=== PATIENT | male | born 1980 | race Caucasian/White ===

== ENCOUNTER 2016-11-11 11:45 | Inpatient (IN) | payer OTHER ==
--- NOTE | 2016-11-11 12:55 | EDPHY ---
H & P Stated Complaint: EPIGASTRIC "BURNING" PAIN SINCE 0430, W/ NAUSEA - Personal History Current Tetanus/Diphtheria Vaccine: Yes Current Tetanus Diphtheria and Acellular Pertussis (TDAP): Yes - Medical/Surgical History Hx Asthma: No Hx Chronic Respiratory Disease: No Hx Diabetes: No Hx Cardiac Disease: Yes Hx Renal Disease: No Hx Cirrhosis: No Hx Alcoholism: No Hx HIV/AIDS: No Hx Splenectomy or Spleen Trauma: No Other PMH: PMH- HTN. PSH- FAWN, R ACL REPAIR, UPPP - Social History Smoking Status: Former smoker Time Seen by Provider: 11/11/16 12:31 HPI/ROS: CHIEF COMPLAINT: Epigastric pain HISTORY OF PRESENT ILLNESS: The patient is a 35 year old male, presenting with epigastric pain that he woke up with this morning. He reports a burning sensation that comes and goes. It is non-radiating and lasts for about 45 minutes. He had associated nausea, without emesis. The patient had a cholecystectomy, he states his pain feels similar to previous gallstones. He denies chest pain or shortness of breath. He recently had cold like symptoms. Patient denies chest pain, shortness of breath, back pain, urinary complaints. He denies diarrhea. Cholecystectomy was several years ago. He does drink alcohol, but denies recent use. No history of pancreatitis. REVIEW OF SYSTEMS: Aside from elements discussed in the HPI, a comprehensive 10-point review of systems was reviewed and is negative. PAST MEDICAL HISTORY: PSH: Cholecystectomy. SOCIAL HISTORY: Alcohol use. Former smoker. VITAL SIGNS: Reviewed by me GENERAL: Well-developed, well-nourished, resting comfortably in no respiratory distress. HEENT: Atraumatic. Eyes: No icterus, no injection. Mouth: moist mucous membranes. No erythema or lesions. Neck: supple with no adenopathy. LUNGS: Clear to auscultation bilaterally, no wheezes, rhonchi or rales. CARDIAC: Regular rate and rhythm, no rubs, murmurs or gallops. ABDOMEN: Obese, nontender, nondistended, bowel sounds normal. BACK: No CVA tenderness. EXTREMITIES: No trauma. No edema. Range of motion is normal throughout. NEURO: Alert and oriented, grossly nonfocal. SKIN: Warm and dry, no rash. PSYCHIATRIC: Normal mentation, no agitation. Portions of this note were transcribed by a biomedical engineering supervisor. I personally performed a history, physical exam, medical decision making, and confirmed accuracy of information the transcribed note. (Molly Thrasher) Constitutional: Initial Vital Signs Temperature (C) 36.9 C 11/11/16 11:46 Heart Rate 79 11/11/16 11:46 Respiratory Rate 20 11/11/16 11:46 Blood Pressure 149/116 H 11/11/16 11:46 O2 Sat (%) 97 11/11/16 11:46 O2 Delivery Mode Room Air Allergies/Adverse Reactions: No Known Allergies Allergy (Verified 06/19/16 13:56) Home Medications: Medication Instructions Recorded Ascorbic Acid [Vitamin C 500 mg 500 mg PO DAILY 06/17/16 (*)] NIFEdipine ER [Adalat CC 30 mg (*)] 90 mg PO DAILY 06/17/16 Valsartan [Diovan (*)] 160 mg PO HS 06/17/16 Medical Decision Making - Diagnostics EKG Interpretation: The 12 lead EKG was interpreted by myself. See hard copy and/or "tracemaster" electronic copy for interpretation: Normal sinus rhythm. (Molly Thrasher) Imaging: Study: US of the abdomen. Indication: Abdominal pain. Results: Common bile duct is enlarged at 70 mm, this is however within the range for post cholecystectomy. No other abnormalities are noted. The study was read by the radiologist, Dr. Angelo. I viewed the images myself on the PACS system. ( Molly Thrasher) ED Course/Re-evaluation: 35-year-old male presents to the emergency department with episodic prep epigastric burning pain which is reminiscent of his prior cholecystectomy pain. Patient's laboratory evaluation reveals no elevated white blood cell count, however, patient has a bilirubin of 2 as well as elevated AST and ALTs. AST 323 , ALT 393. Alk-phos is normal. 3:00 p.m.: I spoke to ABISAI Alicia, who recommended MRCP. Patient's course was assumed by Dr. Saurav Werner at 4:00 p.m. pending the results of the MRCP. On re-evaluation patient remains pain-free. (Molly Thrasher) 1706; Patient signed over to me at shift change. Patient was pending an MRCP. The MRCP is back he has a 3 mm retained stone in the common bile duct. MRI of the MRCP. The results of the study are 3 mm retained stone in the CBD. I discussed the results of this study with the radiologist Dr. Ashok Angelo. 1720: Spoke with Dr. Ulysses Jennings, who would like to scope removed this retained stone tomorrow. Recommend admission the hospital NPO at midnight. Plan for scope tomorrow. At this time I have updated the patient he agrees with this plan. I also spoke with Dr. Yu who accepts the admission. ( Saurav Werner) Differential Diagnosis: Differential diagnosis for the patient's presenting complaint was considered including but not limited to bile duct stone, ascending cholangitis, cholecystitis, peptic ulcer disease, pancreatitis, and gastroenteritis. ( Molly Thrasher) - Data Points Laboratory Results: Laboratory Results 11/11/16 12:35 11/11/16 12:35 11/11/16 12:35 WBC 7.80 10^3/uL (3.80-9.50) RBC 5.38 10^6/uL (4.40-6.38) Hgb 17.3 g/dL (13.7-17.5) Hct 49.1 % (40.0-51.0) MCV 91.3 fL (81.5-99.8) MCH 32.2 pg (27.9-34.1) MCHC 35.2 g/dL (32.4-36.7) RDW 11.9 % (11.5-15.2) Plt Count 307 10^3/uL (150-400) MPV 9.6 fL (8.7-11.7) Neut % (Auto) 68.3 % (39.3-74.2) Lymph % (Auto) 22.1 % (15.0-45.0) [place] % (Auto) 7.6 % (4.5-13.0) Eos % (Auto) 0.8 % (0.6-7.6) Baso % (Auto) 0.8 % (0.3-1.7) Nucleat RBC Rel Count 0.0 % (0.0-0.2) Absolute Neuts (auto) 5.34 10^3/uL (1.70-6.50) Absolute Lymphs (auto) 1.72 10^3/uL (1.00-3.00) Absolute Monos (auto) 0.59 10^3/uL (0.30-0.80) Absolute Eos (auto) 0.06 10^3/uL (0.03-0.40) Absolute Basos (auto) 0.06 10^3/uL (0.02-0.10) Absolute Nucleated RBC 0.00 10^3/uL (0-0.01) Immature Gran % 0.4 % (0.0-1.1) Immature Gran # 0.03 10^3/uL (0.00-0.10) Sodium 139 mEq/L (134-144) Potassium 4.6 mEq/L (3.5-5.2) Chloride 102 mEq/L (97-110) Carbon Dioxide 24 mEq/l (22-31) Anion Gap 13 mEq/L (8-16) BUN 18 mg/dL (7-23) Creatinine 1.0 mg/dL (0.7-1.3) Estimated GFR > 60 Glucose 95 mg/dL (70-100) Calcium 9.6 mg/dL (8.5-10.4) Total Bilirubin 2.0 H mg/dL (0.1-1.4) Conjugated Bilirubin 0.5 mg/dL (0.0-0.5) Unconjugated Bilirubin 1.5 H mg/dL (0.0-1.1) AST 323 H IU/L (17-59) ALT 393 H IU/L (21-72) Alkaline Phosphatase 75 IU/L (38-126) Total Protein 7.6 g/dL (6.3-8.2) Albumin 4.6 g/dL (3.5-5.0) Lipase 78.0 IU/L (23-300) Medications Given: Discontinued Medications Pantoprazole Sodium (Protonix) 40 mg IVP EDNOW ONE Stop: 11/11/16 12:59 Last Admin: 11/11/16 13:35 Dose: 40 mg Departure - Departure Disposition: [facility] Acute Clinical Impression: Abdominal pain Qualifiers: Abdominal location: right upper quadrant Qualifier Code: (R10.11) Right upper quadrant pain Condition: Good Referrals: Harmeet Hennessy MD [Primary Care Provider] - As per Instructions Report Scribed for: Molly Thrasher Report Scribed by: Ayla Weber Date of Report: 11/11/16 Time of Report: 12:55
[2016-11-11] MEDS ORDERED: PANTOPRAZOLE SODIUM 40 MG VIAL IVP ONE (12:58)
[2016-11-11 13:05] LABS: % IMMATURE GRANULYOCYTES 0.4 % (0.0-1.1); ABSOLUTE IMMATURE GRANULOCYTES 0.03 10^3/uL (0.00-0.10); ADD DIFF? NO; ADD MORPH? NO; ADD SCAN? NO; ATYPICAL LYMPHOCYTE FLAG 20 (0-99); FRAGMENT RBC FLAG 0 (0-99); HEMATOCRIT 49.1 % (40.0-51.0); HEMOGLOBIN 17.3 g/dL (13.7-17.5); LEFT SHIFT FLG 0 (0-99); LIPEMIA HEMOLYSIS FLAG 90 (0-99); MEAN CELL HEMOGLOBIN 32.2 pg (27.9-34.1); MEAN CELL HEMOGLOBIN CONCENTR. 35.2 g/dL (32.4-36.7); MEAN CELL VOLUME 91.3 fL (81.5-99.8); MEAN PLATELET VOLUME 9.6 fL (8.7-11.7); PLATELET CLUMPS FLAG 0 (0-99); PLATELET COUNT 307 10^3/uL (150-400); RED BLOOD CELL COUNT 5.38 10^6/uL (4.40-6.38); RED CELL DISTRIBUTION WIDTH 11.9 % (11.5-15.2)
--- NOTE | 2016-11-11 13:12 | CPEKG ---
Heart Rate: 69 RR Interval: 870 QRSD Interval: 88 QT Interval: 396 QTC Interval: 425 QRS Kinsman: 25 T Wave Kinsman: 21 EKG Severity - ABNORMAL ECG - EKG Impression: sinus Electronically Signed By: Molly Thrasher 11-Nov-2016 16:00:40
[2016-11-11 13:19] LABS: ALANINE AMINOTRANSFERASE 393 IU/L (21-72); ALBUMIN 4.6 g/dL (3.5-5.0); ALKALINE PHOSPHATASE 75 IU/L (38-126); ANION GAP 13 mEq/L (8-16); ASPARTATE AMINOTRANSFERASE 323 IU/L (17-59); BILIRUBIN-CONJUGATED 0.5 mg/dL (0.0-0.5); BILIRUBIN-UNCONJUGATED 1.5 mg/dL (0.0-1.1); CALCIUM 9.6 mg/dL (8.5-10.4); CARBON DIOXIDE 24 mEq/l (22-31); CHLORIDE 102 mEq/L (97-110); GLOMERULAR FILTRATION RATE > 60; GLUCOSE 95 mg/dL (70-100); POTASSIUM 4.6 mEq/L (3.5-5.2); SODIUM 139 mEq/L (134-144); TOTAL PROTEIN 7.6 g/dL (6.3-8.2)
--- NOTE | 2016-11-11 14:17 | US ---
Right Upper Quadrant Sonogram (Limited Abdominal) Clinical Indications: Abdominal pain. Prior cholecystectomy. Comparison February 18, 2014. Findings: Liver is mildly enlarged at 20 cm and slightly increased in echogenicity. This is relative ly stable from the prior examination. Liver contour is normal. The main portal vein is patent. The ga llbladder is absent. The common bile duct varies between 7 and 8 mm. There is no definitive evidence of choledocholithiasis. Limited examination of the pancreas is unremarkable. There is a moderate amou nt of bowel gas. Right kidney measures 5.7 x 6.7 x 10.3 cm with a 1.8-cm cortex. The aorta is unremarkable and measures between 2.2 and 2.3 cm. Impression: 1. No definitive evidence of choledocholithiasis. Common bile ducts size is indeterminate in a postch olecystectomy patient. If high clinical suspicion persists, M.R.C.P. may be helpful. 2. Mild fatty infiltration of the liver. Critical results discussed by Dr. Ashok Angelo with Dr. Molly Thrasher on November 11, 2016, at 1415 h ours.
--- NOTE | 2016-11-11 17:17 | MR ---
MRI Abdomen, Without Contrast, and MRCP Indication: Abdominal pain and elevated liver function tests. Technique: Axial T1 dual echo, axial and coronal T2 FIESTA, axial diffusion-weighted, and thin and t hick slab heavily T2-weighted axial and coronal oblique MR cholangiopancreatography. Comparison: Ultrasound November 11, 2016. Findings: In the lower intrapancreatic portion of the common bile duct is a 3-mm intraluminal fillin g defect consistent with choledocholithiasis. There is no to minimal upstream dilation and no intrah epatic biliary ductal dilatation. There has been a prior cholecystectomy. Mild diffuse dropout of the liver is known on the des-xh-toidt imaging consistent with fatty liver. The spleen, kidneys, adrenals, and pancreas are unremarkable. Impressions 1. Choledocholithiasis, with a 3-mm stone in the lower intrapancreatic common bile duct. Minimal up stream dilation is present. 2. Fatty infiltration of the liver. Critical results discussed by Dr. Angelo with Dr. Werner on November 11, 2016 at 1708 hours.
[2016-11-11] MEDS ORDERED: PROMETHAZINE HCL 25 MG/ML INJ IVP PRN (20:03)
[2016-11-11] MEDS ORDERED: 1/2 NS 1,000 ML IV SCH (20:30)
--- NOTE | 2016-11-11 20:39 | GHP ---
[f rep st] HISTORY AND PHYSICAL DATE OF ADMISSION: 11/11/2016 CHIEF COMPLAINT: Epigastric pain. HISTORY: The patient is a 35-year-old male who had a little bit of epigastric pain yesterday, but he had a snack, and it seem to go away, and he thought it was indigestion. Then suddenly at 4 o'clock this morning he had acute onset of severe epigastric pain. He said it felt hot like fire, occasional ly radiating to his back. It was very similar to his previous gallstone pain prior to his cholecyste ctomy. He tried to eat something again this morning hoping it would improve the pain, but it only ma de it worse. PAST MEDICAL HISTORY: 1. Morbid obesity, BMI 44. 2. Hypertension. 3. Obstructive sleep apnea, status post UPPP, CPAP intolerant. PAST SURGICAL HISTORY: Cholecystectomy approximately 3 years ago. MEDICATIONS: Please see computer record for full detailed list. ALLERGIES: No known drug allergies. SOCIAL HISTORY: No smoking. He drinks alcohol 3 times a week. He works in [employer], live s with roommates. REVIEW OF SYSTEMS: Complete review of systems obtained. Review of systems is negative on constituti onal, HEENT, GI, pulmonary, cardiovascular, , hematologic, musculoskeletal, endocrine, psych except for positives and pertinent negatives as noted in HPI. FAMILY HISTORY: His father when he was young in a farm accident. His mom is alive, but he is n ot currently on speaking terms with her. As far as he knows, she is healthy. PHYSICAL EXAMINATION: GENERAL: Well-developed, well-nourished male, in no acute distress. VITAL SI GNS: Temperature 36.8, pulse 70, blood pressure 146/106, and 95% on room air. EYES: Normal conjunc tivae. Pupils equal, round, reactive to light. ENT: Normal ears and nose. Hearing intact. Normal teeth. Oropharynx moist. NECK: Trachea midline. No thyromegaly. CHEST: Normal respiratory effo rt. LUNGS: Clear to auscultation bilaterally. CARDIOVASCULAR: Regular rate and rhythm. No murmur . No lower extremity edema. ABDOMEN: Soft, nontender. No hepatosplenomegaly. SKIN: Warm, dry, a nd intact without rash. MUSCULOSKELETAL: No cyanosis or clubbing. Strength 5/5 in upper and lower extremities. NEUROLOGIC: Cranial nerves intact. Normal sensation to light touch. PSYCH: Alert an d oriented x3. Normal mood and affect. Normal judgment and insight. Normal memory. LABS: White count 7.8, hematocrit 49, platelets 307. Sodium 139, potassium 4.6, chloride 102, bicar b 24, BUN 18, creatinine 1.0, glucose 95, total bilirubin 2.0, conjugated bilirubin 1.5. AST 323, AL T 393. EKG viewed by me: My personal interpretation is normal sinus rhythm. No ST or T-wave change s. MRCP shows choledocholithiasis, 3 mm stone in the common bile duct causing obstruction. This ramonita e was discussed with emergency room provider, Dr. Werner. ASSESSMENT/PLAN: 1. Retained common bile duct stone. He previously underwent cholecystectomy approximately 3 years a go. Gastroenterology has been called. Plan is for ERCP in the morning. Will trend LFTs. 2. Morbid obesity. BMI is 44. Weight loss should be advised. 3. Obstructive sleep apnea, status post uvulopalatopharyngoplasty. He is CPAP intolerant. 4. Hypertension. Continue valsartan and nifedipine. ADMISSION STATUS: Will admit to observation as he can hopefully go home tomorrow after procedure. DVT PROPHYLAXIS: He is high risk. Will place him on SCDs only given procedure in the morning. CODE STATUS: Full. /[id number]/MODL
[2016-11-11] MEDS: VALSARTAN 160 MG TAB PO SCH (20:42)
[2016-11-12 06:33] LABS: BILIRUBIN,TOTAL 4.9 mg/dL (0.1-1.4); BILIRUBIN-CONJUGATED 1.6 mg/dL (0.0-0.5); BILIRUBIN-UNCONJUGATED 3.3 mg/dL (0.0-1.1); TOTAL PROTEIN 6.7 g/dL (6.3-8.2)
[2016-11-12] MEDS: NIFEdipine ER 30 MG TAB PO SCH (08:54)
--- NOTE | 2016-11-12 11:08 | HOSPPROG ---
Hospitalist Progress Note Assessment/Plan: patient is a 35-year-old male who came to the emergency room with severe epigastric pain. It was similar to the pain he had prior to getting his gallbladder out. Today is my 1st encounter with the patient. Chart reviewed. #. Retained common bile duct stone * ERCP today * LFTs are elevated due to this #. morbid obesity with a BMI of 44 #. obstructive sleep apnea * status post surgery * cpap intolerant #. hypertension * home meds continued #. plan. * Hopefully discharged today after the ERCP. Subjective: Patient is no longer having epigastric pain. Objective: Vital Signs Temp Pulse Resp BP Pulse Ox 37.0 C 72 16 123/75 H 94 11/12/16 07:18 11/12/16 07:18 11/12/16 07:18 11/12/16 08:54 11/12/16 07:18 11/11/16 11/12/16 11/13/16 05:59 05:59 05:59 Intake Total 1000 Output Total 400 Balance 600 - Physical Exam Constitutional: appears nourished, not in pain, obese Eyes: PERRL Ears, Nose, Mouth, Throat: hearing normal Cardiovascular: regular rate and rhythym Respiratory: no respiratory distress Gastrointestinal: normoactive bowel sounds, other ( Large and round) Skin: warm, normal color Musculoskeletal: no muscle tenderness Neurologic: AAOx3 Psychiatric: interacting appropriately, not anxious ICD10 Worksheet Patient Problems: Problems Problem Status Diagnosed Abdominal pain Acute
[2016-11-12] MEDS ORDERED: PROPOFOL 200 MG/20 ML VIAL ONE (11:37)
[2016-11-12] MEDS ORDERED: fentaNYL 100 MCG/2 ML INJ ONE ×2 (11:37→13:04)
[2016-11-12] MEDS ORDERED: ROCURONIUM 50 MG/5 ML VIAL ONE (11:38)
[2016-11-12] MEDS ORDERED: LIDOCAINE 2% 100 MG/5 ML SYR IVP ONE (11:38)
[2016-11-12] MEDS ORDERED: MIDAZOLAM 2 MG/2 ML VIAL ONE (11:38)
[2016-11-12] MEDS ORDERED: DEXAMETHASONE 4 MG/ML VIAL ONE ×2 (11:38)
[2016-11-12] MEDS ORDERED: LABETALOL HCL 5 MG/ML 20 ML MDV ONE (11:52)
[2016-11-12] MEDS ORDERED: SUGAMMADEX SODIUM 200 MG/2 ML VIAL IVP ONE (12:12)
[2016-11-12] MEDS ORDERED: hydrALAZINE 20 MG/ML VIAL ONE (12:16)
--- NOTE | 2016-11-12 12:34 | GCON ---
[f rep st] CONSULTATION DATE OF CONSULTATION: 11/12/2016 REASON FOR CONSULTATION: A 35-year-old male with abnormal liver function tests and abnormal MRCP. HISTORY OF PRESENT ILLNESS: This is a very pleasant, 35-year-old gentleman who had a cholecystectomy about 3 years ago. He has had intermittent symptoms of epigastric right upper quadrant pain since t hat time. He has had several recent episodes. He presented to the emergency department with some ab normal liver function tests. MRCP showed a filling defect in the distal common bile duct consistent with choledocholithiasis. He does have a history of hypertension, but no other significant medical p roblems. Asked to see the patient for further evaluation. PAST MEDICAL HISTORY: Remarkable for hypertension. PAST SURGICAL HISTORY: Remarkable for cholecystectomy. MEDICATIONS: Medications prior to admission included nifedipine and Diovan. ALLERGIES: No known drug allergies. FAMILY HISTORY: Negative as it pertains to the chief complaint. SOCIAL HISTORY: He is a nonsmoker, does drink some alcohol. REVIEW OF SYSTEMS: Negative x10 systems, other than mentioned in the HPI. PHYSICAL EXAMINATION: VITAL SIGNS: Blood pressure 148/97, respiratory rate 16, pulse rate 76, tempe rature 36.9, pulse oximetry 91. GENERAL APPEARANCE: Very pleasant gentleman in no acute distress. HEENT: Normocephalic, atraumatic. EOMI. Mucous membranes moist. NECK: Supple, with no cervical a denopathy. LUNGS: Clear. CARDIAC: Normal S1, S2 without murmur. ABDOMEN: Benign. Normal bowel sounds. No palpable splenomegaly. EXTREMITIES: No clubbing, cyanosis, or edema. SKIN: Warm, dry, intact. NEUROLOGIC: Nonfocal. PSYCHIATRIC: Alert and oriented x3. Normal affect. LABORATORY DATA: Total bilirubin 4.9, AST 410, ALT 646. Hemoglobin 17.3, hematocrit 49.1. Ultrasound showed no definite evidence of choledocholithiasis. Common bile duct was somewhat promine nt at 7-8 mm. Evidence of mild fatty infiltration. MRI showed choledocholithiasis with a 3 mm stone in the lower intrapancreatic common bile duct. IMPRESSION: A 35-year-old gentleman with prior cholecystectomy with abnormal liver function tests co nsistent with biliary obstruction and MRCP with filling defect consistent with choledocholithiasis. RECOMMENDATIONS: Proceed with ERCP for sphincterotomy and stone extraction. Will follow with you. /[id number]/MODL
[2016-11-12] MEDS ORDERED: ONDANSETRON 4 MG/2 ML VIAL ONE (13:04)
--- NOTE | 2016-11-12 13:47 | DX ---
Fluoroscopy for ERCP 1315 hours. History: Choledocholithiasis suspected distal common bile duct on prior MRCP study. Findings: Fluoroscopy time: 2.42 minutes, Estimated dose: 73.41 mGy Single digital image saved demonstrates cannulation of the common bile duct with faint contrast. Ther e is suspicion of a filling defect in the distal common bile duct that could correlate with the filli ng defect seen on prior MRCP exam. There is no significant dilatation. Impression: 1. Fluoroscopy provided for ERCP procedure.
--- NOTE | 2016-11-12 14:41 | GPN ---
[f rep st] PROCEDURE NOTE DATE OF PROCEDURE: 11/12/2016 PROCEDURE: Endoscopic retrograde cholangiopancreatogram and sphincterotomy with stone extraction. PREOPERATIVE DIAGNOSIS: Choledocholithiasis. POSTOPERATIVE DIAGNOSIS: Choledocholithiasis, status post sphincterotomy and stone extraction. INDICATIONS: A 35-year-old gentleman with prior history of gallstones, status post cholecystectomy. Patient with intermittent right upper quadrant pain and epigastric pain with abnormal liver function tests. He had a prominent bile duct on ultrasound and had stones seen on MRCP. He presents today f or ERCP and sphincterotomy with stone extraction. PHYSICAL EXAMINATION: VITAL SIGNS: Stable. LUNGS: Clear. CARDIAC: Normal S1, S2 without murmur. PERMIT: The procedure was explained to the patient. Risks and benefits of the procedure outlined to the patient. Informed consent was obtained. ANESTHESIA: General. DESCRIPTION OF PROCEDURE: The patient was placed in the prone position. The TGF-180 videoscope was passed through the oropharynx under direct visualization into the stomach, into the pylorus and the 1 st and 2nd portion of the duodenum. The endoscope was then shortened. The papillary orifice was santa ntified. The Ultratome sphincterotome was placed in the papillary orifice. The 035 Jagwire was then manipulated into the duct. It was manipulated initially into the pancreatic duct. The wire was lef t in place. A second wire was then utilized. A 035 stiff guidewire was then introduced through the sphincterotome and introduced into the common bile duct. The Jagwire in the pancreatic duct was then removed. Cholangiogram was obtained. There were small filling defects in the distal common bile du ct. There was evidence of surgical clips consistent with the patient's cholecystectomy. A sphincter otomy was performed. A sphincterotome was then withdrawn and a 9-12 mm balloon was then passed over the wire into the common hepatic duct. The balloon was inflated to 12 mm. The duct was dredged rachel ral times with removal of stone and stone debris. There was good bile flow. The balloon and the end oscope were then withdrawn. The patient tolerated the procedure well. IMPRESSION: Choledocholithiasis, status post endoscopic retrograde cholangiopancreatogram and sphinc terotomy with stone extraction. RECOMMENDATIONS: When awake and alert, may have clear liquid diet. Follow-up LFTs. Will follow cli nically. Thank you for letting me participate in the care of this patient. /[id number]/MODL
[2016-11-12] MEDS: ONDANSETRON 4 MG/2 ML VIAL IVP PRN (15:30)
[2016-11-12] MEDS ORDERED: NALOXONE HCL 0.4 MG/ML INJ IVP PRN (16:08)
[2016-11-12] MEDS: HYDROmorphONE/DILAUDID 6 MG/30 ML PCA IV PRN (16:31)
[2016-11-12] MEDS: NS 1,000 ML IV SCH ×2 (16:38→23:26)
[2016-11-12] MEDS: VALSARTAN 160 MG TAB PO SCH (21:44)
[2016-11-12] MEDS: oxyCODONE IR 5 MG TAB PO PRN (21:45)
[2016-11-13] MEDS: HYDROmorphONE/DILAUDID 6 MG/30 ML PCA IV PRN ×3 (00:07→23:34)
[2016-11-13 06:07] LABS: ALBUMIN 3.9 g/dL (3.5-5.0); ALKALINE PHOSPHATASE 112 IU/L (38-126); ANION GAP 16 mEq/L (8-16); BILIRUBIN,TOTAL 9.2 mg/dL (0.1-1.4); BILIRUBIN-CONJUGATED 6.7 mg/dL (0.0-0.5); BILIRUBIN-UNCONJUGATED 2.5 mg/dL (0.0-1.1); CALCIUM 8.6 mg/dL (8.5-10.4); CARBON DIOXIDE 20 mEq/l (22-31); CHLORIDE 104 mEq/L (97-110); CREATININE 2.1 mg/dL (0.7-1.3); GLOMERULAR FILTRATION RATE 36; GLUCOSE 130 mg/dL (70-100); POTASSIUM 4.9 mEq/L (3.5-5.2); SODIUM 140 mEq/L (134-144); TOTAL PROTEIN 6.6 g/dL (6.3-8.2)
[2016-11-13 06:19] LABS: ALANINE AMINOTRANSFERASE 1413 IU/L (21-72); ASPARTATE AMINOTRANSFERASE 852 IU/L (17-59)
[2016-11-13] MEDS: NS 1,000 ML IV SCH (06:41)
--- NOTE | 2016-11-13 09:02 | HOSPPROG ---
Hospitalist Progress Note Assessment/Plan: patient is a 35-year-old male who came to the emergency room with severe epigastric pain. It was similar to the pain he had prior to getting his gallbladder out. Reviewed his care with Gastroenterology. #. Choledocholithiasis * status post ERCP with stone extraction #. acute pancreatitis after procedure * supportive care /increase IV fluids continue NPO status * having significant pain / placed on Dilaudid [employer]IAN #. hyperbilirubinemia as well as elevated LFTs * most likely an acute reaction to the procedure * will recheck labs in the morning #. acute renal failure * will continue IV fluids * due to hypotension/ pre-renal * will recheck labs in a.m. #. tachycardia * due to acute illness * monitor for any s/sx of alcohol withdrawal #. hypotension * fluids increased to 200 mils an hour * tx to step down #. hx of alcohol binging * has never had withdrawals/ mainly goes out socially a few times a week #. acute hypoxemia * on 6 L of oxygen * get portable chest xray * suspect he will develop pleural effusions #. morbid obesity with a BMI of 44 #. obstructive sleep apnea * status post surgery * cpap intolerant #. hypertension * currently hypotensive/ place parameters on his home medications #. plan. * will transfer to step down for closer monitoring Subjective: Carl is thirsty, feels his pain is better this morning. Objective: Vital Signs Temp Pulse Resp BP Pulse Ox 37.3 C 115 H 20 98/66 L 91 L 11/13/16 07:14 11/13/16 07:14 11/13/16 07:14 11/13/16 07:14 11/13/16 07:14 Laboratory Results 11/13/16 05:05 11/12/16 11/13/16 11/14/16 05:59 05:59 05:59 Intake Total 980 1000 Output Total 1325 Balance -345 1000 - Physical Exam Constitutional: obese, uncomfortable Eyes: PERRL Ears, Nose, Mouth, Throat: hearing normal Cardiovascular: regular rate and rhythym, tachycardia Respiratory: no respiratory distress, reduced air movement (mid lobes down) Gastrointestinal: other (large and round/ tenderness with palp to epigastric and ruq area) Skin: warm, other (flushed) Musculoskeletal: no muscle tenderness Neurologic: AAOx3 Psychiatric: interacting appropriately, not anxious, not encephalopathic ICD10 Worksheet Patient Problems: Problems Problem Status Diagnosed Abdominal pain Acute
[2016-11-13] MEDS: NIFEdipine ER 30 MG TAB PO SCH (09:04)
--- NOTE | 2016-11-13 09:09 | SOAPPROG ---
SOAP Progress Note Assessment/Plan: Assessment: Choledocholithiasis, s/p ERCP with sphincterotomy and stone extraction. Pain post ERCP c/w post ERCP pancreatitis. Plan: 1. Continue NPO until pain resolved 2. Continue on IV fluids, NS for hydration 3. 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 LFTs, CMP and lipase in AM 11/13/16 09:06 Subjective: CC: Abnormal LFT's with biliary obstruction Patient with significant abdominal pain post ERCP Pain is better with pain control Objective: Vital Signs Temp Pulse Resp BP Pulse Ox 37.3 C 115 H 20 98/66 L 91 L 11/13/16 07:14 11/13/16 07:14 11/13/16 07:14 11/13/16 09:04 11/13/16 07:14 Laboratory Results 11/13/16 05:05 11/12/16 11/13/16 11/14/16 05:59 05:59 05:59 Intake Total 980 1000 Output Total 1325 Balance -345 1000 Generic Name Dose Route Start Last Admin Trade Name Freq PRN Reason Stop Dose Admin Acetaminophen 650 mg 11/11/16 20:03 Tylenol PO 05/10/17 20:02 Q4 PRN Pain, Mild/Fever, Can Take PO Hydromorphone HCl 0 mg 11/12/16 16:08 11/13/16 00:07 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 IV 11/22/16 16:07 6 mg PRN PRN Administration Pain, Severe Unable to Take PO Protocol Sodium Chloride 1,000 mls @ 200 mls/hr 11/12/16 16:15 11/13/16 06:41 Ns IV 05/11/17 16:14 1,000 mls CONT CHRIS Administration Naloxone HCl 0 mg 11/12/16 16:08 Narcan IVP 05/11/17 16:07 PRN PRN Respiratory depression Protocol Nifedipine 90 mg 11/12/16 09:00 11/13/16 09:04 Adalat Cc PO 05/11/17 08:59 Not Given DAILY CHRIS Ondansetron HCl 4 mg 11/11/16 20:03 11/12/16 15:30 Zofran IVP 05/10/17 20:02 4 mg Q4 PRN Administration Nausea/Vomiting, Can't Take PO Oxycodone HCl 5 - 10 mg 11/11/16 20:03 11/12/16 21:45 Oxycodone Ir PO 11/21/16 20:02 10 mg Q4 PRN Administration Pain, Severe Able to Take PO Promethazine HCl 6.25 mg 11/11/16 20:03 11/12/16 15:38 Phenergan Injection IVP 05/10/17 20:02 6.25 mg Q6 PRN Administration Nausea/Vomiting, Can't Take PO Valsartan 160 mg 11/11/16 21:00 11/12/16 21:44 Diovan PO 05/10/17 20:59 160 mg HS CHRIS Administration Discontinued Medications Generic Name Dose Route Start Last Admin Trade Name Freq PRN Reason Stop Dose Admin Dexamethasone Confirm 11/12/16 11:38 Decadron Injection Administered 11/12/16 11:39 Dose 4 mg .ROUTE .STK-MED ONE Dexamethasone Confirm 11/12/16 11:38 Decadron Injection Administered 11/12/16 11:39 Dose 4 mg .ROUTE .STK-MED ONE Fentanyl Confirm 11/12/16 11:37 Sublimaze Administered 11/12/16 11:38 Dose 100 mcg .ROUTE .STK-MED ONE Fentanyl Confirm 11/12/16 13:04 Sublimaze Administered 11/12/16 13:05 Dose 100 mcg .ROUTE .STK-MED ONE Hydralazine HCl Confirm 11/12/16 12:16 Apresoline Administered 11/12/16 12:17 Dose 20 mg .ROUTE .STK-MED ONE Sodium Chloride 1,000 mls @ 75 mls/hr 11/11/16 20:30 11/11/16 22:19 1/2 Ns IV 05/10/17 20:29 1,000 mls CONT CHRIS Administration Labetalol HCl Confirm 11/12/16 11:52 Trandate Injection Administered 11/12/16 11:53 Dose 100 mg .ROUTE .STK-MED ONE Lidocaine HCl Confirm 11/12/16 11:38 Lidocaine Hcl 2% Administered 11/12/16 11:39 Dose 100 mg IVP .STK-MED ONE Midazolam HCl Confirm 11/12/16 11:38 Versed Administered 11/12/16 11:39 Dose 2 mg .ROUTE .STK-MED ONE Morphine Sulfate 2 - 4 mg 11/11/16 20:03 11/13/16 06:41 Morphine IVP 11/21/16 20:02 2 mg Q2 PRN Administration Pain, Severe Unable to Take PO Ondansetron HCl Confirm 11/12/16 13:04 Zofran Administered 11/12/16 13:05 Dose 4 mg .ROUTE .STK-MED ONE Pantoprazole Sodium 40 mg 11/11/16 12:58 11/11/16 13:35 Protonix IVP 11/11/16 12:59 40 mg EDNOW ONE Administration Propofol Confirm 11/12/16 11:37 Diprivan Administered 11/12/16 11:38 Dose 200 mg .ROUTE .STK-MED ONE Rocuronium [place] Confirm 11/12/16 11:38 Zemuron Administered 11/12/16 11:39 Dose 50 mg .ROUTE .STK-MED ONE Sugammadex Sodium Confirm 11/12/16 12:12 Bridion Administered 11/12/16 12:13 Dose 200 mg IVP .STK-MED ONE Physical Exam - Physical Exam General Appearance: alert, mild distress Respiratory: lungs clear Cardiac/Chest: regular rate, rhythm Abdomen: other (hypoactive BS, slightly distended and tender to palpation) Skin: normal color, warm/dry Neuro/Psych: alert, normal mood/affect, oriented x 3 ICD10 Worksheet Patient Problems: Problems Problem Status Diagnosed Abdominal pain Acute
[2016-11-13] MEDS: LORazepam 2 MG/ML INJ IVP PRN (10:34)
[2016-11-13] MEDS ORDERED: NOREPINEPHRINE BITARTRATE 4 MG in D5W 500 ML IV SCH (18:00)
--- NOTE | 2016-11-13 18:53 | IR ---
PICC Clinical Indication: Sepsis. Procedures Performed: 1. Ultrasound-guided puncture of the right basilic vein. 2. Microwire was passed under fluoroscopic guidance and serially exchanged for the peel-away. 3. Measuring wire was used to estimate the length of the PICC, and it was trimmed at the 46 cm estiven. 4. The PICC was advanced to the SVC/right atrial junction over the measuring wire. The measuring wi re and dilator were removed. EBL: Less than 10 mL. Specimens: None. Fluoroscopy Time: 0.2 minutes. 10.8 mGy. Operative Report: After obtaining informed consent and performing a formal timeout, the right arm wa s prepped and draped. 1% lidocaine local field block was achieved. The basilic vein was punctured u nder direct ultrasound visualization after deeming the vessel patent. Microwire was passed under flu oroscopic guidance and serially exchanged for the peel-away dilator. The measuring wire was used to estimate the length of the PICC. The PICC was trimmed to 46 cm. The PICC was advanced over the chastity uring wire to the SVC/right atrial junction. The measuring wire and peel-away were removed. The PIC C was secured and dressed with sterile gauze dressing. Plan: Dual-lumen lumen PICC ready for use. Informed Consent: Obtained from the patient. Risks and benefits were discussed. Crosscutting Measure: Patient's current list of medications including all known prescriptions, over- the-counters, herbals, and vitamin/mineral/dietary supplements are reviewed. Medications' name, dosa ge, frequency, and route of administration are confirmed. Prophylactic Antibiotic: Cefazolin was not ordered and administered for antimicrobial prophylaxis be cause it was not medically necessary. VTE Prophylaxis: There is not an order for VTE prophylaxis to be given within 24 hours of the proced ure end time. VTE prophylaxis was not given because it was not medically necessary. Technique: Patient is placed in supine position. A "timeout" procedure was performed to identify th e correct patient and the correct procedure. 1% Xylocaine was used for local anesthetic. All elemen ts of maximal sterile barrier technique, including cap, mask, sterile gown, sterile gloves, large basilio rile sheet, hand hygiene, and 2% chlorhexidine for cutaneous antisepsis, followed. Ultrasound evaluation of potential access site was performed. After successfully identifying a paten t vessel, ultrasound guidance was used to puncture the vein. A permanent recording was created for t he patient's record. When ultrasound is used, sterile gel and probe covers are used. Ashok Angelo M.D., M.H.A. Vascular and Interventional Radiology [facility]
[2016-11-13 19:04] LABS: % IMMATURE GRANULYOCYTES 0.7 % (0.0-1.1); ABSOLUTE IMMATURE GRANULOCYTES 0.16 10^3/uL (0.00-0.10); ADD DIFF? NO; ADD MORPH? NO; ADD SCAN? NO; ATYPICAL LYMPHOCYTE FLAG 0 (0-99); FRAGMENT RBC FLAG 0 (0-99); HEMATOCRIT 46.2 % (40.0-51.0); HEMOGLOBIN 15.5 g/dL (13.7-17.5); LEFT SHIFT FLG 30 (0-99); LIPEMIA HEMOLYSIS FLAG 80 (0-99); MEAN CELL HEMOGLOBIN 32.9 pg (27.9-34.1); MEAN CELL HEMOGLOBIN CONCENTR. 33.5 g/dL (32.4-36.7); MEAN CELL VOLUME 98.1 fL (81.5-99.8); MEAN PLATELET VOLUME 9.6 fL (8.7-11.7); PLATELET CLUMPS FLAG 0 (0-99); PLATELET COUNT 227 10^3/uL (150-400); RED BLOOD CELL COUNT 4.71 10^6/uL (4.40-6.38); RED CELL DISTRIBUTION WIDTH 12.9 % (11.5-15.2)
--- NOTE | 2016-11-13 19:07 | DX ---
Single Frontal Chest November 13, 2016 at 1809 hours Clinical Indication: Increasing O2 requirements. Findings: AP portable upright chest shows bilateral hypoventilation. The heart size is upper limits of normal. No definite interstitial edema. Impression: Hypoventilation, with basilar atelectatic changes.
[2016-11-13 19:25] LABS: ANION GAP 9 mEq/L (8-16); CARBON DIOXIDE 16 mEq/l (22-31); CHLORIDE 116 mEq/L (97-110); CREATININE 3.6 mg/dL (0.7-1.3); GLOMERULAR FILTRATION RATE 19; GLUCOSE 86 mg/dL (70-100); SODIUM 141 mEq/L (134-144)
[2016-11-13] MEDS ORDERED: NS 1,000 ML IV ONE ×2 (19:54→19:57)
[2016-11-13] MEDS ORDERED: PROTOCOL CALCIUM 1 DOSE IV PRN (19:55)
[2016-11-13] MEDS ORDERED: PROTOCOL MAGNESIUM 1 DOSE IV PRN (19:55)
[2016-11-13] MEDS ORDERED: CALCIUM GLUCONATE 50 ML IV ONE (19:55)
[2016-11-13] MEDS ORDERED: HYDROmorphONE/DILAUDID 2 MG/ML SYR IVP ONE ×2 (20:00→23:00)
[2016-11-13] MEDS ORDERED: HYDROmorphONE/DILAUDID 1 MG/ML SYR ONE (20:01)
--- NOTE | 2016-11-13 20:13 | CPEKG ---
Heart Rate: 141 RR Interval: 426 P-R Interval: 148 QRSD Interval: 76 QT Interval: 264 QTC Interval: 404 P [place]: 48 QRS [place]: 47 T Wave [place]: -6 EKG Severity - BORDERLINE ECG - EKG Impression: SINUS TACHYCARDIA EKG Impression: BORDERLINE R WAVE PROGRESSION, ANTERIOR LEADS EKG Impression: BORDERLINE T ABNORMALITIES, INFERIOR LEADS Electronically Signed By: Shira Massey 14-Nov-2016 07:22:00
[2016-11-13 20:26] LABS: IONIZED CALCIUM 0.99 MMOL/L (1.12-1.30)
--- NOTE | 2016-11-13 21:37 | CT ---
CT Scan of the Abdomen and Pelvis (Without IV Contrast) Clinical Indications: Increasing abdominal pain. Technique: No intravenous contrast was given. Multidetector helical CT imaging is performed from th e diaphragm to the symphysis pubis. Dose reduction techniques were utilized. Comparison: MR abdomen November 11, 2016. Findings: A moderate amount of basilar atelectatic change is present bilaterally. The liver shows d iffuse fatty infiltration. Surgical clips are noted in the gallbladder fossa. There is trace air in the common bile duct likely related to stone removal. There is trace free fluid around the edge of the liver. There is moderate fat stranding around the pancreas extending down the peritoneum into th e pelvis. There is trace free fluid in the pelvis. Small bowel and colon are unremarkable. The spl een, adrenals, and kidneys are unremarkable. The bones are grossly unremarkable. Impressions 1. Pancreatitis, with interval significant increase in inflammatory changes around the pancreas and extending down the pericolic gutters bilaterally, worse on the right than on the left. Trace free fl uid noted in the pelvis. There is no evidence of residual stone, and a small amount of air is noted in the common bile duct related to ERCP. 2. Fatty infiltration of the liver. 3. Moderate bibasilar atelectatic change versus early consolidation. Results relayed by Dr. Angelo to Dr. Camargo on November 13, 2016 at 2124 hours.
[2016-11-13] MEDS ORDERED: MAGNESIUM SULF 2 GM/WATER 50 ML IV ONE (21:47)
[2016-11-13] MEDS: MEROPENEM 1 GM in NS 100 ML IV SCH (22:01)
[2016-11-13] MEDS ORDERED: ACETAMINOPHEN 650 MG SUPP PR PRN (22:08)
--- NOTE | 2016-11-13 22:11 | DX ---
AP Semiupright Portable Chest November 13, 2016 Clinical Indication: Hypoxemia. Comparison: November 13, 2016 at 1809 hours. Findings: The lungs remain significantly hypoventilated. There is bibasilar atelectatic change or c onsolidation. This is slightly worse than the prior examination. Interstitial markings are prominen t, however, lung volumes are significantly low. The PIC line terminates at the SVC-right atrial junc tion. Impressions 1. Worsening hypoventilation. New PIC line in good position. 2. Persistent bibasilar atelectatic changes or consolidation.
[2016-11-14] MEDS: NS 1,000 ML IV SCH (03:19)
[2016-11-14 05:33] LABS: IONIZED CALCIUM 0.87 MMOL/L (1.12-1.30)
[2016-11-14] MEDS: MEROPENEM 1 GM in NS 100 ML IV SCH ×3 (06:12→20:21)
[2016-11-14] MEDS ORDERED: CALCIUM GLUCONATE 2 GM in D5W 50 ML IV ONE (06:19)
[2016-11-14] MEDS: VALSARTAN 160 MG TAB PO SCH (07:26)
[2016-11-14] MEDS ORDERED: CALCIUM GLUCONATE 50 ML IV ONE ×3 (07:30→17:45)
[2016-11-14] MEDS: NIFEdipine ER 30 MG TAB PO SCH (07:39)
[2016-11-14 08:28] LABS: % IMMATURE GRANULYOCYTES 0.6 % (0.0-1.1); ABSOLUTE IMMATURE GRANULOCYTES 0.14 10^3/uL (0.00-0.10); ADD DIFF? NO; ADD MORPH? NO; ADD SCAN? NO; ATYPICAL LYMPHOCYTE FLAG 0 (0-99); FRAGMENT RBC FLAG 0 (0-99); HEMATOCRIT 46.2 % (40.0-51.0); HEMOGLOBIN 15.4 g/dL (13.7-17.5); LEFT SHIFT FLG 50 (0-99); LIPEMIA HEMOLYSIS FLAG 80 (0-99); MEAN CELL HEMOGLOBIN 33.1 pg (27.9-34.1); MEAN CELL HEMOGLOBIN CONCENTR. 33.3 g/dL (32.4-36.7); MEAN CELL VOLUME 99.4 fL (81.5-99.8); MEAN PLATELET VOLUME 9.7 fL (8.7-11.7); PLATELET CLUMPS FLAG 10 (0-99); PLATELET COUNT 183 10^3/uL (150-400); RED BLOOD CELL COUNT 4.65 10^6/uL (4.40-6.38); RED CELL DISTRIBUTION WIDTH 13.6 % (11.5-15.2)
[2016-11-14 08:41] LABS: ALANINE AMINOTRANSFERASE 549 IU/L (21-72); ALBUMIN 2.7 g/dL (3.5-5.0); ALKALINE PHOSPHATASE 73 IU/L (38-126); ANION GAP 11 mEq/L (8-16); ASPARTATE AMINOTRANSFERASE 147 IU/L (17-59); BILIRUBIN,TOTAL 3.8 mg/dL (0.1-1.4); CARBON DIOXIDE 17 mEq/l (22-31); CHLORIDE 112 mEq/L (97-110); CREATININE 6.8 mg/dL (0.7-1.3); GLOMERULAR FILTRATION RATE 9; GLUCOSE 115 mg/dL (70-100); POTASSIUM 6.1 mEq/L (3.5-5.2); SODIUM 140 mEq/L (134-144); TOTAL PROTEIN 5.1 g/dL (6.3-8.2)
--- NOTE | 2016-11-14 08:44 | SOAPPROG ---
SOAP Progress Note Assessment/Plan: Assessment: Choledocholithiasis, s/p ERCP with sphincterotomy and stone extraction. Pain post ERCP pancreatitis. CT Scan with pancreatitis. Plan: 1. Continue NPO 2. Continue on IV fluids, NS for hydration, patient will need aggressive rehydration 3. 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 Will check AM labs: CMP and lipase in AM 5. Continue supportive care, Wafer Mounter to see patient today 6. Will need to watch for withdrawal symptoms as well 11/14/16 08:47 Subjective: CC: Choledocholithiasis Patient transferred to the ICU last night. Has had poor Urine output. Still with abdominal pain. CT Gottlieb with finding of pancreatitis. Patient reports to be a binge drinker, he drinks hard alcohol. Objective: Vital Signs Temp Pulse Resp BP Pulse Ox 37.7 C 122 H 22 H 97/64 L 92 11/14/16 04:00 11/14/16 08:00 11/14/16 08:00 11/14/16 08:00 11/14/16 08:00 Laboratory Results 11/14/16 08:17 11/13/16 11/14/16 11/15/16 05:59 05:59 05:59 Intake Total 980 5676 Output Total 1325 Balance -345 5676 Generic Name Dose Route Start Last Admin Trade Name Trevorq PRN Reason Stop Dose Admin Acetaminophen 650 mg 11/11/16 20:03 Tylenol PO 05/10/17 20:02 Q4 PRN Pain, Mild/Fever, Can Take PO Acetaminophen 650 mg 11/13/16 22:08 11/13/16 22:29 Tylenol Rectal [place] 05/12/17 22:07 650 mg Q4HRS PRN Administration Pain, Mild/Fever,Can't Take PO Alteplase, Recombinant 2 mg 11/13/16 17:46 Cathflo Activase IVP 05/12/17 17:45 PRN PRN Per PICC line policy Calcium Gluconate 1 dose 11/13/16 19:55 Protocol Calcium IV 05/12/17 19:54 AD PRN Pt on Electrolyte Protocol Protocol Hydromorphone HCl 0 mg 11/12/16 16:08 11/13/16 23:34 Dilaudid Director Talent IV 11/22/16 16:07 6 mg PRN PRN Administration Pain, Severe Unable to Take PO Protocol Sodium Chloride 1,000 mls @ 200 mls/hr 11/12/16 16:15 11/14/16 03:19 Ns IV 05/11/17 16:14 1,000 mls CONT CHRIS Administration Norepinephrine 4 mg/ Dextrose 500 mls @ 0 mls/hr 11/13/16 18:00 IV 05/12/17 17:59 CONT CHRIS Protocol Titrate Meropenem 1 gm/ Sodium 120 mls @ 120 mls/hr 11/13/16 22:00 11/14/16 06:12 Chloride IV 12/13/16 21:59 120 mls Q8HRS CHRIS Administration Protocol Lorazepam 0.5 mg 11/13/16 10:04 11/13/16 10:34 Ativan Injection IVP 05/12/17 10:03 0.5 mg Q4HRS PRN Administration Anxiety, Unable to Take PO Magnesium Sulfate 1 dose 11/13/16 19:55 Protocol Magnesium IV 05/12/17 19:54 AD PRN Pt on Electrolyte Protocol Protocol Naloxone HCl 0 mg 11/12/16 16:08 Narcan IVP 05/11/17 16:07 PRN PRN Respiratory depression Protocol Nifedipine 90 mg 11/12/16 09:00 11/14/16 07:39 Adalat Cc PO 05/11/17 08:59 Not Given DAILY [facility] Ondansetron HCl 4 mg 11/11/16 20:03 11/12/16 15:30 Zofran IVP 05/10/17 20:02 4 mg Q4 PRN Administration Nausea/Vomiting, Can't Take PO Oxycodone HCl 5 - 10 mg 11/11/16 20:03 11/12/16 21:45 Oxycodone Ir PO 11/21/16 20:02 10 mg Q4 PRN Administration Pain, Severe Able to Take PO Promethazine HCl 6.25 mg 11/11/16 20:03 11/12/16 15:38 Phenergan Injection IVP 05/10/17 20:02 6.25 mg Q6 PRN Administration Nausea/Vomiting, Can't Take PO Valsartan 160 mg 11/11/16 21:00 11/14/16 07:26 Diovan PO 05/10/17 20:59 Not Given HS CHRIS Discontinued Medications Generic Name Dose Route Start Last Admin Trade Name Freq PRN Reason Stop Dose Admin Dexamethasone Confirm 11/12/16 11:38 Decadron Injection Administered 11/12/16 11:39 Dose 4 mg .ROUTE .STK-MED ONE Dexamethasone Confirm 11/12/16 11:38 Decadron Injection Administered 11/12/16 11:39 Dose 4 mg .ROUTE .STK-MED ONE Fentanyl Confirm 11/12/16 11:37 Sublimaze Administered 11/12/16 11:38 Dose 100 mcg .ROUTE .STK-MED ONE Fentanyl Confirm 11/12/16 13:04 Sublimaze Administered 11/12/16 13:05 Dose 100 mcg .ROUTE .STK-MED ONE Hydralazine HCl Confirm 11/12/16 12:16 Apresoline Administered 11/12/16 12:17 Dose 20 mg .ROUTE .STK-MED ONE Hydromorphone HCl Confirm 11/13/16 20:01 Dilaudid Administered 11/13/16 20:02 Dose 1 mg .ROUTE .STK-MED ONE Hydromorphone HCl 1 mg 11/13/16 23:00 11/14/16 07:26 Dilaudid IVP 11/13/16 23:01 Not Given ONCE ONE Sodium Chloride 1,000 mls @ 75 mls/hr 11/11/16 20:30 11/11/16 22:19 1/2 Ns IV 05/10/17 20:29 1,000 mls CONT CHRIS Administration Calcium Gluconate 50 mls @ 100 mls/hr 11/13/16 19:55 11/13/16 20:00 Calcium Gluconate 1 Gm (Premix) IV 11/13/16 20:24 50 mls ONCE ONE Administration Sodium Chloride 1,000 mls @ 0 mls/hr 11/13/16 19:54 11/13/16 20:00 Ns IV 11/13/16 19:55 1,000 mls ONCE ONE Administration Wide Open Sodium Chloride 1,000 mls @ 0 mls/hr 11/13/16 19:57 11/13/16 20:00 Ns IV 11/13/16 19:58 1,000 mls ONCE ONE Administration Wide Open Magnesium Sulfate 50 mls @ 50 mls/hr 11/13/16 21:47 11/13/16 22:00 Magnesium Sulf 2 Gm (Premix) IV 11/13/16 22:46 50 mls ONCE ONE Administration Calcium Gluconate 2 gm/ 70 mls @ 140 mls/hr 11/14/16 06:19 11/14/16 07:56 Dextrose IV 11/14/16 06:48 Not Given ONCE ONE Calcium Gluconate 50 mls @ 100 mls/hr 11/14/16 07:30 11/14/16 07:56 Calcium Gluconate 1 Gm (Premix) IV 11/14/16 07:59 50 mls ONCE ONE Administration Calcium Gluconate 50 mls @ 100 mls/hr 11/14/16 07:30 11/14/16 07:56 Calcium Gluconate 1 Gm (Premix) IV 11/14/16 07:59 50 mls ONCE ONE Administration Labetalol HCl Confirm 11/12/16 11:52 Trandate Injection Administered 11/12/16 11:53 Dose 100 mg .ROUTE .STK-MED ONE Lidocaine HCl Confirm 11/12/16 11:38 Lidocaine Hcl 2% Administered 11/12/16 11:39 Dose 100 mg IVP .STK-MED ONE Midazolam HCl Confirm 11/12/16 11:38 Versed Administered 11/12/16 11:39 Dose 2 mg .ROUTE .STK-MED ONE Morphine Sulfate 2 - 4 mg 11/11/16 20:03 11/13/16 06:41 Morphine IVP 11/21/16 20:02 2 mg Q2 PRN Administration Pain, Severe Unable to Take PO Ondansetron HCl Confirm 11/12/16 13:04 Zofran Administered 11/12/16 13:05 Dose 4 mg .ROUTE .STK-MED ONE Pantoprazole Sodium 40 mg 11/11/16 12:58 11/11/16 13:35 Protonix IVP 11/11/16 12:59 40 mg EDNOW ONE Administration Propofol Confirm 11/12/16 11:37 Diprivan Administered 11/12/16 11:38 Dose 200 mg .ROUTE .STK-MED ONE Rocuronium [place] Confirm 11/12/16 11:38 Zemuron Administered 11/12/16 11:39 Dose 50 mg .ROUTE .STK-MED ONE Sugammadex Sodium Confirm 11/12/16 12:12 Bridion Administered 11/12/16 12:13 Dose 200 mg IVP .STK-MED ONE LABORATORY 12/22/16 12/22/16 12/21/16 08:17 04:52 20:20 WBC 24.54 H 10^3/uL (3.80-9.50) RBC 4.65 10^6/uL (4.40-6.38) Hgb 15.4 g/dL (13.7-17.5) Hct 46.2 % (40.0-51.0) MCV 99.4 fL (81.5-99.8) MCH 33.1 pg (27.9-34.1) MCHC 33.3 g/dL (32.4-36.7) RDW 13.6 % (11.5-15.2) Plt Count 183 10^3/uL (150-400) MPV 9.7 fL (8.7-11.7) Neut % (Auto) 87.9 H % (39.3-74.2) Lymph % (Auto) 3.1 L % (15.0-45.0) [place] % (Auto) 8.1 % (4.5-13.0) Eos % (Auto) 0.0 L % (0.6-7.6) Baso % (Auto) 0.3 % (0.3-1.7) Nucleat RBC Rel Count 0.0 % (0.0-0.2) Absolute Neuts (auto) 21.58 H 10^3/uL (1.70-6.50) Absolute Lymphs (auto) 0.77 L 10^3/uL (1.00-3.00) Absolute Monos (auto) 1.98 H 10^3/uL (0.30-0.80) Absolute Eos (auto) 0.00 L 10^3/uL (0.03-0.40) Absolute Basos (auto) 0.07 10^3/uL (0.02-0.10) Absolute Nucleated RBC 0.00 10^3/uL (0-0.01) Immature Gran % 0.6 % (0.0-1.1) Immature Gran # 0.14 H 10^3/uL (0.00-0.10) ABG Lactic Acid VBG Lactic Acid 1.0 mmol/L (0.7-2.1) Sodium Pending Potassium Pending Chloride Pending Carbon Dioxide Pending Anion Gap Pending BUN Pending Creatinine Pending Estimated GFR Pending Glucose Pending Calcium Pending Ionized Calcium 0.87 L MMOL/L 0.99 L MMOL/L (1.12-1.30) (1.12-1.30) Magnesium 2.0 mg/dL (1.6-2.3) Total Bilirubin Pending Conjugated Bilirubin Unconjugated Bilirubin AST Pending ALT Pending Alkaline Phosphatase Pending Total Protein Pending Albumin Pending Lipase Pending 11/13/16 11/13/16 11/12/16 18:40 05:05 05:45 WBC 24.28 H D 10^3/uL (3.80-9.50) RBC 4.71 10^6/uL (4.40-6.38) Hgb 15.5 g/dL (13.7-17.5) Hct 46.2 % (40.0-51.0) MCV 98.1 D fL (81.5-99.8) MCH 32.9 pg (27.9-34.1) MCHC 33.5 g/dL (32.4-36.7) RDW 12.9 % (11.5-15.2) Plt Count 227 D 10^3/uL (150-400) MPV 9.6 fL (8.7-11.7) Neut % (Auto) 87.9 H % (39.3-74.2) Lymph % (Auto) 3.9 L % (15.0-45.0) [place] % (Auto) 7.3 % (4.5-13.0) Eos % (Auto) 0.0 L % (0.6-7.6) Baso % (Auto) 0.2 L % (0.3-1.7) Nucleat RBC Rel Count 0.0 % (0.0-0.2) Absolute Neuts (auto) 21.35 H 10^3/uL (1.70-6.50) Absolute Lymphs (auto) 0.95 L 10^3/uL (1.00-3.00) Absolute Monos (auto) 1.77 H 10^3/uL (0.30-0.80) Absolute Eos (auto) 0.00 L 10^3/uL (0.03-0.40) Absolute Basos (auto) 0.05 10^3/uL (0.02-0.10) Absolute Nucleated RBC 0.00 10^3/uL (0-0.01) Immature Gran % 0.7 % (0.0-1.1) Immature Gran # 0.16 H 10^3/uL (0.00-0.10) ABG Lactic Acid 1.0 mmol/L (0.5-1.6) VBG Lactic Acid Sodium 141 mEq/L 140 mEq/L (134-144) (134-144) Potassium 4.0 mEq/L 4.9 mEq/L (3.5-5.2) (3.5-5.2) Chloride 116 H D mEq/L 104 mEq/L (97-110) (97-110) Carbon Dioxide 16 L mEq/l 20 L mEq/l (22-31) (22-31) Anion Gap 9 mEq/L 16 mEq/L (8-16) (8-16) BUN 30 H mg/dL 22 mg/dL (7-23) (7-23) Creatinine 3.6 H D mg/dL 2.1 H D mg/dL (0.7-1.3) (0.7-1.3) Estimated GFR 19 36 Glucose 86 mg/dL 130 H mg/dL (70-100) (70-100) Calcium 5.0 L* D mg/dL 8.6 mg/dL (8.5-10.4) (8.5-10.4) Ionized Calcium Magnesium 1.2 L mg/dL (1.6-2.3) Total Bilirubin 9.2 H D mg/dL 4.9 H D mg/dL (0.1-1.4) (0.1-1.4) Conjugated Bilirubin 6.7 H mg/dL 1.6 H mg/dL (0.0-0.5) (0.0-0.5) Unconjugated Bilirubin 2.5 H mg/dL 3.3 H mg/dL (0.0-1.1) (0.0-1.1) AST 852 H IU/L 410 H IU/L (17-59) (17-59) ALT 1413 H IU/L 646 H IU/L (21-72) (21-72) Alkaline Phosphatase 112 IU/L 78 IU/L (38-126) (38-126) Total Protein 6.6 g/dL 6.7 g/dL (6.3-8.2) (6.3-8.2) Albumin 3.9 g/dL 4.0 g/dL (3.5-5.0) (3.5-5.0) Lipase 34975.0 H IU/L (23-300) 11/11/16 12:35 WBC 7.80 10^3/uL (3.80-9.50) RBC 5.38 10^6/uL (4.40-6.38) Hgb 17.3 g/dL (13.7-17.5) Hct 49.1 % (40.0-51.0) MCV 91.3 fL (81.5-99.8) MCH 32.2 pg (27.9-34.1) MCHC 35.2 g/dL (32.4-36.7) RDW 11.9 % (11.5-15.2) Plt Count 307 10^3/uL (150-400) MPV 9.6 fL (8.7-11.7) Neut % (Auto) 68.3 % (39.3-74.2) Lymph % (Auto) 22.1 % (15.0-45.0) [place] % (Auto) 7.6 % (4.5-13.0) Eos % (Auto) 0.8 % (0.6-7.6) Baso % (Auto) 0.8 % (0.3-1.7) Nucleat RBC Rel Count 0.0 % (0.0-0.2) Absolute Neuts (auto) 5.34 10^3/uL (1.70-6.50) Absolute Lymphs (auto) 1.72 10^3/uL (1.00-3.00) Absolute Monos (auto) 0.59 10^3/uL (0.30-0.80) Absolute Eos (auto) 0.06 10^3/uL (0.03-0.40) Absolute Basos (auto) 0.06 10^3/uL (0.02-0.10) Absolute Nucleated RBC 0.00 10^3/uL (0-0.01) Immature Gran % 0.4 % (0.0-1.1) Immature Gran # 0.03 10^3/uL (0.00-0.10) ABG Lactic Acid VBG Lactic Acid Sodium 139 mEq/L (134-144) Potassium 4.6 mEq/L (3.5-5.2) Chloride 102 mEq/L (97-110) Carbon Dioxide 24 mEq/l (22-31) Anion Gap 13 mEq/L (8-16) BUN 18 mg/dL (7-23) Creatinine 1.0 mg/dL (0.7-1.3) Estimated GFR > 60 Glucose 95 mg/dL (70-100) Calcium 9.6 mg/dL (8.5-10.4) Ionized Calcium Magnesium Total Bilirubin 2.0 H mg/dL (0.1-1.4) Conjugated Bilirubin 0.5 mg/dL (0.0-0.5) Unconjugated Bilirubin 1.5 H mg/dL (0.0-1.1) AST 323 H IU/L (17-59) ALT 393 H IU/L (21-72) Alkaline Phosphatase 75 IU/L (38-126) Total Protein 7.6 g/dL (6.3-8.2) Albumin 4.6 g/dL (3.5-5.0) Lipase 78.0 IU/L (23-300) Physical Exam - Physical Exam General Appearance: alert, no apparent distress, other (reports to be uncomfortable) Respiratory: lungs clear Cardiac/Chest: regular rate, rhythm, tachycardia Abdomen: distended, other (no significant BS) Skin: normal color, warm/dry Neuro/Psych: alert, normal mood/affect, oriented x 3 ICD10 Worksheet Patient Problems: Problems Problem Status Diagnosed Abdominal pain Acute
[2016-11-14] MEDS: oxyCODONE IR 5 MG TAB PO PRN (08:55)
[2016-11-14 09:00] LABS: CALCIUM 5.7 mg/dL (8.5-10.4)
[2016-11-14 09:54] LABS: BILIRUBIN-CONJUGATED 2.6 mg/dL (0.0-0.5); BILIRUBIN-UNCONJUGATED 1.2 mg/dL (0.0-1.1)
[2016-11-14] MEDS ORDERED: HEPARIN 10,000 UNIT/10 ML MDV ONE (10:22)
[2016-11-14] MEDS ORDERED: NS 1,000 ML IV PRN (11:03)
--- NOTE | 2016-11-14 11:41 | DX ---
Portable Chest, 11:26 a.m. Clinical Indications: Check dialysis catheter placement Comparison: November 13 Findings: Inspiratory phase is again poor. A right external jugular venous catheter is present with tip in the super vena cava. A right arm PICC line remains in place with tip adjacent to the dialysis catheter. Bibasilar consolidation remains but looks more dense at the medial left base. There is no p neumothorax. Impression: 1. Good position of the dialysis catheter. Note that the tip of the dialysis catheter is directly adjacent to the tip of the PICC line. 2. Chronically poor inspiration with worse aeration at the medial left base. Results called to Susy, as requested at 11:40 am.
--- NOTE | 2016-11-14 11:42 | GCON ---
[f rep st] CONSULTATION REFERRING PHYSICIAN: Sara Cisneros MD REASON FOR CONSULTATION: Acute renal failure and hyperkalemia. HISTORY OF PRESENT ILLNESS: The patient presented to the hospital on November 11 complaining of rachel re epigastric pain. He was found to have a retained common bile duct stone. He underwent ERCP with stone extraction on November 12, with sphincterotomy. His creatinine was 1.0 on admission, but bumpe d to 2.1 the day after his ERCP. His urine output was 1 L yesterday, but has fallen to essentially n il this morning. He developed pancreatitis with a lipase that peaked at 14,000 yesterday, but was ba ck to normal today. He had a noncontrast CT scan showing extensive pancreatic inflammation, but norm al kidneys. His blood pressure dropped yesterday from 140s to 160s all the way down to 80 systolic. It appears he was at least temporarily on Levophed. He received over 5 L of fluid in resuscitation. His losartan and nifedipine were held. Today, his creatinine is up to 6.8 and potassium is 6.1. H is bicarbonate is 17, with a normal anion gap. We are asked to assist in management of his hyperkale magda and renal failure. His calcium has dropped to 5.0 yesterday and 5.7 today. He has received IV c alcium. He denies prior kidney problems, stones. He complains of worsening abdominal pain now in the hypogas tric area. 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 He has been started on meropenem. He spiked a temp of 39 ce lsius last night. Blood cultures are pending. PAST MEDICAL HISTORY: Morbid obesity, obstructive sleep apnea status post UVPPP surgery, intolerance of CPAP, hypertension. SURGICAL HISTORY: Cholecystectomy 3 years ago. 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 SOCIAL HISTORY: He is single. 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 He denies smoking tobacco. He does drink vodka about 3 times per week. He is not specific about amounts, but says it is highly variabl e. FAMILY HISTORY: His mother is reportedly healthy. Father when he was young. ALLERGIES: No known drug allergies. REVIEW OF SYSTEMS: See HPI. He has difficulties taking a deep breath. He feels unable to move arou nd. He denies nausea, vomiting, diarrhea. Otherwise 10-system review negative in detail. PHYSICAL EXAMINATION: VITAL SIGNS: 97/64 with a heart rate of 122, respiratory rate 22, satting 92% on 5 L nasal canula, 37.7 celsius. Ins and outs yesterday 5.7 L in, no urine output recorded and ju st a scant amount of several cc of dark urine in his [facility] catheter. His CVP has been 9. GENERAL: He is an uncomfortable, critically ill appearing morbidly obese young male. In bed with na vickie canula oxygen. NEURO: He is alert, conversive. He has good bilateral upper extremity strength and no gross cranial nerve deficits. HEENT: Eyes without scleral icterus. Oral mucosa is moist. H is uvula is absent. He is missing several teeth on the bottom. HEART: Tachycardic but regular rate , without murmurs, gallops or rubs. LUNGS: Clear to auscultation bilaterally. SKIN: Notable for s ome striae on his lower abdomen and his chest wall. ABDOMEN: Obese, soft, with absent bowel sounds. No rebound or guarding. Mildly tender in the hypogastric area. EXTREMITIES: Lower extremities no pitting edema. His feet are very cool, but dorsal pedes, posterior tibial pulses are 1+ bilaterally . MUSCULOSKELETAL: No gross joint swelling or deformities. LABS: Sodium is 140, potassium is 6.1, CO2 is 17, BUN is 48, creatinine is 6.8, glucose is 115, calc ium is 5.7, total bilirubin is 3.8. AST 147, ALT 549, albumin 2.7, lipase less than 10. White count 25, hemoglobin 15, platelets 183. Chest x-ray personally reviewed, shows very low lung volumes, without infiltrates or edema. IMPRESSION AND PLAN: 1. Acute renal failure. This appears to be due to ischemic ATN related to hypotension. This in tur n is likely due to severe third spacing and possibly sepsis. There may be a prerenal component. He has received some fluid resuscitation and continues on normal saline. I doubt we will be able to obt ain urine studies, as he is essentially anuric now. Given his hyperkalemia and anuric state, as well as critical illness and developing acidosis, he requires hemodialysis. Dr. Wu will place a dialy sis catheter. I discussed risks and indications, and the patient is agreeable to proceed. We will p erform a short treatment today to mitigate his potassium and then plan on running him again tomorrow. 2. Hyperkalemia. See above. I am not sure why he had such an acute rise from yesterday. His liver numbers are improving, arguing against severe shock and tissue ischemia. We will dialyze him as abo ve. 3. Acidosis. This is primarily non gap and largely relates to his renal failure as well as perhaps a component of saline resuscitation. This will correct with dialysis. I would continue normal salin e. 4. Hypocalcemia. This is due to saponification from his pancreatitis. He has had some replacement. This can be mitigated somewhat on dialysis, and will also improve with his pancreatitis. Avoid ove rcorrection. 5. Hypotension. Either hypovolemic due to severe pancreatitis versus septic shock. Continue aggres sive saline resuscitation. I would like to see his CVP above 13. I would continue to be fairly aggr essive with fluids in this young person with severe pancreatitis. 6. Severe pancreatitis. Thank you for this consultation. /[id number]/MODL
--- NOTE | 2016-11-14 12:27 | GOP ---
[f rep st] OPERATIVE REPORT DATE OF OPERATION: 11/14/2016 SURGEON: Kamron Wu MD PREOPERATIVE DIAGNOSIS: Acute renal failure, hyperkalemia. POSTOPERATIVE DIAGNOSIS: Acute renal failure, hyperkalemia. PROCEDURE PERFORMED: Right internal jugular dialysis catheter placement with ultrasound guidance. FINDINGS: good flow and position INDICATIONS: The patient is in need of immediate dialysis. DESCRIPTION OF PROCEDURE: Patient was placed in Trendelenburg, prepped and draped in usual sterile fashion. Using 1% Xylocaine local infiltration, the area of the right jugular vein was identified with ultrasound and a single stick was made into the vein. Good backflow was achieved. A guidewire was introduced, passed without difficulty. A small incision was made at the entrance site. Dilators were passed over the guidewire and then the Mahurkar neck catheter was introduced into the right atrium. Good backflow was achieved. The catheter was instilled with 5000 unit/cc heparin at the appropriate amounts. The catheter was secured to the skin with 3-0 nylon sutures and the wound was dressed. Chest x-ray is pending. Copy requested to: Dr. Moran /[id number]/MODL MTDD
--- NOTE | 2016-11-14 12:32 | GCON ---
[f rep st] CONSULTATION DATE OF CONSULTATION: 11/14/2016 HISTORY: Patient is a 35-year-old male who is hospitalized for severe pancreatitis following an ERCP for a common duct stone. He has had progressive acute renal insufficiency secondary to his pancreat itis and dehydration. At the present time, he is hyperkalemic and in need of immediate dialysis. He is on no blood thinners. PAST MEDICAL HISTORY: Includes sleep apnea, cholecystectomy, recent ERCP. MEDICATIONS: He is presently on IV antibiotics and Dilaudid for pain. ALLERGIES: No known allergies. EXAM: GENERAL: Reveals a struggling overweight 35-year-old male, in no acute distress. Breath soun ds are symmetric. NECK: Thick but supple. ABDOMEN: Soft, protuberant, and somewhat uncomfortable diffusely. IMPRESSION: Severe pancreatitis, acute renal failure. PLAN: Temporary dialysis catheter. Risks and options have been fully discussed including pneumothor ax, arterial injury, hemorrhage, inability to dialyze, and other problems, and he requests that we pr oceed. /[id number]/MODL
--- NOTE | 2016-11-14 13:33 | GCON ---
[f rep st] CONSULTATION DATE OF CONSULTATION: 11/14/2016 REFERRING PHYSICIAN: Sara Cisneros MD PULMONARY/CRITICAL CARE CONSULTATION REASON FOR REFERRAL: Evaluation and management of hypotension, acute renal failure, and obstructive sleep apnea. HISTORY: The patient is a 35-year-old male who was admitted to the hospital 3 days ago with severe e pigastric pain. He was found to have a retained common bile duct stone. He underwent an ERCP with sto ne extraction on November 12 which was uncomplicated. Today, after his ERCP, his creatinine went from 1.0 to 2.1 and he had decreased urine output overnight. He developed pancreatitis with a transient m arked increase in his lipase. He developed hypotension and was started on Levophed. He has received a bout 5 L of fluid with almost no urine output in the last 24 hours. 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 PAST MEDICAL HISTORY: 1. Morbid obesity. 2. Obstructive sleep apnea. This was apparently diagnosed years ago, and he was treated with CPAP bu t could not tolerate either nasal or full facemask. He underwent a UPPP about 4 months ago, and has n ot had a followup sleep study since then. 3. Hypertension. MEDICATIONS: At time of admission include: 1. Nifedipine. 2. Valsartan. Here in the hospital, he is on: 1. Dilaudid. 2. Oxycodone. 3. Meropenem. 4. As well as lorazepam. ALLERGIES: None. SOCIAL HISTORY: The patient is single. 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 He does not smoke. He drinks a few times a week. FAMILY HISTORY IS: Unremarkable. REVIEW OF SYSTEMS: A 10-point review of systems adds nothing to the history of present illness. PHYSICAL EXAMINATION: GENERAL: The patient is drowsy but arousable and in no acute distress. VITAL S IGNS: Blood pressure 97/64 with a heart rate of 122. He is afebrile. Oxygen saturations are 92% on 5 L. HEENT: Normocephalic and atraumatic. No icterus. NECK: No adenopathy. Trachea is midline. CHEST: C lear to auscultation. CARDIAC: Regular tachycardia without murmur. ABDOMEN: Obese, soft. Bowel sounds are hypoactive. He is tender to firm palpation in the upper abdomen. EXTREMITIES: No clubbing, cyano sis, or edema. LABORATORY: A creatinine is 6.8, up from 3.6 last night and 2.1 yesterday morning. His BUN is 48. Hi s potassium is 6.1, up from 4.0. AST is 147, down from 852. A lipase is less than 10, down from 14,00 0 yesterday. White blood count is 24.5, unchanged. Hemoglobin is 15.5. Platelet count is 183. A venou s lactate is 1. A carbon dioxide level is 17 with an anion gap of 11. A chest x-ray shows basilar con solidation. Images reviewed. A CT scan of the abdomen shows pancreatitis with significant inflammator y changes around the pancreas and extending down to the pericolic gutters with a trace of free fluid. ASSESSMENT: 1. Hypotension. This is likely due to the extensive 3rd spacing from the patient's acute pancreatiti s. He was on Levophed but has now come off this. His blood pressure is in the low-normal side, but he is quite tachycardic and likely remains hypovolemic. 2. Acute pancreatitis. This is related to the common bile duct stone and ERCP. His lipase has normal ized but the CT scan shows significant pancreatic inflammation. 3. Acute kidney injury. This is likely due to ATN as well as intravascular hypovolemia. He has indic ations for acute dialysis including hyperkalemia and metabolic acidosis with anuria. 4. Non-anion gap metabolic acidosis. This is likely related to the patient's acute renal insufficien cy. 5. Obstructive sleep apnea. This has recently been treated with a UPPP, but the efficacy of this lisa atment in this patient is unknown. Repeat testing should be done as an outpatient. 6. Morbid obesity. 7. Hypotension. The patient's antihypertensives have been stopped. PLAN: 1. Hemodialysis. 2. Give fluids. 3. Check CVP and NICOM monitor to help assess fluid status. 4. Continue monitoring in the ICU. 5. Outpatient sleep study once the patient has recovered from his acute illness. /[id number]/MODL
--- NOTE | 2016-11-14 16:35 | HOSPPROG ---
Hospitalist Progress Note Assessment/Plan: 35-year-old male who came to the emergency room with severe epigastric pain. # acute renal failure- presumed secondary to his 3rd spacing with acute pancreatitis- creatinine jumped from 2.1-6.8 and 24 hours- patient an uric - nephrology consulted for hemodialysis - Dr. 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 # acute hyperkalemia- secondary to acute kidney injury- patient is aneuric and developing and acidosis - initiate HD today # tachycardia- presumed secondary to acute illness with sepsis and hypotension as well as pain has a drinking history but has not had alcohol in 10 days withdrawal less likely - continue aggressive fluid resuscitation - close monitoring # hypotension- secondary to sepsis and 3rd spacing- blood cultures from no growth to date - continue increased to 200 mils an hour - continue no empiric meropenem # hyperbilirubinemia as well as elevated LFTs * most likely an acute reaction to the procedure * will recheck labs in the morning # hx of alcohol binging - has never had withdrawals/ mainly goes out socially a few times a week # acute hypoxemia- chest x-ray personally reviewed and interpreted- poor inspiration with a query of left-sided infiltrate oxygen saturations 96% on 15 L Oxymizer - monitor closely hopeful this will improve with hemodialysis # morbid obesity with a BMI of 44 # obstructive sleep apnea- status post surgery/ cpap intolerant # prophylaxis- heparin secondary to acute kidney injury # diet NPO secondary to pancreatitis # disposition- greater than 2 midnights as patient remains critically ill I have discussed the case with Dr. Smith and Dr. Moran- we will initiate hemodialysis today Subjective: abdominal pain persists Objective: Vital Signs Temp Pulse Resp BP Pulse Ox 37.0 C 128 H 21 H 96/51 L 94 11/14/16 09:00 11/14/16 16:00 11/14/16 16:00 11/14/16 16:00 11/14/16 16:00 Laboratory Results 11/14/16 08:17 11/14/16 08:17 11/13/16 11/14/16 11/15/16 05:59 05:59 05:59 Intake Total 980 5676 Output Total 1325 Balance -345 5676 - Physical Exam Constitutional: obese Eyes: anicteric sclera Ears, Nose, Mouth, Throat: dry mucous membranes Cardiovascular: tachycardia Respiratory: reduced air movement Gastrointestinal: normoactive bowel sounds, tenderness Genitourinary: no bladder fullness Skin: warm, normal color Musculoskeletal: No asymmetric calves Neurologic: AAOx3 Psychiatric: flat affect Lymph, Heme, Immunologic: no cervical LAD ICD10 Worksheet Patient Problems: Problems Problem Status Diagnosed Abdominal pain Acute
[2016-11-14 17:11] LABS: IONIZED CALCIUM 0.99 MMOL/L (1.12-1.30)
[2016-11-14] MEDS: LORazepam 2 MG/ML INJ IVP PRN (17:23)
[2016-11-14 18:30] LABS: ANION GAP 12 mEq/L (8-16); CALCIUM 6.2 mg/dL (8.5-10.4); CARBON DIOXIDE 18 mEq/l (22-31); CHLORIDE 108 mEq/L (97-110); CREATININE 6.3 mg/dL (0.7-1.3); GLOMERULAR FILTRATION RATE 10; GLUCOSE 95 mg/dL (70-100); SODIUM 138 mEq/L (134-144)
[2016-11-14] MEDS: ACETAMINOPHEN 325 MG TAB PO PRN (20:20)
[2016-11-14] MEDS: HYDROmorphONE/DILAUDID 6 MG/30 ML PCA IV PRN (20:30)
[2016-11-14] MEDS: HEPARIN 5,000 UNIT/0.5 ML SYR SC SCH (22:03)
[2016-11-14] MEDS ORDERED: HEPARIN 50,000 UNIT/10 ML VIAL ONE (23:57)
[2016-11-15] MEDS: HEPARIN 5,000 UNIT/0.5 ML SYR SC SCH ×3 (04:52→21:48)
[2016-11-15 05:01] LABS: IONIZED CALCIUM 0.82 MMOL/L (1.12-1.30)
[2016-11-15 05:10] LABS: HEMATOCRIT 40.2 % (40.0-51.0); HEMOGLOBIN 13.1 g/dL (13.7-17.5); MEAN CELL HEMOGLOBIN 32.7 pg (27.9-34.1); MEAN CELL HEMOGLOBIN CONCENTR. 32.6 g/dL (32.4-36.7); MEAN CELL VOLUME 100.2 fL (81.5-99.8); RED BLOOD CELL COUNT 4.01 10^6/uL (4.40-6.38); RED CELL DISTRIBUTION WIDTH 13.9 % (11.5-15.2)
[2016-11-15 05:25] LABS: ALANINE AMINOTRANSFERASE 284 IU/L (21-72); ALKALINE PHOSPHATASE 52 IU/L (38-126); ANION GAP 10 mEq/L (8-16); ASPARTATE AMINOTRANSFERASE 80 IU/L (17-59); BILIRUBIN,TOTAL 1.7 mg/dL (0.1-1.4); BILIRUBIN-CONJUGATED 1.1 mg/dL (0.0-0.5); BILIRUBIN-UNCONJUGATED 0.6 mg/dL (0.0-1.1); CARBON DIOXIDE 17 mEq/l (22-31); CHLORIDE 115 mEq/L (97-110); CREATININE 7.3 mg/dL (0.7-1.3); GLOMERULAR FILTRATION RATE 8; GLUCOSE 108 mg/dL (70-100); MAGNESIUM 1.6 mg/dL (1.6-2.3); POTASSIUM 4.6 mEq/L (3.5-5.2); SODIUM 142 mEq/L (134-144); TOTAL PROTEIN 4.1 g/dL (6.3-8.2)
[2016-11-15 05:28] LABS: CALCIUM 4.8 mg/dL (8.5-10.4)
[2016-11-15] MEDS ORDERED: CALCIUM GLUCONATE 2 GM in NS 50 ML IV ONE (07:49)
--- NOTE | 2016-11-15 08:34 | CPEKG ---
Heart Rate: 133 RR Interval: 451 P-R Interval: 148 QRSD Interval: 82 QT Interval: 292 QTC Interval: 435 P [place]: 25 QRS [place]: 17 T Wave [place]: 41 EKG Severity - OTHERWISE NORMAL ECG - EKG Impression: SINUS TACHYCARDIA EKG Impression: INFERIOR T WAVE ABNORMALITIES HAVE RESOLVED SINCE 13-NOV-2016 Electronically Signed By: Shira Massey 15-Nov-2016 09:58:09
[2016-11-15] MEDS: MEROPENEM 1 GM in NS 100 ML IV SCH (08:47)
--- NOTE | 2016-11-15 09:26 | SOAPPROG ---
SOAP Progress Note Assessment/Plan: Assessment: 1. WAYNE. Ischemic ATN due to pancreatitis. Anuric. CVP now >13, hypoxemic. Will d/c IVF. K improved. HD again today, tomorrow possibly rest on Friday. Can try gentle UF. Can d/c juarez, bladder scan bid. 2. Severe post ERCP pancreatitis. Supportive care, on empiric abx. NPO. OOB. 3. Hypocalcemia. D/t # 2. Replaced this am. Can use 3 Ca bath today. 4. Respiratory fx. Likely volume, pain, abdominal distention, obesity. am cxr. Plan: 11/15/16 09:28 Subjective: Had first dialysis yesterday w/o UF. Tolerated well. O2 needs up to 10L today. Has abdom pain only when takes deep breath. Has sensation of urination with juarez. Objective: Vital Signs Temp Pulse Resp BP Pulse Ox 36.7 C 135 H 26 H 147/72 H 93 11/15/16 07:54 11/15/16 08:57 11/15/16 08:57 11/15/16 08:57 11/15/16 08:57 Laboratory Results 11/15/16 04:55 11/15/16 04:55 11/14/16 11/15/16 11/16/16 05:59 05:59 05:59 Intake Total 5676 7884.1 Output Total 50 Balance 5676 7834.1 Obese, anxious, uncomfortable, labored breathing, FM O2 Mildly diaphoretic Tachy, RR, no m/g/r R IJ temp HD catheter Coarse crackles bilaterally Abdom obese, mild epigastric tenderness No LE edema ICD10 Worksheet Patient Problems: Problems Problem Status Diagnosed Abdominal pain Acute
[2016-11-15] MEDS ORDERED: MAGNESIUM SULF 1 GM/DEXTROSE 100 ML IV ONE (09:28)
[2016-11-15] MEDS: HYDROmorphONE/DILAUDID 6 MG/30 ML PCA IV PRN ×2 (09:49→21:44)
--- NOTE | 2016-11-15 09:55 | SOAPPROG ---
SOAP Progress Note Assessment/Plan: Assessment: Choledocholithiasis, s/p ERCP with sphincterotomy and stone extraction Severe post ERCP pancreatitis with acute ATN secondary to pancreatitis. Plan: 1. Continue NPO 2. On Dilaudid [employer] MAINTENANCE, lipase improving 3. On dialysis to support kidney function. Anticipate HD through the weekend. Appreciate Nephrology assistance. 4. Continue supportive care in the ICU 5. Will need to address nutritional status, if not eating soon will need to consider [place] tube feeding or TPN. If labs better and if BS tomorrow and passing gas will readdress tomorrow 6. Will add Pepcid BID while in ICU for GI prophylaxis 11/15/16 10:09 Subjective: CC: Choledocholithiasis Prior Cholecystectomy, presented with symptomatic primary bile duct stone. s/p ERCP with sphincterotomy and stone extraction. S/P ERCP pancreatitis. Lipase has come down significantly, lipase this AM was 2600 Objective: Vital Signs Temp Pulse Resp BP Pulse Ox 36.7 C 135 H 26 H 147/72 H 93 11/15/16 07:54 11/15/16 08:57 11/15/16 08:57 11/15/16 08:57 11/15/16 08:57 Laboratory Results 11/15/16 04:55 11/15/16 04:55 11/14/16 11/15/16 11/16/16 05:59 05:59 05:59 Intake Total 5676 7884.1 Output Total 50 Balance 5676 7834.1 Generic Name Dose Route Start Last Admin Trade Name Freq PRN Reason Stop Dose Admin Acetaminophen 650 mg 11/11/16 20:03 11/14/16 20:20 Tylenol PO 05/10/17 20:02 650 mg Q4 PRN Administration Pain, Mild/Fever, Can Take PO Acetaminophen 650 mg 11/13/16 22:08 11/13/16 22:29 Tylenol Rectal MS 05/12/17 22:07 650 mg Q4HRS PRN Administration Pain, Mild/Fever,Can't Take PO Alteplase, Recombinant 2 mg 11/13/16 17:46 Cathflo Activase IVP 05/12/17 17:45 PRN PRN Per PICC line policy Calcium Gluconate 1 dose 11/13/16 19:55 Protocol Calcium IV 05/12/17 19:54 AD PRN Pt on Electrolyte Protocol Protocol Heparin Sodium (Porcine) 5,000 unit 11/14/16 22:00 11/15/16 04:52 Heparin Sc Injection SC 05/13/17 21:59 5,000 unit Q8HRS CHRIS Administration Hydromorphone HCl 0 mg 11/12/16 16:08 11/15/16 09:49 Dilaudid Senior [employer] Security Analyst IV 11/22/16 16:07 6 mg PRN PRN Administration Pain, Severe Unable to Take PO Protocol Sodium Chloride 1,000 mls @ 200 mls/hr 11/12/16 16:15 11/14/16 03:19 Ns IV 05/11/17 16:14 1,000 mls CONT CHRIS Administration Norepinephrine 4 mg/ Dextrose 500 mls @ 0 mls/hr 11/13/16 18:00 IV 05/12/17 17:59 CONT CHRIS Protocol Titrate Sodium Chloride 1,000 mls @ 0 mls/hr 11/14/16 11:03 Ns IV 05/13/17 11:02 PRN PRN SBP <90 As Directed Meropenem 1 gm/ Sodium 120 mls @ 120 mls/hr 11/14/16 21:00 11/15/16 08:47 Chloride IV 12/14/16 20:59 120 mls Q12 CHRIS Administration Protocol Magnesium Sulfate/Dextrose 100 mls @ 100 mls/hr 11/15/16 09:28 11/15/16 09:51 Magnesium Sulf 1 Gm (Premix) IV 11/15/16 10:27 100 mls ONCE ONE Administration Lorazepam 0.5 mg 11/13/16 10:04 11/14/16 17:23 Ativan Injection IVP 05/12/17 10:03 0.5 mg Q4HRS PRN Administration Anxiety, Unable to Take PO Magnesium Sulfate 1 dose 11/13/16 19:55 Protocol Magnesium IV 05/12/17 19:54 AD PRN Pt on Electrolyte Protocol Protocol Naloxone HCl 0 mg 11/12/16 16:08 Narcan IVP 05/11/17 16:07 PRN PRN Respiratory depression Protocol Ondansetron HCl 4 mg 11/11/16 20:03 11/12/16 15:30 Zofran IVP 05/10/17 20:02 4 mg Q4 PRN Administration Nausea/Vomiting, Can't Take PO Oxycodone HCl 5 - 10 mg 11/11/16 20:03 11/14/16 08:55 Oxycodone Ir PO 11/21/16 20:02 10 mg Q4 PRN Administration Pain, Severe Able to Take PO Promethazine HCl 6.25 mg 11/11/16 20:03 11/12/16 15:38 Phenergan Injection IVP 05/10/17 20:02 6.25 mg Q6 PRN Administration Nausea/Vomiting, Can't Take PO Discontinued Medications Generic Name Dose Route Start Last Admin Trade Name Freq PRN Reason Stop Dose Admin Dexamethasone Confirm 11/12/16 11:38 Decadron Injection Administered 11/12/16 11:39 Dose 4 mg .ROUTE .STK-MED ONE Dexamethasone Confirm 11/12/16 11:38 Decadron Injection Administered 11/12/16 11:39 Dose 4 mg .ROUTE .STK-MED ONE Fentanyl Confirm 11/12/16 11:37 Sublimaze Administered 11/12/16 11:38 Dose 100 mcg .ROUTE .STK-MED ONE Fentanyl Confirm 11/12/16 13:04 Sublimaze Administered 11/12/16 13:05 Dose 100 mcg .ROUTE .STK-MED ONE Heparin Sodium (Porcine) Confirm 11/14/16 10:22 Heparin Injection Administered 11/14/16 10:23 Dose 10,000 unit .ROUTE .STK-MED ONE Heparin Sodium (Porcine) 100,000 unit 11/14/16 23:57 Heparin Sodium .ROUTE 11/14/16 23:58 .STK-MED ONE Hydralazine HCl Confirm 11/12/16 12:16 Apresoline Administered 11/12/16 12:17 Dose 20 mg .ROUTE .STK-MED ONE Hydromorphone HCl Confirm 11/13/16 20:01 Dilaudid Administered 11/13/16 20:02 Dose 1 mg .ROUTE .STK-MED ONE Hydromorphone HCl 1 mg 11/13/16 23:00 11/14/16 07:26 Dilaudid IVP 11/13/16 23:01 Not Given ONCE ONE Sodium Chloride 1,000 mls @ 75 mls/hr 11/11/16 20:30 11/11/16 22:19 1/2 Ns IV 05/10/17 20:29 1,000 mls CONT CHRIS Administration Meropenem 1 gm/ Sodium 120 mls @ 120 mls/hr 11/13/16 22:00 11/14/16 16:18 Chloride IV 12/13/16 21:59 Not Given Q8HRS CHRIS Protocol Calcium Gluconate 50 mls @ 100 mls/hr 11/13/16 19:55 11/13/16 20:00 Calcium Gluconate 1 Gm (Premix) IV 11/13/16 20:24 50 mls ONCE ONE Administration Sodium Chloride 1,000 mls @ 0 mls/hr 11/13/16 19:54 11/13/16 20:00 Ns IV 11/13/16 19:55 1,000 mls ONCE ONE Administration Wide Open Sodium Chloride 1,000 mls @ 0 mls/hr 11/13/16 19:57 11/13/16 20:00 Ns IV 11/13/16 19:58 1,000 mls ONCE ONE Administration Wide Open Magnesium Sulfate 50 mls @ 50 mls/hr 11/13/16 21:47 11/13/16 22:00 Magnesium Sulf 2 Gm (Premix) IV 11/13/16 22:46 50 mls ONCE ONE Administration Calcium Gluconate 2 gm/ 70 mls @ 140 mls/hr 11/14/16 06:19 11/14/16 07:56 Dextrose IV 11/14/16 06:48 Not Given ONCE ONE Calcium Gluconate 50 mls @ 100 mls/hr 11/14/16 07:30 11/14/16 07:56 Calcium Gluconate 1 Gm (Premix) IV 11/14/16 07:59 50 mls ONCE ONE Administration Calcium Gluconate 50 mls @ 100 mls/hr 11/14/16 07:30 11/14/16 07:56 Calcium Gluconate 1 Gm (Premix) IV 11/14/16 07:59 50 mls ONCE ONE Administration Calcium Gluconate 50 mls @ 100 mls/hr 11/14/16 17:45 11/14/16 18:13 Calcium Gluconate 1 Gm (Premix) IV 11/14/16 18:14 50 mls ONCE ONE Administration Calcium Gluconate 2 gm/ Sodium 70 mls @ 140 mls/hr 11/15/16 07:49 11/15/16 08: 00 Chloride IV 11/15/16 08:18 70 mls ONCE ONE Administration Labetalol HCl Confirm 11/12/16 11:52 Trandate Injection Administered 11/12/16 11:53 Dose 100 mg .ROUTE .STK-MED ONE Lidocaine HCl Confirm 11/12/16 11:38 Lidocaine Hcl 2% Administered 11/12/16 11:39 Dose 100 mg IVP .STK-MED ONE Midazolam HCl Confirm 11/12/16 11:38 Versed Administered 11/12/16 11:39 Dose 2 mg .ROUTE .STK-MED ONE Morphine Sulfate 2 - 4 mg 11/11/16 20:03 11/13/16 06:41 Morphine IVP 11/21/16 20:02 2 mg Q2 PRN Administration Pain, Severe Unable to Take PO Nifedipine 90 mg 11/12/16 09:00 11/14/16 07:39 Adalat Cc PO 05/11/17 08:59 Not Given DAILY CHRIS Ondansetron HCl Confirm 11/12/16 13:04 Zofran Administered 11/12/16 13:05 Dose 4 mg .ROUTE .STK-MED ONE Pantoprazole Sodium 40 mg 11/11/16 12:58 11/11/16 13:35 Protonix IVP 11/11/16 12:59 40 mg EDNOW ONE Administration Propofol Confirm 11/12/16 11:37 Diprivan Administered 11/12/16 11:38 Dose 200 mg .ROUTE .STK-MED ONE Rocuronium [place] Confirm 11/12/16 11:38 Zemuron Administered 11/12/16 11:39 Dose 50 mg .ROUTE .STK-MED ONE Sugammadex Sodium Confirm 11/12/16 12:12 Bridion Administered 11/12/16 12:13 Dose 200 mg IVP .STK-MED ONE Valsartan 160 mg 11/11/16 21:00 11/14/16 07:26 Diovan PO 05/10/17 20:59 Not Given HS [facility] 11/15/16 11/14/16 11/14/16 04:55 17:00 08:17 WBC 16.10 H D 10^3/uL 24.54 H 10^3/uL (3.80-9.50) (3.80-9.50) RBC 4.01 L 10^6/uL 4.65 10^6/uL (4.40-6.38) (4.40-6.38) Hgb 13.1 L g/dL 15.4 g/dL (13.7-17.5) (13.7-17.5) Hct 40.2 % 46.2 % (40.0-51.0) (40.0-51.0) MCV 100.2 H fL 99.4 fL (81.5-99.8) (81.5-99.8) MCH 32.7 pg 33.1 pg (27.9-34.1) (27.9-34.1) MCHC 32.6 g/dL 33.3 g/dL (32.4-36.7) (32.4-36.7) RDW 13.9 % 13.6 % (11.5-15.2) (11.5-15.2) Plt Count 139 L 10^3/uL 183 10^3/uL (150-400) (150-400) MPV 9.7 fL (8.7-11.7) Neut % (Auto) 87.9 H % (39.3-74.2) Lymph % (Auto) 3.1 L % (15.0-45.0) Kinney % (Auto) 8.1 % (4.5-13.0) Eos % (Auto) 0.0 L % (0.6-7.6) Baso % (Auto) 0.3 % (0.3-1.7) Nucleat RBC Rel Count 0.0 % (0.0-0.2) Absolute Neuts (auto) 21.58 H 10^3/uL (1.70-6.50) Absolute Lymphs (auto) 0.77 L 10^3/uL (1.00-3.00) Absolute Monos (auto) 1.98 H 10^3/uL (0.30-0.80) Absolute Eos (auto) 0.00 L 10^3/uL (0.03-0.40) Absolute Basos (auto) 0.07 10^3/uL (0.02-0.10) Absolute Nucleated RBC 0.00 10^3/uL (0-0.01) Immature Gran % 0.6 % (0.0-1.1) Immature Gran # 0.14 H 10^3/uL (0.00-0.10) ABG Lactic Acid VBG Lactic Acid 1.0 mmol/L (0.7-2.1) Turbidity Cancelled Sodium 142 mEq/L 138 mEq/L 140 mEq/L (134-144) (134-144) (134-144) Potassium 4.6 mEq/L 5.0 mEq/L 6.1 H mEq/L (3.5-5.2) (3.5-5.2) (3.5-5.2) Chloride 115 H mEq/L 108 mEq/L 112 H mEq/L (97-110) (97-110) (97-110) Carbon Dioxide 17 L mEq/l 18 L mEq/l 17 L mEq/l (22-31) (22-31) (22-31) Anion Gap 10 mEq/L 12 mEq/L 11 mEq/L (8-16) (8-16) (8-16) BUN 50 H mg/dL 42 H mg/dL 48 H mg/dL (7-23) (7-23) (7-23) Creatinine 7.3 H mg/dL 6.3 H mg/dL 6.8 H D mg/dL (0.7-1.3) (0.7-1.3) (0.7-1.3) Estimated GFR 8 10 9 Glucose 108 H mg/dL 95 mg/dL 115 H mg/dL (70-100) (70-100) (70-100) Calcium 4.8 L* D mg/dL Cancelled 5.7 L* mg/dL (8.5-10.4) (8.5-10.4) Ionized Calcium 0.82 L MMOL/L 0.99 L MMOL/L (1.12-1.30) (1.12-1.30) Phosphorus 4.5 mg/dL (2.5-4.5) Magnesium 1.6 mg/dL (1.6-2.3) Total Bilirubin 1.7 H D mg/dL 3.8 H D mg/dL (0.1-1.4) (0.1-1.4) Conjugated Bilirubin 1.1 H mg/dL 2.6 H mg/dL (0.0-0.5) (0.0-0.5) Unconjugated Bilirubin 0.6 mg/dL 1.2 H mg/dL (0.0-1.1) (0.0-1.1) AST 80 H IU/L 147 H IU/L (17-59) (17-59) ALT 284 H IU/L 549 H IU/L (21-72) (21-72) Alkaline Phosphatase 52 IU/L 73 IU/L (38-126) (38-126) Total Protein 4.1 L g/dL 5.1 L D g/dL (6.3-8.2) (6.3-8.2) Albumin 2.0 L g/dL 2.7 L g/dL (3.5-5.0) (3.5-5.0) Lipase 2587.0 H IU/L < 10.0 L IU/L (23-300) (23-300) Specimen Hemolysis Cancelled Hep Bs Antigen NEGATIVE (NEGATIVE) Hep Bs Antibody Pending Hep Bs Antibody, Quant Pending Hep B Core Total Ab NEGATIVE (NEGATIVE) 11/14/16 11/13/16 11/13/16 04:52 20:20 18:40 WBC 24.28 H D 10^3/uL (3.80-9.50) RBC 4.71 10^6/uL (4.40-6.38) Hgb 15.5 g/dL (13.7-17.5) Hct 46.2 % (40.0-51.0) MCV 98.1 D fL (81.5-99.8) MCH 32.9 pg (27.9-34.1) MCHC 33.5 g/dL (32.4-36.7) RDW 12.9 % (11.5-15.2) Plt Count 227 D 10^3/uL (150-400) MPV 9.6 fL (8.7-11.7) Neut % (Auto) 87.9 H % (39.3-74.2) Lymph % (Auto) 3.9 L % (15.0-45.0) Kinney % (Auto) 7.3 % (4.5-13.0) Eos % (Auto) 0.0 L % (0.6-7.6) Baso % (Auto) 0.2 L % (0.3-1.7) Nucleat RBC Rel Count 0.0 % (0.0-0.2) Absolute Neuts (auto) 21.35 H 10^3/uL (1.70-6.50) Absolute Lymphs (auto) 0.95 L 10^3/uL (1.00-3.00) Absolute Monos (auto) 1.77 H 10^3/uL (0.30-0.80) Absolute Eos (auto) 0.00 L 10^3/uL (0.03-0.40) Absolute Basos (auto) 0.05 10^3/uL (0.02-0.10) Absolute Nucleated RBC 0.00 10^3/uL (0-0.01) Immature Gran % 0.7 % (0.0-1.1) Immature Gran # 0.16 H 10^3/uL (0.00-0.10) ABG Lactic Acid 1.0 mmol/L (0.5-1.6) VBG Lactic Acid Turbidity Sodium 141 mEq/L (134-144) Potassium 4.0 mEq/L (3.5-5.2) Chloride 116 H D mEq/L (97-110) Carbon Dioxide 16 L mEq/l (22-31) Anion Gap 9 mEq/L (8-16) BUN 30 H mg/dL (7-23) Creatinine 3.6 H D mg/dL (0.7-1.3) Estimated GFR 19 Glucose 86 mg/dL (70-100) Calcium 5.0 L* D mg/dL (8.5-10.4) Ionized Calcium 0.87 L MMOL/L 0.99 L MMOL/L (1.12-1.30) (1.12-1.30) Phosphorus Magnesium 2.0 mg/dL 1.2 L mg/dL (1.6-2.3) (1.6-2.3) Total Bilirubin Conjugated Bilirubin Unconjugated Bilirubin AST ALT Alkaline Phosphatase Total Protein Albumin Lipase Specimen Hemolysis Hep Bs Antigen Hep Bs Antibody Hep Bs Antibody, Quant Hep B Core Total Ab 11/13/16 11/12/16 11/11/16 05:05 05:45 12:35 WBC 7.80 10^3/uL (3.80-9.50) RBC 5.38 10^6/uL (4.40-6.38) Hgb 17.3 g/dL (13.7-17.5) Hct 49.1 % (40.0-51.0) MCV 91.3 fL (81.5-99.8) MCH 32.2 pg (27.9-34.1) MCHC 35.2 g/dL (32.4-36.7) RDW 11.9 % (11.5-15.2) Plt Count 307 10^3/uL (150-400) MPV 9.6 fL (8.7-11.7) Neut % (Auto) 68.3 % (39.3-74.2) Lymph % (Auto) 22.1 % (15.0-45.0) Kinney % (Auto) 7.6 % (4.5-13.0) Eos % (Auto) 0.8 % (0.6-7.6) Baso % (Auto) 0.8 % (0.3-1.7) Nucleat RBC Rel Count 0.0 % (0.0-0.2) Absolute Neuts (auto) 5.34 10^3/uL (1.70-6.50) Absolute Lymphs (auto) 1.72 10^3/uL (1.00-3.00) Absolute Monos (auto) 0.59 10^3/uL (0.30-0.80) Absolute Eos (auto) 0.06 10^3/uL (0.03-0.40) Absolute Basos (auto) 0.06 10^3/uL (0.02-0.10) Absolute Nucleated RBC 0.00 10^3/uL (0-0.01) Immature Gran % 0.4 % (0.0-1.1) Immature Gran # 0.03 10^3/uL (0.00-0.10) ABG Lactic Acid VBG Lactic Acid Turbidity Sodium 140 mEq/L 139 mEq/L (134-144) (134-144) Potassium 4.9 mEq/L 4.6 mEq/L (3.5-5.2) (3.5-5.2) Chloride 104 mEq/L 102 mEq/L (97-110) (97-110) Carbon Dioxide 20 L mEq/l 24 mEq/l (22-31) (22-31) Anion Gap 16 mEq/L 13 mEq/L (8-16) (8-16) BUN 22 mg/dL 18 mg/dL (7-23) (7-23) Creatinine 2.1 H D mg/dL 1.0 mg/dL (0.7-1.3) (0.7-1.3) Estimated GFR 36 > 60 Glucose 130 H mg/dL 95 mg/dL (70-100) (70-100) Calcium 8.6 mg/dL 9.6 mg/dL (8.5-10.4) (8.5-10.4) Ionized Calcium Phosphorus Magnesium Total Bilirubin 9.2 H D mg/dL 4.9 H D mg/dL 2.0 H mg/dL (0.1-1.4) (0.1-1.4) (0.1-1.4) Conjugated Bilirubin 6.7 H mg/dL 1.6 H mg/dL 0.5 mg/dL (0.0-0.5) (0.0-0.5) (0.0-0.5) Unconjugated Bilirubin 2.5 H mg/dL 3.3 H mg/dL 1.5 H mg/dL (0.0-1.1) (0.0-1.1) (0.0-1.1) AST 852 H IU/L 410 H IU/L 323 H IU/L (17-59) (17-59) (17-59) ALT 1413 H IU/L 646 H IU/L 393 H IU/L (21-72) (21-72) (21-72) Alkaline Phosphatase 112 IU/L 78 IU/L 75 IU/L (38-126) (38-126) (38-126) Total Protein 6.6 g/dL 6.7 g/dL 7.6 g/dL (6.3-8.2) (6.3-8.2) (6.3-8.2) Albumin 3.9 g/dL 4.0 g/dL 4.6 g/dL (3.5-5.0) (3.5-5.0) (3.5-5.0) Lipase 69448.0 H IU/L 78.0 IU/L (23-300) (23-300) Specimen Hemolysis Hep Bs Antigen Hep Bs Antibody Hep Bs Antibody, Quant Hep B Core Total Ab Physical Exam - Physical Exam General Appearance: alert, no apparent distress, other (sitting in chair) Respiratory: normal breath sounds Cardiac/Chest: regular rate, rhythm, tachycardia Abdomen: non-tender, other (soft, but distended, no bowel sounds) ICD10 Worksheet Patient Problems: Problems Problem Status Diagnosed Abdominal pain Acute
[2016-11-15] MEDS ORDERED: NS 100 ML IV PRN (10:06)
--- NOTE | 2016-11-15 11:44 | HOSPPROG ---
Hospitalist Progress Note Assessment/Plan: 35-year-old male who came to the emergency room with severe epigastric pain. # acute renal failure- presumed 2/2 3rd spacing with acute pancreatitis- creatinine jumped from 2.1-> 7.3 - started on HD overnight beginning to produce more urine - continue hemodialysis - monitor BMP daily # Choledocholithiasis- status post ERCP with stone extraction - # acute pancreatitis after procedure- reporting improved pain lipase normalized - cont IV fluids - continue NPO status - Dilaudid PHYSICIAN ANESTHESIOLOGIST # acute hyperkalemia- secondary to acute kidney injury- patient is aneuric and developing and acidosis - continue HD today # tachycardia- presumed secondary to acute illness with sepsis and hypotension as well as pain has a drinking history but has not had alcohol in 10 days withdrawal less likely- telemetry( personally reviewed and interpreted) remained sinus tach pulmonary embolism makes the differential - will continue to monitor before introducing a contrast study - close monitoring # hypotension- secondary to sepsis and 3rd spacing- blood cultures from no growth to date- pressures improved today - continue no empiric meropenem # hyperbilirubinemia as well as elevated LFTs * most likely an acute reaction to the procedure * will recheck labs in the morning # hx of alcohol binging - has never had withdrawals/ mainly goes out socially a few times a week # acute hypoxemia- chest x-ray (personally reviewed and interpreted)- poor inspiration pulmonary suspect secondary to ARDS with pancreatitis oxygen saturations 96% on 10 L Oxymizer - monitor closely as inflammatory condition improves # morbid obesity with a BMI of 44 # obstructive sleep apnea- status post surgery/ cpap intolerant # prophylaxis- heparin secondary to acute kidney injury # diet NPO secondary to pancreatitis # disposition- greater than 2 midnights as patient remains critically ill I have discussed the case with Dr. Smith and Dr. Moran- we will continue hemodialysis today Subjective: pain improved Objective: Vital Signs Temp Pulse Resp BP Pulse Ox 36.7 C 135 H 26 H 147/72 H 93 11/15/16 07:54 11/15/16 08:57 11/15/16 08:57 11/15/16 08:57 11/15/16 08:57 Laboratory Results 11/15/16 04:55 11/15/16 04:55 11/14/16 11/15/16 11/16/16 05:59 05:59 05:59 Intake Total 5676 7884.1 Output Total 50 Balance 5676 7834.1 - Physical Exam Constitutional: obese Eyes: anicteric sclera Ears, Nose, Mouth, Throat: dry mucous membranes Cardiovascular: tachycardia Respiratory: no respiratory distress, reduced air movement Gastrointestinal: normoactive bowel sounds, tenderness, No guarding, No rebound Genitourinary: no bladder fullness Skin: warm, normal color Musculoskeletal: No asymmetric calves Neurologic: AAOx3 Psychiatric: interacting appropriately Lymph, Heme, Immunologic: no cervical LAD ICD10 Worksheet Patient Problems: Problems Problem Status Diagnosed Abdominal pain Acute
[2016-11-15 13:10] LABS: HEPATITIS Bs Ab QUANT 179 mIU/mL (())
--- NOTE | 2016-11-15 13:18 | DX ---
Portable chest x-ray 1200 hours. History: Hypoxia. Findings: Comparison to November 14, 2016. There is once again very poor inspiration with compressive changes at the lung bases. Central line an d PICC line remain in place. Heart size is upper limits of normal. Pulmonary vasculature is not signi ficant engorged. There are no new areas of consolidation or effusion. Osseous structures are unchange d. Impression: 1. Stable very poor inspiration with compressive changes at the lung bases.
--- NOTE | 2016-11-15 15:05 | PDINTPN ---
Veterinary Physiologist Progress Note Assessment/Plan: Assessment: Acute Pancreatitis: Due to impacted gallstone with extraction. Lipase back to normal, but CT shows extensive pancreatitis and he has abdominal pain c/w pancreatitis. WAYNE: Likely due to ATN and pre-renal. On HD. Hyperkalemia: Improved with HD. Tachycardia: Likely due to pancreatitis/critical illness. YOLANDA: Sp/ UPPP. Previously unable to tolerate CPAP, but may do better with lower pressures s/p UPPP. Hypoxemia: Likely due to atelectasis/non-cardiogenic pulmonary edema. Plan: Continue HD for WAYNE. Follow tachycardia. Dilaudid RADIOLOGY PHYSICIAN for pain control. Continue oxygen PRN 11/15/16 15:01 Subjective: Feels "worn out" all day. Pain controlled with RADIOLOGY PHYSICIAN. Feels less dyspneic. Cough persists Objective: Vital Signs Temp Pulse Resp BP Pulse Ox 36.7 C 126 H 24 H 109/76 96 11/15/16 07:54 11/15/16 14:00 11/15/16 14:00 11/15/16 14:00 11/15/16 14:00 Laboratory Results 11/15/16 04:55 11/15/16 04:55 11/14/16 11/15/16 11/16/16 05:59 05:59 05:59 Intake Total 5676 7884.1 Output Total 50 50 Balance 5676 7834.1 -50 CXR: Poor inspiration, stable basilar atelectasis. Images reviewed Physical Exam - Physical Exam General Appearance: alert, mild distress EENT: normal ENT inspection Neck: normal inspection Respiratory: lungs clear, normal breath sounds Cardiac/Chest: edema ( 1+), tachycardia Abdomen: soft, No normal bowel sounds ( hypoactive), No non-tender ( tender to firm palpation) Skin: normal color, warm/dry Extremities: normal inspection Neuro/Psych: alert, normal mood/affect, oriented x 3 ICD10 Worksheet Patient Problems: Problems Problem Status Diagnosed Abdominal pain Acute
[2016-11-15] MEDS: MEROPENEM 500 MG in NS 100 ML IV SCH (16:47)
[2016-11-15 19:18] LABS: ANION GAP 13 mEq/L (8-16); CALCIUM 6.5 mg/dL (8.5-10.4); CARBON DIOXIDE 22 mEq/l (22-31); CHLORIDE 104 mEq/L (97-110); GLOMERULAR FILTRATION RATE 9; GLUCOSE 115 mg/dL (70-100); POTASSIUM 4.4 mEq/L (3.5-5.2); SODIUM 139 mEq/L (134-144)
[2016-11-15] MEDS ORDERED: HEPARIN 50,000 UNIT/10 ML VIAL ONE (23:00)
[2016-11-16] MEDS: LORazepam 2 MG/ML INJ IVP PRN (01:38)
[2016-11-16 04:27] LABS: IONIZED CALCIUM 0.87 MMOL/L (1.12-1.30)
[2016-11-16] MEDS ORDERED: CALCIUM GLUCONATE 2 GM in NS 50 ML IV ONE (04:50)
[2016-11-16 04:57] LABS: ADD MORPH? NO; ADD SCAN? YES; ATYPICAL LYMPHOCYTE FLAG 0 (0-99); FRAGMENT RBC FLAG 0 (0-99); HEMATOCRIT 40.1 % (40.0-51.0); HEMOGLOBIN 13.3 g/dL (13.7-17.5); LIPEMIA HEMOLYSIS FLAG 80 (0-99); MEAN CELL HEMOGLOBIN 32.5 pg (27.9-34.1); MEAN CELL HEMOGLOBIN CONCENTR. 33.2 g/dL (32.4-36.7); MEAN PLATELET VOLUME 10.5 fL (8.7-11.7); PLATELET CLUMPS FLAG 0 (0-99); PLATELET COUNT 158 10^3/uL (150-400); RED BLOOD CELL COUNT 4.09 10^6/uL (4.40-6.38)
[2016-11-16 04:59] LABS: LEFT SHIFT FLG 220 (0-99)
[2016-11-16 05:07] LABS: ALANINE AMINOTRANSFERASE 206 IU/L (21-72); ALBUMIN 2.5 g/dL (3.5-5.0); ALKALINE PHOSPHATASE 59 IU/L (38-126); ANION GAP 13 mEq/L (8-16); ASPARTATE AMINOTRANSFERASE 53 IU/L (17-59); BILIRUBIN,TOTAL 1.8 mg/dL (0.1-1.4); CARBON DIOXIDE 21 mEq/l (22-31); CHLORIDE 106 mEq/L (97-110); GLUCOSE 121 mg/dL (70-100); MAGNESIUM 1.8 mg/dL (1.6-2.3); POTASSIUM 4.6 mEq/L (3.5-5.2); SODIUM 140 mEq/L (134-144)
[2016-11-16 05:12] LABS: CALCIUM 5.9 mg/dL (8.5-10.4)
[2016-11-16] MEDS: HEPARIN 5,000 UNIT/0.5 ML SYR SC SCH ×2 (05:12→19:06)
[2016-11-16 05:14] LABS: GLOMERULAR FILTRATION RATE 7
[2016-11-16] MEDS ORDERED: MAGNESIUM SULF 1 GM/DEXTROSE 100 ML IV ONE (05:16)
[2016-11-16 05:21] LABS: CREATININE 8.8 mg/dL (0.7-1.3)
[2016-11-16 05:34] LABS: ADD DIFF? YES; SCAN POSITIVE
[2016-11-16 05:42] LABS: PLATELET ESTIMATE ADEQUATE (ADEQ)
[2016-11-16 05:43] LABS: TOXIC GRANULATION PRESENT; TOXIC VACUOLIZATION PRESENT
[2016-11-16] MEDS: oxyCODONE IR 5 MG TAB PO PRN (07:27)
[2016-11-16] MEDS: FAMOTIDINE 20 MG/NACL 50 ML IV SCH (07:32)
--- NOTE | 2016-11-16 11:35 | PDINTPN ---
[facility] Consultant Progress Note Assessment/Plan: Assessment: Acute Pancreatitis: Due to impacted gallstone with extraction. Lipase back to normal, but CT shows extensive pancreatitis and he has abdominal pain c/w pancreatitis. The patient is improving, and he's having BMs. WAYNE: Likely due to ATN and pre-renal. On HD. Cr markedly elevated, likely due to large muscle mass. Hyperkalemia: Improved with HD. Tachycardia: Likely due to pancreatitis/critical illness. YOLANDA: Sp/ UPPP. Previously unable to tolerate CPAP, but may do better with lower pressures s/p UPPP. Hypoxemia: Likely due to atelectasis/non-cardiogenic pulmonary edema. O2 needs down a bit. Plan: Continue HD for WAYNE. Follow tachycardia. Dilaudid PATTERN STAMPER for pain control. Continue oxygen PRN. May be able to start PO. Transfer to SDU. 11/16/16 11:51 Subjective: Feels a bit better, with improved pain control. Has had BMs. Starting to get thirsty, would like soda. Able to walk short distance. Objective: Vital Signs Temp Pulse Resp BP Pulse Ox 36.6 C 126 H 20 125/66 H 94 11/16/16 07:00 11/16/16 09:00 11/16/16 09:00 11/16/16 09:00 11/16/16 09:00 Laboratory Results 11/16/16 04:15 11/16/16 04:15 11/15/16 11/16/16 11/17/16 05:59 05:59 05:59 Intake Total 7884.1 1413.9 Output Total 50 101 Balance 7834.1 1312.9 Physical Exam - Physical Exam General Appearance: alert, no apparent distress EENT: normal ENT inspection Neck: normal inspection Respiratory: lungs clear, normal breath sounds Cardiac/Chest: regular rate, rhythm, No edema Abdomen: normal bowel sounds, soft, No non-tender (mildly tender) Skin: normal color, warm/dry Extremities: non-tender, normal inspection Neuro/Psych: alert, normal mood/affect, oriented x 3 ICD10 Worksheet Patient Problems: Problems Problem Status Diagnosed Abdominal pain Acute
--- NOTE | 2016-11-16 12:55 | SOAPPROG ---
АННА Progress Note Assessment/Plan: Assessment: Plan: 11/16/16 12:51 A/P 1. Acute pancreatitis- with renal failure. Post ERCP. Appears to be clinically improving and is having bowel movements. If he continues to improve, ok for sips of water only tomorrow. Will check CRP. Hopefully, urine output will increase. Renal on board. Pain better controlled today. 11/16/16 12:56 Subjective: cc: follow up on pancreatitis Pain now 06/02 (08/03 yesterday). Having BMs. Objective: Vital Signs Temp Pulse Resp BP Pulse Ox 36.6 C 127 H 21 H 111/55 L 95 11/16/16 07:00 11/16/16 11:00 11/16/16 11:00 11/16/16 11:00 11/16/16 11:00 Laboratory Results 11/16/16 04:15 11/16/16 04:15 11/15/16 11/16/16 11/17/16 05:59 05:59 05:59 Intake Total 7884.1 1413.9 Output Total 50 101 Balance 7834.1 1312.9 Physical Exam - Physical Exam General Appearance: alert, mild distress EENT: No scleral icterus (R), No scleral icterus (L) Respiratory: lungs clear, normal breath sounds Cardiac/Chest: tachycardia, No diastolic murmur, No systolic murmur, No irregularly irregular Abdomen: normal bowel sounds, distended, No organomegaly, No hepatomegaly, No splenomegaly Skin: normal color Extremities: pedal edema Neuro/Psych: normal mood/affect, oriented x 3, No abnormal home care companion II-XII ICD10 Worksheet Patient Problems: Problems Problem Status Diagnosed Abdominal pain Acute
--- NOTE | 2016-11-16 13:03 | SOAPPROG ---
SOAP Progress Note Assessment/Plan: Assessment: 1. WAYNE - -Ischemic ATN due to pancreatitis. Anuric. -K improved but still azotemic -HD again today, probably rest on Friday and resume Friday -Can try gentle UF. Can d/c juarez, bladder scan bid. 2. Severe post ERCP pancreatitis. Supportive care, on empiric abx. NPO. OOB. 3. Hypocalcemia. D/t # 2. Improved s/p replacement yesterday. Will use 3 Ca bath with dialysis today. 4. Respiratory fx. Likely volume, pain, abdominal distention, obesity. Plan: 11/16/16 13:04 11/16/16 13:05 Objective: Vital Signs Temp Pulse Resp BP Pulse Ox 36.6 C 127 H 21 H 111/55 L 95 11/16/16 07:00 11/16/16 11:00 11/16/16 11:00 11/16/16 11:00 11/16/16 11:00 Laboratory Results 11/16/16 04:15 11/16/16 04:15 11/15/16 11/16/16 11/17/16 05:59 05:59 05:59 Intake Total 7884.1 1413.9 Output Total 50 101 Balance 7834.1 1312.9 Physical Exam - Physical Exam General Appearance: WD/WN, alert Respiratory: decreased breath sounds (bases) Cardiac/Chest: regular rate, rhythm Abdomen: soft, other (epigastric tenderness) Extremities: swelling (1+) ICD10 Worksheet Patient Problems: Problems Problem Status Diagnosed Abdominal pain Acute
--- NOTE | 2016-11-16 15:05 | HOSPPROG ---
Hospitalist Progress Note Assessment/Plan: 35-year-old male who came to the emergency room with severe epigastric pain. # acute renal failure- presumed 2/2 3rd spacing with acute pancreatitis- creatinine jumped from 2.1-> 7.3 - HD x 2 beginning to produce more urine - continue hemodialysis - monitor BMP daily # Choledocholithiasis- status post ERCP with stone extraction - # acute pancreatitis after procedure- reporting improved pain lipase normalized - cont IV fluids - continue NPO status - Dilaudid QA TECH # acute hyperkalemia- secondary to acute kidney injury- K 4.6 this am - continue HD today # tachycardia- presumed secondary to acute illness with sepsis and hypotension as well as pain has a drinking history but well outside the window for withdrawal- telemetry( personally reviewed and interpreted) remained sinus tach - close monitoring # hypotension- secondary to sepsis and 3rd spacing- blood cultures from no growth to date- pressures improved today - continue on empiric meropenem # hyperbilirubinemia as well as elevated LFTs * most likely an acute reaction to the procedure * will recheck labs in the morning # hx of alcohol binging - has never had withdrawals/ mainly goes out socially a few times a week # acute hypoxemia- chest x-ray (personally reviewed and interpreted)- poor inspiration pulmonary suspect secondary to ARDS with pancreatitis oxygen saturations 96% on 8 L Oxymizer (down from 15L 48 hours ago) - monitor closely as inflammatory condition improves # morbid obesity with a BMI of 44 # obstructive sleep apnea- status post surgery/ cpap intolerant # prophylaxis- heparin secondary to acute kidney injury # diet NPO secondary to pancreatitis # disposition- greater than 2 midnights as patient remains critically ill I have discussed the case with Dr. Smith - cont HD and NPO status today Subjective: pain improved Objective: Vital Signs Temp Pulse Resp BP Pulse Ox 36.6 C 131 H 20 117/70 95 11/16/16 07:00 11/16/16 13:00 11/16/16 13:00 11/16/16 13:00 11/16/16 13:00 Laboratory Results 11/16/16 04:15 11/16/16 04:15 11/15/16 11/16/16 11/17/16 05:59 05:59 05:59 Intake Total 7884.1 1413.9 Output Total 50 101 Balance 7834.1 1312.9 - Physical Exam Constitutional: obese Eyes: anicteric sclera Ears, Nose, Mouth, Throat: moist mucous membranes Cardiovascular: tachycardia Respiratory: no respiratory distress, reduced air movement Gastrointestinal: normoactive bowel sounds, tenderness Genitourinary: no bladder fullness Skin: warm, normal color Musculoskeletal: No asymmetric calves Neurologic: AAOx3 Psychiatric: interacting appropriately, not anxious Lymph, Heme, Immunologic: no cervical LAD ICD10 Worksheet Patient Problems: Problems Problem Status Diagnosed Abdominal pain Acute
[2016-11-16] MEDS ORDERED: HEPARIN 50,000 UNIT/10 ML VIAL ONE (17:55)
[2016-11-16] MEDS: MEROPENEM 500 MG in NS 100 ML IV SCH (19:06)
[2016-11-16] MEDS: HYDROmorphONE/DILAUDID 6 MG/30 ML PCA IV PRN (23:29)
[2016-11-17] MEDS: HEPARIN 5,000 UNIT/0.5 ML SYR SC SCH ×4 (00:51→22:49)
[2016-11-17] MEDS: oxyCODONE IR 5 MG TAB PO PRN (02:35)
[2016-11-17 05:11] LABS: IONIZED CALCIUM 1.01 MMOL/L (1.12-1.30)
[2016-11-17 05:32] LABS: ALANINE AMINOTRANSFERASE 132 IU/L (21-72); ALBUMIN 2.5 g/dL (3.5-5.0); ALKALINE PHOSPHATASE 60 IU/L (38-126); ANION GAP 13 mEq/L (8-16); ASPARTATE AMINOTRANSFERASE 39 IU/L (17-59); BILIRUBIN,TOTAL 1.5 mg/dL (0.1-1.4); CALCIUM 6.7 mg/dL (8.5-10.4); CARBON DIOXIDE 22 mEq/l (22-31); CHLORIDE 102 mEq/L (97-110); GLOMERULAR FILTRATION RATE 7; GLUCOSE 111 mg/dL (70-100); MAGNESIUM 2.1 mg/dL (1.6-2.3); POTASSIUM 4.3 mEq/L (3.5-5.2); SODIUM 137 mEq/L (134-144); TOTAL PROTEIN 5.1 g/dL (6.3-8.2)
[2016-11-17 05:38] LABS: CREATININE 8.8 mg/dL (0.7-1.3)
[2016-11-17 05:46] LABS: % IMMATURE GRANULYOCYTES 0.9 % (0.0-1.1); ABSOLUTE IMMATURE GRANULOCYTES 0.14 10^3/uL (0.00-0.10); ADD DIFF? NO; ADD MORPH? NO; ADD SCAN? YES; ATYPICAL LYMPHOCYTE FLAG 10 (0-99); FRAGMENT RBC FLAG 0 (0-99); HEMATOCRIT 36.3 % (40.0-51.0); HEMOGLOBIN 12.3 g/dL (13.7-17.5); LIPEMIA HEMOLYSIS FLAG 90 (0-99); MEAN CELL HEMOGLOBIN 32.5 pg (27.9-34.1); MEAN CELL HEMOGLOBIN CONCENTR. 33.9 g/dL (32.4-36.7); MEAN CELL VOLUME 95.8 fL (81.5-99.8); MEAN PLATELET VOLUME 10.5 fL (8.7-11.7); PLATELET CLUMPS FLAG 0 (0-99); PLATELET COUNT 158 10^3/uL (150-400); RED BLOOD CELL COUNT 3.79 10^6/uL (4.40-6.38); RED CELL DISTRIBUTION WIDTH 13.7 % (11.5-15.2)
[2016-11-17 05:50] LABS: LEFT SHIFT FLG 120 (0-99)
[2016-11-17 06:26] LABS: SCAN POSITIVE
[2016-11-17 06:29] LABS: PLATELET ESTIMATE ADEQUATE (ADEQ)
[2016-11-17] MEDS ORDERED: CALCIUM GLUCONATE 50 ML IV ONE (06:32)
[2016-11-17] MEDS: FAMOTIDINE 20 MG/NACL 50 ML IV SCH (07:20)
[2016-11-17] MEDS: HYDROmorphONE/DILAUDID 6 MG/30 ML PCA IV PRN ×2 (09:47→19:58)
--- NOTE | 2016-11-17 09:51 | PDINTPN ---
Weapons Engineer Progress Note Assessment/Plan: Assessment: Acute Pancreatitis: Due to impacted gallstone with extraction. Lipase back to normal, but CT shows extensive pancreatitis and he has abdominal pain c/w pancreatitis. The patient is improving, and he's having BMs. WAYNE: Likely due to ATN and pre-renal. On HD. Cr markedly elevated, likely due to large muscle mass and catabolic state. Urine output returning. Hyperkalemia: Improved with HD. Tachycardia: Likely due to pancreatitis/critical illness. YOLANDA: Sp/ UPPP. Previously unable to tolerate CPAP, but may do better with lower pressures s/p UPPP. Hypoxemia: Likely due to atelectasis/non-cardiogenic pulmonary edema. O2 needs remain fairly high. Plan: Continue HD for WAYNE. Follow tachycardia. Dilaudid RN HOME CARE for pain control. Continue oxygen PRN. Start PO water. 11/17/16 09:51 Subjective: Feeling better, strength improved. Pain controlled with RN HOME CARE. Thirsty. Urinating. Objective: Vital Signs Temp Pulse Resp BP Pulse Ox 36.9 C 124 H 21 H 144/79 H 95 11/17/16 07:34 11/17/16 07:34 11/17/16 07:34 11/17/16 07:34 11/17/16 07:34 Laboratory Results 11/17/16 05:00 11/17/16 05:00 11/16/16 11/17/16 11/18/16 05:59 05:59 05:59 Intake Total 1413.9 831 Output Total 101 15 Balance 1312.9 816 Laboratory Tests 11/17/16 05:00 Total Bilirubin 1.5 H AST 39 ALT 132 H Lipase 234.0 Physical Exam - Physical Exam General Appearance: alert, no apparent distress EENT: normal ENT inspection Neck: normal inspection Respiratory: lungs clear, normal breath sounds Cardiac/Chest: edema (1+), tachycardia Abdomen: normal bowel sounds, non-tender Skin: normal color, warm/dry Extremities: normal inspection Neuro/Psych: alert, normal mood/affect, oriented x 3 ICD10 Worksheet Patient Problems: Problems Problem Status Diagnosed Abdominal pain Acute
--- NOTE | 2016-11-17 10:36 | SOAPPROG ---
АННА Progress Note Assessment/Plan: Assessment: Plan: 11/16/16 12:51 A/P 1. Acute pancreatitis- with renal failure. Post ERCP. Appears to be clinically improving and is having bowel movements. If he continues to improve, ok for sips of water only tomorrow. Will check CRP. Hopefully, urine output will increase. Renal on board. Pain better controlled today. 11/16/16 12:56 11/17/16 10:33 A/P 1. Acute pancreatitis- with renal dysfunction. Clinically improving with less pain and more energy. Ok for sips of water. Renal on board. 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 Subjective: cc: Follow up on pancreatitis Feeling better. Pain now 6/10. Having BM. More energy. Thirsty. Objective: Vital Signs Temp Pulse Resp BP Pulse Ox 36.9 C 124 H 21 H 144/79 H 95 11/17/16 07:34 11/17/16 07:34 11/17/16 07:34 11/17/16 07:34 11/17/16 07:34 Laboratory Results 11/17/16 05:00 11/17/16 05:00 11/16/16 11/17/16 11/18/16 05:59 05:59 05:59 Intake Total 1413.9 831 Output Total 101 15 Balance 1312.9 816 Physical Exam - Physical Exam General Appearance: alert, no apparent distress EENT: No scleral icterus (R), No scleral icterus (L) Respiratory: lungs clear, normal breath sounds, No crackles, No rales, No rhonchi Cardiac/Chest: regular rate, rhythm, No diastolic murmur, No systolic murmur Abdomen: distended, No non-tender, No soft (minimal tenderness), No guarding, No rebound Skin: normal color Extremities: pedal edema Neuro/Psych: oriented x 3, No abnormal plasterer helper II-XII, No abnormal gait ICD10 Worksheet Patient Problems: Problems Problem Status Diagnosed Abdominal pain Acute
--- NOTE | 2016-11-17 12:14 | HOSPPROG ---
Hospitalist Progress Note Assessment/Plan: 35-year-old male who came to the emergency room with severe epigastric pain. 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 # acute hyperkalemia- secondary to acute kidney injury- K 4.3 this am - continue HD today # tachycardia- presumed secondary to acute illness with sepsis and hypotension as well as pain has a drinking history but well outside the window for withdrawal- telemetry (personally reviewed and interpreted) remained sinus tach - close monitoring # hyperbilirubinemia as well as elevated LFTs * most likely an acute reaction to the procedure * will recheck labs in the morning # hx of alcohol binging - has never had withdrawals/ mainly goes out socially a few times a week # acute hypoxemia- chest x-ray (personally reviewed and interpreted)- poor inspiration pulmonary suspect secondary to ARDS with pancreatitis oxygen saturations 94% on 8 L Oxymizer (down from 15L 72 hours ago) - monitor closely as inflammatory condition improves # morbid obesity with a BMI of 44 # obstructive sleep apnea- status post surgery/ cpap intolerant # prophylaxis- heparin secondary to acute kidney injury # diet NPO secondary to pancreatitis # disposition- greater than 2 midnights as patient remains critically ill I have discussed the case with Dr. Smith - cont HD and water by mouth only today Subjective: Pain improved Objective: Vital Signs Temp Pulse Resp BP Pulse Ox 36.5 C 132 H 23 H 125/69 H 94 11/17/16 11:23 11/17/16 11:23 11/17/16 11:23 11/17/16 11:23 11/17/16 11:23 Laboratory Results 11/17/16 05:00 11/17/16 05:00 11/16/16 11/17/16 11/18/16 05:59 05:59 05:59 Intake Total 1413.9 831 Output Total 101 15 Balance 1312.9 816 - Physical Exam Constitutional: obese Eyes: anicteric sclera Ears, Nose, Mouth, Throat: moist mucous membranes Cardiovascular: regular rate and rhythym Respiratory: no respiratory distress, no rales or rhonchi, reduced air movement Gastrointestinal: normoactive bowel sounds, tenderness Genitourinary: no bladder fullness Skin: warm, normal color Musculoskeletal: No asymmetric calves Neurologic: AAOx3 Psychiatric: interacting appropriately, depressed, flat affect Lymph, Heme, Immunologic: no cervical LAD ICD10 Worksheet Patient Problems: Problems Problem Status Diagnosed Abdominal pain Acute
[2016-11-17] MEDS: MEROPENEM 500 MG in NS 100 ML IV SCH (15:39)
--- NOTE | 2016-11-17 16:23 | SOAPPROG ---
SOAP Progress Note Assessment/Plan: Assessment: 1. WAYNE - -Ischemic ATN due to pancreatitis. Oliguric. -K improved but still azotemic -HD again Friday -Can try gentle UF. [facility], bladder scan bid. 2. Severe post ERCP pancreatitis - -Choledocholithiasis s/p stone removal -Supportive care, on empiric abx. NPO. OOB -Lipase normalized 3. Hypocalcemia. D/t # 2. Improved s/p replacement -Will use 3 Ca bath with dialysis tomorrow. 4. Respiratory fx. Likely volume, pain, abdominal distention, obesity. Plan: 11/17/16 16:21 11/17/16 16:22 11/17/16 16:27 Subjective: Abd pain feels a little better today. Objective: Vital Signs Temp Pulse Resp BP Pulse Ox 36.9 C 124 H 19 142/72 H 96 11/17/16 15:37 11/17/16 15:37 11/17/16 15:37 11/17/16 15:37 11/17/16 15:37 Laboratory Results 11/17/16 05:00 11/17/16 05:00 11/16/16 11/17/16 11/18/16 05:59 05:59 05:59 Intake Total 1413.9 831 Output Total 101 15 20 Balance 1312.9 816 -20 Physical Exam - Physical Exam General Appearance: WD/WN, alert, no apparent distress Respiratory: normal breath sounds Cardiac/Chest: regular rate, rhythm Abdomen: soft, other (mild epigastric tenderness) Extremities: swelling (1+) ICD10 Worksheet Patient Problems: Problems Problem Status Diagnosed Abdominal pain Acute
[2016-11-18 03:12] LABS: IONIZED CALCIUM 1.06 MMOL/L (1.12-1.30)
[2016-11-18 03:32] LABS: ALANINE AMINOTRANSFERASE 97 IU/L (21-72); ALBUMIN 2.7 g/dL (3.5-5.0); ALKALINE PHOSPHATASE 73 IU/L (38-126); ANION GAP 17 mEq/L (8-16); ASPARTATE AMINOTRANSFERASE 41 IU/L (17-59); BILIRUBIN,TOTAL 1.4 mg/dL (0.1-1.4); CALCIUM 6.9 mg/dL (8.5-10.4); CARBON DIOXIDE 20 mEq/l (22-31); CHLORIDE 103 mEq/L (97-110); GLUCOSE 110 mg/dL (70-100); MAGNESIUM 2.3 mg/dL (1.6-2.3); POTASSIUM 4.4 mEq/L (3.5-5.2); SODIUM 140 mEq/L (134-144); TOTAL PROTEIN 5.2 g/dL (6.3-8.2)
[2016-11-18 03:37] LABS: GLOMERULAR FILTRATION RATE 5
[2016-11-18 03:43] LABS: ADD DIFF? YES; ADD MORPH? NO; ATYPICAL LYMPHOCYTE FLAG 10 (0-99); FRAGMENT RBC FLAG 0 (0-99); HEMATOCRIT 36.5 % (40.0-51.0); HEMOGLOBIN 12.6 g/dL (13.7-17.5); LIPEMIA HEMOLYSIS FLAG 90 (0-99); MEAN CELL HEMOGLOBIN 32.8 pg (27.9-34.1); MEAN CELL HEMOGLOBIN CONCENTR. 34.5 g/dL (32.4-36.7); MEAN CELL VOLUME 95.1 fL (81.5-99.8); MEAN PLATELET VOLUME 10.5 fL (8.7-11.7); PLATELET CLUMPS FLAG 20 (0-99); PLATELET COUNT 184 10^3/uL (150-400); RED BLOOD CELL COUNT 3.84 10^6/uL (4.40-6.38); RED CELL DISTRIBUTION WIDTH 13.6 % (11.5-15.2)
[2016-11-18 03:44] LABS: CREATININE 11.8 mg/dL (0.7-1.3)
[2016-11-18 03:50] LABS: LEFT SHIFT FLG 170 (0-99)
[2016-11-18 04:51] LABS: PLATELET ESTIMATE ADEQUATE (ADEQ)
[2016-11-18] MEDS: oxyCODONE IR 5 MG TAB PO PRN ×2 (05:22→23:50)
[2016-11-18] MEDS: HEPARIN 5,000 UNIT/0.5 ML SYR SC SCH ×3 (05:23→21:02)
[2016-11-18] MEDS: HYDROmorphONE/DILAUDID 6 MG/30 ML PCA IV PRN ×2 (05:44→20:20)
[2016-11-18 07:23] LABS: ADD SCAN? NO; SCAN NEGATIVE
--- NOTE | 2016-11-18 07:57 | SOAPPROG ---
АННА Progress Note Assessment/Plan: Assessment: Plan: 11/16/16 12:51 A/P 1. Acute pancreatitis- with renal failure. Post ERCP. Appears to be clinically improving and is having bowel movements. If he continues to improve, ok for sips of water only tomorrow. Will check CRP. Hopefully, urine output will increase. Renal on board. Pain better controlled today. 11/16/16 12:56 11/17/16 10:33 A/P 1. Acute pancreatitis- with renal dysfunction. Clinically improving with less pain and more energy. Ok for sips of water. Renal on board. Continue STORE COORDINATOR. 11/18/16 07:55 A/P 1. Acute pancreatitis- with renal failure. On HD. Appears to be clinically improving, albeit slowly. Recommend to continue STORE COORDINATOR and pancreatic rest. Subjective: cc: Follow up on pancreatitis States feeling better. Pain still 6/10. Ambulating more. Objective: Vital Signs Temp Pulse Resp BP Pulse Ox 98.5 C H 128 H 22 H 146/89 H 96 11/17/16 20:00 11/18/16 03:14 11/18/16 03:14 11/18/16 03:14 11/18/16 03:14 Laboratory Results 11/18/16 03:05 11/18/16 03:05 11/17/16 11/18/16 11/19/16 05:59 05:59 05:59 Intake Total 831 1224 Output Total 15 40 Balance 816 1184 Physical Exam - Physical Exam General Appearance: alert, no apparent distress EENT: No scleral icterus (R), No scleral icterus (L) Respiratory: normal breath sounds, No rales, No rhonchi Cardiac/Chest: regular rate, rhythm, No diastolic murmur, No systolic murmur, No irregularly irregular Skin: normal color, warm/dry Extremities: pedal edema Neuro/Psych: alert, normal mood/affect, oriented x 3, No abnormal field auditor II-XII ICD10 Worksheet Patient Problems: Problems Problem Status Diagnosed Abdominal pain Acute
--- NOTE | 2016-11-18 08:41 | PDINTPN ---
Concession Supervisor Progress Note Assessment/Plan: Assessment/Plan: * Acute Pancreatitis: Due to impacted gallstone with extraction. Lipase back to normal, but CT shows extensive pancreatitis and he has abdominal pain c/w pancreatitis. The patient is improving, and he's having BMs. * WAYNE: Likely due to ATN and pre-renal. On HD. Cr markedly elevated, likely due to large muscle mass and catabolic state. Urine output returning. -on dialysis * Hyperkalemia: Improved with HD. * Tachycardia: Likely due to pancreatitis/critical illness. * YOLANDA: Sp/ UPPP. Previously unable to tolerate CPAP, but may do better with lower pressures s/p UPPP. * Hypoxemia: Likely due to atelectasis/non-cardiogenic pulmonary edema. O2 needs remain fairly high. * Dispo-likely okay for floor Subjective: On dialysis. Comfortable. Pain okay Objective: Vital Signs Temp Pulse Resp BP Pulse Ox 98.5 C H 128 H 22 H 146/89 H 96 11/17/16 20:00 11/18/16 03:14 11/18/16 03:14 11/18/16 03:14 11/18/16 03:14 Laboratory Results 11/18/16 03:05 11/18/16 03:05 11/17/16 11/18/16 11/19/16 05:59 05:59 05:59 Intake Total 831 1224 Output Total 15 40 Balance 816 1184 Physical Exam - Physical Exam General Appearance: alert, obese EENT: PERRL/EOMI, normal ENT inspection Neck: non-tender, full range of motion, supple Respiratory: chest non-tender, lungs clear, No wheezing Cardiac/Chest: normal peripheral pulses, regular rate, rhythm Abdomen: normal bowel sounds, soft, No non-tender Male Genitalia: deferred Rectal: deferred Skin: normal color, warm/dry Extremities: normal range of motion, non-tender, normal inspection, normal capillary refill ICD10 Worksheet Patient Problems: Problems Problem Status Diagnosed Abdominal pain Acute
--- NOTE | 2016-11-18 08:51 | HOSPPROG ---
Hospitalist Progress Note Assessment/Plan: #Acute pancreatitis -due to impacted stones; s/p removal -IV AIR QUALITY MANAGER, bowel rest #Oliguric WAYNE -ATN in setting of shock #Leukocytosis -trending back up, 19 today. Afebrile. Bld cultures NGTD. Repeat if fevers #Acute abdominal pain -due to pancreatitis #Hyperkalemia -resolved with HD #Uremia -HD per renal #Acute hypoxemic resp failure multifactorial with habitus, fluids, atelectasis -incentive spirometry. Not tolerating CPAP #Hypocalcemia: -Ca baths with HD #Diet: NPO #DVT ppx: SQH #Disp: stable for med-surg. Cont IV opioids for pain control, pancreatitis slowly improving Subjective: tired. Pain controlled Objective: Vital Signs Temp Pulse Resp BP Pulse Ox 98.5 C H 128 H 22 H 146/89 H 96 11/17/16 20:00 11/18/16 03:14 11/18/16 03:14 11/18/16 03:14 11/18/16 03:14 Laboratory Results 11/18/16 03:05 11/18/16 03:05 11/17/16 11/18/16 11/19/16 05:59 05:59 05:59 Intake Total 831 1224 Output Total 15 40 Balance 816 1184 - Physical Exam Constitutional: obese Eyes: PERRL Ears, Nose, Mouth, Throat: moist mucous membranes, hearing normal Cardiovascular: regular rate and rhythym, no murmur, rub, or gallop Respiratory: no respiratory distress Gastrointestinal: other (obsese, minimal BS throughout) Genitourinary: no bladder fullness Skin: warm Musculoskeletal: other (dialysis catheter in place. ) Neurologic: CN II-XII Intact Psychiatric: interacting appropriately ICD10 Worksheet Patient Problems: Problems Problem Status Diagnosed Abdominal pain Acute
--- NOTE | 2016-11-18 11:19 | SOAPPROG ---
SOAP Progress Note Assessment/Plan: Assessment: 1. WAYNE - -Ischemic ATN due to pancreatitis. Remains oliguric. -K improved but still azotemic -HD again today -Will try gentle UF. [facility], bladder scan bid. -Pancreatitis resolved but still significant renal failure, if no signs of recovery in next few days, would be reasonable to place TDC; if he will improve medically but need ongoing HD could be set up for outpt HD -Observe for any recovery, likely next HD Friday 2. Severe post ERCP pancreatitis - -Choledocholithiasis s/p stone removal -Supportive care, on empiric abx. Slowly advancing diet as tolerated -Lipase normalized but still abd pain 3. Hypocalcemia. D/t # 2. Improved s/p replacement -Using 3 Ca bath with dialysis 4. Respiratory fx - -Likely volume, pain, abdominal distention, obesity, vol overload -Improving, O2 requirements decreasing Plan: 11/18/16 11:18 11/18/16 11:21 Subjective: Seen and examined on HD. Tolerating well. 1L UF. Catheter somewhat positional so running Qb 290. Objective: Vital Signs Temp Pulse Resp BP Pulse Ox 98.5 C H 128 H 22 H 146/89 H 96 11/17/16 20:00 11/18/16 03:14 11/18/16 03:14 11/18/16 03:14 11/18/16 03:14 Laboratory Results 11/18/16 03:05 11/18/16 03:05 11/17/16 11/18/16 11/19/16 05:59 05:59 05:59 Intake Total 831 1224 Output Total 15 40 Balance 816 1184 Physical Exam - Physical Exam General Appearance: no apparent distress Respiratory: lungs clear Cardiac/Chest: regular rate, rhythm Abdomen: soft, other (epigastric tenderness) Extremities: swelling (1+ b/l LE) ICD10 Worksheet Patient Problems: Problems Problem Status Diagnosed Abdominal pain Acute
--- NOTE | 2016-11-18 12:16 | SOAPPROG ---
АННА Progress Note Assessment/Plan: Assessment: catheter functioning ok/ creatine 11/ still oliguric Plan: may need tunnelled catheter 11/18/16 12:15 Objective: Vital Signs Temp Pulse Resp BP Pulse Ox 98.5 C H 128 H 22 H 146/89 H 96 11/17/16 20:00 11/18/16 03:14 11/18/16 03:14 11/18/16 03:14 11/18/16 03:14 Laboratory Results 11/18/16 03:05 11/18/16 03:05 11/17/16 11/18/16 11/19/16 05:59 05:59 05:59 Intake Total 831 1224 Output Total 15 40 Balance 816 1184 ICD10 Worksheet Patient Problems: Problems Problem Status Diagnosed Abdominal pain Acute
[2016-11-18] MEDS: FAMOTIDINE 20 MG/NACL 50 ML IV SCH (14:28)
[2016-11-18] MEDS: MEROPENEM 500 MG in NS 100 ML IV SCH (15:21)
[2016-11-18] MEDS ORDERED: HEPARIN 50,000 UNIT/10 ML VIAL ONE (20:00)
[2016-11-18] MEDS ORDERED: LORazepam 2 MG/ML INJ ONE (20:58)
[2016-11-18] MEDS: LORazepam 2 MG/ML INJ IVP PRN (21:02)
[2016-11-19] MEDS: ACETAMINOPHEN 325 MG TAB PO PRN (03:40)
[2016-11-19] MEDS: LORazepam 2 MG/ML INJ IVP PRN (03:40)
[2016-11-19] MEDS: ALTEPLASE 2 MG VIAL IVP PRN (03:40)
[2016-11-19 03:59] LABS: ADD DIFF? YES; ADD MORPH? NO; ATYPICAL LYMPHOCYTE FLAG 30 (0-99); FRAGMENT RBC FLAG 0 (0-99); HEMOGLOBIN 11.9 g/dL (13.7-17.5); LIPEMIA HEMOLYSIS FLAG 90 (0-99); MEAN CELL HEMOGLOBIN 32.7 pg (27.9-34.1); MEAN CELL VOLUME 96.2 fL (81.5-99.8); PLATELET CLUMPS FLAG 10 (0-99); PLATELET COUNT 212 10^3/uL (150-400); RED BLOOD CELL COUNT 3.64 10^6/uL (4.40-6.38); RED CELL DISTRIBUTION WIDTH 13.5 % (11.5-15.2)
[2016-11-19 04:00] LABS: ADD SCAN? NO; LEFT SHIFT FLG 290 (0-99)
[2016-11-19 04:11] LABS: ALANINE AMINOTRANSFERASE 76 IU/L (21-72); ALBUMIN 2.5 g/dL (3.5-5.0); ALKALINE PHOSPHATASE 88 IU/L (38-126); ANION GAP 17 mEq/L (8-16); ASPARTATE AMINOTRANSFERASE 48 IU/L (17-59); BILIRUBIN,TOTAL 1.2 mg/dL (0.1-1.4); CALCIUM 7.5 mg/dL (8.5-10.4); CARBON DIOXIDE 20 mEq/l (22-31); CHLORIDE 100 mEq/L (97-110); GLOMERULAR FILTRATION RATE 6; GLUCOSE 108 mg/dL (70-100); MAGNESIUM 2.4 mg/dL (1.6-2.3); POTASSIUM 4.1 mEq/L (3.5-5.2); SODIUM 137 mEq/L (134-144); TOTAL PROTEIN 5.1 g/dL (6.3-8.2)
[2016-11-19 04:35] LABS: PLATELET ESTIMATE ADEQUATE (ADEQ)
[2016-11-19 04:37] LABS: CREATININE 10.2 mg/dL (0.7-1.3)
[2016-11-19] MEDS: HEPARIN 5,000 UNIT/0.5 ML SYR SC SCH ×3 (04:50→21:37)
[2016-11-19] MEDS ORDERED: CALCIUM GLUCONATE 50 ML IV ONE (07:48)
--- NOTE | 2016-11-19 08:22 | HOSPPROG ---
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 Ok for sips of water today #Oliguric WAYNE -ATN in setting of shock. Cont HD per renal. Next on Fri #Leukocytosis -Trending up 19-->21. Denies infectious sxs. Afebrile. Bld cultures NGTD. Will check CXR. [facility] says to hold off on repeat CT for now #Acute abdominal pain -due to pancreatitis #Tachycardia -multifactorial with pain, volume overload and deconditioning. Don't suspect PE. Has chronic SOB, samreen with exertion. Telemetry #Hyperkalemia -resolved with HD #Uremia -HD per renal #Acute hypoxemic resp failure multifactorial with habitus, fluids, atelectasis -incentive spirometry. Not tolerating CPAP #Hypocalcemia: -Ca baths with HD #Diet: NPO #DVT ppx: SQH #Disp: stable for med-surg. Cont IV opioids for pain control, pancreatitis slowly improving Subjective: pain in back and abdomen with moving. Has chronic back pain. SOB is chronic for him Objective: Vital Signs Temp Pulse Resp BP Pulse Ox 37.7 C 135 H 20 117/90 H 94 11/19/16 07:39 11/19/16 07:39 11/19/16 07:39 11/19/16 07:39 11/19/16 07:39 Microbiology 11/13/16 20:33 Blood Culture - Final Blood 11/13/16 20:20 Blood Culture - Final Blood Laboratory Results 11/19/16 03:45 11/19/16 03:45 11/18/16 11/19/16 11/20/16 05:59 05:59 05:59 Intake Total 1224 1033 Output Total 40 30 Balance 1184 1003 - Physical Exam Constitutional: obese Eyes: PERRL Ears, Nose, Mouth, Throat: moist mucous membranes Cardiovascular: regular rate and rhythym, tachycardia Respiratory: no respiratory distress, no rales or rhonchi Gastrointestinal: distension, other (obsese, BS throughout. Mild epigastric TTP) Genitourinary: no bladder fullness Skin: warm Musculoskeletal: full muscle strength Neurologic: AAOx3 Psychiatric: anxious ICD10 Worksheet Patient Problems: Problems Problem Status Diagnosed Abdominal pain Acute
[2016-11-19] MEDS: FAMOTIDINE 20 MG TAB PO SCH (09:26)
--- NOTE | 2016-11-19 09:51 | SOAPPROG ---
SOAP Progress Note Assessment/Plan: Assessment:Plan: ARF-consistent with ATN -anuric -s/p Hd on Friday -plan for Hd again on Friday Access-RIJ Albaro Edema-UF as tolerated Hyperkalemia-resolved 11/19/16 09:48 Subjective: no new complaints Objective: Vital Signs Temp Pulse Resp BP Pulse Ox 37.7 C 135 H 20 117/90 H 94 11/19/16 07:39 11/19/16 07:39 11/19/16 07:39 11/19/16 07:39 11/19/16 07:39 Microbiology 11/13/16 20:33 Blood Culture - Final Blood 11/13/16 20:20 Blood Culture - Final Blood Laboratory Results 11/19/16 03:45 11/19/16 03:45 11/18/16 11/19/16 11/20/16 05:59 05:59 05:59 Intake Total 1224 1033 Output Total 40 30 Balance 1184 1003 Physical Exam - Physical Exam General Appearance: WD/WN, alert, no apparent distress, obese EENT: normal ENT inspection Neck: normal inspection Respiratory: lungs clear, normal breath sounds, No respiratory distress Cardiac/Chest: regular rate, rhythm, No diastolic murmur, No systolic murmur Abdomen: normal bowel sounds, soft, distended Extremities: swelling (1+ below knees) ICD10 Worksheet Patient Problems: Problems Problem Status Diagnosed Abdominal pain Acute
--- NOTE | 2016-11-19 11:09 | SOAPPROG ---
SOAP Progress Note Assessment/Plan: Assessment: Plan: 11/16/16 12:51 A/P 1. Acute pancreatitis- with renal failure. Post ERCP. Appears to be clinically improving and is having bowel movements. If he continues to improve, ok for sips of water only tomorrow. Will check CRP. Hopefully, urine output will increase. Renal on board. Pain better controlled today. 11/16/16 12:56 11/17/16 10:33 A/P 1. Acute pancreatitis- with renal dysfunction. Clinically improving with less pain and more energy. Ok for sips of water. Renal on board. Continue MANUSCRIPT READER. 11/18/16 07:55 A/P 1. Acute pancreatitis- with renal failure. On HD. Appears to be clinically improving, albeit slowly. Recommend to continue MANUSCRIPT READER and pancreatic rest. 11/19/16 11:06 A/P 1. Acute pancreatitis- with renal failure on HD. Clinically improving. Recommend to continue MANUSCRIPT READER and pancreatic rest. Will start incentive spirometry and due to increased wbc would check a CXR. Unsure if antibiotics indicated but will defer to hospitalist team. Subjective: cc: Follow up on pancreatitis Improving. Pain at 4-5/10. Using MANUSCRIPT READER less. + BM Objective: Vital Signs Temp Pulse Resp BP Pulse Ox 37.7 C 135 H 20 117/90 H 94 11/19/16 07:39 11/19/16 07:39 11/19/16 07:39 11/19/16 07:39 11/19/16 07:39 Microbiology 11/13/16 20:33 Blood Culture - Final Blood 11/13/16 20:20 Blood Culture - Final Blood Laboratory Results 11/19/16 03:45 11/19/16 03:45 11/18/16 11/19/16 11/20/16 05:59 05:59 05:59 Intake Total 1224 1033 Output Total 40 30 Balance 1184 1003 Physical Exam - Physical Exam General Appearance: alert, mild distress EENT: No scleral icterus (R), No scleral icterus (L) Respiratory: decreased breath sounds Cardiac/Chest: regular rate, rhythm, No diastolic murmur, No systolic murmur Abdomen: distended, No non-tender (minimal), No guarding, No rebound, No hepatomegaly, No splenomegaly Skin: normal color Neuro/Psych: alert, normal mood/affect, oriented x 3, No abnormal adobe maker II-XII ICD10 Worksheet Patient Problems: Problems Problem Status Diagnosed Abdominal pain Acute
--- NOTE | 2016-11-19 15:46 | CPEKG ---
Heart Rate: 125 RR Interval: 480 P-R Interval: 160 QRSD Interval: 84 QT Interval: 300 QTC Interval: 433 P [place]: 60 QRS [place]: 30 T Wave [place]: -10 EKG Severity - ABNORMAL ECG - EKG Impression: SINUS TACHYCARDIA EKG Impression: PROBABLE INFERIOR INFARCT, AGE INDETERMINATE Preliminary Awaiting MD Review
--- NOTE | 2016-11-19 16:26 | ECHO ---
[id number] + + [address] : : [place] [address] : : [phone] + + Adult Echocardiographic Report + --------+ :Name: FLORENTINO GALVEZ RStudy Date: 11/19/2016 03:57 PM : : Hospital Admission Number: [id number] Locat ion: 146: :: 1980 Gender: Male Height: 70 in : :Age: 35 yrs Race: WH Weight: 329 l b : :Reason For Study: Eval LV Fx : : BSA: 2.6 mete rs2 : :History: New onset Tachycardia : + --------+ MMode/2D Measurements & Calculations IVSd: 0.80 cm LVIDd: 5.3 cm FS: 47.0 % Ao root diam: 3.3 cm LVPWd: 0.98 cm LVIDs: 2.8 cm EDV(Teich): 134.9 ml ACS: 2.1 cm ESV(Teich): 29.7 ml EF(Teich): 78.0 % Normal Measurement Values: + + :LVIDd (3.5-5.7cm) IVSd (0.6-1.1cm) LVPWd (0.6-1.1cm) Aortic Root (2.0-3.7cm)Left Atrium (1.5-4.0cm): :LV Vol(d) (76-115ml) LV Vol(s) (29-48ml) Ejec Fraction (50-65%)PV Tung (0.6- 1.2m/s) TV Tung (0.4-1.0m/s) : :MV E Tung (0.8-1.0m/s)MV A Tung (0.3-1.0m/s)LVOT Tung (0.7-1.2m/s) Asc Ao Tung ( 0.9-1.8m/s) : + + Doppler Measurements & Calculations MV E max tung: Ao V2 max: LV V1 max: PA V2 max: 112.5 cm/sec 199.5 cm/sec 107.6 cm/sec 148.0 cm/sec MV A max tung: Ao max PG: LV V1 max PG: PA max P.0 cm/sec 15.9 mmHg 4.6 mmHg 8.8 mmHg MV E/A: 2.7 TR max tung: 202.2 cm/sec TR max P.4 mmHg RAP systole: 5.0 mmHg RVSP(TR): 21.4 mmHg Left Ventricle The left ventricle is normal in size. There is normal left ventricular wall thickness. The left ventricular ejection fraction is normal. The left ventricle is hyperdynamic. Ejection Fraction = 76%. The left ventricular wall motion is normal. Right Ventricle The right ventricle is normal in size and function. Atria The left atrial size is normal. Right atrial size is normal. Mitral Valve The mitral valve is normal in structure and function. There is no evidence of mitral valve prolapse. There is no mitral valve stenosis. There is no mitral regurgitation noted. Tricuspid Valve The tricuspid valve is normal in structure and function. There is trace tricuspid regurgitation. Right ventricular systolic pressure is normal. Aortic Valve The aortic valve is normal in structure and function. The aortic valve opens well. There is no aortic stenosis. There is no aortic insufficiency. Pulmonic Valve The pulmonic valve is normal in structure and function. Great Vessels The aortic root is normal size. Pericardium/Pleural There is no pericardial effusion. Subcostal view not available due to body habitus. Heart Rate during exam was about 127bpm. Conclusion A complete two-dimensional transthoracic echocardiogram was performed (2D, M-mode, Doppler and color flow Doppler). Compared to prior study, there is no significant change. There is normal left ventricular wall thickness. The left ventricular ejection fraction is normal. The left ventricle is hyperdynamic. Ejection Fraction = 76%. The left ventricular wall motion is normal. The right ventricle is normal in size and function. The left atrial size is normal. The mitral valve is normal in structure and function. There is no mitral valve stenosis. There is no mitral regurgitation noted. The tricuspid valve is normal in structure and function. There is trace tricuspid regurgitation. Right ventricular systolic pressure is normal. The aortic valve is normal in structure and function. The aortic valve opens well. There is no pericardial effusion. Subcostal view not available due to body habitus. Heart Rate during exam was about 127bpm Compared to prior study, there is no significant change. Final Reading Physician: Aisha Medrano signed on 11/19/2016 04:25 PM Ordering Physician: Cassie Sheppard Performed By: Piter Bryan, SORAYACS
[2016-11-19 16:27] LABS: COLOR AMBER; LEUKOCYTE ESTERASE,URINE TRACE (NEGATIVE); NITRITE,URINE NEGATIVE (NEGATIVE)
[2016-11-19 16:33] LABS: BACTERIA TRACE /hpf (NONE SEEN); MUCUS TRACE /lpf (NONE-1+); RBC,URINE 50-182 /hpf (0-3); WBC,URINE 25-50 /hpf (0-3)
[2016-11-19] MEDS ORDERED: ALBUMIN 25% 100 ML IV ONE (16:48)
--- NOTE | 2016-11-19 16:57 | DX ---
Chest Two Views November 19, 2016, at 1632 Hours History: Pneumonia, pleural effusion, dyspnea, Comparison: November 15, 2016. Findings: Poor inspiratory phase again noted with linear opacities identified in the lower lobes bila terally slighty more prominent than previous study which may represent bilateral lower lobe pneumonia . Cardiac silhouette unchanged in size. Right internal jugular line in the right atrium. Right arm PI C line. No pneumothorax. Impressions 1. Central line and PIC line without pneumothorax. 2. Increasing bilateral lower lobe linear opacities which may represent pneumonia or atelectasis. 3. Consider CT chest imaging.
--- NOTE | 2016-11-19 19:21 | US ---
Bilateral Lower Extremity Venous Doppler Study Clinical Indications: Tachycardia is a 35-year-old male. Evaluate for venous thrombosis. Technique: High-frequency transducer was used for compression imaging and Doppler study of the deep veins of both legs from the upper calves to the groins. Pulsed Doppler and color Doppler were utilize d, along with various maneuvers to assess flow in the deep veins. Findings: Right Leg: The deep veins of the groin, thigh, knee, and upper calf are well displayed and normally compressible. Doppler flow patterns are unremarkable. There is no evidence of deep venous thrombosi s. Left Leg: The deep veins of the groin, thigh, knee, and upper calf are well displayed and normally c ompressible. Doppler flow patterns are unremarkable. There is no evidence of deep venous thrombosis . There is normal compression of the greater saphenous veins without superficial thrombosis. Impression: Normal bilateral venous Doppler study.
[2016-11-19] MEDS ORDERED: ALBUMIN 25% 50 ML SOLN IV ONE ×2 (20:09→20:24)
[2016-11-20 03:46] LABS: IONIZED CALCIUM 1.08 MMOL/L (1.12-1.30)
[2016-11-20 03:48] LABS: ADD DIFF? YES; ADD MORPH? NO; ATYPICAL LYMPHOCYTE FLAG 20 (0-99); FRAGMENT RBC FLAG 0 (0-99); HEMATOCRIT 32.5 % (40.0-51.0); LIPEMIA HEMOLYSIS FLAG 90 (0-99); MEAN CELL HEMOGLOBIN 32.8 pg (27.9-34.1); MEAN CELL HEMOGLOBIN CONCENTR. 33.8 g/dL (32.4-36.7); MEAN PLATELET VOLUME 9.8 fL (8.7-11.7); PLATELET CLUMPS FLAG 0 (0-99); PLATELET COUNT 266 10^3/uL (150-400); RED BLOOD CELL COUNT 3.35 10^6/uL (4.40-6.38); RED CELL DISTRIBUTION WIDTH 13.6 % (11.5-15.2)
[2016-11-20 03:51] LABS: ADD SCAN? NO; LEFT SHIFT FLG 260 (0-99)
[2016-11-20] MEDS: HYDROmorphONE/DILAUDID 6 MG/30 ML PCA IV PRN ×2 (04:03→18:16)
[2016-11-20 05:00] LABS: ALANINE AMINOTRANSFERASE 54 IU/L (21-72); ALBUMIN 2.5 g/dL (3.5-5.0); ALKALINE PHOSPHATASE 90 IU/L (38-126); ANION GAP 21 mEq/L (8-16); ASPARTATE AMINOTRANSFERASE 41 IU/L (17-59); BILIRUBIN,TOTAL 1.2 mg/dL (0.1-1.4); CALCIUM 7.6 mg/dL (8.5-10.4); CARBON DIOXIDE 18 mEq/l (22-31); CHLORIDE 100 mEq/L (97-110); GLUCOSE 101 mg/dL (70-100); MAGNESIUM 2.5 mg/dL (1.6-2.3); POTASSIUM 4.2 mEq/L (3.5-5.2); SODIUM 139 mEq/L (134-144)
[2016-11-20 05:05] LABS: GLOMERULAR FILTRATION RATE 5
[2016-11-20] MEDS: HEPARIN 5,000 UNIT/0.5 ML SYR SC SCH ×3 (05:05→21:43)
[2016-11-20 05:36] LABS: PLATELET ESTIMATE ADEQUATE (ADEQ); TOXIC GRANULATION PRESENT
[2016-11-20 05:49] LABS: CREATININE 12.5 mg/dL (0.7-1.3)
[2016-11-20] MEDS: ONDANSETRON 4 MG/2 ML VIAL IVP PRN (06:36)
[2016-11-20] MEDS ORDERED: HEPARIN 50,000 UNIT/10 ML VIAL ONE (08:02)
[2016-11-20] MEDS ORDERED: CALCIUM GLUCONATE 50 ML IV ONE (10:15)
[2016-11-20] MEDS ORDERED: CEFEPIME HCL 0.5 GM in D5W 50 ML IV SCH ×2 (12:00→15:00)
--- NOTE | 2016-11-20 12:22 | SOAPPROG ---
SOAP Progress Note Assessment/Plan: Assessment: Pt subjectively not feeling a good. WBC increased. Additional antibiotics started. 1. WAYNE Remains oliguric. Quite azotemic. Still overloaded. Stable HD today, repeat tomorrow. 2. Severe pancreatitis GI following, supportive care 3. HTN Labile, better after UF 2KG on HD. Plan: 11/20/16 12:19 11/20/16 12:21 Subjective: Tired, pain when he coughs Objective: Vital Signs Temp Pulse Resp BP Pulse Ox 37.0 C 132 H 28 H 156/104 H 95 11/20/16 08:00 11/20/16 08:00 11/20/16 08:00 11/20/16 08:00 11/20/16 08:00 Microbiology 11/13/16 20:33 Blood Culture - Final Blood 11/13/16 20:20 Blood Culture - Final Blood Laboratory Results 11/20/16 03:38 11/20/16 03:38 11/19/16 11/20/16 11/21/16 05:59 05:59 05:59 Intake Total 1033 557.8 Output Total 30 45 Balance 1003 512.8 Physical Exam - Physical Exam General Appearance: mild distress Neck: other (IJ temp Albaro site looks good) Respiratory: decreased breath sounds Cardiac/Chest: tachycardia Abdomen: other (Obese, mild tenderness diffusely on palpation) Extremities: pedal edema Neuro/Psych: oriented x 3 ICD10 Worksheet Patient Problems: Problems Problem Status Diagnosed Abdominal pain Acute
[2016-11-20] MEDS ORDERED: CEFEPIME HCL 0.5 GM in D5W 50 ML IV ONE (12:30)
[2016-11-20] MEDS ORDERED: CEFEPIME HCL 2 GM in D5W 100 ML IV SCH (14:00)
[2016-11-20] MEDS: FAMOTIDINE 20 MG TAB PO SCH (14:02)
--- NOTE | 2016-11-20 15:26 | CT ---
CT chest, abdomen and pelvis unenhanced History: Pancreatitis, elevated white count, tachycardia. Elevated creatinine precluding contrast. Comparison: PA and lateral chest of November 19, 2016, CT of the abdomen and pelvis from October, MR abdomen of November 11, 2016, abdominal ultrasound from November 11, 2016. Technique: Helical unenhanced images were obtained through the chest, abdomen and pelvis with limite d enteric contrast. Multiplanar reformations were performed. Findings: Chest: The study is slightly limited by motion. There is moderate bibasilar atelectasis, most promin ent in the lower lobes. Trace effusions are present. Dialysis catheter and right PICC tips are in the lower SVC. Heart size is normal. The aorta is normal caliber. No pathologically enlarged lymph nodes are identified. S-shaped curvature of the thoracic spine is present. Abdomen: Evaluation of the solid visceral organs is limited by the lack of IV contrast and suboptimal oral contrast distribution. The gallbladder is surgically absent. Diffuse fatty infiltration is noted in the liver. The spleen, a drenals, and left kidney have a normal unenhanced appearance. Punctate nonobstructing stone is presen t in the mid right kidney. Extensive peripancreatic stranding has increased since the comparison, wit h fluid in the retroperitoneum and extending adjacent to the stomach, with no discrete abscess, altho ugh sensitivity is limited by the lack of IV contrast. The visible portions of the appendix are jayme l. The aorta is normal caliber. Diffuse anasarca is new since the comparison. Annular bulges are present in the lower lumbar spine causing mild spinal canal narrowing at L3-L4 and L4-L5. Pelvis: The bladder is decompressed. A small volume of ascites has not significantly changed. A round 30 Hounsfield structure in the right inguinal canal is new since the comparison, which could be rela ananth to fluid in the inguinal canal or superior displacement of the right testicle. No aggressive osse ous lesions are present. Impression: 1. Increased extensive peripancreatic stranding and fluid, consistent with worsening pancreatitis, wi th no discrete abscess, although sensitivity is limited by the lack of IV contrast. 2. New anasarca. 3. Extensive basilar atelectasis without evidence of pneumonia with trace effusion. 4. Additional findings as above. Findings discussed with Nerissa, the patient's nurse today at 1518 hours.
--- NOTE | 2016-11-20 16:01 | HOSPPROG ---
Hospitalist Progress Note Assessment/Plan: #Acute pancreatitis -due to impacted stones; s/p removal -IV MASTER CONTROL OPERATOR, bowel rest. Stop chips due to increased abd pain #Sepsis: unclear source -WBC now 29, fevered to 38.5. +UA, urine,blood culture pending. C diff. CT chest , abd/pelvis pending #UTI: cefepime (no CTX while on Ca protocol) #Oliguric WAYNE -ATN in setting of shock. Cont HD per renal. Done this morning #Acute abdominal pain -due to pancreatitis #Tachycardia -improved mildly today -multifactorial with pain, volume overload and deconditioning -TTE and leg U/S negative, thus less suspicious for PE. #Hyperkalemia -resolved with HD #Uremia -HD per renal #Acute hypoxemic resp failure multifactorial with habitus, fluids, atelectasis -incentive spirometry. Not tolerating CPAP #Hypocalcemia: -Ca baths with HD #Diet: NPO #DVT ppx: SQH #Disp: warrant PCU status with tachycardia. Now fevering. IV abx Subjective: increase abd pain this AM, cramping. Objective: Vital Signs Temp Pulse Resp BP Pulse Ox 38.5 C H 122 H 22 H 133/82 H 95 11/20/16 12:42 11/20/16 12:42 11/20/16 12:42 11/20/16 12:42 11/20/16 12:42 Laboratory Results 11/20/16 03:38 11/20/16 03:38 11/19/16 11/20/16 11/21/16 05:59 05:59 05:59 Intake Total 1033 557.8 Output Total 30 45 Balance 1003 512.8 - Physical Exam Constitutional: obese Eyes: PERRL Ears, Nose, Mouth, Throat: moist mucous membranes, hearing normal Cardiovascular: tachycardia Respiratory: no respiratory distress, no rales or rhonchi, reduced air movement (at bases) Gastrointestinal: normoactive bowel sounds, soft, non-tender abdomen, other (no significant abd pain with palpation. Quiet bowel sounds) Skin: warm Musculoskeletal: full muscle strength Neurologic: AAOx3, CN II-XII Intact Psychiatric: other (difficult to get clear answers from him) ICD10 Worksheet Patient Problems: Problems Problem Status Diagnosed Abdominal pain Acute
[2016-11-20] MEDS: ACETAMINOPHEN 325 MG TAB PO PRN (21:43)
[2016-11-20] MEDS: oxyCODONE IR 5 MG TAB PO PRN (21:44)
[2016-11-21] MEDS: oxyCODONE IR 5 MG TAB PO PRN (02:19)
[2016-11-21] MEDS: HEPARIN 5,000 UNIT/0.5 ML SYR SC SCH ×3 (04:31→20:35)
[2016-11-21 04:56] LABS: IONIZED CALCIUM 1.08 MMOL/L (1.12-1.30)
[2016-11-21 05:01] LABS: HEMATOCRIT 32.5 % (40.0-51.0); HEMOGLOBIN 10.8 g/dL (13.7-17.5); MEAN CELL HEMOGLOBIN 32.1 pg (27.9-34.1); MEAN CELL HEMOGLOBIN CONCENTR. 33.2 g/dL (32.4-36.7); MEAN CELL VOLUME 96.7 fL (81.5-99.8); RED BLOOD CELL COUNT 3.36 10^6/uL (4.40-6.38); RED CELL DISTRIBUTION WIDTH 13.6 % (11.5-15.2)
[2016-11-21 05:14] LABS: ALBUMIN 2.4 g/dL (3.5-5.0); ANION GAP 13 mEq/L (8-16); CALCIUM 7.9 mg/dL (8.5-10.4); CARBON DIOXIDE 24 mEq/l (22-31); CHLORIDE 97 mEq/L (97-110); GLOMERULAR FILTRATION RATE 6; GLUCOSE 108 mg/dL (70-100); MAGNESIUM 2.3 mg/dL (1.6-2.3); POTASSIUM 4.3 mEq/L (3.5-5.2); SODIUM 134 mEq/L (134-144)
[2016-11-21 05:30] LABS: CREATININE 10.5 mg/dL (0.7-1.3)
[2016-11-21] MEDS: FAMOTIDINE 20 MG TAB PO SCH (07:49)
[2016-11-21] MEDS: HYDROmorphONE/DILAUDID 6 MG/30 ML PCA IV PRN (07:49)
[2016-11-21] MEDS ORDERED: CALCIUM GLUCONATE 50 ML IV ONE (07:52)
[2016-11-21] MEDS ORDERED: VANCOMYCIN HCL/NORMAL SALINE 250 ML IV ONE (11:30)
--- NOTE | 2016-11-21 11:58 | GCON ---
[f rep st] CONSULTATION INFECTIOUS DISEASE CONSULTATION REFERRING PHYSICIAN: Cassie Sheppard MD REASON FOR CONSULTATION: Fever and leukocytosis. HISTORY OF PRESENT ILLNESS: A 35-year-old male, with past medical history of morbid obesity, obstructive sleep apnea, who underwent a cholecystectomy approximately 3 years ago. He then presented to the emergency room on 2015 with mid epigastric pain, reporting it was similar to past pain associated with cholelithiasis. The patient was found to have an elevated bilirubin, elevated transaminases, and subsequently was found to have a retained common bile duct stone. The patient subsequently underwent ERCP on 11/12 with stone extraction, with postop course complicated by pancreatitis and acute renal failure. Postoperatively, the patient received Merrem from 11/13 to11/18 . He underwent microbiologic evaluation with blood cultures on 11/13 that were collected at the time he had a fever to 39.3. These blood cultures are negative. In the interim, the patient had a right IJ placed for emergent hemodialysis. He subsequently has been afebrile until yesterday he had a temperature to 38.5. As a part of that workup, he underwent a CT scan yesterday that showed increased peripancreatic stranding, but no focal abscess. Further, the patient had an elevated white count on presentation that slowly declined with a lois of 16, but has been gradually increasing since that time and today is up to 32,000. In addition, to workup his fever, he also had a C difficile PCR which was negative, a urinalysis which showed some mild pyuria. Penn is currently not in place. Prior to onset of fever, he also had a DVT study on 11/19 that was negative, and echocardiogram of the heart that also showed no focal valvular findings with a normal ejection fraction. Chest x-ray shows poor inspiratory effort with no focal infiltrates. The patient reports that his abdominal pain is overall improved. It has actually moved from the mid epigastric region to the periumbilical area. He denies any radiation of his pain. He also had some loose stools but now that is overall improving. He denies headache, mouth pain, cough, shortness of breath, leg pain or rash. He has mild diffuse pruritus that he says is not different than his baseline. The patient is currently receiving hemodialysis at the time of my exam. PAST MEDICAL HISTORY: Hypertension, morbid obesity with BMI of 44, obstructive sleep apnea, status post UPPP. He was CPAP intolerant. PAST SURGICAL HISTORY: UPPP and cholecystectomy 3 years ago. MEDICATIONS: The patient was started on cefepime 1 g IV daily on 11/20. He received meropenem from 11/13 to 11/18. He is also on Tylenol as needed, calcium protocol, Dilaudid DEPOSITION OPERATOR, magnesium, Zofran, oxycodone and Phenergan. ALLERGIES: NKDA. SOCIAL HISTORY: No smoking. Occasional alcohol. He works in [employer]. Lives with roommates. FAMILY HISTORY: Reviewed and noncontributory. REVIEW OF SYSTEMS: A complete 10-point review of systems was performed and is negative except as mentioned in HPI. PHYSICAL EXAM: VITAL SIGNS: Blood pressure 124/92, heart rate 126, respiratory rate 20, with saturation 92% on 5-6 L, temperature 37.8, T-max is 38.5. GENERAL: This is a morbidly obese male who is speaking in complete sentences, in no acute distress. HEENT: Generally dry mucous membranes but good dentition. No oral ulcerations or exudate. NECK: Very thick. He had a right IJ hemodialysis catheter in place that had some mild redness at 1 of the stitch sites but was nontender. CARDIOVASCULAR: He was tachycardic, no murmurs. CHEST: Clear to auscultation bilaterally but distant breath sounds due to obesity. ABDOMEN: Soft, nontender. Bowel sounds are present. Mild discomfort to palpation in the periumbilical region. EXTREMITIES: He had 1 to 2+ edema of his lower extremities. He had a PICC line in place in the right upper extremity that had some bruising surrounding it but no erythema or tenderness. No arm swelling was associated. : No Penn in place. NEUROLOGIC: He is alert and oriented x4. Moving all 4 extremities equally. Normal affect. LABORATORY DATA: White count 32,000. Differential was not performed today, but yesterday he had 69% neutrophils and 12% bands. Hematocrit 32, platelets of 295. Creatinine is 10, potassium 4.3. Hepatitis antibody suggests vaccination. C difficile PCR on 11/20 was negative. Two sets of peripheral blood cultures were collected on 11/20/2016 and are pending. A blood culture from his hemodialysis catheter and his PICC line was collected today. Imaging as per HPI. ASSESSMENT/PLAN: A 35-year-old male with choledocholithiasis, with pancreatitis and ischemic acute renal failure post ERCP, currently awaiting renal recovery on hemodialysis. Patient received 5 days of meropenem post ERCP , and 2 days after antibiotics were discontinued the patient developed a fever and worsening leukocytosis. CT scan did not show specific focus of abdominal abscess but the patient could be evolving necrotizing pancreatitis, but without focal abscess as there was some increased peripancreatic stranding. Also in the differential diagnosis is potential line infection. Blood cultures were collected peripherally yesterday and from the lines today. Already ruled out deep venous thrombosis and Clostridium difficile. Also, the patient was noted to have some pyuria and urine culture is pending. Could still consider pulmonary embolus in the differential diagnosis as the patient is not able to receive contrast due to acute tubular necrosis. 1. Agree with cefepime 1 g after every dialysis. 2. While awaiting blood cultures to evaluate for line infection, probably reasonable to give a dose of vancomycin and re-dose based on levels. If blood cultures are negative at 48 hours, could be discontinued. 3. We will follow 4 sets of blood cultures, urine culture, and assess for clinical need for further evaluation of pulmonary embolus. Thank you for this consultation. Time was 65 minutes, greater than 50% of the time spent with education and counseling, and review of past records. /[id number]/MODL MTDD
--- NOTE | 2016-11-21 12:19 | HOSPPROG ---
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 Stop chips due to increased abd pain #Sepsis: unclear source -WBC now 32, fevered yesterday. Abd pain improved. CT did showed pancreatic fat stranding, but no overt abscess. GI to review. Appreciate ID consultation to - C diff negative -treating with Cefepime for pyuria -urine, peripheral/PICC, HD catheter cultures pending. -Add Vanc until cultures back (renally dosed) #UTI: cefepime (no CTX while on Ca protocol) #Oliguric WAYNE -producing some urine. Due to ATN in setting of shock. Cont HD per renal. Done this morning #Acute abdominal pain -improved. Stopped TEST ENGINEERING TECHNICIAN today. PRN IV opioids #Sinus tachycardia -improved mildly today -multifactorial with pain, volume overload and deconditioning, infection -considered PE, but oxygen needs improved since admission. TTE with no e/o heart strain and neg LE U/S. #Hyperkalemia -resolved with HD #Uremia -HD per renal #Acute hypoxemic resp failure multifactorial with habitus, fluids, atelectasis -CT 11/20 with no PNA -incentive spirometry. Not tolerating CPAP #Hypocalcemia: -Ca baths with HD, Calcium protocol #Diet: NPO #DVT ppx: SQH #Disp: warrant PCU status with telemetry, IV abx Time spent on visit: 45 min in which >50% coordinating consultation with ID and d/w GI. Subjective: abd pain better Objective: Vital Signs Temp Pulse Resp BP Pulse Ox 37.8 C 126 H 28 H 124/92 H 92 11/21/16 08:00 11/21/16 08:00 11/21/16 08:00 11/21/16 08:00 11/21/16 08:00 Laboratory Results 11/21/16 04:30 11/21/16 04:30 11/20/16 11/21/16 11/22/16 05:59 05:59 05:59 Intake Total 557.8 220 Output Total 45 2200 Balance 512.8 - Physical Exam Constitutional: no apparent distress Eyes: PERRL Ears, Nose, Mouth, Throat: moist mucous membranes Cardiovascular: tachycardia Respiratory: clear to auscultation Gastrointestinal: other (obese, some epigastric TTP, but less than yesterday. Quiet BS. Ecchymoses over abdomen ) Genitourinary: no bladder fullness Skin: warm Musculoskeletal: other (PICC line and HD line without signs of infection) Neurologic: AAOx3, CN II-XII Intact Psychiatric: interacting appropriately, flat affect, other ICD10 Worksheet Patient Problems: Problems Problem Status Diagnosed Abdominal pain Acute
[2016-11-21] MEDS ORDERED: HEPARIN 50,000 UNIT/10 ML VIAL ONE (13:17)
[2016-11-21] MEDS: CEFEPIME HCL 1 GM in D5W 50 ML IV SCH (13:53)
--- NOTE | 2016-11-21 16:28 | SOAPPROG ---
SOAP Progress Note Assessment/Plan: Assessment/Plan: WAYNE: pt remains dialysis dependent, oliguric. - HD done again today. - Will hold off on HD tomorrow and assess daily for HD needs. Hypertension: improved with volume removal on HD, will continue to monitor. KATHRINE: phos 8.7. Will start calcium carbonate with meals, continue to monitor. Subjective: No acute events overnight. Pt remains on clear liquid diet. He had HD today with no issues. Objective: Vital Signs Temp Pulse Resp BP Pulse Ox 37.5 C 118 H 25 H 125/79 H 92 11/21/16 15:26 11/21/16 15:26 11/21/16 15:26 11/21/16 15:26 11/21/16 15:26 Laboratory Results 11/21/16 04:30 11/21/16 04:30 11/20/16 11/21/16 11/22/16 05:59 05:59 05:59 Intake Total 557.8 220 Output Total 45 2200 50 Balance 512.8 -1980 -50 General: alert and oriented, no acute distress Eyes: EOMI, PERRL OP: Clear CV: RRR Resp: CTA bilat, nonlabored respirations Abd; Soft, NT Ext: +1 edema BLE Access: R IJ temp cath Neuro: no asterixis, CN II-XII grossly intact Psych: cooperative, appropriate mood and affect ICD10 Worksheet Patient Problems: Problems Problem Status Diagnosed Abdominal pain Acute
--- NOTE | 2016-11-21 20:11 | SOAPPROG ---
SOAP Progress Note Assessment/Plan: Assessment: Plan: 11/16/16 12:51 A/P 1. Acute pancreatitis- with renal failure. Post ERCP. Appears to be clinically improving and is having bowel movements. If he continues to improve, ok for sips of water only tomorrow. Will check CRP. Hopefully, urine output will increase. Renal on board. Pain better controlled today. 11/16/16 12:56 11/17/16 10:33 A/P 1. Acute pancreatitis- with renal dysfunction. Clinically improving with less pain and more energy. Ok for sips of water. Renal on board. Continue INCINERATOR PLANT SUPERVISOR. 11/18/16 07:55 A/P 1. Acute pancreatitis- with renal failure. On HD. Appears to be clinically improving, albeit slowly. Recommend to continue INCINERATOR PLANT SUPERVISOR and pancreatic rest. 11/19/16 11:06 A/P 1. Acute pancreatitis- with renal failure on HD. Clinically improving. Recommend to continue INCINERATOR PLANT SUPERVISOR and pancreatic rest. Will start incentive spirometry and due to increased wbc would check a CXR. Unsure if antibiotics indicated but will defer to hospitalist team. 11/21/16 19:52 A/P 1. Acute pancreatitis- post ERCP. + renal failure. Clinically appears improving with decreasing pain and is not on INCINERATOR PLANT SUPERVISOR. However, due to CT findings and increasing wbc, would hold off on diet. I am concerned about the possibility of infected necrotizing pancreatitis due to increasing wbc ( especially after meropenem was stopped) versus other? Unfortunately, the recent CT scan was performed without IV contrast due to his renal failure. ID on board. Continue pancreatic rest. 2. Renal failure 3. Increasing wbc Subjective: cc: Follow up pancreatitis Pain less. Having BMs. Objective: Vital Signs Temp Pulse Resp BP Pulse Ox 36.8 C 120 H 20 124/80 H 94 11/21/16 19:47 11/21/16 19:47 11/21/16 19:47 11/21/16 19:47 11/21/16 19:47 Laboratory Results 11/21/16 04:30 11/21/16 04:30 11/20/16 11/21/16 11/22/16 05:59 05:59 05:59 Intake Total 557.8 220 Output Total 45 2199 2049 Balance 512.8 -1979 Physical Exam - Physical Exam General Appearance: alert, no apparent distress EENT: No scleral icterus (R), No scleral icterus (L) Respiratory: lungs clear, normal breath sounds Cardiac/Chest: regular rate, rhythm, No diastolic murmur, No systolic murmur Abdomen: normal bowel sounds, distended, rebound, No guarding Skin: normal color Neuro/Psych: alert, normal mood/affect, oriented x 3, No abnormal engineering technical specialist II-XII ICD10 Worksheet Patient Problems: Problems Problem Status Diagnosed Abdominal pain Acute
--- NOTE | 2016-11-21 20:19 | SOAPPROG ---
SOAP Progress Note Assessment/Plan: A/P 1. Acute pancreatitis- post ERCP complicated by renal disease. Still oliguric and on HD. Clinically improving but slowly. Continue pancreatic rest. 11/20/16 20:16 Subjective: cc: Follow up on pancreatitis Seen in HD. Slightly lethargic. Pain less. Objective: Vital Signs Temp Pulse Resp BP Pulse Ox 36.8 C 120 H 20 124/80 H 94 11/21/16 19:47 11/21/16 19:47 11/21/16 19:47 11/21/16 19:47 11/21/16 19:47 Laboratory Results 11/21/16 04:30 11/21/16 04:30 11/20/16 11/21/16 11/22/16 05:59 05:59 05:59 Intake Total 557.8 220 Output Total 45 2199 2049 Balance 512.8 -1979 Physical Exam - Physical Exam General Appearance: no apparent distress EENT: No scleral icterus (R), No scleral icterus (L) Respiratory: lungs clear, normal breath sounds Cardiac/Chest: regular rate, rhythm, edema, No diastolic murmur, No systolic murmur, No irregularly irregular Abdomen: normal bowel sounds, distended, No non-tender (epigastric area) Skin: normal color, warm/dry Extremities: pedal edema Neuro/Psych: oriented x 3, No abnormal vp client services II-XII ICD10 Worksheet Patient Problems: Problems Problem Status Diagnosed Abdominal pain Acute
[2016-11-21] MEDS: CALCIUM CARBONATE 500 MG CHEWABLE TAB PO SCH (20:35)
[2016-11-22] MEDS: LORazepam 2 MG/ML INJ IVP PRN (00:54)
[2016-11-22] MEDS: HYDROmorphONE/DILAUDID 1 MG/ML SYR IVP PRN (01:06)
[2016-11-22] MEDS ORDERED: HYDROmorphONE/DILAUDID 1 MG/ML SYR IVP ONE (04:30)
[2016-11-22] MEDS: HEPARIN 5,000 UNIT/0.5 ML SYR SC SCH ×3 (04:37→21:53)
[2016-11-22 05:23] LABS: HEMATOCRIT 30.7 % (40.0-51.0); HEMOGLOBIN 10.7 g/dL (13.7-17.5); MEAN CELL HEMOGLOBIN CONCENTR. 34.9 g/dL (32.4-36.7); MEAN CELL VOLUME 94.8 fL (81.5-99.8); RED BLOOD CELL COUNT 3.24 10^6/uL (4.40-6.38); RED CELL DISTRIBUTION WIDTH 13.4 % (11.5-15.2)
[2016-11-22 05:39] LABS: ALBUMIN 2.3 g/dL (3.5-5.0); ANION GAP 16 mEq/L (8-16); CALCIUM 7.9 mg/dL (8.5-10.4); CARBON DIOXIDE 23 mEq/l (22-31); CHLORIDE 97 mEq/L (97-110); GLOMERULAR FILTRATION RATE 6; GLUCOSE 103 mg/dL (70-100); MAGNESIUM 2.2 mg/dL (1.6-2.3); SODIUM 136 mEq/L (134-144)
[2016-11-22 05:43] LABS: CREATININE 9.4 mg/dL (0.7-1.3)
[2016-11-22] MEDS ORDERED: CALCIUM GLUCONATE 50 ML IV ONE (06:58)
--- NOTE | 2016-11-22 08:21 | HOSPPROG ---
Hospitalist Progress Note Assessment/Plan: #Acute pancreatitis -due to impacted stones; s/p removal -repeat imaging without some fat stranding, no overt abscess -tolerating ice, water #Sepsis: unclear source -WBC still 32. Abd pain improved. CT did showed pancreatic fat stranding, but no overt abscess. Concern for necrotizing pancreatitis (limited CT w/o contrast) . -treating with Cefepime for pyuria -urine, peripheral/PICC, HD catheter cultures pending -Add Vanc until cultures back (renally dosed) #UTI: cefepime (no CTX while on Ca protocol) #Oliguric WAYNE -producing some urine. Due to ATN in setting of shock. Cont HD per renal. Done this morning #Acute abdominal pain -improved. 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 TTE with no e/o heart strain and neg LE U/S. #Hyperkalemia -resolved with HD #Acute hypoxemic resp failure multifactorial with habitus, fluids, atelectasis -CT 11/20 with no PNA -incentive spirometry. Not tolerating CPAP #Hypocalcemia: -Ca baths with HD, Calcium protocol #Deconditioning: pt upset when I emphasized he needs to get out of room and work with PT #Diet: sips. Will d/w GI about nutrition, TFs? #DVT ppx: SQH #Disp: warrant PCU status with telemetry, IV abx Subjective: less abd pain. Mild nausea Objective: Vital Signs Temp Pulse Resp BP Pulse Ox 37.3 C 120 H 24 H 135/84 H 97 11/22/16 04:00 11/22/16 04:00 11/22/16 04:00 11/22/16 04:00 11/22/16 04:00 Laboratory Results 11/22/16 04:45 11/22/16 04:45 11/21/16 11/22/16 11/23/16 05:59 05:59 05:59 Intake Total 220 150 Output Total 2200 2049 Balance -1979 -1899 - Physical Exam Constitutional: no apparent distress, obese Eyes: PERRL Ears, Nose, Mouth, Throat: moist mucous membranes, hearing normal Cardiovascular: tachycardia Respiratory: clear to auscultation, other (diminished at bases) Gastrointestinal: other (obese, epigastric TTP, no guard or rebound) Skin: warm Musculoskeletal: full muscle strength Neurologic: AAOx3, CN II-XII Intact Psychiatric: flat affect, other (difficult to get a straight answer from him) ICD10 Worksheet Patient Problems: Problems Problem Status Diagnosed Abdominal pain Acute
[2016-11-22] MEDS: FAMOTIDINE 20 MG TAB PO SCH (08:22)
[2016-11-22] MEDS: CALCIUM CARBONATE 500 MG CHEWABLE TAB PO SCH ×3 (08:22→21:54)
[2016-11-22 08:58] LABS: ALBUMIN 2.3 g/dL (3.5-5.0); BILIRUBIN,TOTAL 1.1 mg/dL (0.1-1.4); BILIRUBIN-CONJUGATED 0.9 mg/dL (0.0-0.5); BILIRUBIN-UNCONJUGATED 0.2 mg/dL (0.0-1.1); TOTAL PROTEIN 4.9 g/dL (6.3-8.2)
--- NOTE | 2016-11-22 10:12 | SOAPPROG ---
SOAP Progress Note Assessment/Plan: Assessment/Plan: WAYNE: pt remains dialysis dependent, oliguric. Last dialyzed yesterday, still has poor UOP. - Will plan on HD tomorrow. - Will continue to monitor renal parameters and look for recovery. Hypertension: improved with volume removal on HD, will continue to monitor. KATHRINE: Started on calcium carbonate with meals, will continue to monitor phos. Subjective: No acute events overnight. Pt didn't sleep well last night, mostly having some abdominal pain. Objective: Vital Signs Temp Pulse Resp BP Pulse Ox 36.3 C 122 H 29 H 138/90 H 95 11/22/16 08:57 11/22/16 08:57 11/22/16 08:57 11/22/16 08:57 11/22/16 08:57 Laboratory Results 11/22/16 04:45 11/22/16 04:45 11/21/16 11/22/16 11/23/16 05:59 05:59 05:59 Intake Total 220 150 Output Total 2200 2049 50 Balance -1980 -1900 -50 General: alert and oriented, no acute distress Eyes: EOMI, PERRL OP: Clear CV: RRR Resp: CTA bilat, slightly tachypneic, on NC Ext: +1 edema BLE Access: R IJ temp catheter Neuro: CN II-XII grossly intact, no asterixis ICD10 Worksheet Patient Problems: Problems Problem Status Diagnosed Abdominal pain Acute
--- NOTE | 2016-11-22 13:06 | PCMIDPN ---
Assessment/Plan: Assessment: septic shock from pancreatitis following ERCP. Slowly improving. Covered empirically with cefepime. Prior course of meropenem. Fever trend improving. Cultures NGTD. Would continue coverage, NPO status and supportive care. No other recommendations at this point. Plan: 1) Continue cefepime (renally dosed), 2) Continue to monitor fever curve and cultures. Subjective: Patient is sitting up in his chair at the bedside. No appetite. Appears mildly toxic. Periodic hiccups cause discomfort. Objective: cefepime #1 Vital Signs Temp Pulse Resp BP Pulse Ox 36.3 C 147 H 29 H 138/90 H 82 L 11/22/16 08:57 11/22/16 11:55 11/22/16 08:57 11/22/16 08:57 11/22/16 11:55 Laboratory Results 11/22/16 04:45 11/22/16 04:45 11/21/16 11/22/16 11/23/16 05:59 05:59 05:59 Intake Total 220 150 Output Total 2200 2049 50 Balance -1979 -190 -50 - Physical Exam General Appearance: WD/WN, alert, no apparent distress, obese, toxic Respiratory: lungs clear, normal breath sounds, No respiratory distress Cardiac/Chest: regular rate, rhythm, tachycardia Abdomen: soft, No non-tender, No mass, No rigid Skin: normal color, warm/dry, No rash Neuro/Psych: alert, normal mood/affect, oriented x 3 ICD10 Worksheet Patient Problems: Problems Problem Status Diagnosed Abdominal pain Acute
[2016-11-22] MEDS: CEFEPIME HCL 1 GM in D5W 50 ML IV SCH (13:27)
[2016-11-22] MEDS: oxyCODONE IR 5 MG TAB PO PRN ×2 (13:42→21:55)
--- NOTE | 2016-11-22 22:43 | SOAPPROG ---
SOAP Progress Note Assessment/Plan: A/P 1. Acute pancreatitis- post ERCP complicated by renal disease. Still oliguric and on HD. Clinically improving but slowly. Continue pancreatic rest. 11/20/16 20:16 11/22/16 13:37 A/P 1. Acute pancreatitis- Post ERCP complicated by oliguric renal failure on HD. Clinically appears to be improving but has increasing wbc. Due to increasing wbc have to consider the possibility of necrotizing pancreatitis. ID on board. Recommend to continue pancreatic rest. Would also recommend nasojejunal feeding (if he refuses than TPN). Discussed with patient. Needs to try to do incentive spirometry. Subjective: cc: Follow up on pancreatitis Feeling better. "pain not an issue" Objective: Vital Signs Temp Pulse Resp BP Pulse Ox 36.7 C 117 H 20 143/87 H 95 11/22/16 20:00 11/22/16 20:00 11/22/16 20:00 11/22/16 22:10 11/22/16 20:00 Microbiology 11/20/16 15:45 Urine Culture - Final Urine,Clean Catch Laboratory Results 11/22/16 04:45 11/22/16 04:45 11/21/16 11/22/16 11/23/16 05:59 05:59 05:59 Intake Total 220 150 200 Output Total 2199 2049 150 Balance -1979 -1899 50 Physical Exam - Physical Exam General Appearance: alert, no apparent distress EENT: No scleral icterus (R), No scleral icterus (L) Respiratory: normal breath sounds, decreased breath sounds Cardiac/Chest: regular rate, rhythm, edema, No diastolic murmur Abdomen: non-tender (minimal tenderness in mid epi), distended, No guarding, No rebound Skin: normal color, No jaundice Extremities: pedal edema Neuro/Psych: alert, normal mood/affect, oriented x 3, No abnormal seo consultant II-XII ICD10 Worksheet Patient Problems: Problems Problem Status Diagnosed Abdominal pain Acute
[2016-11-23] MEDS: oxyCODONE IR 5 MG TAB PO PRN ×2 (03:39→12:28)
[2016-11-23] MEDS: HEPARIN 5,000 UNIT/0.5 ML SYR SC SCH ×3 (03:39→21:32)
[2016-11-23] MEDS: ACETAMINOPHEN 325 MG TAB PO PRN (03:52)
[2016-11-23 04:26] LABS: HEMOGLOBIN 10.3 g/dL (13.7-17.5); MEAN CELL HEMOGLOBIN 32.7 pg (27.9-34.1); MEAN CELL HEMOGLOBIN CONCENTR. 34.3 g/dL (32.4-36.7); MEAN CELL VOLUME 95.2 fL (81.5-99.8); RED BLOOD CELL COUNT 3.15 10^6/uL (4.40-6.38); RED CELL DISTRIBUTION WIDTH 13.5 % (11.5-15.2)
[2016-11-23 04:33] LABS: ALANINE AMINOTRANSFERASE 50 IU/L (21-72); ALBUMIN 2.4 g/dL (3.5-5.0); ALKALINE PHOSPHATASE 123 IU/L (38-126); ANION GAP 17 mEq/L (8-16); ASPARTATE AMINOTRANSFERASE 46 IU/L (17-59); CARBON DIOXIDE 22 mEq/l (22-31); CHLORIDE 97 mEq/L (97-110); GLOMERULAR FILTRATION RATE 5; GLUCOSE 94 mg/dL (70-100); MAGNESIUM 2.4 mg/dL (1.6-2.3); SODIUM 136 mEq/L (134-144)
[2016-11-23 04:38] LABS: CREATININE 11.4 mg/dL (0.7-1.3)
--- NOTE | 2016-11-23 08:38 | HOSPPROG ---
Hospitalist Progress Note Assessment/Plan: #Acute pancreatitis -due to impacted stones; s/p removal -repeat imaging without some fat stranding, no overt abscess -bowel rest. Start trickle feeds today #Sepsis: unclear source -WBC 34. Abd pain improved. CT did showed pancreatic fat stranding, but no overt abscess. Concern for necrotizing pancreatitis (limited CT w/o contrast). -cont vanc/cefepime (renally-dosed) -urine, peripheral/PICC, HD catheter cultures NGTD #Diarrhea -C diff PCR negative. Spoke with ID who agrees likely due to pancreatitis and not treatin gwith Flagyl given negative PCR #Oliguric WAYNE -producing some urine. Due to ATN in setting of shock. Cont HD per renal. Done this morning #Acute abdominal pain -improved. 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 TTE with no e/o heart strain and neg LE U/S. #Hyperkalemia -resolved with HD #Acute hypoxemic resp failure -improved today multifactorial with habitus, fluids, atelectasis -CT 11/20 with no PNA -incentive spirometry. Not tolerating CPAP #Hypocalcemia: -Ca baths with HD, Calcium protocol #Deconditioning: walked the unit yesterday. #Diet: start trickle feeds today #DVT ppx: SQH #Disp: warrant PCU status with telemetry, IV abx Subjective: pain unchanged. Feels more rested Objective: Vital Signs Temp Pulse Resp BP Pulse Ox 38 C 116 H 22 H 127/86 H 95 11/23/16 03:32 11/23/16 03:32 11/23/16 03:32 11/23/16 03:32 11/23/16 03:32 Microbiology 11/20/16 15:45 Urine Culture - Final Urine,Clean Catch Laboratory Results 11/23/16 03:45 11/23/16 03:45 11/22/16 11/23/16 11/24/16 05:59 05:59 05:59 Intake Total 150 500 Output Total 2049 264 Balance -1900 236 ICD10 Worksheet Patient Problems: Problems Problem Status Diagnosed Abdominal pain Acute
--- NOTE | 2016-11-23 09:48 | SOAPPROG ---
SOAP Progress Note Assessment/Plan: Assessment: 1. WAYNE Remains oliguric. Quite azotemic. Seen on HD, stable. Azotemia/catabolism is improving. Hold HD tomorrow. 2. Severe pancreatitis GI following, supportive care. May begin feeding post lig of Treitz. 3. HTN Improved. 4. Leukocytosis/ID On Vanco and Cefepime. ID following. Subjective: Looks significantly improved from last week. Objective: Vital Signs Temp Pulse Resp BP Pulse Ox 38 C 116 H 22 H 127/86 H 95 11/23/16 03:32 11/23/16 03:32 11/23/16 03:32 11/23/16 03:32 11/23/16 03:32 Microbiology 11/20/16 15:45 Urine Culture - Final Urine,Clean Catch Laboratory Results 11/23/16 03:45 11/23/16 03:45 11/22/16 11/23/16 11/24/16 05:59 05:59 05:59 Intake Total 150 500 Output Total 2050 264 Balance -1900 236 Physical Exam - Physical Exam General Appearance: no apparent distress Neck: other (line ok) Respiratory: lungs clear Cardiac/Chest: regular rate, rhythm Abdomen: soft, distended Extremities: pedal edema (1+, improved) Neuro/Psych: oriented x 3 ICD10 Worksheet Patient Problems: Problems Problem Status Diagnosed Abdominal pain Acute
[2016-11-23] MEDS ORDERED: CALCIUM GLUCONATE 50 ML IV ONE (12:03)
--- NOTE | 2016-11-23 12:12 | SOAPPROG ---
SOAP Progress Note Assessment/Plan: Assessment: 1. Choledocholithiasis s/p ERC with stone removal 2. Post-ERC pancreatitis 3. Abdominal pain- diffuse 4. Diarrhea 5. Leukocytosis Plan: 1. Dobhoff feeds 2. Send c.diff toxin. Highly suspicious for c.diff as the cause for his leukocytosis even with a negative stool PCR (not 100% sensitive) 3. Check lipase today 4. Monitor LFTs weekly to make sure not missing recurrent biliary obstruction 5. Check CRP and ESR as should be elevated if leukocytosis is infectious or inflammatory in etiology 6. Emperically treat c.diff with oral flagyl. Low risk and can monitor diarrhea and WBC as markers to see if this is likely clinically 11/23/16 12:09 Subjective: CC: abdominal pain Feels hungry. No nausea. Minimal epigastric pain. Having 3 loose BMs daily. Leg swelling has improved. Feels SOB Objective: Vital Signs Temp Pulse Resp BP Pulse Ox 38 C 116 H 22 H 127/86 H 95 11/23/16 03:32 11/23/16 03:32 11/23/16 03:32 11/23/16 03:32 11/23/16 03:32 Microbiology 11/20/16 15:45 Urine Culture - Final Urine,Clean Catch Laboratory Results 11/23/16 03:45 11/23/16 03:45 11/22/16 11/23/16 11/24/16 05:59 05:59 05:59 Intake Total 150 500 Output Total 0 264 Balance -1900 236 Physical Exam - Physical Exam General Appearance: no apparent distress EENT: pharynx normal, No scleral icterus (R), No scleral icterus (L) Neck: supple Respiratory: decreased breath sounds, wheezing Cardiac/Chest: regular rate, rhythm, tachycardia Abdomen: non-tender, soft, No organomegaly, No distended, No guarding, No hernia , No mass, No hepatomegaly, No splenomegaly, No ascites Skin: normal color, warm/dry, No cyanosis Lymphatic: no adenopathy Extremities: non-tender, normal capillary refill, pedal edema, No calf tenderness, No Venu's sign Neuro/Psych: alert, normal mood/affect, oriented x 3 ICD10 Worksheet Patient Problems: Problems Problem Status Diagnosed Abdominal pain Acute
[2016-11-23] MEDS: CALCIUM CARBONATE 500 MG CHEWABLE TAB PO SCH ×3 (12:28→21:35)
[2016-11-23] MEDS: FAMOTIDINE 20 MG TAB PO SCH (12:29)
[2016-11-23] MEDS: CEFEPIME HCL 1 GM in D5W 50 ML IV SCH (12:29)
[2016-11-23] MEDS ORDERED: HEPARIN 50,000 UNIT/10 ML VIAL ONE (14:41)
[2016-11-23] MEDS: LORazepam 2 MG/ML INJ IVP PRN ×2 (14:50→19:18)
--- NOTE | 2016-11-23 20:20 | PCMIDPN ---
Assessment/Plan: Assessment: septic shock from pancreatitis following ERCP. Slowly improving. Was covered empirically with cefepime now changed to zosyn. Prior course of meropenem. Mild temp to 38.0 overnight. Cultures remain NGTD. Would continue coverage, NPO status and supportive care. Given his negative c. diff PCR, doubt that reported diarrhea (actually semi-formed today per his RN) could be secondary to c. diff colitis. May point instead to decreased pancreatic enzyme function if his exocrine system of that organ was significantly affected. Will check a stool elastase. Plan: 1) Continue zosyn. (renally dosed), 2) Continue to monitor fever curve and cultures. 11/23/16 20:21 11/23/16 20:22 Subjective: Patient remains stable clinically. Resting in his hospital bed. No new complaint. Objective: zosyn #1 Vital Signs Temp Pulse Resp BP Pulse Ox 37.4 C 119 H 23 H 132/84 H 94 11/23/16 16:38 11/23/16 16:38 11/23/16 16:38 11/23/16 16:38 11/23/16 16:38 Microbiology 11/20/16 15:45 Urine Culture - Final Urine,Clean Catch Laboratory Results 11/23/16 03:45 11/23/16 03:45 11/22/16 11/23/16 11/24/16 05:59 05:59 05:59 Intake Total 150 500 60 Output Total 2050 264 2300 Balance -1900 236 -2240 ESR 60 MM/HR (0-15) H 11/23/16 03:45 C-Reactive Protein 225.0 mg/L (<10.0) H 11/23/16 03:45 - Physical Exam General Appearance: WD/WN, alert, no apparent distress, obese, non-toxic Respiratory: lungs clear, normal breath sounds, No respiratory distress Cardiac/Chest: regular rate, rhythm, tachycardia (borderline) Extremities: non-tender, normal inspection Abdomen: soft, distended, No non-tender Skin: normal color, warm/dry, No rash Neuro/Psych: alert, normal mood/affect ICD10 Worksheet Patient Problems: Problems Problem Status Diagnosed Abdominal pain Acute
[2016-11-23] MEDS: PIPERACILLIN/TAZO 2.25 GM/DEX 50 ML IV SCH (20:28)
[2016-11-23] MEDS: HYDROmorphONE/DILAUDID 1 MG/ML SYR IVP PRN (20:43)
[2016-11-24] MEDS: LORazepam 2 MG/ML INJ IVP PRN (01:08)
[2016-11-24] MEDS: HEPARIN 5,000 UNIT/0.5 ML SYR SC SCH ×3 (06:33→21:09)
[2016-11-24 06:45] LABS: ALANINE AMINOTRANSFERASE 46 IU/L (21-72); ALBUMIN 2.4 g/dL (3.5-5.0); ALKALINE PHOSPHATASE 117 IU/L (38-126); ANION GAP 16 mEq/L (8-16); ASPARTATE AMINOTRANSFERASE 51 IU/L (17-59); BILIRUBIN,TOTAL 1.2 mg/dL (0.1-1.4); CALCIUM 8.1 mg/dL (8.5-10.4); CARBON DIOXIDE 24 mEq/l (22-31); CHLORIDE 95 mEq/L (97-110); GLOMERULAR FILTRATION RATE 6; GLUCOSE 99 mg/dL (70-100); POTASSIUM 3.9 mEq/L (3.5-5.2); SODIUM 135 mEq/L (134-144); TOTAL PROTEIN 5.3 g/dL (6.3-8.2)
[2016-11-24 06:47] LABS: CREATININE 9.5 mg/dL (0.7-1.3)
[2016-11-24 06:53] LABS: ADD DIFF? YES; ADD MORPH? NO; ATYPICAL LYMPHOCYTE FLAG 40 (0-99); FRAGMENT RBC FLAG 0 (0-99); HEMATOCRIT 29.8 % (40.0-51.0); HEMOGLOBIN 10.1 g/dL (13.7-17.5); LIPEMIA HEMOLYSIS FLAG 90 (0-99); MEAN CELL HEMOGLOBIN 32.1 pg (27.9-34.1); MEAN CELL HEMOGLOBIN CONCENTR. 33.9 g/dL (32.4-36.7); MEAN CELL VOLUME 94.6 fL (81.5-99.8); MEAN PLATELET VOLUME 9.7 fL (8.7-11.7); PLATELET CLUMPS FLAG 0 (0-99); PLATELET COUNT 348 10^3/uL (150-400); RED BLOOD CELL COUNT 3.15 10^6/uL (4.40-6.38); RED CELL DISTRIBUTION WIDTH 13.3 % (11.5-15.2)
[2016-11-24 06:56] LABS: ADD SCAN? NO; LEFT SHIFT FLG 130 (0-99)
[2016-11-24 07:22] LABS: PLATELET ESTIMATE ADEQUATE (ADEQ)
[2016-11-24 07:31] LABS: SMUDGE CELLS 1+
--- NOTE | 2016-11-24 09:52 | SOAPPROG ---
SOAP Progress Note Assessment/Plan: Assessment: 1. WAYNE Likely less catabolic, so should be able to follow a MWF schedule this week. He looks better overall. If inflammation begins to cool, I hope his WAYNE begins recovery by end of week. 2. Severe pancreatitis GI following, supportive care. To begin feeding 3. HTN Improved. 4. Leukocytosis/ID/fevers On Vanco and Cefepime. ID following. CRP very high. Still unclear if this is infectious or ongoing inflammation from pancreatic bed. 11/24/16 09:49 11/24/16 09:56 Subjective: Looks better, affect brighter Objective: Vital Signs Temp Pulse Resp BP Pulse Ox 37.8 C 112 H 14 119/83 H 92 11/24/16 09:05 11/24/16 09:05 11/24/16 09:05 11/24/16 09:05 11/24/16 09:05 Laboratory Results 11/24/16 06:00 11/24/16 06:00 11/23/16 11/24/16 11/25/16 05:59 05:59 05:59 Intake Total 500 470 Output Total 264 2450 Balance 236 -1980 Physical Exam - Physical Exam General Appearance: no apparent distress Respiratory: lungs clear Cardiac/Chest: regular rate, rhythm Abdomen: soft Extremities: other (trace to 1+ hip edema) Neuro/Psych: alert, oriented x 3 ICD10 Worksheet Patient Problems: Problems Problem Status Diagnosed Abdominal pain Acute
[2016-11-24] MEDS: oxyCODONE IR 5 MG TAB PO PRN ×3 (10:25→20:17)
[2016-11-24] MEDS: CALCIUM CARBONATE 500 MG CHEWABLE TAB PO SCH ×3 (10:25→21:09)
[2016-11-24] MEDS: FAMOTIDINE 20 MG TAB PO SCH (10:26)
[2016-11-24] MEDS: PIPERACILLIN/TAZO 2.25 GM/DEX 50 ML IV SCH ×2 (10:26→21:10)
--- NOTE | 2016-11-24 10:54 | PCMIDPN ---
Assessment/Plan: Assessment: septic shock from pancreatitis following ERCP. Slowly improving. Covering empirically with zosyn. Prior course of meropenem as well as cefepime. T-max of 37.8 degrees. Cultures remain NGTD. Would continue coverage, NPO status and supportive care. Plan: 1) Continue zosyn. (renally dosed), 2) Continue to monitor fever curve and cultures. 3. Await lab results on stool studies. Subjective: Patient is resting comfortably in his hospital bed. He has no new complaints. Abdominal pain is somewhat well controlled. Still having small amounts of loose stool although it is not liquid. Had 2 episodes of small amounts of bowel movement today. Objective: Zosyn #2 Vital Signs Temp Pulse Resp BP Pulse Ox 37.8 C 112 H 14 119/83 H 92 11/24/16 09:05 11/24/16 09:05 11/24/16 09:05 11/24/16 09:05 11/24/16 09:05 Laboratory Results 11/24/16 06:00 11/24/16 06:00 11/23/16 11/24/16 11/25/16 05:59 05:59 05:59 Intake Total 500 470 Output Total 264 2450 Balance 236 -1980 ESR 60 MM/HR (0-15) H 11/23/16 03:45 C-Reactive Protein 225.0 mg/L (<10.0) H 11/23/16 03:45 - Physical Exam General Appearance: WD/WN, alert, no apparent distress, obese Respiratory: lungs clear, normal breath sounds, No respiratory distress Cardiac/Chest: regular rate, rhythm, No tachycardia Extremities: non-tender, normal inspection Abdomen: soft, distended Skin: normal color, warm/dry, No rash Neuro/Psych: alert, normal mood/affect, oriented x 3 ICD10 Worksheet Patient Problems: Problems Problem Status Diagnosed Abdominal pain Acute
--- NOTE | 2016-11-24 13:05 | HOSPPROG ---
Hospitalist Progress Note Assessment/Plan: 35 yo m w severe pancreatitis and ongoing leukocytosis and tachycardia Acute pancreatitis -due to impacted stones; s/p removal -repeat imaging without some fat stranding, no overt abscess- last imaging 11/20 at risk for pseudocyst -bowel rest. Start trickle feeds today Sepsis: unclear source -WBC 34. Abd pain improved. CT did showed pancreatic fat stranding, but no overt abscess. Concern for necrotizing pancreatitis (limited CT w/o contrast). -cont vanc/cefepime (renally-dosed) -urine, peripheral/PICC, HD catheter cultures NGTD Diarrhea -C diff PCR negative. Spoke with ID who agrees likely due to pancreatitis and not treatin gwith Flagyl given negative PCR repeat cdiff today Oliguric WAYNE -producing some urine. Due to ATN in setting of shock. Cont HD per renal. Done this morning Acute abdominal pain -improved. 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 TTE with no e/o heart strain and neg LE U/S. Hyperkalemia -resolved with HD Acute hypoxemic resp failure -improved today multifactorial with habitus, fluids, atelectasis -CT 11/20 with no PNA -incentive spirometry. Not tolerating CPAP Hypocalcemia: -Ca baths with HD, Calcium protocol Deconditioning: walked the unit yesterday. Diet: start trickle feeds today DVT ppx: SQH Subjective: case d/w guilherme lin and charles. no events tele (interp by me). sinus tach Objective: Vital Signs Temp Pulse Resp BP Pulse Ox 37.6 C 120 H 14 123/75 H 94 11/24/16 12:13 11/24/16 12:13 11/24/16 12:13 11/24/16 12:13 11/24/16 12:13 Laboratory Results 11/24/16 06:00 11/24/16 06:00 11/23/16 11/24/16 11/25/16 05:59 05:59 05:59 Intake Total 500 470 Output Total 264 2450 Balance 236 -1979 - Physical Exam Constitutional: no apparent distress, appears nourished Eyes: PERRL, anicteric sclera Ears, Nose, Mouth, Throat: moist mucous membranes, hearing normal Cardiovascular: regular rate and rhythym, no murmur, rub, or gallop, other (R IJ HD catheter) Respiratory: no respiratory distress, no rales or rhonchi Gastrointestinal: normoactive bowel sounds, soft, non-tender abdomen Genitourinary: No juarez in urethra Skin: warm, normal color Musculoskeletal: full muscle strength, no muscle tenderness Neurologic: AAOx3 Psychiatric: interacting appropriately, not anxious Lymph, Heme, Immunologic: no cervical LAD ICD10 Worksheet Patient Problems: Problems Problem Status Diagnosed Abdominal pain Acute
--- NOTE | 2016-11-24 13:35 | SOAPPROG ---
SOAP Progress Note Assessment/Plan: Assessment: 1. Choledocholithiasis s/p ERC with stone removal 2. Post-ERC pancreatitis 3. Abdominal pain- diffuse, mild 4. Diarrhea (improved) 5. Leukocytosis Plan: 1. Dobhoff feeds. Will stop NG feeds into the stomach today and plan for IR placement of enteral feeding tube tomorrow. 2. Await C.diff toxin assay. 3. Lipase normal. 4. Monitor LFTs weekly to make sure not missing recurrent biliary obstruction 5. Will follow 11/23/16 12:09 11/24/16 13:32 Subjective: CC: diarrhea improved Abdominal pain unchanged and mild NG placed and enteral feedings started yesterday but not via a small bowel feeding tube Objective: Vital Signs Temp Pulse Resp BP Pulse Ox 37.6 C 120 H 14 123/75 H 94 11/24/16 12:13 11/24/16 12:13 11/24/16 12:13 11/24/16 12:13 11/24/16 12:13 Laboratory Results 11/24/16 06:00 11/24/16 06:00 11/23/16 11/24/16 11/25/16 05:59 05:59 05:59 Intake Total 500 470 Output Total 264 2450 Balance 236 -1980 Physical Exam - Physical Exam General Appearance: WD/WN, no apparent distress EENT: other (NG tube left nares) Neck: supple Respiratory: lungs clear, normal breath sounds Cardiac/Chest: regular rate, rhythm Abdomen: normal bowel sounds, non-tender, soft, No distended, No guarding, No rebound, No ascites ICD10 Worksheet Patient Problems: Problems Problem Status Diagnosed Abdominal pain Acute
[2016-11-24 16:30] LABS: IONIZED CALCIUM 1.14 MMOL/L (1.12-1.30)
[2016-11-25] MEDS: LORazepam 2 MG/ML INJ IVP PRN ×2 (02:15→11:31)
[2016-11-25] MEDS: HYDROmorphONE/DILAUDID 1 MG/ML SYR IVP PRN ×2 (02:15→10:08)
[2016-11-25 05:50] LABS: ADD DIFF? YES; ADD MORPH? NO; ATYPICAL LYMPHOCYTE FLAG 50 (0-99); FRAGMENT RBC FLAG 0 (0-99); HEMATOCRIT 29.3 % (40.0-51.0); HEMOGLOBIN 10.2 g/dL (13.7-17.5); LIPEMIA HEMOLYSIS FLAG 90 (0-99); MEAN CELL HEMOGLOBIN 33.3 pg (27.9-34.1); MEAN CELL HEMOGLOBIN CONCENTR. 34.8 g/dL (32.4-36.7); MEAN CELL VOLUME 95.8 fL (81.5-99.8); MEAN PLATELET VOLUME 9.4 fL (8.7-11.7); PLATELET CLUMPS FLAG 0 (0-99); PLATELET COUNT 372 10^3/uL (150-400); RED BLOOD CELL COUNT 3.06 10^6/uL (4.40-6.38); RED CELL DISTRIBUTION WIDTH 13.4 % (11.5-15.2)
[2016-11-25 05:54] LABS: ADD SCAN? NO; LEFT SHIFT FLG 110 (0-99)
[2016-11-25 06:01] LABS: ALANINE AMINOTRANSFERASE 52 IU/L (21-72); ALBUMIN 2.6 g/dL (3.5-5.0); ALKALINE PHOSPHATASE 128 IU/L (38-126); ANION GAP 16 mEq/L (8-16); ASPARTATE AMINOTRANSFERASE 48 IU/L (17-59); BILIRUBIN,TOTAL 1.4 mg/dL (0.1-1.4); CALCIUM 8.2 mg/dL (8.5-10.4); CARBON DIOXIDE 22 mEq/l (22-31); CHLORIDE 95 mEq/L (97-110); GLOMERULAR FILTRATION RATE 5; GLUCOSE 90 mg/dL (70-100); POTASSIUM 4.3 mEq/L (3.5-5.2); SODIUM 133 mEq/L (134-144); TOTAL PROTEIN 5.6 g/dL (6.3-8.2)
[2016-11-25 06:03] LABS: CREATININE 11.1 mg/dL (0.7-1.3)
[2016-11-25] MEDS: HEPARIN 5,000 UNIT/0.5 ML SYR SC SCH ×3 (06:03→20:25)
[2016-11-25 06:22] LABS: HYPOCHROMIA 1+; PLATELET ESTIMATE ADEQUATE (ADEQ); POLYCHROMASIA 1+
[2016-11-25] MEDS ORDERED: BENZOCAINE UNIT DOSE SPRAY HURRICAINE MM ONE (08:58)
[2016-11-25] MEDS ORDERED: LIDOCAINE 2% JELLY 5 ML TUBE ONE ×3 (08:59→11:57)
--- NOTE | 2016-11-25 09:36 | SOAPPROG ---
SOAP Progress Note Assessment/Plan: Assessment: 1. WAYNE Seen on HD. Tolerating well. Will increase UF. Next HD Wed. Oliguric, but UO picking up. 2. Severe pancreatitis GI following, supportive care. To begin feeding 3. HTN Improved. 4. Leukocytosis/ID/fevers On Vanco and Cefepime. ID following. CRP very high. Still unclear if this is infectious or ongoing inflammation from pancreatic bed. WBC has increased further today. Subjective: Doing fair Objective: Vital Signs Temp Pulse Resp BP Pulse Ox 37.5 C 120 H 20 135/101 H 93 11/25/16 04:00 11/25/16 04:00 11/25/16 04:00 11/25/16 04:00 11/25/16 04:00 Laboratory Results 11/25/16 05:35 11/25/16 05:35 11/24/16 11/25/16 11/26/16 05:59 05:59 05:59 Intake Total 470 1020 Output Total 2450 350 Balance -1980 670 Physical Exam - Physical Exam General Appearance: no apparent distress Respiratory: lungs clear Cardiac/Chest: regular rate, rhythm Abdomen: soft Extremities: pedal edema Neuro/Psych: oriented x 3 ICD10 Worksheet Patient Problems: Problems Problem Status Diagnosed Abdominal pain Acute
--- NOTE | 2016-11-25 11:02 | SOAPPROG ---
SOAP Progress Note Assessment/Plan: Assessment: 1. Choledocholithiasis s/p ERC with stone removal 2. Post-ERC pancreatitis 3. Abdominal pain- diffuse, mild 4. Diarrhea (improved) 5. Leukocytosis- probably inflammatory and due to severe pancreatitis 6. Dyspnea 7. Acute kidney injury on dialysis Plan: 1. Dobhoff feeds. IR placement of enteral feeding tube today and then can start tube feeds. 2. Hopefully will continue to improve 3. Cause of dyspnea is unclear but likely due to volume overload, obesity and some element of abdominal distention and pancreatitis. Chest CT from 11/20 without contrast was without acute process. 4. Will discuss with primary team CXR if worsens despite dialysis removal of volume. Oxygen requirement stable at 4-5L nc with sats 93% 5. CRP elevated consistent with pancreatitis but can also be seen with infection although no obvious source for infection to date. 6. Query pancreatic ascites with infection so would see if an U/S for ascites with diagnostic tap can be done. 11/25/16 11:04 11/25/16 11:18 Subjective: CC: Tired Some ongoing abdominal pain but not too severe. Feels SOB today. Same as yesterday. Less diarrhea. Had dialysis today. Plan for enteral feeding tube placement. Objective: Vital Signs Temp Pulse Resp BP Pulse Ox 37.5 C 120 H 20 135/101 H 93 11/25/16 04:00 11/25/16 04:00 11/25/16 04:00 11/25/16 04:00 11/25/16 04:00 Laboratory Results 11/25/16 05:35 11/25/16 05:35 11/24/16 11/25/16 11/26/16 05:59 05:59 05:59 Intake Total 470 1020 Output Total 2450 350 Balance -1980 670 Physical Exam - Physical Exam General Appearance: mild distress, obese EENT: No scleral icterus (R), No scleral icterus (L) Neck: supple, other (Dialysis catheter in right neck) Respiratory: respiratory distress, accessory muscle use, decreased breath sounds , No rales, No rhonchi, No stridor, No wheezing Cardiac/Chest: regular rate, rhythm, tachycardia, systolic murmur Abdomen: non-tender, distended, other (Hypoactive bowel sounds. Central tympany. Question ascites.) ICD10 Worksheet Patient Problems: Problems Problem Status Diagnosed Abdominal pain Acute
--- NOTE | 2016-11-25 11:31 | HOSPPROG ---
Hospitalist Progress Note Assessment/Plan: 35 yo m w severe pancreatitis and ongoing leukocytosis and tachycardia Acute pancreatitis due to impacted stones; s/p removal repeat imaging without some fat stranding, no overt abscess- last imaging at risk for pseudocyst bowel rest. SBFT today Sepsis: unclear source WBC 34. Abd pain improved. CT did showed pancreatic fat stranding, but no overt abscess. cont vanc/cefepime (renally-dosed) urine, peripheral/PICC, HD catheter cultures NGTD given negative infectious workup, it is reasonable to attribute ongoing leukocytosis and tachycardia to severe pancreatitis will discuss limiting abx w ID abd u/s today to eval for ascites- diagnostic paracentesis today Diarrhea C diff PCR negative. Spoke with ID who agrees likely due to pancreatitis and not treatin gwith Flagyl given negative PCR Oliguric WAYNE producing some urine. Due to ATN in setting of shock. Cont HD per renal. Done this morning Acute abdominal pain improved. 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 TTE with no e/o heart strain and neg LE U/S. Hyperkalemia resolved with HD Acute hypoxemic resp failure improved today multifactorial with habitus, fluids, atelectasis CT 11/20 with no PNA incentive spirometry. Not tolerating CPAP Hypocalcemia: resolved Deconditioning: walked the unit yesterday. Diet: start trickle feeds today DVT ppx: SQH Subjective: case d/w dr pacheco Objective: Vital Signs Temp Pulse Resp BP Pulse Ox 37.5 C 120 H 20 135/101 H 93 11/25/16 04:00 11/25/16 04:00 11/25/16 04:00 11/25/16 04:00 11/25/16 04:00 Laboratory Results 11/25/16 05:35 11/25/16 05:35 11/24/16 11/25/16 11/26/16 05:59 05:59 05:59 Intake Total 470 1020 Output Total 2450 350 Balance -1979 670 - Physical Exam Constitutional: no apparent distress, appears nourished Eyes: PERRL, anicteric sclera Ears, Nose, Mouth, Throat: moist mucous membranes, hearing normal Cardiovascular: regular rate and rhythym, no murmur, rub, or gallop Respiratory: no respiratory distress, no rales or rhonchi Gastrointestinal: distension, No normoactive bowel sounds, No tenderness, No guarding, No rebound Genitourinary: No juarez in urethra Skin: warm, normal color Musculoskeletal: full muscle strength, no muscle tenderness Neurologic: AAOx3 ICD10 Worksheet Patient Problems: Problems Problem Status Diagnosed Abdominal pain Acute
--- NOTE | 2016-11-25 12:39 | US ---
Ultrasound Limited Abdomen Indication: Pancreatitis. Abdominal distention. Evaluate for ascites. Technique: All four quadrants of the abdomen were evaluated with curvilinear 5 transducer. Findings: No free fluid. Impression: No ascites. Paracentesis was not performed.
--- NOTE | 2016-11-25 12:42 | DX ---
Fluoroscopic-Guided Placement of Small Bowel Feeding Tube Indication: Pancreatitis. Requires nutrition. Technique: Patient was placed supine on the fluoroscopy table. Hurricane spray was applied to the harriett pharynx to dampen sensation of feeding tube placement. Viscous lidocaine gel was placed on the tip of the feeding tube. Under real-time intermittent fluoroscopy, the tip of the small bowel feeding tube was advanced into the stomach. 300 mL of air was injected into the feeding tube. The patient was then rolled to a 45 degree RPO position and the tube was then uneventfully advanced so the tip resided in the third portion of the duodenum. The wire was removed and the feeding tube was fixed with a bridle by the Radiology staff. Fluoroscopy time: 1.1 minutes. Cumulative dose: 9.4 mGy. Findings: Feeding tube tip resides in the third portion of duodenum. Impression: Successful fluoroscopic-guided placement of feeding tube. e:bhavin
[2016-11-25] MEDS: PIPERACILLIN/TAZO 2.25 GM/DEX 50 ML IV SCH ×2 (13:27→20:24)
[2016-11-25] MEDS: CALCIUM CARBONATE 500 MG CHEWABLE TAB PO SCH ×3 (13:27→20:25)
[2016-11-25] MEDS: FAMOTIDINE 20 MG TAB PO SCH (13:28)
--- NOTE | 2016-11-25 14:16 | PCMIDPN ---
Assessment/Plan: Assessment/Plan: 1. Septic shock secondary to pancreatitis: - on zosyn. s/p merem x6 days, then 2 days off, then cefepime followed by zosyn currently,--D#7 -wbc remains elevated--likley multifactorial -remains with renal failure on HD. -will continue current care for now. -care coordinated with hosptialist team. Subjective: afebrile. c/o abd pain. ngt in place. pili sob. denies diarrhea. Objective: Vital Signs Temp Pulse Resp BP Pulse Ox 36.9 C 132 H 26 H 143/77 H 94 11/25/16 12:40 11/25/16 12:40 11/25/16 12:40 11/25/16 12:40 11/25/16 12:40 Laboratory Results 11/25/16 05:35 11/25/16 05:35 11/24/16 11/25/16 11/26/16 05:59 05:59 05:59 Intake Total 470 1020 Output Total 2450 350 Balance -1980 670 ESR 60 MM/HR (0-15) H 11/23/16 03:45 C-Reactive Protein 225.0 mg/L (<10.0) H 11/23/16 03:45 - Physical Exam General Appearance: alert, no apparent distress Respiratory: lungs clear Cardiac/Chest: regular rate, rhythm Extremities: swelling Abdomen: normal bowel sounds, distended, tender Skin: No erythema ICD10 Worksheet Patient Problems: Problems Problem Status Diagnosed Abdominal pain Acute
[2016-11-25] MEDS ORDERED: HEPARIN 50,000 UNIT/10 ML VIAL ONE (18:31)
[2016-11-25] MEDS ORDERED: HEPARIN 10,000 UNIT/10 ML MDV ONE (18:31)
[2016-11-25] MEDS: oxyCODONE IR 5 MG TAB PO PRN (20:25)
[2016-11-26] MEDS: oxyCODONE IR 5 MG TAB PO PRN ×6 (00:26→22:24)
[2016-11-26] MEDS: HEPARIN 5,000 UNIT/0.5 ML SYR SC SCH ×3 (05:15→21:35)
[2016-11-26 05:46] LABS: ADD DIFF? YES; ADD MORPH? NO; ATYPICAL LYMPHOCYTE FLAG 50 (0-99); FRAGMENT RBC FLAG 0 (0-99); HEMATOCRIT 27.8 % (40.0-51.0); HEMOGLOBIN 9.2 g/dL (13.7-17.5); LIPEMIA HEMOLYSIS FLAG 80 (0-99); MEAN CELL HEMOGLOBIN 32.2 pg (27.9-34.1); MEAN CELL HEMOGLOBIN CONCENTR. 33.1 g/dL (32.4-36.7); MEAN CELL VOLUME 97.2 fL (81.5-99.8); MEAN PLATELET VOLUME 9.3 fL (8.7-11.7); PLATELET CLUMPS FLAG 20 (0-99); PLATELET COUNT 357 10^3/uL (150-400); RED BLOOD CELL COUNT 2.86 10^6/uL (4.40-6.38); RED CELL DISTRIBUTION WIDTH 13.3 % (11.5-15.2)
[2016-11-26 05:54] LABS: ADD SCAN? NO; LEFT SHIFT FLG 120 (0-99)
[2016-11-26 06:22] LABS: ALANINE AMINOTRANSFERASE 49 IU/L (21-72); ALBUMIN 2.4 g/dL (3.5-5.0); ALKALINE PHOSPHATASE 119 IU/L (38-126); ANION GAP 16 mEq/L (8-16); ASPARTATE AMINOTRANSFERASE 46 IU/L (17-59); BILIRUBIN,TOTAL 1.1 mg/dL (0.1-1.4); CALCIUM 8.1 mg/dL (8.5-10.4); CARBON DIOXIDE 25 mEq/l (22-31); CHLORIDE 96 mEq/L (97-110); GLOMERULAR FILTRATION RATE 6; GLUCOSE 109 mg/dL (70-100); POTASSIUM 3.9 mEq/L (3.5-5.2); SODIUM 137 mEq/L (134-144); TOTAL PROTEIN 5.4 g/dL (6.3-8.2)
[2016-11-26 06:29] LABS: CREATININE 9.6 mg/dL (0.7-1.3)
[2016-11-26 06:36] LABS: MACROCYTES 1+; PLATELET ESTIMATE ADEQUATE (ADEQ)
[2016-11-26] MEDS: CALCIUM CARBONATE 500 MG CHEWABLE TAB PO SCH ×3 (09:33→21:34)
[2016-11-26] MEDS: FAMOTIDINE 20 MG TAB PO SCH (09:33)
[2016-11-26] MEDS: PIPERACILLIN/TAZO 2.25 GM/DEX 50 ML IV SCH ×2 (09:34→21:29)
--- NOTE | 2016-11-26 10:40 | HOSPPROG ---
Hospitalist Progress Note Assessment/Plan: 35 yo m w severe pancreatitis and ongoing leukocytosis and tachycardia Acute pancreatitis due to impacted stones; s/p removal repeat imaging without some fat stranding, no overt abscess- last imaging at risk for pseudocyst SBFT w feeds started yesterday. no increase in pain 1. jayden castano check MR of abdomen to eval for pancreatic necrosis Sepsis: unclear source he has had SIRS (leukocytosis and tachycardia) for days infectious workup neg no ascites now in day 3 of zosyn discussed w ID- suggest limiting abx to 7 days if no new info Diarrhea C diff PCR negative. Spoke with ID who agrees likely due to pancreatitis and not treatin gwith Flagyl given negative PCR Oliguric WAYNE producing some urine. Due to ATN in setting of shock. Cont HD per renal. Done this morning Acute abdominal pain improved. 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 TTE with no e/o heart strain and neg LE U/S. Hyperkalemia resolved with HD Acute hypoxemic resp failure improved today multifactorial with habitus, fluids, atelectasis CT 11/20 with no PNA incentive spirometry. Not tolerating CPAP Hypocalcemia: resolved Deconditioning: walked the unit yesterday. Diet: start trickle feeds today DVT ppx: SQH Subjective: case discussed w dr pacheco. tele: sinus tach (interp by me). no ascites on ab u/s Objective: Vital Signs Temp Pulse Resp BP Pulse Ox 36.9 C 121 H 20 141/76 H 98 11/26/16 07:29 11/26/16 07:29 11/26/16 07:29 11/26/16 07:29 11/26/16 07:29 Microbiology 11/20/16 16:30 Blood Culture - Final Blood 11/20/16 15:48 Blood Culture - Final Blood Laboratory Results 11/26/16 05:10 11/26/16 05:10 11/25/16 11/26/16 11/27/16 05:59 05:59 05:59 Intake Total 1020 1807 Output Total 350 325 225 Balance 670 1482 -225 - Physical Exam Constitutional: no apparent distress, appears nourished Eyes: PERRL, anicteric sclera Ears, Nose, Mouth, Throat: moist mucous membranes, hearing normal, ears appear normal Cardiovascular: tachycardia, No systolic murmur, No irregularly irregular Respiratory: no respiratory distress, no rales or rhonchi Gastrointestinal: normoactive bowel sounds, soft, non-tender abdomen, No guarding, No rebound Genitourinary: no bladder fullness, No juarez in urethra Skin: warm, normal color Musculoskeletal: full muscle strength Neurologic: AAOx3 ICD10 Worksheet Patient Problems: Problems Problem Status Diagnosed Abdominal pain Acute
--- NOTE | 2016-11-26 11:00 | SOAPPROG ---
SOAP Progress Note Assessment/Plan: Assessment: 1. Choledocholithiasis s/p ERC with stone removal 2. Post-ERC pancreatitis 3. Abdominal pain- diffuse, mild 4. Diarrhea (improved) 5. Leukocytosis- probably inflammatory and due to severe pancreatitis 6. Dyspnea 7. Acute kidney injury on dialysis Plan: 1. Tolerating dobhoff feeds 2. U/S without ascites 3. Work on breathing mechanics and PT which I reviewed with Carl today 4. Will consider MRI of pancreas if he does not continue to improve, but he looks better today overall 5. Will follow 11/26/16 10:57 Subjective: CC: abdominal pain Tolerated dobhoff placement and TF to date which were started yesterday. Breathing still feels SOB today but improved. Objective: Vital Signs Temp Pulse Resp BP Pulse Ox 36.9 C 121 H 20 141/76 H 98 11/26/16 07:29 11/26/16 07:29 11/26/16 07:29 11/26/16 07:29 11/26/16 07:29 Microbiology 11/20/16 16:30 Blood Culture - Final Blood 11/20/16 15:48 Blood Culture - Final Blood Laboratory Results 11/26/16 05:10 11/26/16 05:10 11/25/16 11/26/16 11/27/16 05:59 05:59 05:59 Intake Total 1020 1807 Output Total 350 325 225 Balance 670 1482 -225 Physical Exam - Physical Exam General Appearance: mild distress EENT: other (Dobhoff tube in right nares) Neck: supple Respiratory: decreased breath sounds, rhonchi Cardiac/Chest: regular rate, rhythm, tachycardia, systolic murmur Abdomen: soft, distended, other (Very hypoactive bowel sounds), No guarding, No rebound Skin: normal color, warm/dry, No cyanosis ICD10 Worksheet Patient Problems: Problems Problem Status Diagnosed Abdominal pain Acute
[2016-11-26] MEDS: LORazepam 2 MG/ML INJ IVP PRN (11:09)
--- NOTE | 2016-11-26 12:00 | SOAPPROG ---
SOAP Progress Note Assessment/Plan: Assessment:Plan: ARF-consistent with ATN -urine output down after Hd yesterday -only 75 ml compared to 350 the prior 24 hours -s/p Hd on Friday -plan for Hd again on Friday Access-RAGHU Irvin Edema-UF as tolerated -edema is much better Hyperkalemia-resolved ID-better on Zosyn 11/26/16 11:58 Subjective: Up in chair, feeling better Objective: Vital Signs Temp Pulse Resp BP Pulse Ox 36.9 C 121 H 20 141/76 H 98 11/26/16 07:29 11/26/16 07:29 11/26/16 07:29 11/26/16 07:29 11/26/16 07:29 Microbiology 11/20/16 16:30 Blood Culture - Final Blood 11/20/16 15:48 Blood Culture - Final Blood Laboratory Results 11/26/16 05:10 11/26/16 05:10 11/25/16 11/26/16 11/27/16 05:59 05:59 05:59 Intake Total 1020 1807 Output Total 350 325 225 Balance 670 1482 -225 Physical Exam - Physical Exam General Appearance: alert, no apparent distress EENT: normal ENT inspection Neck: normal inspection Respiratory: decreased breath sounds Cardiac/Chest: regular rate, rhythm Abdomen: normal bowel sounds Extremities: swelling (1+ below knees) ICD10 Worksheet Patient Problems: Problems Problem Status Diagnosed Abdominal pain Acute
[2016-11-27] MEDS: oxyCODONE IR 5 MG TAB PO PRN ×5 (03:31→21:50)
[2016-11-27] MEDS: HEPARIN 5,000 UNIT/0.5 ML SYR SC SCH ×3 (05:52→20:07)
[2016-11-27 06:23] LABS: ADD DIFF? YES; ADD MORPH? NO; ATYPICAL LYMPHOCYTE FLAG 30 (0-99); FRAGMENT RBC FLAG 0 (0-99); HEMATOCRIT 26.7 % (40.0-51.0); HEMOGLOBIN 8.9 g/dL (13.7-17.5); LIPEMIA HEMOLYSIS FLAG 80 (0-99); MEAN CELL HEMOGLOBIN 32.4 pg (27.9-34.1); MEAN CELL HEMOGLOBIN CONCENTR. 33.3 g/dL (32.4-36.7); MEAN CELL VOLUME 97.1 fL (81.5-99.8); MEAN PLATELET VOLUME 9.1 fL (8.7-11.7); PLATELET CLUMPS FLAG 10 (0-99); PLATELET COUNT 395 10^3/uL (150-400); RED BLOOD CELL COUNT 2.75 10^6/uL (4.40-6.38); RED CELL DISTRIBUTION WIDTH 13.3 % (11.5-15.2)
[2016-11-27 06:44] LABS: ADD SCAN? NO; LEFT SHIFT FLG 100 (0-99)
[2016-11-27 06:47] LABS: ALANINE AMINOTRANSFERASE 74 IU/L (21-72); ALBUMIN 2.5 g/dL (3.5-5.0); ALKALINE PHOSPHATASE 137 IU/L (38-126); ANION GAP 14 mEq/L (8-16); ASPARTATE AMINOTRANSFERASE 70 IU/L (17-59); CALCIUM 8.2 mg/dL (8.5-10.4); CARBON DIOXIDE 24 mEq/l (22-31); CHLORIDE 94 mEq/L (97-110); GLOMERULAR FILTRATION RATE 5; GLUCOSE 126 mg/dL (70-100); POTASSIUM 4.3 mEq/L (3.5-5.2); SODIUM 132 mEq/L (134-144); TOTAL PROTEIN 5.5 g/dL (6.3-8.2)
[2016-11-27 07:06] LABS: CREATININE 11.3 mg/dL (0.7-1.3)
[2016-11-27 07:17] LABS: GIANT PLATELETS PRESENT; PLATELET ESTIMATE ADEQUATE (ADEQ)
[2016-11-27] MEDS: CALCIUM CARBONATE 500 MG CHEWABLE TAB PO SCH ×3 (08:03→20:07)
[2016-11-27] MEDS: FAMOTIDINE 20 MG TAB PO SCH (08:03)
[2016-11-27] MEDS: PIPERACILLIN/TAZO 2.25 GM/DEX 50 ML IV SCH (09:30)
--- NOTE | 2016-11-27 11:24 | PCMIDPN ---
Assessment/Plan: # Fever, last low-grade 11/23. Ongoing tachycardia. No specific source identified (CT abd/chest neg for source, Cdiff neg and blood cx all negative). Patient has received 6 days of broad-spectrum antimicrobial therapy. --DC antibiotics and monitor # leukocytosis: Multifactorial although generally trending down. Suspect leukemoid reaction to severe pancreatitis # Severe pancreatitis following ERCP currently receiving tube feeds. Abdominal pain is generally better. GI considering MRI of the pancreas Subjective: Patient reports that he is feeling slightly better. Still with mild abdominal pain Objective: Vital Signs Temp Pulse Resp BP Pulse Ox 36.5 C 110 H 20 121/81 H 94 11/27/16 08:00 11/27/16 08:00 11/27/16 08:00 11/27/16 08:00 11/27/16 08:00 Microbiology 11/21/16 10:35 Blood Culture - Final Blood 11/21/16 10:35 Blood Culture - Final Blood Laboratory Results 11/27/16 06:00 11/27/16 06:00 11/26/16 11/27/16 11/28/16 05:59 05:59 05:59 Intake Total 1807 2100 Output Total 325 485 Balance 1482 1615 ESR 60 MM/HR (0-15) H 11/23/16 03:45 C-Reactive Protein 225.0 mg/L (<10.0) H 11/23/16 03:45 Laboratory Tests 11/24/16 11/25/16 11/26/16 06:00 05:35 05:10 WBC 32.36 H 33.91 H 26.36 H 11/27/16 06:00 WBC 23.90 H - Physical Exam General Appearance: alert, no apparent distress, obese Respiratory: No accessory muscle use Neck: supple Cardiac/Chest: tachycardia Extremities: pedal edema, No inflammation Abdomen: normal bowel sounds, non-tender, soft, distended Skin: pallor, No rash Neuro/Psych: alert, depressed affect - Line/s RUE PICC Lines: No drainage, No erythema Asencio Lines: other (R IJ), No drainage, No erythema ICD10 Worksheet Patient Problems: Problems Problem Status Diagnosed Abdominal pain Acute
--- NOTE | 2016-11-27 11:28 | HOSPPROG ---
Hospitalist Progress Note Assessment/Plan: 35 yo m w severe pancreatitis and ongoing leukocytosis and tachycardia Acute pancreatitis due to impacted stones; s/p removal repeat imaging without some fat stranding, no overt abscess- last imaging at risk for pseudocyst SBFT w feeds started yesterday. no increase in pain 1. jayden castano check MR of abdomen to eval for pancreatic necrosis Sepsis: unclear source he has had SIRS (leukocytosis and tachycardia) for days infectious workup neg no ascites now in day 4 of zosyn discussed w ID- suggest limiting abx to 7 days if no new info Diarrhea C diff PCR negative. Spoke with ID who agrees likely due to pancreatitis and not treatin gwith Flagyl given negative PCR Oliguric WAYNE producing some urine. Due to ATN in setting of shock. Cont HD per renal. Done this morning Acute abdominal pain improved. 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 TTE with no e/o heart strain and neg LE U/S. Hyperkalemia resolved with HD Acute hypoxemic resp failure improved today multifactorial with habitus, fluids, atelectasis CT 11/20 with no PNA incentive spirometry. Not tolerating CPAP Hypocalcemia: resolved Deconditioning: walked the unit yesterday. Diet: start trickle feeds today DVT ppx: SQH risk: high Subjective: case d/w dr amanda Objective: Vital Signs Temp Pulse Resp BP Pulse Ox 36.5 C 110 H 20 121/81 H 94 11/27/16 08:00 11/27/16 08:00 11/27/16 08:00 11/27/16 08:00 11/27/16 08:00 Microbiology 11/21/16 10:35 Blood Culture - Final Blood 11/21/16 10:35 Blood Culture - Final Blood Laboratory Results 11/27/16 06:00 11/27/16 06:00 11/26/16 11/27/16 11/28/16 05:59 05:59 05:59 Intake Total 1807 2100 Output Total 325 485 Balance 1482 1615 - Physical Exam Constitutional: no apparent distress, appears nourished, not in pain, other ( looks better) Eyes: PERRL, anicteric sclera Ears, Nose, Mouth, Throat: moist mucous membranes, hearing normal Cardiovascular: regular rate and rhythym, no murmur, rub, or gallop, systolic murmur Respiratory: no respiratory distress, no rales or rhonchi Gastrointestinal: normoactive bowel sounds, soft, non-tender abdomen Genitourinary: No juarez in urethra Skin: warm, normal color Musculoskeletal: full muscle strength, no muscle tenderness Neurologic: AAOx3, sensation intact bilaterally Psychiatric: interacting appropriately, not anxious Lymph, Heme, Immunologic: no cervical LAD ICD10 Worksheet Patient Problems: Problems Problem Status Diagnosed Abdominal pain Acute
[2016-11-27] MEDS: ONDANSETRON 4 MG/2 ML VIAL IVP PRN (12:27)
--- NOTE | 2016-11-27 14:04 | SOAPPROG ---
SOAP Progress Note Assessment/Plan: Assessment: Seen on HD WAYNE remains dialysis dependent acute pancreatitis, tolerating tube feeds OK Plan: HD today continue therapies explained to him that I believe his WAYNE will recover, but may take some time all questions answered to his satisfaction 11/27/16 14:01 Subjective: denies fevers chills some abd discomfort and occasional nausea feet are swolen and sore denies cp sob spirits are good Objective: Vital Signs Temp Pulse Resp BP Pulse Ox 36.6 C 115 H 18 121/79 H 96 11/27/16 11:46 11/27/16 11:46 11/27/16 11:46 11/27/16 11:46 11/27/16 11:46 Microbiology 11/21/16 10:35 Blood Culture - Final Blood 11/21/16 10:35 Blood Culture - Final Blood Laboratory Results 11/27/16 06:00 11/27/16 06:00 11/26/16 11/27/16 11/28/16 05:59 05:59 05:59 Intake Total 1807 2100 Output Total 325 485 200 Balance 1482 1615 -200 Physical Exam - Physical Exam General Appearance: alert, obese Respiratory: other (occasional basilar rales), No rhonchi, No wheezing Cardiac/Chest: regular rate, rhythm, edema, No gallop, No friction rub Abdomen: distended, other (tender) Skin: warm/dry, No cyanosis Extremities: swelling Neuro/Psych: alert, normal mood/affect, oriented x 3 ICD10 Worksheet Patient Problems: Problems Problem Status Diagnosed Abdominal pain Acute
[2016-11-27] MEDS ORDERED: HEPARIN 10,000 UNIT/10 ML MDV ONE (17:37)
[2016-11-28] MEDS: oxyCODONE IR 5 MG TAB PO PRN ×5 (03:15→23:14)
[2016-11-28 05:06] LABS: ADD DIFF? YES; ADD MORPH? NO; ATYPICAL LYMPHOCYTE FLAG 40 (0-99); FRAGMENT RBC FLAG 0 (0-99); HEMATOCRIT 26.1 % (40.0-51.0); HEMOGLOBIN 8.5 g/dL (13.7-17.5); LIPEMIA HEMOLYSIS FLAG 80 (0-99); MEAN CELL HEMOGLOBIN 32.2 pg (27.9-34.1); MEAN CELL HEMOGLOBIN CONCENTR. 32.6 g/dL (32.4-36.7); MEAN CELL VOLUME 98.9 fL (81.5-99.8); MEAN PLATELET VOLUME 9.1 fL (8.7-11.7); PLATELET CLUMPS FLAG 0 (0-99); PLATELET COUNT 371 10^3/uL (150-400); RED BLOOD CELL COUNT 2.64 10^6/uL (4.40-6.38); RED CELL DISTRIBUTION WIDTH 13.1 % (11.5-15.2)
[2016-11-28 05:25] LABS: ALANINE AMINOTRANSFERASE 62 IU/L (21-72); ALBUMIN 2.5 g/dL (3.5-5.0); ALKALINE PHOSPHATASE 138 IU/L (38-126); ASPARTATE AMINOTRANSFERASE 49 IU/L (17-59); BILIRUBIN,TOTAL 0.9 mg/dL (0.1-1.4); CALCIUM 8.2 mg/dL (8.5-10.4); CARBON DIOXIDE 26 mEq/l (22-31); CHLORIDE 94 mEq/L (97-110); GLOMERULAR FILTRATION RATE 7; GLUCOSE 126 mg/dL (70-100); SODIUM 133 mEq/L (134-144); TOTAL PROTEIN 5.7 g/dL (6.3-8.2)
[2016-11-28 05:34] LABS: ADD SCAN? NO; LEFT SHIFT FLG 100 (0-99)
[2016-11-28 06:03] LABS: MACROCYTES 1+; PLATELET ESTIMATE ADEQUATE (ADEQ)
[2016-11-28] MEDS: HEPARIN 5,000 UNIT/0.5 ML SYR SC SCH ×3 (06:33→21:06)
[2016-11-28 06:49] LABS: ANION GAP 13 mEq/L (8-16); POTASSIUM 3.8 mEq/L (3.5-5.2)
--- NOTE | 2016-11-28 09:00 | HOSPPROG ---
Hospitalist Progress Note Assessment/Plan: 35 yo m w severe pancreatitis and ongoing leukocytosis and tachycardia Acute pancreatitis due to impacted stones; s/p removal repeat imaging without some fat stranding, no overt abscess- last imaging at risk for pseudocyst SBFT w feeds started this week toleraTING stillw hypoactive bowel sounds hold on advancing diet Sepsis: unclear source he has had SIRS (leukocytosis and tachycardia) for days infectious workup neg no ascites abx dc'd 11/27 follow Diarrhea C diff PCR negative. Spoke with ID who agrees likely due to pancreatitis and not treating with Flagyl given negative PCR Oliguric WAYNE producing some urine. Due to ATN in setting of shock. Cont HD per renal. Done this morning Acute abdominal pain improved. 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 TTE with no e/o heart strain and neg LE U/S. Hyperkalemia resolved with HD Acute hypoxemic resp failure improved today multifactorial with habitus, fluids, atelectasis CT 11/20 with no PNA incentive spirometry. Not tolerating CPAP Hypocalcemia: resolved Deconditioning: will write for QID walks w assistance Diet: start trickle feeds today DVT ppx: SQH risk: high Subjective: case d/w guilherme rutledge and treasure. abx stopped. white count trending down Objective: Vital Signs Temp Pulse Resp BP Pulse Ox 36.7 C 110 H 16 125/78 H 94 11/28/16 04:00 11/28/16 04:00 11/28/16 04:00 11/28/16 04:00 11/28/16 04:00 Laboratory Results 11/28/16 04:44 11/28/16 04:44 11/27/16 11/28/16 11/29/16 05:59 05:59 05:59 Intake Total 2100 970 Output Total 485 2351 Balance 1615 -1381 - Physical Exam Constitutional: no apparent distress, appears nourished Eyes: PERRL, anicteric sclera Ears, Nose, Mouth, Throat: moist mucous membranes, hearing normal Cardiovascular: regular rate and rhythym, no murmur, rub, or gallop, tachycardia Respiratory: no respiratory distress, no rales or rhonchi Gastrointestinal: distension, No normoactive bowel sounds, No guarding, No rebound Genitourinary: no bladder fullness, No juarez in urethra Skin: warm, normal color Musculoskeletal: full muscle strength Neurologic: AAOx3 ICD10 Worksheet Patient Problems: Problems Problem Status Diagnosed Abdominal pain Acute
[2016-11-28] MEDS: CALCIUM CARBONATE 500 MG CHEWABLE TAB PO SCH ×3 (09:33→21:06)
[2016-11-28] MEDS: FAMOTIDINE 20 MG TAB PO SCH (09:33)
--- NOTE | 2016-11-28 13:30 | SOAPPROG ---
SOAP Progress Note Assessment/Plan: Assessment: WAYNE remains dialysis dependent acute pancreatitis, tolerating tube feeds OK Encouraged that his UOP today hasn't dropped off after HD despite extra volume removal Plan: HD tomorrow continue therapies explained to him that I believe his WAYNE will recover, but may take some time all questions answered to his satisfaction 11/27/16 14:01 11/28/16 13:27 Subjective: up and around three times already today no cp, some WHATLEY no nausea or vomiting, seems to be torres TF OK spirits seem better today Objective: Vital Signs Temp Pulse Resp BP Pulse Ox 36.9 C 114 H 16 105/72 95 11/28/16 12:00 11/28/16 12:00 11/28/16 12:00 11/28/16 12:00 11/28/16 12:00 Laboratory Results 11/28/16 04:44 11/28/16 04:44 11/27/16 11/28/16 11/29/16 05:59 05:59 05:59 Intake Total 2100 970 275 Output Total 485 2351 Balance 1615 -1381 275 Physical Exam - Physical Exam General Appearance: alert, obese Respiratory: No rhonchi, No wheezing Cardiac/Chest: regular rate, rhythm, edema, No gallop, No friction rub (bs+, mild tenderness and distension) Extremities: pedal edema Neuro/Psych: alert, oriented x 3 ICD10 Worksheet Patient Problems: Problems Problem Status Diagnosed Abdominal pain Acute
--- NOTE | 2016-11-28 14:49 | SOAPPROG ---
SOAP Progress Note Assessment/Plan: Assessment: 1. Choledocholithiasis s/p ERC with stone removal 2. Post-ERC pancreatitis 3. Abdominal pain- diffuse, mild but better today. 4. Diarrhea (improved) 5. Leukocytosis- probably inflammatory and due to severe pancreatitis 6. Dyspnea 7. Acute kidney injury on dialysis 8. Elevated LFTs Plan: 1. Tolerating dobhoff feeds 2. Overall much improved. 3. LFTs improving with d/c of abx (suspect medication related) 4. No changes to care at this time. 5. Perhaps could start clears and advance diet while lowering TFs in a few days. 11/28/16 14:46 Subjective: CC: No pain Less SOB Objective: Vital Signs Temp Pulse Resp BP Pulse Ox 36.9 C 114 H 16 105/72 95 11/28/16 12:00 11/28/16 12:00 11/28/16 12:00 11/28/16 12:00 11/28/16 12:00 Laboratory Results 11/28/16 04:44 11/28/16 04:44 11/27/16 11/28/16 11/29/16 05:59 05:59 05:59 Intake Total 2100 970 275 Output Total 485 2351 50 Balance 1615 -1381 225 Physical Exam - Physical Exam General Appearance: no apparent distress EENT: normal ENT inspection, other (Dobhoff in right nares) Neck: supple Respiratory: decreased breath sounds, No respiratory distress, No accessory muscle use, No stridor, No wheezing Cardiac/Chest: regular rate, rhythm, tachycardia, No systolic murmur Abdomen: normal bowel sounds, non-tender, soft, other (Obese) Skin: normal color, warm/dry Lymphatic: no adenopathy Extremities: pedal edema, No calf tenderness, No Venu's sign Neuro/Psych: alert, normal mood/affect, oriented x 3 ICD10 Worksheet Patient Problems: Problems Problem Status Diagnosed Abdominal pain Acute
[2016-11-28] MEDS ORDERED: NS 500 ML IV ONE (17:30)
[2016-11-29] MEDS: HEPARIN 5,000 UNIT/0.5 ML SYR SC SCH ×3 (05:20→21:56)
[2016-11-29] MEDS: oxyCODONE IR 5 MG TAB PO PRN ×4 (05:20→23:30)
[2016-11-29 06:58] LABS: ADD DIFF? YES; ADD MORPH? NO; ADD SCAN? NO; ATYPICAL LYMPHOCYTE FLAG 20 (0-99); FRAGMENT RBC FLAG 0 (0-99); HEMATOCRIT 25.4 % (40.0-51.0); HEMOGLOBIN 8.5 g/dL (13.7-17.5); LEFT SHIFT FLG 80 (0-99); LIPEMIA HEMOLYSIS FLAG 80 (0-99); MEAN CELL HEMOGLOBIN 32.7 pg (27.9-34.1); MEAN CELL HEMOGLOBIN CONCENTR. 33.5 g/dL (32.4-36.7); MEAN CELL VOLUME 97.7 fL (81.5-99.8); MEAN PLATELET VOLUME 8.9 fL (8.7-11.7); PLATELET CLUMPS FLAG 40 (0-99); PLATELET COUNT 425 10^3/uL (150-400)
[2016-11-29 07:25] LABS: ALANINE AMINOTRANSFERASE 58 IU/L (21-72); ALBUMIN 2.6 g/dL (3.5-5.0); ALKALINE PHOSPHATASE 133 IU/L (38-126); ANION GAP 16 mEq/L (8-16); ASPARTATE AMINOTRANSFERASE 41 IU/L (17-59); BILIRUBIN,TOTAL 0.7 mg/dL (0.1-1.4); CALCIUM 8.2 mg/dL (8.5-10.4); CARBON DIOXIDE 24 mEq/l (22-31); CHLORIDE 94 mEq/L (97-110); GLUCOSE 100 mg/dL (70-100); POTASSIUM 4.2 mEq/L (3.5-5.2); SODIUM 134 mEq/L (134-144); TOTAL PROTEIN 5.8 g/dL (6.3-8.2)
[2016-11-29 07:28] LABS: GLOMERULAR FILTRATION RATE 5
[2016-11-29 08:50] LABS: PLATELET ESTIMATE ADEQUATE (ADEQ); POLYCHROMASIA 1+
[2016-11-29] MEDS: CALCIUM CARBONATE 500 MG CHEWABLE TAB PO SCH ×3 (09:34→21:56)
[2016-11-29] MEDS: FAMOTIDINE 20 MG TAB PO SCH (09:34)
[2016-11-29 09:38] LABS: CREATININE 11.5 mg/dL (0.7-1.3)
--- NOTE | 2016-11-29 11:19 | SOAPPROG ---
SOAP Progress Note Assessment/Plan: Assessment: 1. Choledocholithiasis s/p ERC with stone removal 2. Post-ERC pancreatitis 3. Abdominal pain- diffuse, mild but better today. 4. Diarrhea (improved) 5. Leukocytosis- probably inflammatory and due to severe pancreatitis 6. Dyspnea 7. Acute kidney injury on dialysis 8. Elevated LFTs Plan: 1. Tolerating dobhoff feeds 2. Overall much improved. 3. LFTs improving with d/c of abx (suspect medication related) 4. Will plan for beginning oral nutrition next week if all is continuing to improve 5. Start pancreas 2 po TID with enteral feeding 6. I will plan for MRI without contrast (due to renal failure) next week prior to initiating oral nutrition to see if this is appropriate 7. I would also like his abdominal pain to really resolve before starting po 11/29/16 11:15 Subjective: CC: Doing better overall. No acute events. Tolerating dobhoff tube feeds well. Ongoing diffuse abdominal pain responsive to medication Rx. Really improved in regards to abdominal pain severity but still ongoing. Objective: Vital Signs Temp Pulse Resp BP Pulse Ox 37.4 C 133 H 18 106/71 95 11/29/16 07:55 11/29/16 07:55 11/29/16 07:55 11/29/16 07:55 11/29/16 07:55 Laboratory Results 11/29/16 06:00 11/29/16 06:00 11/28/16 11/29/16 11/30/16 05:59 05:59 05:59 Intake Total 970 2494 Output Total 2351 220 Balance -1381 2274 Physical Exam - Physical Exam General Appearance: no apparent distress EENT: normal ENT inspection, other (dobhoff feeding tube) Neck: supple Respiratory: lungs clear, decreased breath sounds Cardiac/Chest: regular rate, rhythm, tachycardia Abdomen: non-tender, soft, distended, other (Obese and typmanic centrally. ), No guarding, No rebound, No hernia, No ascites Skin: normal color, warm/dry Lymphatic: no adenopathy Extremities: pedal edema Neuro/Psych: alert, normal mood/affect, oriented x 3 ICD10 Worksheet Patient Problems: Problems Problem Status Diagnosed Abdominal pain Acute
--- NOTE | 2016-11-29 11:35 | SOAPPROG ---
SOAP Progress Note Assessment/Plan: Assessment: WAYNE remains dialysis dependent acute pancreatitis, tolerating tube feeds OK, perhaps oral next week Encouraged that his UOP today hasn't dropped off after HD despite extra volume removal Plan: HD today continue therapies explained to him that I believe his WAYNE will recover, but may take some time all questions answered to his satisfaction encouraged up with assistance 11/27/16 14:01 11/28/16 13:27 11/29/16 11:33 Subjective: overall spirits good some nausea and abdominal discomfort some WHATLEY, but overall improved no cp Objective: Vital Signs Temp Pulse Resp BP Pulse Ox 37.4 C 133 H 18 106/71 95 11/29/16 07:55 11/29/16 07:55 11/29/16 07:55 11/29/16 07:55 11/29/16 07:55 Laboratory Results 11/29/16 06:00 11/29/16 06:00 11/28/16 11/29/16 11/30/16 05:59 05:59 05:59 Intake Total 970 2494 Output Total 2351 220 Balance -1381 2274 Physical Exam - Physical Exam General Appearance: alert, obese Respiratory: No rhonchi, No wheezing Cardiac/Chest: regular rate, rhythm, edema, No gallop, No friction rub Abdomen: other (bs+ mild tender mild dist) Extremities: pedal edema Neuro/Psych: alert, oriented x 3 ICD10 Worksheet Patient Problems: Problems Problem Status Diagnosed Abdominal pain Acute
[2016-11-29 11:50] LABS: PANCREATIC ELASTASE INTERPRETA See Comments (()); PANCREATIC ELASTASE RESULT 119.7 (())
[2016-11-29] MEDS: PANCREAZE PO SCH ×2 (13:05→19:26)
[2016-11-29] MEDS ORDERED: HEPARIN 50,000 UNIT/10 ML VIAL ONE (19:45)
--- NOTE | 2016-11-29 19:51 | HOSPPROG ---
Hospitalist Progress Note Assessment/Plan: 35 yo m w severe pancreatitis and ongoing leukocytosis and tachycardia Acute pancreatitis due to impacted stones; s/p removal repeat imaging without some fat stranding, no overt abscess- last imaging at risk for pseudocyst SBFT w feeds started this week toleraTING stillw hypoactive bowel sounds hold on advancing diet until at least next week Sepsis: unclear source he has had SIRS (leukocytosis and tachycardia) for days infectious workup neg no ascites abx dc'd 11/27 follow Diarrhea C diff PCR negative. Oliguric WAYNE producing some urine. Due to ATN in setting of shock. Cont HD per renal. Done this morning Acute abdominal pain improved. 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 TTE with no e/o heart strain and neg LE U/S. Hyperkalemia resolved with HD Acute hypoxemic resp failure improved today multifactorial with habitus, fluids, atelectasis CT 11/20 with no PNA incentive spirometry. Not tolerating CPAP Hypocalcemia: resolved Deconditioning: will write for QID walks w assistance Diet: start trickle feeds today DVT ppx: SQH risk: high Subjective: feeling better. does have abd pain Objective: Vital Signs Temp Pulse Resp BP Pulse Ox 37.3 C 109 H 20 129/96 H 95 11/29/16 18:20 11/29/16 18:20 11/29/16 18:20 11/29/16 18:20 11/29/16 18:20 Laboratory Results 11/29/16 06:00 11/29/16 06:00 11/28/16 11/29/16 11/30/16 05:59 05:59 05:59 Intake Total 970 2494 Output Total 2351 220 125 Balance -1381 2274 -125 - Physical Exam Constitutional: no apparent distress Eyes: anicteric sclera, EOMI Ears, Nose, Mouth, Throat: moist mucous membranes Cardiovascular: regular rate and rhythym, no murmur, rub, or gallop Respiratory: no respiratory distress, no rales or rhonchi, clear to auscultation Gastrointestinal: normoactive bowel sounds, soft, non-tender abdomen, distension Skin: warm Neurologic: AAOx3 Psychiatric: interacting appropriately, not anxious, not encephalopathic, thought process linear ICD10 Worksheet Patient Problems: Problems Problem Status Diagnosed Abdominal pain Acute
[2016-11-29] MEDS: LORazepam 2 MG/ML INJ IVP PRN (23:33)
[2016-11-30] MEDS: oxyCODONE IR 5 MG TAB PO PRN ×4 (04:55→19:56)
[2016-11-30] MEDS: HEPARIN 5,000 UNIT/0.5 ML SYR SC SCH ×3 (05:05→21:33)
[2016-11-30 05:18] LABS: ADD DIFF? YES; ADD MORPH? NO; ATYPICAL LYMPHOCYTE FLAG 10 (0-99); FRAGMENT RBC FLAG 0 (0-99); HEMATOCRIT 28.2 % (40.0-51.0); HEMOGLOBIN 9.4 g/dL (13.7-17.5); LEFT SHIFT FLG 50 (0-99); LIPEMIA HEMOLYSIS FLAG 80 (0-99); MEAN CELL HEMOGLOBIN 32.6 pg (27.9-34.1); MEAN CELL HEMOGLOBIN CONCENTR. 33.3 g/dL (32.4-36.7); MEAN CELL VOLUME 97.9 fL (81.5-99.8); MEAN PLATELET VOLUME 8.6 fL (8.7-11.7); PLATELET CLUMPS FLAG 0 (0-99); PLATELET COUNT 437 10^3/uL (150-400); RED BLOOD CELL COUNT 2.88 10^6/uL (4.40-6.38)
[2016-11-30 05:19] LABS: ADD SCAN? NO
[2016-11-30 05:38] LABS: ALANINE AMINOTRANSFERASE 57 IU/L (21-72); ALBUMIN 2.9 g/dL (3.5-5.0); ALKALINE PHOSPHATASE 141 IU/L (38-126); ANION GAP 16 mEq/L (8-16); ASPARTATE AMINOTRANSFERASE 49 IU/L (17-59); BILIRUBIN,TOTAL 0.8 mg/dL (0.1-1.4); CALCIUM 8.7 mg/dL (8.5-10.4); CARBON DIOXIDE 26 mEq/l (22-31); CHLORIDE 95 mEq/L (97-110); GLOMERULAR FILTRATION RATE 7; GLUCOSE 103 mg/dL (70-100); POTASSIUM 4.5 mEq/L (3.5-5.2); SODIUM 137 mEq/L (134-144); TOTAL PROTEIN 6.6 g/dL (6.3-8.2)
[2016-11-30 05:50] LABS: CREATININE 9.1 mg/dL (0.7-1.3)
[2016-11-30 06:30] LABS: POLYCHROMASIA 1+
[2016-11-30 06:31] LABS: GIANT PLATELETS PRESENT; PLATELET ESTIMATE INCREASED (ADEQ)
[2016-11-30] MEDS: CALCIUM CARBONATE 500 MG CHEWABLE TAB PO SCH ×3 (09:10→21:33)
[2016-11-30] MEDS: FAMOTIDINE 20 MG TAB PO SCH (09:10)
[2016-11-30] MEDS: PANCREAZE PO SCH ×3 (09:10→18:30)
--- NOTE | 2016-11-30 11:35 | SOAPPROG ---
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, pain controlled, MRI Friday 2) Diet - for now tube feeds, maybe trial orals early next week, on enzyme replacement 3) Pulm - incentive spirometry q 5 minutes every hour while awake 4) Renal - acute injury on HD as per renal - likely to resolve with time 5) LFT's - improved, maybe abx related 6) WBC - I think from inflammation and not infection will follow 11/30/16 11:31 Subjective: cc- post ERCp pancreatitis I feeling about the same more activity so tired today abdo pain stable had a bit of nausea no vomiting Objective: Vital Signs Temp Pulse Resp BP Pulse Ox 36.9 C 115 H 18 125/79 H 96 11/30/16 08:00 11/30/16 08:00 11/30/16 08:00 11/30/16 08:00 11/30/16 08:00 Laboratory Results 11/30/16 05:05 11/30/16 05:05 11/29/16 11/30/16 12/01/16 05:59 05:59 05:59 Intake Total 2494 2394 Output Total 220 350 Balance 2274 2044 A+Ox3 CTA S1S2, RR +BS, soft tender no rebound Laboratory Tests 11/20/16 11/27/16 11/30/16 18:15 06:00 05:05 AST 70 H 49 ALT 74 H 57 Alkaline Phosphatase 137 H 141 H C. difficile Tox (PCR) NEGATIVE ICD10 Worksheet Patient Problems: Problems Problem Status Diagnosed Abdominal pain Acute
--- NOTE | 2016-11-30 14:18 | SOAPPROG ---
SOAP Progress Note Assessment/Plan: Assessment: 1)WAYNE- suspect ATN -UOP 350cc, Cr rising between HD runs- still not ready to come off HD -HD running MWF schedule- next run Friday but will assess daily for needs -reviewed with him status, optimistic he will recover 2)Acute pancreatitis -CBD stone, s/p ERCP 3)Hyperkalemia- improved 4)High phos -on tube feeds- can add in binder once taking po 5)Edema -will gradually improve with HD and as renal function starts to improve Sarah Lainez MD [facility] [phone] 11/30/16 15:43 Subjective: Feels ok- mostly tired. +LE edema. Feels hungry, still just on tube feeds. No n/ v, abd pain better. No sob. Objective: Vital Signs Temp Pulse Resp BP Pulse Ox 36.5 C 120 H 20 131/88 H 94 11/30/16 12:00 11/30/16 12:00 11/30/16 12:00 11/30/16 12:00 11/30/16 12:00 Laboratory Results 11/30/16 05:05 11/30/16 05:05 11/29/16 11/30/16 12/01/16 05:59 05:59 05:59 Intake Total 2494 2394 Output Total 220 350 Balance 2274 2044 Physical Exam - Physical Exam General Appearance: alert, no apparent distress EENT: other (mmm) Neck: non-tender, other (RIJ cath) Respiratory: lungs clear Cardiac/Chest: regular rate, rhythm, other (no rub) Abdomen: normal bowel sounds, non-tender, soft Skin: warm/dry Extremities: other (++edema bilat LE) Neuro/Psych: alert, oriented x 3 ICD10 Worksheet Patient Problems: Problems Problem Status Diagnosed Abdominal pain Acute
--- NOTE | 2016-11-30 15:23 | HOSPPROG ---
Hospitalist Progress Note Assessment/Plan: 35 yo m w severe pancreatitis and ongoing leukocytosis and tachycardia Acute pancreatitis due to impacted stones; s/p removal repeat imaging without some fat stranding, no overt abscess- last imaging at risk for pseudocyst SBFT w feeds started this week toleraTING stillw hypoactive bowel sounds hold on advancing diet until at least next week Sepsis: unclear source he has had SIRS (leukocytosis and tachycardia) for days infectious workup neg no ascites abx dc'd 11/27 follow Diarrhea C diff PCR negative. Oliguric WAYNE producing some urine. Due to ATN in setting of shock. Cont HD per renal. Done this morning Acute abdominal pain improved. 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 TTE with no e/o heart strain and neg LE U/S. Hyperkalemia resolved with HD Acute hypoxemic resp failure improved today multifactorial with habitus, fluids, atelectasis CT 11/20 with no PNA incentive spirometry. Not tolerating CPAP Hypocalcemia: resolved Deconditioning: will write for QID walks w assistance DVT ppx: SQH risk: high Subjective: no new complaints Objective: Vital Signs Temp Pulse Resp BP Pulse Ox 36.5 C 120 H 20 131/88 H 94 11/30/16 12:00 11/30/16 12:00 11/30/16 12:00 11/30/16 12:00 11/30/16 12:00 Laboratory Results 11/30/16 05:05 11/30/16 05:05 11/29/16 11/30/16 12/01/16 05:59 05:59 05:59 Intake Total 2494 2394 Output Total 220 350 Balance 2274 2044 - Physical Exam Constitutional: no apparent distress, appears nourished, not in pain Eyes: anicteric sclera, EOMI Ears, Nose, Mouth, Throat: moist mucous membranes, hearing normal Cardiovascular: edema (1+) Respiratory: no respiratory distress, no rales or rhonchi, clear to auscultation Gastrointestinal: normoactive bowel sounds, soft, non-tender abdomen, tenderness , distension Skin: warm Neurologic: AAOx3 Psychiatric: interacting appropriately, not anxious, not encephalopathic, thought process linear ICD10 Worksheet Patient Problems: Problems Problem Status Diagnosed Abdominal pain Acute
[2016-11-30] MEDS: LORazepam 2 MG/ML INJ IVP PRN (21:33)
[2016-12-01] MEDS: oxyCODONE IR 5 MG TAB PO PRN ×5 (00:18→20:29)
[2016-12-01] MEDS: HEPARIN 5,000 UNIT/0.5 ML SYR SC SCH ×3 (05:17→20:30)
[2016-12-01] MEDS: PANCREAZE PO SCH ×3 (08:35→17:51)
[2016-12-01] MEDS: FAMOTIDINE 20 MG TAB PO SCH (08:35)
--- NOTE | 2016-12-01 10:08 | SOAPPROG ---
SOAP Progress Note Assessment/Plan: Assessment: 1)WAYNE- suspect ATN -UOP 350cc over past 24 hrs, Cr rising between HD runs- still not ready to come off HD -HD MWF schedule- next run Friday -reviewed with him status, we are optimistic he will recover 2)Acute pancreatitis -CBD stone, s/p ERCP -pain improved 3)Hyperkalemia- improved with HD 4)High phos -on tube feeds- can add in binder once taking po 5)Edema -will gradually improve with HD and as renal function starts to improve 6)tachycardia -appears regular, likely sinus tach-?etiology. No sob/O2 needs, no fevers, BP on high side. Hb stable. Still edema on exam so don't think over-diuresis. -defer to hospitalist for further evaluation 7)Anemia acute illness- Hb stable Sarah Lainez MD [facility] [phone] 12/01/16 11:38 Subjective: Feels ok, sitting up in chair. Slept better last night. No sob. +LE edema. Abd pain "better" Still NPO and on tube feeds. 350 cc UOP recorded. Objective: Vital Signs Temp Pulse Resp BP Pulse Ox 36.9 C 115 H 17 123/81 H 95 12/01/16 07:56 12/01/16 07:56 12/01/16 07:56 12/01/16 07:56 12/01/16 07:56 Laboratory Results 11/30/16 05:05 11/30/16 05:05 11/30/16 12/01/16 12/02/16 05:59 05:59 05:59 Intake Total 2394 3206 Output Total 350 350 Balance 2044 2856 Physical Exam - Physical Exam General Appearance: alert, no apparent distress EENT: other (DHT in, MMM) Neck: supple, other (RIJ HD cath) Respiratory: lungs clear Cardiac/Chest: regular rate, rhythm, other (no rub) Abdomen: normal bowel sounds, non-tender, soft Skin: warm/dry Extremities: other (++edema bilat LE, warm) Neuro/Psych: alert, oriented x 3 ICD10 Worksheet Patient Problems: Problems Problem Status Diagnosed Abdominal pain Acute
[2016-12-01] MEDS: CALCIUM CARBONATE 500 MG CHEWABLE TAB PO SCH ×3 (10:12→20:29)
--- NOTE | 2016-12-01 11:14 | SOAPPROG ---
АННА Progress Note Assessment/Plan: Assessment:Plan: 36 yo with post ERCp pancreatitis 1) 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, pain controlled, MRI Friday 2) Diet - for now tube feeds, maybe trial orals early next week, on enzyme replacement 3) Pulm - incentive spirometry q 5 minutes every hour while awake 4) Renal - acute injury on HD as per renal - likely to resolve with time 5) LFT's - improved, maybe abx related 6) WBC - I think from inflammation and not infection will follow 11/30/16 11:31 12/01/16 11:11 as above 1) 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, pain controlled, MRI tomorrow 2) Diet - for now tube feeds, maybe trial orals early next week, on enzyme replacement 3) Pulm - incentive spirometry q 5 minutes every hour while awake, instructed yesterday 4) Renal - acute injury on HD as per renal - likely to resolve with time, stil requires HD, but did have some urine output today 5) LFT's - improved, maybe abx related, follow 6) WBC - I think from inflammation and not infection no change in plan, will order MRI for Friday Subjective: cc- post ERCp pancreatitis I'm OK, about the same had some urine and stool is less Objective: Vital Signs Temp Pulse Resp BP Pulse Ox 36.9 C 115 H 17 123/81 H 95 12/01/16 07:56 12/01/16 07:56 12/01/16 07:56 12/01/16 07:56 12/01/16 07:56 Laboratory Results 11/30/16 05:05 11/30/16 05:05 11/30/16 12/01/16 12/02/16 05:59 05:59 05:59 Intake Total 2394 3206 250 Output Total 350 350 125 Balance 2044 2856 125 A+Ox3 CTA S1S2 +BS, 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
--- NOTE | 2016-12-01 14:40 | HOSPPROG ---
Hospitalist Progress Note Assessment/Plan: 35 yo m w severe pancreatitis and ongoing leukocytosis and tachycardia Acute pancreatitis due to impacted stones; s/p removal repeat imaging without some fat stranding, no overt abscess- last imaging at risk for pseudocyst SBFT w feeds started this week toleraTING hold on advancing diet until at least next week MRI tomorrow Sepsis: unclear source he has had SIRS (leukocytosis and tachycardia) for days infectious workup neg no ascites abx dc'd 11/27 follow Diarrhea C diff PCR negative. Oliguric WAYNE producing some urine. Due to ATN in setting of shock. Cont HD per renal. Done this morning Acute abdominal pain improved. 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 TTE with no e/o heart strain and neg LE U/S. Hyperkalemia resolved with HD Acute hypoxemic resp failure stable multifactorial with habitus, fluids, atelectasis CT 11/20 with no PNA incentive spirometry. Not tolerating CPAP Hypocalcemia: resolved Deconditioning: QID walks w assistance DVT ppx: SQH risk: high Subjective: about the same. No new complaint Objective: Vital Signs Temp Pulse Resp BP Pulse Ox 36.6 C 120 H 18 123/79 H 95 12/01/16 12:08 12/01/16 12:08 12/01/16 12:08 12/01/16 12:08 12/01/16 12:08 Laboratory Results 11/30/16 05:05 11/30/16 05:05 11/30/16 12/01/16 12/02/16 05:59 05:59 05:59 Intake Total 2394 3206 250 Output Total 350 350 125 Balance 2044 2856 125 - Physical Exam Constitutional: no apparent distress, appears nourished, not in pain Eyes: PERRL, EOMI Ears, Nose, Mouth, Throat: moist mucous membranes, hearing normal Cardiovascular: regular rate and rhythym, tachycardia Respiratory: no respiratory distress, no rales or rhonchi, clear to auscultation Gastrointestinal: normoactive bowel sounds, soft, non-tender abdomen, tenderness ( mild), distension Skin: warm Neurologic: AAOx3 Psychiatric: interacting appropriately, not anxious, not encephalopathic, thought process linear ICD10 Worksheet Patient Problems: Problems Problem Status Diagnosed Abdominal pain Acute
[2016-12-01] MEDS: ACETAMINOPHEN 325 MG TAB PO PRN (20:29)
[2016-12-01] MEDS ORDERED: ALBUMIN 25% 50 ML IV PRN (22:35)
[2016-12-01] MEDS ORDERED: NS 1,000 ML IV PRN (22:35)
[2016-12-02] MEDS: oxyCODONE IR 5 MG TAB PO PRN ×4 (04:35→21:24)
[2016-12-02] MEDS: HEPARIN 5,000 UNIT/0.5 ML SYR SC SCH ×3 (05:50→21:58)
[2016-12-02 06:23] LABS: ADD DIFF? YES; ADD MORPH? NO; ADD SCAN? NO; ATYPICAL LYMPHOCYTE FLAG 10 (0-99); FRAGMENT RBC FLAG 0 (0-99); HEMATOCRIT 24.6 % (40.0-51.0); HEMOGLOBIN 8.1 g/dL (13.7-17.5); LEFT SHIFT FLG 30 (0-99); LIPEMIA HEMOLYSIS FLAG 80 (0-99); MEAN CELL HEMOGLOBIN CONCENTR. 32.9 g/dL (32.4-36.7); MEAN CELL VOLUME 97.2 fL (81.5-99.8); MEAN PLATELET VOLUME 8.7 fL (8.7-11.7); PLATELET CLUMPS FLAG 0 (0-99); PLATELET COUNT 450 10^3/uL (150-400); RED BLOOD CELL COUNT 2.53 10^6/uL (4.40-6.38); RED CELL DISTRIBUTION WIDTH 12.7 % (11.5-15.2)
[2016-12-02 06:44] LABS: ALBUMIN 2.9 g/dL (3.5-5.0); ANION GAP 18 mEq/L (8-16); CALCIUM 8.5 mg/dL (8.5-10.4); CARBON DIOXIDE 22 mEq/l (22-31); CHLORIDE 93 mEq/L (97-110); GLOMERULAR FILTRATION RATE 5; GLUCOSE 102 mg/dL (70-100); POTASSIUM 4.8 mEq/L (3.5-5.2); SODIUM 133 mEq/L (134-144)
[2016-12-02 06:59] LABS: CREATININE 11.6 mg/dL (0.7-1.3)
[2016-12-02 07:04] LABS: PLATELET ESTIMATE INCREASED (ADEQ)
[2016-12-02] MEDS: PANCREAZE PO SCH ×3 (09:12→17:23)
[2016-12-02] MEDS: FAMOTIDINE 20 MG TAB PO SCH (09:12)
[2016-12-02] MEDS: CALCIUM CARBONATE 500 MG CHEWABLE TAB PO SCH ×3 (09:12→21:24)
--- NOTE | 2016-12-02 09:31 | SOAPPROG ---
SOAP Progress Note Assessment/Plan: Assessment:Plan: ARF-consistent with ATN -urine output good -1100 ml the prior 24 hours -Hd today -plan for Hd again on Friday Access-RAGHU Irvin -would need tunneled catheter if he goes to rehab and is still dialysis- dependent Edema-UF as tolerated -edema is much better Hyperkalemia-resolved -K stable at 4.8 ID-no longer on abx 12/02/16 09:30 Subjective: has trouble breathing Stable on dialysis Objective: Vital Signs Temp Pulse Resp BP Pulse Ox 36.3 C 120 H 24 H 138/90 H 96 12/02/16 07:29 12/02/16 07:29 12/02/16 07:29 12/02/16 07:29 12/02/16 04:00 Laboratory Results 12/02/16 05:45 12/02/16 05:45 12/01/16 12/02/16 12/03/16 05:59 05:59 05:59 Intake Total 3206 2900 Output Total 350 1100 150 Balance 2856 1800 -150 Physical Exam - Physical Exam General Appearance: WD/WN, alert, no apparent distress, obese EENT: normal ENT inspection, other (dobhoff) Neck: other (R IJ Albaro) Respiratory: decreased breath sounds Cardiac/Chest: regular rate, rhythm, No tachycardia, No diastolic murmur, No systolic murmur Abdomen: normal bowel sounds, distended, other (firm) Extremities: No swelling ICD10 Worksheet Patient Problems: Problems Problem Status Diagnosed Abdominal pain Acute
--- NOTE | 2016-12-02 12:40 | HOSPPROG ---
Hospitalist Progress Note Assessment/Plan: 35 yo m w severe pancreatitis and ongoing leukocytosis and tachycardia Acute pancreatitis due to impacted stones; s/p removal repeat imaging without some fat stranding, no overt abscess- last imaging at risk for pseudocyst SBFT w feeds started this week toleraTING hold on advancing diet until at least next week will hold off MRI further few days Until he can lie flat orthopnea * will get chest x-ray * is somewhat fluid overloaded Sepsis: unclear source he has had SIRS (leukocytosis and tachycardia) for days infectious workup neg no ascites abx dc'd 11/27 follow Diarrhea C diff PCR negative. Oliguric WAYNE producing some urine. Due to ATN in setting of shock. Cont HD per renal. Done this morning Acute abdominal pain improved. 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 TTE with no e/o heart strain and neg LE U/S. Hyperkalemia resolved with HD Acute hypoxemic resp failure stable chest x-ray as above Hypocalcemia: resolved Deconditioning: QID walks w assistance DVT ppx: SQH risk: high Subjective: worried about lying flat for MRI. Otherwise no new complaints. is short of breath when he lies flat Objective: Vital Signs Temp Pulse Resp BP Pulse Ox 36.9 C 121 H 24 H 139/92 H 96 12/02/16 11:32 12/02/16 11:32 12/02/16 11:32 12/02/16 11:32 12/02/16 11:32 Laboratory Results 12/02/16 05:45 12/02/16 05:45 12/01/16 12/02/16 12/03/16 05:59 05:59 05:59 Intake Total 3206 2900 Output Total 350 1100 2150 Balance 2856 1800 -2150 - Physical Exam Constitutional: no apparent distress, appears nourished, not in pain Eyes: anicteric sclera, EOMI Ears, Nose, Mouth, Throat: moist mucous membranes, hearing normal, ears appear normal Cardiovascular: regular rate and rhythym, edema ( 1+) Respiratory: no respiratory distress, no rales or rhonchi, clear to auscultation , reduced air movement Gastrointestinal: normoactive bowel sounds, soft, non-tender abdomen, no palpable masses, distension Skin: warm Neurologic: AAOx3 Psychiatric: interacting appropriately, not anxious, not encephalopathic, thought process linear ICD10 Worksheet Patient Problems: Problems Problem Status Diagnosed Abdominal pain Acute
--- NOTE | 2016-12-02 15:14 | DX ---
Portable AP Upright Chest, Two Views, December 02, at 2017 at 2:14 p.m. Clinical History: 36-year-old male with dyspnea and pancreatitis. Comparison Study: Chest, dated November 19, 2016. Findings: There is a Dobbhoff feeding tube which extends inferiorly off the edge of the radiograph, however it follows a normal anatomic course to the stomach. Telemetry monitoring lead lines and oxyg en tubing are in place. There is a right IJ central venous catheter, which terminates at the SVC-rig ht atrial junction. There is also a right-sided PICC line, which terminates over the distal SVC. Th ere are moderate hypoventilatory features, with bibasilar areas of diskoid subsegmental atelectasis v ersus minimal infiltrates. The cardiac size is at the upper limits of normal. The pulmonary vascula ture is normal. The stomach is moderately air distended. Impression: Interim placement of a Dobbhoff feeding tube since November 19, 2016, with moderate hypo ventilatory features and persistent areas of bibasilar airspace disease.
[2016-12-02] MEDS ORDERED: HEPARIN 50,000 UNIT/10 ML VIAL ONE (18:20)
--- NOTE | 2016-12-02 18:21 | SOAPPROG ---
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, pain controlled, MRI tomorrow 2) Diet - for now tube feeds, maybe trial orals early next week, on enzyme replacement 3) Pulm - incentive spirometry q 5 minutes every hour while awake, instructed yesterday 4) Renal - acute injury on HD as per renal - likely to resolve with time, stil requires HD, but did have some urine output today 5) LFT's - improved, maybe abx related, follow 6) WBC - I think from inflammation and not infection no change in plan, will order MRI for Friday12/02/16 18:18 as above pt couldn't tolerate being on back for MRI 1) 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, trial clears 2) Diet - for now tube feeds, on enzyme replacement trial clears 3) Pulm - incentive spirometry q 5 minutes every hour while awake 4) Renal - acute injury on HD as per renal - likely to resolve with time, still requires HD, increased urine output today 5) LFT's - improved 6) WBC - I think from inflammation and not infection Subjective: cc- post ERCp pancreatitis back pain could not do MRI says abdo feels better will try some liquids tomorrow Objective: Vital Signs Temp Pulse Resp BP Pulse Ox 36.7 C 115 H 20 133/94 H 92 12/02/16 16:00 12/02/16 16:00 12/02/16 16:00 12/02/16 16:00 12/02/16 16:00 Laboratory Results 12/02/16 05:45 12/02/16 05:45 12/01/16 12/02/16 12/03/16 05:59 05:59 05:59 Intake Total 3206 2900 Output Total 350 1100 2800 Balance 2856 1800 -2800 A+Ox3 CTA S1S2 +BS, soft ICD10 Worksheet Patient Problems: Problems Problem Status Diagnosed Abdominal pain Acute
--- NOTE | 2016-12-02 20:56 | SOAPPROG ---
SOAP Progress Note Assessment/Plan: Assessment: Sutured neck catheter in place with two nylon sutures. Pt tolerated very well. Covered with same type of dressing. Plan: 12/02/16 20:54 Objective: Vital Signs Temp Pulse Resp BP Pulse Ox 37.0 C 111 H 22 H 129/87 H 93 12/02/16 19:54 12/02/16 19:54 12/02/16 19:54 12/02/16 19:54 12/02/16 19:54 Laboratory Results 12/02/16 05:45 12/02/16 05:45 12/01/16 12/02/16 12/03/16 05:59 05:59 05:59 Intake Total 3206 2900 757 Output Total 350 1100 2800 Balance 2856 1800 -2042 ICD10 Worksheet Patient Problems: Problems Problem Status Diagnosed Abdominal pain Acute
[2016-12-03] MEDS: oxyCODONE IR 5 MG TAB PO PRN ×5 (04:36→19:03)
[2016-12-03] MEDS: HEPARIN 5,000 UNIT/0.5 ML SYR SC SCH ×3 (05:25→23:25)
[2016-12-03] MEDS: CALCIUM CARBONATE 500 MG CHEWABLE TAB PO SCH ×2 (09:26→16:07)
[2016-12-03] MEDS: PANCREAZE PO SCH ×3 (09:26→17:52)
[2016-12-03] MEDS: FAMOTIDINE 20 MG TAB PO SCH (09:26)
--- NOTE | 2016-12-03 10:59 | SOAPPROG ---
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, pain controlled, MRI tomorrow 2) Diet - for now tube feeds, maybe trial orals early next week, on enzyme replacement 3) Pulm - incentive spirometry q 5 minutes every hour while awake, instructed yesterday 4) Renal - acute injury on HD as per renal - likely to resolve with time, stil requires HD, but did have some urine output today 5) LFT's - improved, maybe abx related, follow 6) WBC - I think from inflammation and not infection no change in plan, will order MRI for Friday12/02/16 18:18 as above pt couldn't tolerate being on back for MRI 1) 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, trial clears 2) Diet - for now tube feeds, on enzyme replacement trial clears 3) Pulm - incentive spirometry q 5 minutes every hour while awake 4) Renal - acute injury on HD as per renal - likely to resolve with time, still requires HD, increased urine output today 5) LFT's - improved 6) WBC - I think from inflammation and not infection 12/03/16 10:56 as above, no change in plan pt has some clear liquids in front of him (jello, juice) but hasn't yet tried anything he is a bit apprehensive about PO intake No change in my plan from 12/02/16 will follow Subjective: CC- post ERCp pancreatitis Feeling OK, a bit of nausea and GI upset but doesn't c/o pain hesitant to try liquids as noted above Objective: Vital Signs Temp Pulse Resp BP Pulse Ox 36.7 C 111 H 20 127/88 H 93 12/03/16 07:26 12/03/16 07:26 12/03/16 07:26 12/03/16 07:26 12/03/16 07:26 Laboratory Results 12/02/16 05:45 12/02/16 05:45 12/02/16 12/03/16 12/04/16 05:59 05:59 05:59 Intake Total 2900 1257 756 Output Total 1100 3200 Balance 1800 -1943 756 A+Ox3 CTA S1S2 +BS, soft minimal tenderness no r/g ICD10 Worksheet Patient Problems: Problems Problem Status Diagnosed Abdominal pain Acute
--- NOTE | 2016-12-03 14:46 | SOAPPROG ---
SOAP Progress Note Assessment/Plan: Assessment:Plan: ARF-consistent with ATN -urine output good -900 ml the prior 24 hours -Hd yesterday -plan for Hd again on Friday -will check creatinine today to see if there is an interval rise off of dialysis -assess for recovery Access-RAGHU Irvin -would need tunneled catheter if he goes to rehab and is still dialysis- dependent Edema-UF as tolerated -edema is much better Hyperkalemia-resolved -K stable at 3.7 ID-no longer on abx 12/03/16 14:44 Subjective: stable overnite Objective: Vital Signs Temp Pulse Resp BP Pulse Ox 37.1 C 115 H 20 127/89 H 94 12/03/16 11:14 12/03/16 11:14 12/03/16 11:14 12/03/16 11:14 12/03/16 11:14 Laboratory Results 12/02/16 05:45 12/02/16 05:45 12/02/16 12/03/16 12/04/16 05:59 05:59 05:59 Intake Total 2900 1257 756 Output Total 1100 3200 300 Balance 1800 -1943 456 Physical Exam - Physical Exam General Appearance: WD/WN, alert, mild distress, obese EENT: normal ENT inspection, other (dobhoff) Neck: normal inspection Respiratory: decreased breath sounds (worse on the R than the L, 1/4 on R) Cardiac/Chest: regular rate, rhythm, No diastolic murmur, No systolic murmur Abdomen: normal bowel sounds, non-tender, soft Extremities: swelling (2+ below knees) ICD10 Worksheet Patient Problems: Problems Problem Status Diagnosed Abdominal pain Acute
[2016-12-03 15:50] LABS: CREATININE 9.1 mg/dL (0.7-1.3)
--- NOTE | 2016-12-03 17:02 | HOSPPROG ---
Hospitalist Progress Note Assessment/Plan: 35 yo m w severe pancreatitis and ongoing leukocytosis and tachycardia Acute pancreatitis due to impacted stones; s/p removal repeat imaging without some fat stranding, no overt abscess- last imaging at risk for pseudocyst SBFT w feeds started this week toleraTING clear liquid started today will hold off MRI further few days Until he can lie flat orthopnea * chest x-ray did not show obvious pulmonary edema * is somewhat fluid overloaded Sepsis: unclear source he has had SIRS (leukocytosis and tachycardia) for days infectious workup neg no ascites abx dc'd 11/27 follow Diarrhea C diff PCR negative. Oliguric WAYNE producing some urine. Due to ATN in setting of shock. Cont HD per renal. Acute abdominal pain improved. 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 TTE with no e/o heart strain and neg LE U/S. Hyperkalemia resolved with HD Acute hypoxemic resp failure stable chest x-ray as above Hypocalcemia: resolved Deconditioning: QID walks w assistance DVT ppx: SQH risk: high Subjective: no new complaints Objective: Vital Signs Temp Pulse Resp BP Pulse Ox 37.0 C 107 H 18 130/84 H 94 12/03/16 15:42 12/03/16 15:42 12/03/16 15:42 12/03/16 15:42 12/03/16 15:42 Laboratory Results 12/02/16 05:45 12/03/16 15:00 12/02/16 12/03/16 12/04/16 05:59 05:59 05:59 Intake Total 2900 1257 756 Output Total 1100 3200 300 Balance 1800 -1943 456 - Physical Exam Constitutional: no apparent distress, appears nourished, not in pain Eyes: anicteric sclera, EOMI Ears, Nose, Mouth, Throat: moist mucous membranes, hearing normal Cardiovascular: regular rate and rhythym Respiratory: no respiratory distress, no rales or rhonchi, reduced air movement Gastrointestinal: normoactive bowel sounds, soft, non-tender abdomen, distension Skin: warm Neurologic: AAOx3 Psychiatric: interacting appropriately, not anxious, not encephalopathic, thought process linear ICD10 Worksheet Patient Problems: Problems Problem Status Diagnosed Abdominal pain Acute
[2016-12-03] MEDS ORDERED: CANN-EASE 2 GM TUBE TP PRN (21:24)
[2016-12-04] MEDS: CALCIUM CARBONATE 500 MG CHEWABLE TAB PO SCH ×4 (00:17→20:57)
[2016-12-04] MEDS: oxyCODONE IR 5 MG TAB PO PRN ×6 (00:17→22:28)
[2016-12-04] MEDS: HEPARIN 5,000 UNIT/0.5 ML SYR SC SCH ×4 (04:30→22:28)
[2016-12-04 05:54] LABS: % IMMATURE GRANULYOCYTES 1.7 % (0.0-1.1); ABSOLUTE IMMATURE GRANULOCYTES 0.27 10^3/uL (0.00-0.10); ADD DIFF? NO; ADD MORPH? NO; ADD SCAN? NO; ATYPICAL LYMPHOCYTE FLAG 0 (0-99); FRAGMENT RBC FLAG 0 (0-99); HEMATOCRIT 22.7 % (40.0-51.0); HEMOGLOBIN 7.6 g/dL (13.7-17.5); LEFT SHIFT FLG 10 (0-99); LIPEMIA HEMOLYSIS FLAG 80 (0-99); MEAN CELL HEMOGLOBIN 32.6 pg (27.9-34.1); MEAN CELL HEMOGLOBIN CONCENTR. 33.5 g/dL (32.4-36.7); MEAN CELL VOLUME 97.4 fL (81.5-99.8); MEAN PLATELET VOLUME 8.4 fL (8.7-11.7); PLATELET CLUMPS FLAG 0 (0-99); PLATELET COUNT 396 10^3/uL (150-400); RED BLOOD CELL COUNT 2.33 10^6/uL (4.40-6.38); RED CELL DISTRIBUTION WIDTH 12.5 % (11.5-15.2)
[2016-12-04 06:07] LABS: ALBUMIN 2.8 g/dL (3.5-5.0); ANION GAP 15 mEq/L (8-16); CALCIUM 8.8 mg/dL (8.5-10.4); CARBON DIOXIDE 27 mEq/l (22-31); CHLORIDE 92 mEq/L (97-110); GLOMERULAR FILTRATION RATE 6; GLUCOSE 99 mg/dL (70-100); POTASSIUM 4.9 mEq/L (3.5-5.2); SODIUM 134 mEq/L (134-144)
[2016-12-04] MEDS: PANCREAZE PO SCH ×3 (10:33→18:15)
[2016-12-04] MEDS: FAMOTIDINE 20 MG TAB PO SCH (10:33)
--- NOTE | 2016-12-04 13:59 | HOSPPROG ---
Hospitalist Progress Note Assessment/Plan: 35 yo m w severe pancreatitis and ongoing leukocytosis and tachycardia Acute pancreatitis due to impacted stones; s/p removal - continue tube feeds - clear liquid diet as tolerated - will consider repeat abdominal imaging if he continues to have pain to evaluate for pseudocyst Oliguric WAYNE /acute renal failure - continue with hemodialysis per Nephrology orthopnea * chest x-ray did not show obvious pulmonary edema * is somewhat fluid overloaded Sepsis: unclear source he has had SIRS (leukocytosis and tachycardia) for days infectious workup neg no ascites abx dc'd 11/27 follow Diarrhea C diff PCR negative. Acute abdominal pain improved. 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 TTE with no e/o heart strain and neg LE U/S. Hyperkalemia resolved with HD Acute hypoxemic resp failure stable chest x-ray as above Hypocalcemia: resolved Deconditioning: QID walks w assistance DVT ppx: SQH risk: high Subjective: he reports feeling "woozy after dialysis". denies any fevers or chills. abdominal pain is rated a 6/10 but is tolerable Objective: Vital Signs Temp Pulse Resp BP Pulse Ox 36.6 C 115 H 14 148/99 H 94 12/04/16 13:05 12/04/16 13:05 12/04/16 13:05 12/04/16 13:05 12/04/16 13:05 Laboratory Results 12/04/16 05:45 12/04/16 05:45 12/03/16 12/04/16 12/05/16 05:59 05:59 05:59 Intake Total 1257 3733 Output Total 3200 1025 Balance -1943 2708 - Physical Exam Constitutional: no apparent distress, appears nourished, not in pain Ears, Nose, Mouth, Throat: moist mucous membranes, hearing normal, ears appear normal, no oral mucosal ulcers Cardiovascular: regular rate and rhythym, no murmur, rub, or gallop Respiratory: no respiratory distress, no rales or rhonchi, clear to auscultation Gastrointestinal: normoactive bowel sounds, soft, non-tender abdomen, no palpable masses, No guarding, No rebound ICD10 Worksheet Patient Problems: Problems Problem Status Diagnosed Abdominal pain Acute
[2016-12-04] MEDS ORDERED: HEPARIN 50,000 UNIT/10 ML VIAL ONE (14:12)
--- NOTE | 2016-12-04 15:12 | SOAPPROG ---
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, pain controlled, MRI tomorrow 2) Diet - for now tube feeds, maybe trial orals early next week, on enzyme replacement 3) Pulm - incentive spirometry q 5 minutes every hour while awake, instructed yesterday 4) Renal - acute injury on HD as per renal - likely to resolve with time, stil requires HD, but did have some urine output today 5) LFT's - improved, maybe abx related, follow 6) WBC - I think from inflammation and not infection no change in plan, will order MRI for Friday12/02/16 18:18 as above pt couldn't tolerate being on back for MRI 1) 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, trial clears 2) Diet - for now tube feeds, on enzyme replacement trial clears 3) Pulm - incentive spirometry q 5 minutes every hour while awake 4) Renal - acute injury on HD as per renal - likely to resolve with time, still requires HD, increased urine output today 5) LFT's - improved 6) WBC - I think from inflammation and not infection 12/03/16 10:56 as above, no change in plan pt has some clear liquids in front of him (jello, juice) but hasn't yet tried anything he is a bit apprehensive about PO intake No change in my plan from 12/02/16 will follow 12/04/16 15:09 as above no change in plan from 12/02 and 12/03 has tried a small amount of clear liquids w/o issue WBC going down urine outpt going up but still needs HD will follow Subjective: CC- post ERCp pancreatitis About the same, did tolerate some orals no change in pain w/o PO intake Objective: Vital Signs Temp Pulse Resp BP Pulse Ox 36.6 C 115 H 14 148/99 H 94 12/04/16 13:05 12/04/16 13:05 12/04/16 13:05 12/04/16 13:05 12/04/16 13:05 Laboratory Results 12/04/16 05:45 12/04/16 05:45 12/03/16 12/04/16 12/05/16 05:59 05:59 05:59 Intake Total 1257 3733 Output Total 3200 1025 Balance -1943 2708 A+Ox3 CTA anteriorly S1S2 +BS, soft tender ICD10 Worksheet Patient Problems: Problems Problem Status Diagnosed Abdominal pain Acute
--- NOTE | 2016-12-04 17:29 | SOAPPROG ---
SOAP Progress Note Assessment/Plan: Assessment: 1. WAYNE. Ischemic ATN due to pancreatitis. UOP recovering, still azotemic. Dialysis done today. Follow for recovery. May need again Friday. 2. Severe post ERCP pancreatitis. Supportive care, on empiric abx. Abdominal imaging to eval pseudocyst/etc at some point. 3. Dyspnea. Likely volume overload, pain, abdominal distention, obesity. Can try lasix. Plan: 11/15/16 09:28 12/04/16 17:27 12/04/16 17:29 Subjective: Had dialysis this am. No fluid was removed. Feeling gradually a little better. Not much abdominal pain currently. Main complaint is dyspnea/difficulty catching breath. Objective: Vital Signs Temp Pulse Resp BP Pulse Ox 36.6 C 115 H 20 132/92 H 92 12/04/16 16:40 12/04/16 16:40 12/04/16 16:40 12/04/16 16:40 12/04/16 16:40 Laboratory Results 12/04/16 05:45 12/04/16 05:45 12/03/16 12/04/16 12/05/16 05:59 05:59 05:59 Intake Total 1257 3733 1500 Output Total 3200 1025 Balance -1943 2708 1500 Dyspneic, slightly uncomfortable. Sitting. On NC O2. RRR, no m/g/r Decreased breath sounds in bases Abdom obese, distended, nontender 4+ LE edema R IJ dialysis catheter ICD10 Worksheet Patient Problems: Problems Problem Status Diagnosed Abdominal pain Acute
[2016-12-05 03:44] LABS: % IMMATURE GRANULYOCYTES 1.5 % (0.0-1.1); ABSOLUTE IMMATURE GRANULOCYTES 0.23 10^3/uL (0.00-0.10); ADD DIFF? NO; ADD MORPH? NO; ADD SCAN? NO; ATYPICAL LYMPHOCYTE FLAG 10 (0-99); FRAGMENT RBC FLAG 0 (0-99); HEMATOCRIT 23.3 % (40.0-51.0); HEMOGLOBIN 7.7 g/dL (13.7-17.5); LEFT SHIFT FLG 10 (0-99); LIPEMIA HEMOLYSIS FLAG 80 (0-99); MEAN CELL HEMOGLOBIN 32.4 pg (27.9-34.1); MEAN CELL VOLUME 97.9 fL (81.5-99.8); MEAN PLATELET VOLUME 8.5 fL (8.7-11.7); PLATELET CLUMPS FLAG 10 (0-99); PLATELET COUNT 419 10^3/uL (150-400); RED BLOOD CELL COUNT 2.38 10^6/uL (4.40-6.38); RED CELL DISTRIBUTION WIDTH 12.7 % (11.5-15.2)
[2016-12-05 03:51] LABS: ALBUMIN 2.8 g/dL (3.5-5.0); ANION GAP 15 mEq/L (8-16); CALCIUM 8.8 mg/dL (8.5-10.4); CARBON DIOXIDE 27 mEq/l (22-31); CHLORIDE 93 mEq/L (97-110); CREATININE 7.3 mg/dL (0.7-1.3); GLOMERULAR FILTRATION RATE 8; GLUCOSE 96 mg/dL (70-100); POTASSIUM 4.8 mEq/L (3.5-5.2); SODIUM 135 mEq/L (134-144)
[2016-12-05] MEDS: oxyCODONE IR 5 MG TAB PO PRN ×3 (05:22→17:33)
[2016-12-05] MEDS: HEPARIN 5,000 UNIT/0.5 ML SYR SC SCH ×3 (05:22→22:22)
[2016-12-05] MEDS: FUROSEMIDE 40 MG/4 ML VIAL IVP SCH (09:08)
[2016-12-05] MEDS: FAMOTIDINE 20 MG TAB PO SCH (09:08)
[2016-12-05] MEDS: CALCIUM CARBONATE 500 MG CHEWABLE TAB PO SCH ×3 (09:08→17:33)
--- NOTE | 2016-12-05 09:25 | SOAPPROG ---
АННА Progress Note Assessment/Plan: Assessment:Plan: 36 yo with post ERCp pancreatitis 12/02/16 18:18 as above pt couldn't tolerate being on back for MRI 1) 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, trial clears 2) Diet - for now tube feeds, on enzyme replacement trial clears 3) Pulm - incentive spirometry q 5 minutes every hour while awake 4) Renal - acute injury on HD as per renal - likely to resolve with time, still requires HD, increased urine output today 5) LFT's - improved 6) WBC - I think from inflammation and not infection 12/03/16 10:56 as above, no change in plan pt has some clear liquids in front of him (jello, juice) but hasn't yet tried anything he is a bit apprehensive about PO intake No change in my plan from 12/02/16 will follow 12/04/16 15:09 as above no change in plan from 12/02 and 12/03 has tried a small amount of clear liquids w/o issue WBC going down urine outpt going up but still needs HD will follow 12/05/16 09:21 as above, only change is advancing to full liquids 1) 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, tolerating clear, trail full liquids 2) Diet - continue tube feeds, on enzyme replacement trial fulls 3) Pulm - incentive spirometry q 5 minutes every hour while awake 4) Renal - acute injury on HD as per renal - likely to resolve with time, still requires HD, increased urine output today, cr down 5) LFT's - improved 6) WBC - I think from inflammation and not infection, also decreasing daily will follow Subjective: CC- post ERCp pancreatitis says liquids going OK, w/o any sig worsening of sx's making good urine still on HD happy to be taking some PO Objective: Vital Signs Temp Pulse Resp BP Pulse Ox 36.8 C 116 H 22 H 135/95 H 95 12/05/16 08:00 12/05/16 08:00 12/05/16 08:00 12/05/16 08:00 12/05/16 04:00 Laboratory Results 12/05/16 03:15 12/05/16 03:15 12/04/16 12/05/16 12/06/16 05:59 05:59 05:59 Intake Total 3733 2699 Output Total 1025 700 310 Balance 2708 1998 A+Ox3 CTA anteriorly S1S2, RRR +BS, soft mild tenderness no r/g Laboratory Tests 11/29/16 11/30/16 12/02/16 06:00 05:05 05:45 WBC 19.28 H BUN Creatinine Albumin 2.6 L 2.9 L 2.9 L 12/04/16 12/05/16 05:45 03:15 WBC 16.13 H 15.22 H BUN 82 H 60 H Creatinine 10.0 H* 7.3 H Albumin ICD10 Worksheet Patient Problems: Problems Problem Status Diagnosed Abdominal pain Acute
[2016-12-05] MEDS: PANCREAZE PO SCH ×3 (09:39→17:33)
[2016-12-05] MEDS: ONDANSETRON 4 MG/2 ML VIAL IVP PRN (11:05)
--- NOTE | 2016-12-05 15:45 | HOSPPROG ---
Hospitalist Progress Note Assessment/Plan: 35 yo m w severe pancreatitis Acute pancreatitis due to impacted stones; s/p removal - DC tube feeds and advance to full liquid diet - will consider repeat abdominal imaging if he continues to have pain to evaluate for pseudocyst Oliguric WAYNE /acute renal failure - continue with hemodialysis per Nephrology orthopnea * chest x-ray did not show obvious pulmonary edema * is somewhat fluid overloaded Sepsis: unclear source he has had SIRS (leukocytosis and tachycardia) for days infectious workup neg no ascites abx dc'd 11/27 follow Diarrhea C diff PCR negative. Acute abdominal pain improved. 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 TTE with no e/o heart strain and neg LE U/S. Hyperkalemia resolved with HD Acute hypoxemic resp failure stable chest x-ray as above Hypocalcemia: resolved Deconditioning: QID walks w assistance DVT ppx: SQH risk: mod Subjective: wants to try to ear. abd pain is manageble. reports to be making urine Objective: Vital Signs Temp Pulse Resp BP Pulse Ox 36.8 C 113 H 17 127/88 H 88 L 12/05/16 11:33 12/05/16 11:33 12/05/16 11:33 12/05/16 11:33 12/05/16 11:33 Laboratory Results 12/05/16 03:15 12/05/16 03:15 12/04/16 12/05/16 12/06/16 05:59 05:59 05:59 Intake Total 3733 2699 Output Total 1025 700 510 Balance 2708 1998 - Physical Exam Constitutional: no apparent distress, appears nourished, not in pain Cardiovascular: regular rate and rhythym, no murmur, rub, or gallop Respiratory: no respiratory distress, no rales or rhonchi, clear to auscultation Gastrointestinal: normoactive bowel sounds, soft, non-tender abdomen, no palpable masses, No guarding, No rebound ICD10 Worksheet Patient Problems: Problems Problem Status Diagnosed Abdominal pain Acute
--- NOTE | 2016-12-05 15:55 | SOAPPROG ---
АННА Progress Note Assessment/Plan: Assessment: WAYNE remains dialysis dependent, but uop picking up acute pancreatitis, ng out, enjoyed a blueberry smoothie today up and around OK Plan: HD yesterday Assess for HD needs tomorrow continue therapies explained to him that I believe his WAYNE will recover, but may take some time all questions answered to his satisfaction 11/27/16 14:01 11/28/16 13:27 11/29/16 11:33 12/05/16 15:52 Subjective: spirits good up and around better uop increasing some nausea earlier, no vomiting abd pain much improved no cp sob Objective: Vital Signs Temp Pulse Resp BP Pulse Ox 36.8 C 113 H 17 127/88 H 88 L 12/05/16 11:33 12/05/16 11:33 12/05/16 11:33 12/05/16 11:33 12/05/16 11:33 Laboratory Results 12/05/16 03:15 12/05/16 03:15 12/04/16 12/05/16 12/06/16 05:59 05:59 05:59 Intake Total 3733 2699 Output Total 1025 700 510 Balance 2708 1998 Physical Exam - Physical Exam General Appearance: alert, obese Respiratory: No rhonchi, No wheezing Cardiac/Chest: edema, other (tachy, regular), No gallop, No friction rub Abdomen: normal bowel sounds, non-tender Extremities: swelling Neuro/Psych: alert, oriented x 3 ICD10 Worksheet Patient Problems: Problems Problem Status Diagnosed Abdominal pain Acute
[2016-12-06] MEDS: oxyCODONE IR 5 MG TAB PO PRN ×5 (05:26→23:58)
[2016-12-06] MEDS: HEPARIN 5,000 UNIT/0.5 ML SYR SC SCH ×3 (05:27→23:08)
[2016-12-06 06:20] LABS: % IMMATURE GRANULYOCYTES 2.1 % (0.0-1.1); ABSOLUTE IMMATURE GRANULOCYTES 0.27 10^3/uL (0.00-0.10); ADD DIFF? NO; ADD MORPH? NO; ADD SCAN? NO; ATYPICAL LYMPHOCYTE FLAG 0 (0-99); FRAGMENT RBC FLAG 0 (0-99); HEMATOCRIT 23.4 % (40.0-51.0); HEMOGLOBIN 7.5 g/dL (13.7-17.5); LEFT SHIFT FLG 10 (0-99); LIPEMIA HEMOLYSIS FLAG 80 (0-99); MEAN CELL HEMOGLOBIN 31.6 pg (27.9-34.1); MEAN CELL HEMOGLOBIN CONCENTR. 32.1 g/dL (32.4-36.7); MEAN CELL VOLUME 98.7 fL (81.5-99.8); MEAN PLATELET VOLUME 8.6 fL (8.7-11.7); PLATELET CLUMPS FLAG 0 (0-99); PLATELET COUNT 430 10^3/uL (150-400); RED BLOOD CELL COUNT 2.37 10^6/uL (4.40-6.38); RED CELL DISTRIBUTION WIDTH 12.4 % (11.5-15.2)
[2016-12-06 06:50] LABS: ALBUMIN 2.9 g/dL (3.5-5.0); ANION GAP 18 mEq/L (8-16); CARBON DIOXIDE 26 mEq/l (22-31); CHLORIDE 92 mEq/L (97-110); GLOMERULAR FILTRATION RATE 6; GLUCOSE 80 mg/dL (70-100); POTASSIUM 5.2 mEq/L (3.5-5.2); SODIUM 136 mEq/L (134-144)
[2016-12-06 06:56] LABS: CREATININE 9.2 mg/dL (0.7-1.3)
[2016-12-06] MEDS: PANCREAZE PO SCH ×3 (09:25→17:30)
[2016-12-06] MEDS: CALCIUM CARBONATE 500 MG CHEWABLE TAB PO SCH ×3 (09:25→17:29)
[2016-12-06] MEDS: FAMOTIDINE 20 MG TAB PO SCH (09:25)
[2016-12-06] MEDS: FUROSEMIDE 40 MG/4 ML VIAL IVP SCH (09:25)
--- NOTE | 2016-12-06 09:26 | SOAPPROG ---
SOAP Progress Note Assessment/Plan: Assessment/Plan: WAYNE: Pt is no longer oliguric with abundant UOP, which is a good prognostic sign for recovery. However, Cr is still uptrending, not yet recovered. - Will plan next HD tomorrow. - Will continue to monitor renal parameters and look for recovery. KATHRINE: Phos still elevated at 10, will increase calcium carbonate with meals and continue to monitor. Hyperkalemia: K 5.2, will modulate with HD tomorrow. Hypervolemia: pt still with significant volume overload, now having good UOP. Will continue Lasix as well as modulating with HD. Subjective: No acute events overnight. Pt is off tube feeds and trying oral shakes, doing well thus far. He still is signficantly swollen but now making more urine, 1500ml in past 24 hours. Objective: Vital Signs Temp Pulse Resp BP Pulse Ox 37.1 C 105 H 16 123/83 H 92 12/06/16 09:00 12/06/16 09:00 12/06/16 09:00 12/06/16 09:00 12/06/16 09:00 Laboratory Results 12/06/16 05:45 12/06/16 05:45 12/05/16 12/06/16 12/07/16 05:59 05:59 05:59 Intake Total 2699 820 Output Total 700 1510 Balance 1998 General: alert and oriented, no acute distress, sitting up in chair Eyes: EOMI, PERRL OP: Clear CV: RRR Resp: CTA bilat, nonlabored respirations Abd: Soft, NT Ext: +3 edema BLE Neuro: CN II-XII grossly intact, no asterixis Psych: cooperative, appropriate mood and affect Access: R IJ tunneled catheter ICD10 Worksheet Patient Problems: Problems Problem Status Diagnosed Abdominal pain Acute
--- NOTE | 2016-12-06 12:18 | HOSPPROG ---
Hospitalist Progress Note Assessment/Plan: 35 yo m w severe pancreatitis Acute pancreatitis due to impacted stones; s/p removal -ADVANCE DIET TO REGULAR TOLERATED - will consider repeat abdominal imaging if he continues to have pain to evaluate for pseudocyst Oliguric WAYNE /acute renal failure - continue with hemodialysis per Nephrology orthopnea * chest x-ray did not show obvious pulmonary edema * is somewhat fluid overloaded Sepsis: unclear source he has had SIRS (leukocytosis and tachycardia) for days infectious workup neg no ascites abx dc'd 11/27 follow Diarrhea C diff PCR negative. Acute abdominal pain improved. 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 TTE with no e/o heart strain and neg LE U/S. Hyperkalemia resolved with HD Acute hypoxemic resp failure stable chest x-ray as above Hypocalcemia: resolved Deconditioning: QID walks w assistance DVT ppx: SQH risk: mod Subjective: tolerating full liquid diet. bm yesterday. making urine. not req iv pain meds Objective: Vital Signs Temp Pulse Resp BP Pulse Ox 37.2 C 105 H 16 137/90 H 97 12/06/16 12:00 12/06/16 09:00 12/06/16 12:00 12/06/16 12:00 12/06/16 12:00 Laboratory Results 12/06/16 05:45 12/06/16 05:45 12/05/16 12/06/16 12/07/16 05:59 05:59 05:59 Intake Total 2699 820 Output Total 700 1510 400 Balance 1998 -690 -400 - Physical Exam Constitutional: no apparent distress, appears nourished, not in pain Cardiovascular: regular rate and rhythym, no murmur, rub, or gallop, edema ( bilat legs) Respiratory: no respiratory distress Gastrointestinal: normoactive bowel sounds, soft, non-tender abdomen, no palpable masses, No guarding, No rebound ICD10 Worksheet Patient Problems: Problems Problem Status Diagnosed Abdominal pain Acute
--- NOTE | 2016-12-06 15:53 | SOAPPROG ---
АННА Progress Note Assessment/Plan: Assessment:Plan: 36 yo with post ERCp pancreatitis 12/05/16 09:21 as above, only change is advancing to full liquids 1) 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, tolerating clear, trail full liquids 2) Diet - continue tube feeds, on enzyme replacement trial fulls 3) Pulm - incentive spirometry q 5 minutes every hour while awake 4) Renal - acute injury on HD as per renal - likely to resolve with time, still requires HD, increased urine output today, cr down 5) LFT's - improved 6) WBC - I think from inflammation and not infection, also decreasing daily will follow 12/06/16 15:50 as above pt doing better with PO intake less pain happy to get NGT out 1) Post-ERC pancreatitis -- off tube feeds, 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 today 12/06/16 15:54 Subjective: cc - post ERCp pancreatitis happy to get NGT out going slowly with diet no increased pain with increased PO Objective: Vital Signs Temp Pulse Resp BP Pulse Ox 37.2 C 130 H 16 137/90 H 93 12/06/16 12:00 12/06/16 10:31 12/06/16 12:00 12/06/16 12:00 12/06/16 13:35 Laboratory Results 12/06/16 05:45 12/06/16 05:45 12/05/16 12/06/16 12/07/16 05:59 05:59 05:59 Intake Total 2699 820 Output Total 700 1510 400 Balance 1998 -690 -400 A+Ox3 CTA anteriorly S1s2, +BS, soft NT Laboratory Tests 12/04/16 12/05/16 12/06/16 05:45 03:15 05:45 WBC 16.13 H 15.22 H 13.14 H ICD10 Worksheet Patient Problems: Problems Problem Status Diagnosed Abdominal pain Acute
[2016-12-07] MEDS: HEPARIN 5,000 UNIT/0.5 ML SYR SC SCH ×3 (05:47→22:12)
[2016-12-07] MEDS: oxyCODONE IR 5 MG TAB PO PRN ×3 (05:47→17:47)
[2016-12-07 06:16] LABS: % IMMATURE GRANULYOCYTES 1.6 % (0.0-1.1); ABSOLUTE IMMATURE GRANULOCYTES 0.23 10^3/uL (0.00-0.10); ADD DIFF? NO; ADD MORPH? NO; ADD SCAN? NO; ATYPICAL LYMPHOCYTE FLAG 10 (0-99); FRAGMENT RBC FLAG 0 (0-99); HEMATOCRIT 22.1 % (40.0-51.0); HEMOGLOBIN 7.3 g/dL (13.7-17.5); LEFT SHIFT FLG 10 (0-99); LIPEMIA HEMOLYSIS FLAG 80 (0-99); MEAN CELL HEMOGLOBIN 32.2 pg (27.9-34.1); MEAN CELL VOLUME 97.4 fL (81.5-99.8); MEAN PLATELET VOLUME 8.4 fL (8.7-11.7); PLATELET CLUMPS FLAG 0 (0-99); PLATELET COUNT 417 10^3/uL (150-400); RED BLOOD CELL COUNT 2.27 10^6/uL (4.40-6.38); RED CELL DISTRIBUTION WIDTH 12.3 % (11.5-15.2)
[2016-12-07 06:27] LABS: ANION GAP 17 mEq/L (8-16); CALCIUM 8.9 mg/dL (8.5-10.4); CARBON DIOXIDE 26 mEq/l (22-31); CHLORIDE 90 mEq/L (97-110); GLOMERULAR FILTRATION RATE 6; GLUCOSE 85 mg/dL (70-100); POTASSIUM 4.9 mEq/L (3.5-5.2); SODIUM 133 mEq/L (134-144)
[2016-12-07 06:35] LABS: CREATININE 10.2 mg/dL (0.7-1.3)
[2016-12-07] MEDS: FAMOTIDINE 20 MG TAB PO SCH (07:16)
[2016-12-07] MEDS: ONDANSETRON 4 MG/2 ML VIAL IVP PRN ×2 (07:16→19:43)
--- NOTE | 2016-12-07 09:20 | SOAPPROG ---
SOAP Progress Note Assessment/Plan: Assessment/Plan: WAYNE: Pt is no longer oliguric with abundant UOP that is increasing daily, which is a good prognostic sign for recovery. However, Cr is still uptrending, not yet recovered. - HD today. - Will continue to monitor renal parameters and look for recovery. KATHRINE: Phos still elevated at 11.2. - Increased calcium carbonate yesterday. - Will change to renal diet. Hyperkalemia: K 4.9, will modulate with HD. Hypervolemia: pt still with significant volume overload, now having good UOP. Will continue Lasix as well as modulating with HD. Subjective: No acute events overnight. Pt started trying solid foods last night, having a little gas from it. He notes he is urinating frequently, UOP is increased to 1800ml. He notes he had some nausea this am but better with antiemetics. Objective: Vital Signs Temp Pulse Resp BP Pulse Ox 36.4 C 119 H 16 144/96 H 94 12/07/16 07:43 12/07/16 07:43 12/07/16 07:43 12/07/16 07:43 12/07/16 07:43 Laboratory Results 12/07/16 05:55 12/07/16 05:55 12/06/16 12/07/16 12/08/16 05:59 05:59 05:59 Intake Total 820 1050 Output Total 1510 1855 Balance -690 -805 General: alert and oriented, no acute distress Eyes: EOMI, PERRL CV: RRR Resp: nonlabored respirations Abd; Soft, NT, distended Ext: +2 edema BLE Neuro: no asterixis, CN II-XII grossly intact Psych: cooperative, appropriate mood and affect Access: RIJ tunneled catheter ICD10 Worksheet Patient Problems: Problems Problem Status Diagnosed Abdominal pain Acute
[2016-12-07] MEDS: PANCREAZE PO SCH ×3 (12:00→17:47)
[2016-12-07] MEDS: CALCIUM CARBONATE 500 MG CHEWABLE TAB PO SCH ×3 (12:00→17:47)
[2016-12-07] MEDS: FUROSEMIDE 40 MG/4 ML VIAL IVP SCH (12:05)
[2016-12-07] MEDS ORDERED: HEPARIN 50,000 UNIT/10 ML VIAL ONE (12:26)
--- NOTE | 2016-12-07 12:49 | SOAPPROG ---
SOAP Progress Note Assessment/Plan: Assessment: 1. Pancreatitis - post-ERCP - complicated by renal failure - improving overall - tolerating po - renal function improving Plan: 1. Continue to advance diet 2. Continue to wean from pain therapies 3. Continue renal support per Renal team, hope for ultimate resolution of kidney failure 4. Consider dc home once tolerating po, with good pain control, patient able to do ADLs, and plan of care related to kidneys is established - will sign off, call with any questions 12/07/16 12:49 Subjective: CC: feeling weak after dialysis S: tolerating po with no pain still has intermittent pain and will take intermittent po pain med no fever normal BMs no nausea no vomiting Objective: Vital Signs Temp Pulse Resp BP Pulse Ox 36.6 C 119 H 14 147/100 H 97 12/07/16 12:08 12/07/16 12:08 12/07/16 12:08 12/07/16 12:08 12/07/16 12:08 Laboratory Results 12/07/16 05:55 12/07/16 05:55 12/06/16 12/07/16 12/08/16 05:59 05:59 05:59 Intake Total 820 1050 Output Total 1510 1855 Balance -690 -805 Physical Exam - Physical Exam EENT: PERRL/EOMI Neck: supple Respiratory: lungs clear Cardiac/Chest: normal peripheral pulses, tachycardia Abdomen: normal bowel sounds, soft, No rebound, No hernia, No mass Skin: normal color Neuro/Psych: no motor/sensory deficits ICD10 Worksheet Patient Problems: Problems Problem Status Diagnosed Abdominal pain Acute
--- NOTE | 2016-12-07 15:01 | HOSPPROG ---
Hospitalist Progress Note Assessment/Plan: 35 yo m w severe pancreatitis Acute pancreatitis due to impacted stones; s/p removal -cont regular diet - will consider repeat abdominal imaging if he continues to have pain to evaluate for pseudocyst Oliguric WAYNE /acute renal failure - continue with hemodialysis per Nephrology orthopnea * chest x-ray did not show obvious pulmonary edema * is somewhat fluid overloaded Sepsis: unclear source he has had SIRS (leukocytosis and tachycardia) for days infectious workup neg no ascites abx dc'd 11/27 follow Diarrhea C diff PCR negative. Acute abdominal pain improved. 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 TTE with no e/o heart strain and neg LE U/S. Hyperkalemia resolved with HD Acute hypoxemic resp failure stable chest x-ray as above Hypocalcemia: resolved Deconditioning: QID walks w assistance DVT ppx: SQH risk: mod Subjective: tolerating diet. no abd pain. making urine Objective: Vital Signs Temp Pulse Resp BP Pulse Ox 36.6 C 119 H 14 147/100 H 97 12/07/16 12:08 12/07/16 12:08 12/07/16 12:08 12/07/16 12:08 12/07/16 12:08 Laboratory Results 12/07/16 05:55 12/07/16 05:55 12/06/16 12/07/16 12/08/16 05:59 05:59 05:59 Intake Total 820 1050 500 Output Total 1510 1855 900 Balance -690 -775 -400 - Physical Exam Constitutional: no apparent distress, appears nourished, not in pain Ears, Nose, Mouth, Throat: moist mucous membranes, hearing normal, ears appear normal, no oral mucosal ulcers Cardiovascular: regular rate and rhythym, no murmur, rub, or gallop Respiratory: no respiratory distress, no rales or rhonchi, clear to auscultation ICD10 Worksheet Patient Problems: Problems Problem Status Diagnosed Abdominal pain Acute
[2016-12-08] MEDS: oxyCODONE IR 5 MG TAB PO PRN ×4 (00:47→18:36)
[2016-12-08] MEDS: HEPARIN 5,000 UNIT/0.5 ML SYR SC SCH ×3 (05:40→20:50)
[2016-12-08 05:56] LABS: % IMMATURE GRANULYOCYTES 1.5 % (0.0-1.1); ADD DIFF? NO; ADD MORPH? NO; ADD SCAN? NO; ATYPICAL LYMPHOCYTE FLAG 10 (0-99); FRAGMENT RBC FLAG 0 (0-99); HEMATOCRIT 22.7 % (40.0-51.0); HEMOGLOBIN 7.4 g/dL (13.7-17.5); LEFT SHIFT FLG 10 (0-99); LIPEMIA HEMOLYSIS FLAG 80 (0-99); MEAN CELL HEMOGLOBIN 31.8 pg (27.9-34.1); MEAN CELL HEMOGLOBIN CONCENTR. 32.6 g/dL (32.4-36.7); MEAN CELL VOLUME 97.4 fL (81.5-99.8); MEAN PLATELET VOLUME 8.1 fL (8.7-11.7); PLATELET CLUMPS FLAG 0 (0-99); PLATELET COUNT 395 10^3/uL (150-400); RED BLOOD CELL COUNT 2.33 10^6/uL (4.40-6.38); RED CELL DISTRIBUTION WIDTH 12.3 % (11.5-15.2)
[2016-12-08 06:28] LABS: ANION GAP 16 mEq/L (8-16); CALCIUM 8.9 mg/dL (8.5-10.4); CARBON DIOXIDE 27 mEq/l (22-31); CHLORIDE 92 mEq/L (97-110); GLOMERULAR FILTRATION RATE 8; GLUCOSE 87 mg/dL (70-100); POTASSIUM 4.6 mEq/L (3.5-5.2); SODIUM 135 mEq/L (134-144)
[2016-12-08 06:34] LABS: CREATININE 7.9 mg/dL (0.7-1.3)
[2016-12-08] MEDS: PANCREAZE PO SCH ×3 (08:18→18:37)
[2016-12-08] MEDS: FAMOTIDINE 20 MG TAB PO SCH (08:18)
[2016-12-08] MEDS: CALCIUM CARBONATE 500 MG CHEWABLE TAB PO SCH ×3 (08:18→18:36)
[2016-12-08] MEDS: FUROSEMIDE 40 MG/4 ML VIAL IVP SCH (08:19)
--- NOTE | 2016-12-08 10:05 | SOAPPROG ---
SOAP Progress Note Assessment/Plan: Assessment/Plan: WAYNE: Pt is no longer oliguric with abundant UOP that is increasing daily, which is a good prognostic sign for recovery. Last HD done yesterday. - Will hold off on HD for now and monitor for renal recovery. KATHRINE: Phos still elevated, today down to 8.8. - Continue calcium carbonate. - Continue renal diet. Hyperkalemia: K 4.6 after HD done yesterday, will continue to monitor. Hypervolemia: pt still with significant volume overload but improving, now having good UOP. Will continue Lasix. Subjective: No acute events overnight. Pt had HD yesterday with appx 3L removed. He also had 2L UOP in past 24 hours. He is feeling ok, working slowly on solid foods, last night chicken upset his stomach but he is doing well with smoothies. Objective: Vital Signs Temp Pulse Resp BP Pulse Ox 36.9 C 95 19 147/96 H 96 12/08/16 08:45 12/08/16 08:45 12/08/16 08:45 12/08/16 08:45 12/08/16 08:45 Laboratory Results 12/08/16 05:50 12/08/16 05:50 12/07/16 12/08/16 12/09/16 05:59 05:59 05:59 Intake Total 1050 1800 300 Output Total 1855 2225 200 Balance -805 -425 100 General: alert and oriented, no acute distress Eyes: EOMI, PERRL OP: Clear CV: RRR Resp: CTA bilat, nonlabored respirations Abd: Soft, NT Ext: +2 edema but improving BLE Neuro: CN II-XII grossly intact, no asterixis Psych: cooperative, appropriate mood and affect ICD10 Worksheet Patient Problems: Problems Problem Status Diagnosed Abdominal pain Acute
--- NOTE | 2016-12-08 12:39 | HOSPPROG ---
Hospitalist Progress Note Assessment/Plan: 35 yo m w severe pancreatitis Acute pancreatitis due to impacted stones; s/p removal -cont regular diet - will consider repeat abdominal imaging if he continues to have pain to evaluate for pseudocyst Oliguric WAYNE /acute renal failure now with good urine output last HD 12/07 - continue with hemodialysis per Nephrology -await recovery orthopnea (improving) Sepsis (resolved) Diarrhea (resolved) Acute abdominal pain (improved) Sinus tachycardia (improving) Hyperkalemia (resolved) Acute hypoxemic resp failure Hypocalcemia (resolved) Deconditioning: QID walks w assistance DVT ppx: SQH risk: mod Subjective: tolerating diet. no abd pain. improving leg swelling Objective: Vital Signs Temp Pulse Resp BP Pulse Ox 36.7 C 118 H 19 150/103 H 94 12/08/16 11:54 12/08/16 11:54 12/08/16 11:54 12/08/16 11:54 12/08/16 11:54 Laboratory Results 12/08/16 05:50 12/08/16 05:50 12/07/16 12/08/16 12/09/16 05:59 05:59 05:59 Intake Total 1050 1800 600 Output Total 1855 2225 375 Balance -805 -810 225 - Physical Exam Constitutional: no apparent distress, appears nourished, not in pain Ears, Nose, Mouth, Throat: moist mucous membranes, hearing normal, ears appear normal, no oral mucosal ulcers Cardiovascular: regular rate and rhythym, no murmur, rub, or gallop Respiratory: no respiratory distress, no rales or rhonchi, clear to auscultation Gastrointestinal: normoactive bowel sounds, soft, non-tender abdomen, no palpable masses, distension, No guarding, No rebound ICD10 Worksheet Patient Problems: Problems Problem Status Diagnosed Abdominal pain Acute
[2016-12-08] MEDS ORDERED: LACTULOSE 20 GM/30 ML UDCUP PO PRN (14:07)
[2016-12-08] MEDS ORDERED: BISACODYL 10 MG SUPP PR PRN (14:07)
[2016-12-08] MEDS ORDERED: MAGNESIUM HYDROXIDE 30 ML UDCUP PO PRN (14:07)
[2016-12-08] MEDS: ONDANSETRON 4 MG/2 ML VIAL IVP PRN (19:11)
[2016-12-08] MEDS: SENNOSIDES/DOCUSATE SODIUM TAB PO SCH (20:50)
[2016-12-09] MEDS: oxyCODONE IR 5 MG TAB PO PRN ×4 (05:06→21:30)
[2016-12-09] MEDS: POLYETHYLENE GLYCOL 3350 17 GM PKT PO PRN (05:30)
[2016-12-09] MEDS: HEPARIN 5,000 UNIT/0.5 ML SYR SC SCH ×3 (05:30→21:52)
[2016-12-09 05:34] LABS: % IMMATURE GRANULYOCYTES 1.6 % (0.0-1.1); ABSOLUTE IMMATURE GRANULOCYTES 0.23 10^3/uL (0.00-0.10); ADD DIFF? NO; ADD MORPH? NO; ADD SCAN? NO; ATYPICAL LYMPHOCYTE FLAG 0 (0-99); FRAGMENT RBC FLAG 0 (0-99); HEMATOCRIT 22.5 % (40.0-51.0); HEMOGLOBIN 7.5 g/dL (13.7-17.5); LEFT SHIFT FLG 10 (0-99); LIPEMIA HEMOLYSIS FLAG 80 (0-99); MEAN CELL HEMOGLOBIN 32.2 pg (27.9-34.1); MEAN CELL HEMOGLOBIN CONCENTR. 33.3 g/dL (32.4-36.7); MEAN CELL VOLUME 96.6 fL (81.5-99.8); MEAN PLATELET VOLUME 8.5 fL (8.7-11.7); PLATELET CLUMPS FLAG 10 (0-99); PLATELET COUNT 469 10^3/uL (150-400); RED BLOOD CELL COUNT 2.33 10^6/uL (4.40-6.38); RED CELL DISTRIBUTION WIDTH 12.2 % (11.5-15.2)
[2016-12-09 05:47] LABS: ALBUMIN 3.4 g/dL (3.5-5.0); ANION GAP 16 mEq/L (8-16); CALCIUM 9.2 mg/dL (8.5-10.4); CARBON DIOXIDE 25 mEq/l (22-31); CHLORIDE 91 mEq/L (97-110); GLOMERULAR FILTRATION RATE 6; GLUCOSE 91 mg/dL (70-100); POTASSIUM 4.7 mEq/L (3.5-5.2); SODIUM 132 mEq/L (134-144)
[2016-12-09 05:50] LABS: CREATININE 9.4 mg/dL (0.7-1.3)
[2016-12-09] MEDS: FAMOTIDINE 20 MG TAB PO SCH (08:11)
[2016-12-09] MEDS: FUROSEMIDE 40 MG/4 ML VIAL IVP SCH (08:12)
[2016-12-09] MEDS: CALCIUM CARBONATE 500 MG CHEWABLE TAB PO SCH ×3 (08:12→20:28)
[2016-12-09] MEDS: PANCREAZE PO SCH ×3 (08:12→20:28)
[2016-12-09] MEDS: SENNOSIDES/DOCUSATE SODIUM TAB PO SCH ×2 (08:12→20:13)
--- NOTE | 2016-12-09 09:20 | SOAPPROG ---
SOAP Progress Note Assessment/Plan: Assessment/Plan: WAYNE: Pt is no longer oliguric with abundant UOP that is increasing daily, which is a good prognostic sign for recovery. Last HD done Friday. - Will plan next HD tomorrow as pt still not having enough clearance. - Will continue to monitor daily for renal recovery. KATHRINE: Phos still elevated, today 9.4. - Continue calcium carbonate. - Continue renal diet. Hypervolemia: pt still with significant volume overload but improving, now having good UOP. Will continue Lasix. Anemia: Hgb 7.5, will give epo with HD tomorrow. Subjective: No acute events overnight. Pt notes his swelling is present but slightly improved. Still working on solid foods, doing ok with cereal and shakes thus far. He is also having some more back pain. He is hoping to walk around more today. Objective: Vital Signs Temp Pulse Resp BP Pulse Ox 36.5 C 98 17 138/97 H 94 12/09/16 08:00 12/09/16 08:00 12/09/16 08:00 12/09/16 08:00 12/09/16 08:00 Laboratory Results 12/09/16 05:00 12/09/16 05:00 12/08/16 12/09/16 12/10/16 05:59 05:59 05:59 Intake Total 1800 1100 Output Total 2225 1275 Balance -425 -175 General: alert and oriented, on acute distress Eyes: EOMI, PERRL OP: Clear, MMM CV: RRR Resp: CTA bilat, nonlabored respirations Abd: Soft, NT Ext: +2 edema BLE Neuro: CN II-XII grossly intact, no asterixis Psych: cooperative, appropriate mood and affect ICD10 Worksheet Patient Problems: Problems Problem Status Diagnosed Abdominal pain Acute
--- NOTE | 2016-12-09 16:25 | HOSPPROG ---
Hospitalist Progress Note Assessment/Plan: * Post-ERCP pancreatitis with severe SIRS -pancrease -consider repeat imaging of pancreas r/o pseudocyst if he continues to have pain * Acute renal failure - continue acute dialysis -no longer oliguric - UOP increasing -IV lasix for volume overload * Retain CBD stone s/p ERCP * Morbid obesity BMI 41 * YOLANDA s/p UPPP, CPAP intolerant * Acute respiratory failure - due to volume overload and SIRS * Anemia - due to acute illness -follow * HTN - holding outpatient meds Subjective: No new complaints. Objective: Vital Signs Temp Pulse Resp BP Pulse Ox 36.3 C 105 H 18 169/108 H 93 12/09/16 12:00 12/09/16 12:00 12/09/16 12:00 12/09/16 12:00 12/09/16 12:00 Laboratory Results 12/09/16 05:00 12/09/16 05:00 12/08/16 12/09/16 12/10/16 05:59 05:59 05:59 Intake Total 1800 1100 Output Total 2225 1275 Balance -425 -175 - Physical Exam Constitutional: no apparent distress, appears nourished, not in pain Cardiovascular: regular rate and rhythym, no murmur, rub, or gallop Respiratory: no respiratory distress, no rales or rhonchi, clear to auscultation Gastrointestinal: normoactive bowel sounds, soft, non-tender abdomen, no palpable masses Skin: no rashes or abrasions, no fluctuance, no induration Neurologic: AAOx3, sensation intact bilaterally Psychiatric: interacting appropriately, not anxious, not encephalopathic, thought process linear ICD10 Worksheet Patient Problems: Problems Problem Status Diagnosed Abdominal pain Acute
[2016-12-09] MEDS: ONDANSETRON 4 MG/2 ML VIAL IVP PRN (21:43)
[2016-12-09] MEDS: ALTEPLASE 2 MG VIAL IVP PRN (21:52)
[2016-12-10] MEDS: ONDANSETRON 4 MG/2 ML VIAL IVP PRN ×2 (07:08→18:23)
[2016-12-10] MEDS: HEPARIN 5,000 UNIT/0.5 ML SYR SC SCH (07:09)
[2016-12-10] MEDS: oxyCODONE IR 5 MG TAB PO PRN ×3 (07:49→21:39)
[2016-12-10 07:56] LABS: % IMMATURE GRANULYOCYTES 1.3 % (0.0-1.1); ABSOLUTE IMMATURE GRANULOCYTES 0.22 10^3/uL (0.00-0.10); ADD DIFF? NO; ADD MORPH? YES; ADD SCAN? NO; ATYPICAL LYMPHOCYTE FLAG 0 (0-99); FRAGMENT RBC FLAG 0 (0-99); HEMATOCRIT 16.1 % (40.0-51.0); LEFT SHIFT FLG 10 (0-99); LIPEMIA HEMOLYSIS FLAG 80 (0-99); MEAN CELL HEMOGLOBIN 31.7 pg (27.9-34.1); MEAN CELL HEMOGLOBIN CONCENTR. 32.9 g/dL (32.4-36.7); MEAN CELL VOLUME 96.4 fL (81.5-99.8); MEAN PLATELET VOLUME 8.7 fL (8.7-11.7); PLATELET CLUMPS FLAG 10 (0-99); PLATELET COUNT 533 10^3/uL (150-400); RED BLOOD CELL COUNT 1.67 10^6/uL (4.40-6.38)
[2016-12-10 08:02] LABS: HEMOGLOBIN 5.3 g/dL (13.7-17.5)
[2016-12-10 08:13] LABS: ALBUMIN 3.1 g/dL (3.5-5.0); CARBON DIOXIDE 23 mEq/l (22-31); GLOMERULAR FILTRATION RATE 6; GLUCOSE 94 mg/dL (70-100)
[2016-12-10 08:19] LABS: ANION GAP 21 mEq/L (8-16); CALCIUM 9.7 mg/dL (8.5-10.4); CHLORIDE 92 mEq/L (97-110); POTASSIUM 4.4 mEq/L (3.5-5.2); SODIUM 136 mEq/L (134-144)
[2016-12-10 08:20] LABS: HEMATOCRIT 21.4 % (40.0-51.0); HEMOGLOBIN 7.3 g/dL (13.7-17.5)
[2016-12-10 08:20] LABS: CREATININE 10.4 mg/dL (0.7-1.3)
[2016-12-10 08:49] LABS: PLATELET ESTIMATE INCREASED (ADEQ)
[2016-12-10 08:51] LABS: MACROCYTES 1+; MICROCYTES 1+
[2016-12-10] MEDS ORDERED: EPOETIN ALFA 10,000 UNIT/ML VIAL SC SCH (09:00)
--- NOTE | 2016-12-10 10:39 | SOAPPROG ---
SOQASIM Progress Note Assessment/Plan: Assessment:Plan: ARF-consistent with ATN -urine output good -still dialysis dependent -it is unclear how much longer he will need dialysis -the patient has recovered from his other medical issues well -he states he is pretty independent with walking in the halls with use of a walked -he is eating some, but still with nausea -pain under control with PO medications -it sound like he is interested in trying to go home from here and not go to Rehab -we could set up outpatient dialysis at the [facility], which is 7 minutes from his home -[facility] [address] [place] [phone] -I spoke with Jessica there and they will work on getting him admitted there Access-RAGHU Irvin -will need tunneled catheter for outpatient dialysis -discussed with Dr. Wu's office -patient made NPO -may be able to place today Dispo-pending 12/10/16 10:30 Objective: Vital Signs Temp Pulse Resp BP Pulse Ox 36.9 C 88 18 134/94 H 80 L 12/10/16 04:00 12/10/16 04:00 12/10/16 04:00 12/10/16 04:00 12/10/16 09:08 Laboratory Results 12/10/16 08:08 12/10/16 07:05 12/09/16 12/10/16 12/11/16 05:59 05:59 05:59 Intake Total 1100 2790 Output Total 1275 2790 Balance -175 0 Physical Exam - Physical Exam General Appearance: WD/WN, alert EENT: normal ENT inspection Neck: normal inspection Respiratory: lungs clear, normal breath sounds Cardiac/Chest: regular rate, rhythm Abdomen: normal bowel sounds Extremities: No swelling ICD10 Worksheet Patient Problems: Problems Problem Status Diagnosed Abdominal pain Acute
[2016-12-10] MEDS ORDERED: ceFAZolin 2 GM/DEXTROSE 100 ML IV ONE (11:03)
[2016-12-10] MEDS ORDERED: ceFAZolin 3 GM in D5W 100 ML IV ONE (11:30)
[2016-12-10] MEDS: CALCIUM CARBONATE 500 MG CHEWABLE TAB PO SCH ×3 (12:17→18:23)
[2016-12-10] MEDS: FAMOTIDINE 20 MG TAB PO SCH (12:18)
[2016-12-10] MEDS: PANCREAZE PO SCH ×3 (12:18→18:24)
[2016-12-10] MEDS: FUROSEMIDE 40 MG/4 ML VIAL IVP SCH (12:18)
[2016-12-10] MEDS: SENNOSIDES/DOCUSATE SODIUM TAB PO SCH ×2 (12:18→20:00)
[2016-12-10] MEDS: LORazepam 2 MG/ML INJ IVP PRN (13:07)
--- NOTE | 2016-12-10 13:28 | SOAPPROG ---
SOAP Progress Note Assessment/Plan: Assessment:Plan: Anxiety/PTSD-patient anxious and tearful -he felt overwhelmed after discussion regarding procedure -it was similar to discussion prior to ERCP, which had consequences that were not anticipated -he feels better after voicing his concerns and wishes to proceed -he understands that the procedure can be delayed or rescheduled if he is not ready to go through this today 12/10/16 13:26 Objective: Vital Signs Temp Pulse Resp BP Pulse Ox 36.8 C 103 H 19 132/98 H 94 12/10/16 11:45 12/10/16 11:45 12/10/16 11:45 12/10/16 11:45 12/10/16 11:45 Laboratory Results 12/10/16 08:08 12/10/16 07:05 12/09/16 12/10/16 12/11/16 05:59 05:59 05:59 Intake Total 1100 2790 Output Total 1275 2790 Balance -175 0 ICD10 Worksheet Patient Problems: Problems Problem Status Diagnosed Abdominal pain Acute
[2016-12-10] MEDS ORDERED: LIDOCAINE 1% 30 ML SDV ONE (14:30)
[2016-12-10] MEDS ORDERED: SODIUM BICARBONATE 10 MEQ/10 ML SYR IVP ONE (14:30)
[2016-12-10] MEDS ORDERED: BUPIVACAINE 0.5% 30 ML SDV ONE (14:31)
[2016-12-10] MEDS ORDERED: HEPARIN 50,000 UNIT/10 ML VIAL ONE ×2 (14:38→16:05)
[2016-12-10] MEDS ORDERED: PROPOFOL/EMULSION 500 MG/50 ML BOTTLE IV ONE ×2 (14:53→15:25)
[2016-12-10] MEDS ORDERED: ONDANSETRON 4 MG/2 ML VIAL ONE (15:09)
--- NOTE | 2016-12-10 15:14 | HOSPPROG ---
Hospitalist Progress Note Assessment/Plan: * Post-ERCP pancreatitis with severe SIRS -pancrease -tolerating PO but limited - check MRCP in am r/o pseudocyst * Acute renal failure - continue acute dialysis -no longer oliguric - UOP increasing -IV lasix for volume overload -change dialysis catheter today - possible transition to outpatient dialysis soon * Retain CBD stone s/p ERCP * Morbid obesity BMI 41 * YOLANDA s/p UPPP, CPAP intolerant * Acute respiratory failure - due to volume overload and SIRS -still hypoxic - recheck CXR in am * Anemia - due to acute illness -follow * HTN - holding outpatient meds * Anxiety/panic/PTSD - these recent events have been difficult for him -ativan prn Subjective: tolerating PO, some SOB while talking, eating light diet Objective: Vital Signs Temp Pulse Resp BP Pulse Ox 36.8 C 103 H 19 132/98 H 94 12/10/16 11:45 12/10/16 11:45 12/10/16 11:45 12/10/16 11:45 12/10/16 11:45 Laboratory Results 12/10/16 08:08 12/10/16 07:05 12/09/16 12/10/16 12/11/16 05:59 05:59 05:59 Intake Total 1100 2790 Output Total 1275 2790 Balance -175 0 d/w Dr. Nuñez - they are able to do outpatient dialysis even though dialysis is considered acute and renal recovery expected. Patient having a panic attack about dialysis catheter change this afternoon since bad complications from last procedure (ERCP) - Physical Exam Constitutional: no apparent distress, appears nourished, not in pain Cardiovascular: regular rate and rhythym, no murmur, rub, or gallop Respiratory: no respiratory distress, no rales or rhonchi, clear to auscultation Gastrointestinal: normoactive bowel sounds, soft, non-tender abdomen, no palpable masses Skin: no rashes or abrasions, no fluctuance, no induration Neurologic: AAOx3, sensation intact bilaterally Psychiatric: interacting appropriately, not encephalopathic, thought process linear, anxious, depressed, No agitated ICD10 Worksheet Patient Problems: Problems Problem Status Diagnosed Abdominal pain Acute
--- NOTE | 2016-12-10 15:33 | SOAPPROG ---
АННА Progress Note Assessment/Plan: Assessment/Plan: 36 Y M remote meño, choledocholithiasis s/p ERCP, pancreatitis , ARF on HD. Patient seen and examined by myself and Dr. Robertson while in HD. Temporary R neck catheter intact and site dry without erythema. Plan for tunneled palindrome neck catheter today for outpatient HD plans per Dr. Nuñez. Risks and options discussed and pt requests to proceed. Preop ppx abx ordered and consent in chart. 12/10/16 15:30 Objective: Vital Signs Temp Pulse Resp BP Pulse Ox 36.8 C 103 H 19 132/98 H 94 12/10/16 11:45 12/10/16 11:45 12/10/16 11:45 12/10/16 11:45 12/10/16 11:45 Laboratory Results 12/10/16 08:08 12/10/16 07:05 12/09/16 12/10/16 12/11/16 05:59 05:59 05:59 Intake Total 1100 2790 Output Total 1275 2790 Balance -175 0 ICD10 Worksheet Patient Problems: Problems Problem Status Diagnosed Abdominal pain Acute
--- NOTE | 2016-12-10 15:37 | POSTOPPROG ---
Post Op Note Date of Operation: 12/10/16 Surgeon: Jeremias Robertson Anesthesiologist: Piter Bowser Anesthesia: GET(General Endotracheal) Pre-op Diagnosis: renal failure Post-op Diagnosis: same Indication: 36 Y M c renal failure c HD needs and eventual expected recovery. Procedure: R tunneled palindrome neck catheter Findings: good position and flow Inf/Abcess present in the surg proc area at time of surgery?: No EBL: Minimal Complications: none Specimen(s): none
[2016-12-10] MEDS ORDERED: fentaNYL 100 MCG/2 ML INJ ONE (16:06)
--- NOTE | 2016-12-10 16:32 | DX ---
Portable Chest 16:02 History: Evaluate newly placed tunneled dialysis catheter Comparison: December 02, 2016 Findings: A right double lumen external jugular venous catheter is in place with tip overlying the ri ght atrium. A right arm PICC line remains in place with tip adjacent to the tunneled catheter. There is no pneumothorax. Inspiratory phase remains poor with basilar platter atelectasis. Impression: 1. No pneumothorax. 2. Poor inspiration.
[2016-12-10 17:08] LABS: % SATURATION 27 % (20-55); TOTAL IRON BINDING CAPACITY 223 ug/dL (260-490)
--- NOTE | 2016-12-10 18:30 | GOP ---
[f rep st] OPERATIVE REPORT DATE OF OPERATION: 12/10/2016 SURGEON: Jeremias Robertosn MD SHIP SCALER: None. ANESTHESIA: MAC. ANESTHESIOLOGIST: Dr. Bowser PREOPERATIVE DIAGNOSIS: Renal failure. POSTOPERATIVE DIAGNOSIS: Renal failure. PROCEDURE PERFORMED: Tunneled dialysis catheter placement. FINDINGS: A 23 cm 12-Romanian Palindrome catheter placed successfully under fluoroscopic guidance. SPECIMENS: None. ESTIMATED BLOOD LOSS: 5 cc. DESCRIPTION OF PROCEDURE: Patient was greeted in the preoperative suite. Once again, risks, benefits, and alternatives were discussed. The consent was signed. He was then brought back to the OR, placed on the table in the supine position. After all anesthesia machines were on and functioning, [employer] timeout was performed. The patient was then gently sedated. His neck was then prepped and draped in a typical sterile fashion. His previous temporary dialysis catheter was prepped into the field. I identified a site laterally just beneath the clavicle and made an approximate 1 cm incision after numbing the area up with 1% lidocaine used throughout to provide a field block. I then tunneled my catheter from this lateral site to the site of the previous catheter placement, through which I placed a wire successfully into the internal jugular vein which had been previously accessed under ultrasound guidance. Once successfully in the vein and the catheter was tunneled, I then serially dilated and placed my sheath. The sheath was then peeled away, through which the catheter was successfully introduced into the internal jugular vein through the SVC to the atriocaval junction under fluoroscopic guidance. Once this was done, it was tunneled appropriately. The cuff was in appropriate position. It was flushed with sterile saline. It had good both withdraw and flushing under pressure. It was then appropriately heparin-locked. It was attached to the skin with a Prolene suture. My internal jugular stick site was closed with an interrupted 4-0 Monocryl, over which a Steri-Strip was placed. Sterile dressings were placed. The patient was then gently woken, transferred back to his gurney, and taken to the PACU in satisfactory condition. COMPLICATIONS: None. DRAINS: None. COUNTS: All counts were reported as correct x2. /[id number]/MODL MTDD
--- NOTE | 2016-12-10 18:55 | DX ---
Intraoperative Fluoroscopy of the Chest CLINICAL HISTORY: 36-year-old male with pancreatitis, presenting for surgical placement of a tunneled palindrome central venous catheter. FINDINGS: Dr. Jeremias Robertson used 3 seconds of fluoroscopy time (exposure dose of 0.48 mGy), and 3 s pot matrix intraoperative images were acquired identifying placement of a right IJ central venous cat heter, which appears to terminate over the right atrium, although the distal tip was seen to better a dvantage on dedicated chest radiography subsequently obtained. A right-sided PICC line is also presen t. IMPRESSION: Intraoperative fluoroscopy of the chest during central venous catheter placement.
[2016-12-11 05:42] LABS: ALANINE AMINOTRANSFERASE 46 IU/L (21-72); ALKALINE PHOSPHATASE 81 IU/L (38-126); ANION GAP 15 mEq/L (8-16); ASPARTATE AMINOTRANSFERASE 31 IU/L (17-59); BILIRUBIN,TOTAL 0.5 mg/dL (0.1-1.4); BILIRUBIN-CONJUGATED 0.4 mg/dL (0.0-0.5); BILIRUBIN-UNCONJUGATED 0.1 mg/dL (0.0-1.1); CALCIUM 8.9 mg/dL (8.5-10.4); CARBON DIOXIDE 26 mEq/l (22-31); CHLORIDE 94 mEq/L (97-110); GLOMERULAR FILTRATION RATE 7; GLUCOSE 92 mg/dL (70-100); POTASSIUM 4.3 mEq/L (3.5-5.2); SODIUM 135 mEq/L (134-144); TOTAL PROTEIN 6.7 g/dL (6.3-8.2)
[2016-12-11 05:51] LABS: CREATININE 8.3 mg/dL (0.7-1.3)
[2016-12-11] MEDS: oxyCODONE IR 5 MG TAB PO PRN ×3 (08:09→20:12)
[2016-12-11] MEDS: ONDANSETRON 4 MG/2 ML VIAL IVP PRN ×2 (08:09→20:06)
[2016-12-11] MEDS: PANCREAZE PO SCH ×3 (08:10→20:10)
[2016-12-11] MEDS: SENNOSIDES/DOCUSATE SODIUM TAB PO SCH ×2 (08:10→20:10)
[2016-12-11] MEDS: CALCIUM CARBONATE 500 MG CHEWABLE TAB PO SCH ×3 (08:10→20:09)
[2016-12-11] MEDS: FAMOTIDINE 20 MG TAB PO SCH (08:10)
[2016-12-11] MEDS: FUROSEMIDE 40 MG/4 ML VIAL IVP SCH (08:10)
--- NOTE | 2016-12-11 10:39 | DX ---
PA and lateral chest. December 11, 2016. Clinical History: Hypoxia Comparison Study: December 10, 2016. Findings: Bilateral lower lobe atelectasis is present, similar to prior examination. No pneumothorax or pleural effusion. Heart size is stable.. Right-sided central venous catheter and PICC catheter are unchanged.. Impression: Persistent bilateral lower lobe atelectasis..
--- NOTE | 2016-12-11 11:07 | SOAPPROG ---
SOAP Progress Note Assessment/Plan: Assessment: 1. WAYNE. Ischemic ATN due to pancreatitis. UOP excellent, still azotemic. Dialysis done yesterday, repeat tomorrow. Follow for recovery. Tunneled catheter placed. Working on placement at [facility] for outpatient dialysis until he recovers. 2. Severe post ERCP pancreatitis. Supportive care, on empiric abx. Abdominal MRI done to eval pseudocyst/etc this am. 3. Dyspnea. Improving. CXR with atelectasis. Wt down 50 lbs from peak. Change lasix to po. Plan: 11/15/16 09:28 12/04/16 17:27 12/04/16 17:29 12/11/16 11:06 12/11/16 11:07 Subjective: Had tunneled catheter placed last night utilizing anesthesia. No problems. Had mri this am. Overall making progress. Dyspnea mild. C/o irritation in testicles/scrotum Objective: Vital Signs Temp Pulse Resp BP Pulse Ox 36.9 C 89 15 134/96 H 94 12/11/16 08:00 12/11/16 08:00 12/11/16 08:00 12/11/16 08:00 12/11/16 08:00 Laboratory Results 12/10/16 08:08 12/11/16 05:00 12/10/16 12/11/16 12/12/16 05:59 05:59 05:59 Intake Total 2790 550 Output Total 2790 900 Balance 0 -350 Comfortable wm walking around room RRR, II/ systolic murmur CTAB ABdom soft, nontender No scrotal swelling/erythema/rash/sores Tr ankle pitting edema ICD10 Worksheet Patient Problems: Problems Problem Status Diagnosed Abdominal pain Acute
--- NOTE | 2016-12-11 14:34 | MR ---
MRI Abdomen Without Contrast, MR Cholangiopancreatography at 0931 hours Clinical Indications: Pancreatitis. Follow up. Evaluate for pseudocyst. Abdominal pain. Technique: Coronal and axial anatomic images were obtained without contrast with standard imaging se quences. Heavily T2-weighted images were obtained axially and coronally through the biliary ducts. T hree-dimensional and multiplanar reconstructions were manipulated by the radiologist and reviewed at the computer. Findings: Study is limited with motion artifact. There is marked edema around and within the pancrea s. Cystic necrotic region is suggested in the head of the pancreas. Fluid collection is seen superior to the tail of the pancreas between the tail of the pancreas and stomach indicating a pancreatic pse udocyst measuring 8 cm. Free fluid is seen extending superiorly in the perisplenic location and benea th the left hemidiaphragm. There is also a small amount of fluid in a perihepatic location. More pred ominant fluid is seen extending laterally from the region of the head of the pancreas to the right an d inferiorly through the paracolic gutter and then to the right anterior abdominal wall. A portion of this fluid with a lobulated appearance anterior to the right pancreas measures 7 cm. The lobulated f luid extending from the paracolic gutter to the right to the abdominal wall measures 7 cm with septat ions. With the motion artifact there is limited visualization of the biliary system on the MRCP images. The proximal to mid common bile duct is not well-visualized and could be secondary to the motion artifac t or be narrowed with spasm. No definite filling defect is visualized in the portions seen to indicat e choledochal stone. There is limited visualization of the pancreatic duct. IMPRESSION: Limited study secondary to motion artifact. There is evidence of an underlying severe pool creatitis. Pancreatic pseudocyst is seen between the tail and posterior stomach wall. Additionally th ere is pancreatic pseudocyst extending laterally to the right from the head of the pancreas toward th e paracolic gutter and toward the right abdominal wall. Pancreatic pseudocyst or necrosis of the panc reatic head and uncinate process.
--- NOTE | 2016-12-11 19:50 | HOSPPROG ---
Hospitalist Progress Note Assessment/Plan: * Post-ERCP pancreatitis with severe SIRS -MRCP now with pancreatic necrosis and pseudocyst development -d/w Dr. Andersen - GI to re-consult in am -pancrease * Acute renal failure - continue acute dialysis -no longer oliguric - UOP increasing -lasix for volume overload -possible transition to outpatient dialysis soon * Retain CBD stone s/p ERCP * Morbid obesity BMI 41 * YOLANDA s/p UPPP, CPAP intolerant * Acute respiratory failure - due to volume overload and SIRS * Anemia - due to acute illness -follow * HTN - holding outpatient meds Subjective: Feeling okay. Limited PO Objective: Vital Signs Temp Pulse Resp BP Pulse Ox 36.8 C 92 16 137/92 H 96 12/11/16 16:00 12/11/16 16:00 12/11/16 16:00 12/11/16 16:00 12/11/16 16:00 Laboratory Results 12/10/16 08:08 12/11/16 05:00 12/10/16 12/11/16 12/12/16 05:59 05:59 05:59 Intake Total 2790 550 940 Output Total 2790 900 475 Balance 0 -350 465 MRCP: pancreatic necrosis and pseudocyst MRCP result d/w Dr. nAdersen - Physical Exam Constitutional: no apparent distress, appears nourished, not in pain Cardiovascular: regular rate and rhythym, no murmur, rub, or gallop Respiratory: no respiratory distress, no rales or rhonchi, clear to auscultation Gastrointestinal: normoactive bowel sounds, soft, non-tender abdomen, no palpable masses Skin: no rashes or abrasions, no fluctuance, no induration Neurologic: AAOx3, sensation intact bilaterally Psychiatric: interacting appropriately, not anxious, not encephalopathic, thought process linear ICD10 Worksheet Patient Problems: Problems Problem Status Diagnosed Abdominal pain Acute
[2016-12-12] MEDS: oxyCODONE IR 5 MG TAB PO PRN ×5 (00:08→20:01)
[2016-12-12] MEDS: ONDANSETRON 4 MG/2 ML VIAL IVP PRN ×3 (05:55→20:11)
[2016-12-12] MEDS: HEPARIN 5,000 UNIT/0.5 ML SYR SC SCH ×3 (05:59→21:12)
[2016-12-12 06:02] LABS: % IMMATURE GRANULYOCYTES 1.1 % (0.0-1.1); ABSOLUTE IMMATURE GRANULOCYTES 0.17 10^3/uL (0.00-0.10); ADD DIFF? NO; ADD MORPH? NO; ADD SCAN? NO; ATYPICAL LYMPHOCYTE FLAG 0 (0-99); FRAGMENT RBC FLAG 0 (0-99); HEMATOCRIT 22.9 % (40.0-51.0); HEMOGLOBIN 7.7 g/dL (13.7-17.5); LEFT SHIFT FLG 10 (0-99); LIPEMIA HEMOLYSIS FLAG 80 (0-99); MEAN CELL HEMOGLOBIN 32.6 pg (27.9-34.1); MEAN CELL HEMOGLOBIN CONCENTR. 33.6 g/dL (32.4-36.7); MEAN PLATELET VOLUME 8.4 fL (8.7-11.7); PLATELET CLUMPS FLAG 0 (0-99); PLATELET COUNT 466 10^3/uL (150-400); RED BLOOD CELL COUNT 2.36 10^6/uL (4.40-6.38); RED CELL DISTRIBUTION WIDTH 12.2 % (11.5-15.2)
[2016-12-12 06:12] LABS: ALBUMIN 3.3 g/dL (3.5-5.0); ANION GAP 18 mEq/L (8-16); CALCIUM 9.2 mg/dL (8.5-10.4); CARBON DIOXIDE 25 mEq/l (22-31); CHLORIDE 91 mEq/L (97-110); GLOMERULAR FILTRATION RATE 6; GLUCOSE 95 mg/dL (70-100); POTASSIUM 4.2 mEq/L (3.5-5.2); SODIUM 134 mEq/L (134-144)
[2016-12-12 06:19] LABS: CREATININE 9.9 mg/dL (0.7-1.3)
[2016-12-12] MEDS: PANCREAZE PO SCH ×3 (08:19→20:01)
[2016-12-12] MEDS: FAMOTIDINE 20 MG TAB PO SCH (08:20)
[2016-12-12] MEDS: CALCIUM CARBONATE 500 MG CHEWABLE TAB PO SCH ×3 (08:20→20:01)
[2016-12-12] MEDS: SENNOSIDES/DOCUSATE SODIUM TAB PO SCH ×2 (08:21→21:13)
[2016-12-12] MEDS: FUROSEMIDE 40 MG TAB PO SCH (08:32)
--- NOTE | 2016-12-12 10:02 | SOAPPROG ---
SOAP Progress Note Assessment/Plan: Assessment: 1. WAYNE. Ischemic ATN due to pancreatitis. UOP excellent, still azotemic. Dialysis done Friday, repeat today, again tomorrow to get on outpatient MWF schedule. Follow for recovery. Tunneled catheter placed. Accepted at [facility] for outpatient dialysis MWF starting Friday until he recovers. Need to confirm time. 2. Severe post ERCP pancreatitis. Supportive care, on empiric abx. Has pseudocysts, necrosis on MRI. GI to eval need for DHT, etc. 3. Dyspnea. Improving. CXR with atelectasis. Wt down 50 lbs from peak. Changed lasix to po. 4. Dispo. D/c once has plan for nutrition/mgmt of pancreatitis complications. Plan: 11/15/16 09:28 12/04/16 17:27 12/04/16 17:29 12/11/16 11:06 12/11/16 11:07 12/12/16 10:00 Subjective: Had MRI yesterday. Showed pseudocysts and necrosis of pancreatic head. Had had n/v on and off with food. Pain 05/03, 12/03 with pain. Objective: Vital Signs Temp Pulse Resp BP Pulse Ox 36.7 C 100 16 144/107 H 95 12/12/16 07:05 12/12/16 07:05 12/12/16 07:05 12/12/16 07:05 12/12/16 07:05 Laboratory Results 12/12/16 05:50 12/12/16 05:50 12/11/16 12/12/16 12/13/16 05:59 05:59 05:59 Intake Total 550 1380 Output Total 900 1455 Balance -350 -75 Comfortable, in chair, NC O2 RRR, no m/g/r CTAB Abdom soft, nt Tr pitting edema ICD10 Worksheet Patient Problems: Problems Problem Status Diagnosed Abdominal pain Acute
--- NOTE | 2016-12-12 10:07 | SOAPPROG ---
SOAP Progress Note Assessment/Plan: Assessment: 1. Pancreatitis - post-ERCP - complicated by renal failure - gradual improvement but still with pain and need for oral pain meds - tolerating regular diet po, but in limited quantities - MRCP on 12/11 showed necrosis and cysts Plan: 1. Pseudocysts - cysts are not mature enough to allow cystgastrostomy and drainage - cysts may or may not be contributing to ongoing pain - luckily patient tolerating po intake and able to manage pain with po pain meds - anticipate continued gradual improvement - will plan serial MRCP to eval cyst, and if they do not resolve and patient has persistent abdominal symptoms, will consider drainage - timeframe for cyst maturity is 8-12 weeks, typically - I will arrange outpt f/u - if fever or obvious overall worsening, will reconsider po intake, cyst management, etc.. - for now, cautiously optimistic 2. Pancreatitis - severe, complicated - gradual improvement - tolerating po without increase in pain - continue po pain meds - ok to continue diet advancement 3. Dispo - consider dc home when: - if pain under control - if tolerating some po - if able to do ADLs - if Renal/HD f/u and GI/MRCP and PMD/Pain f/u organized - if nutrition counselling regards renal and pancreatic diet complete - will follow call with questions 12/12/16 10:08 Subjective: CC: mild abdominal pain S: tolerating po in limited quantities no fever ongoing pain, but managed with po meds no sob no cp wishing to go home Objective: Vital Signs Temp Pulse Resp BP Pulse Ox 36.7 C 100 16 144/107 H 95 12/12/16 07:05 12/12/16 07:05 12/12/16 07:05 12/12/16 07:05 12/12/16 07:05 Laboratory Results 12/12/16 05:50 12/12/16 05:50 12/11/16 12/12/16 12/13/16 05:59 05:59 05:59 Intake Total 550 1380 Output Total 900 1455 Balance -350 -75 Physical Exam - Physical Exam EENT: PERRL/EOMI Neck: non-tender Respiratory: lungs clear Cardiac/Chest: regular rate, rhythm Abdomen: normal bowel sounds, soft, No guarding, No rebound Skin: normal color Extremities: normal range of motion Neuro/Psych: no motor/sensory deficits ICD10 Worksheet Patient Problems: Problems Problem Status Diagnosed Abdominal pain Acute
--- NOTE | 2016-12-12 18:38 | HOSPPROG ---
Hospitalist Progress Note Assessment/Plan: * Post-ERCP pancreatitis with severe SIRS * Pancreatic necrosis and pseudocysts -per GI okay to continue PO diet -artificial nutrition only if patient develops increase pain with PO -follow serial MRCP with close outpatient follow-up -no pseudocyst drainage until matured 8-12 weeks -remain inpatient until SIRS criteria improved (leukocytosis, tachy, hypoxia) -continue pancrease * Acute renal failure - continue acute dialysis -no longer oliguric - UOP increasing -lasix for volume overload -transition to outpatient dialysis when med stable * Retain CBD stone s/p ERCP * Morbid obesity BMI 41 * YOLANDA s/p UPPP, CPAP intolerant * Acute respiratory failure - due to volume overload and SIRS * Anemia - due to acute illness -follow * HTN - holding outpatient meds Subjective: no new compaints Objective: Vital Signs Temp Pulse Resp BP Pulse Ox 36.9 C 105 H 19 161/119 H 94 12/12/16 16:00 12/12/16 16:00 12/12/16 16:00 12/12/16 16:00 12/12/16 16:00 Laboratory Results 12/12/16 05:50 12/12/16 05:50 12/11/16 12/12/16 12/13/16 05:59 05:59 05:59 Intake Total 550 1380 Output Total 900 9955 625 Balance -657 -08 -908 - Physical Exam Constitutional: no apparent distress, appears nourished, not in pain Cardiovascular: regular rate and rhythym, no murmur, rub, or gallop Respiratory: no respiratory distress, no rales or rhonchi, clear to auscultation Gastrointestinal: normoactive bowel sounds, soft, non-tender abdomen, no palpable masses Skin: no rashes or abrasions, no fluctuance, no induration Neurologic: AAOx3, sensation intact bilaterally Psychiatric: interacting appropriately, not anxious, not encephalopathic, thought process linear ICD10 Worksheet Patient Problems: Problems Problem Status Diagnosed Abdominal pain Acute
[2016-12-13] MEDS: oxyCODONE IR 5 MG TAB PO PRN ×5 (00:05→18:42)
[2016-12-13] MEDS: HEPARIN 5,000 UNIT/0.5 ML SYR SC SCH ×3 (04:59→21:06)
[2016-12-13 05:11] LABS: ABSOLUTE IMMATURE GRANULOCYTES 0.12 10^3/uL (0.00-0.10); ADD DIFF? NO; ADD MORPH? YES; ADD SCAN? NO; ATYPICAL LYMPHOCYTE FLAG 0 (0-99); FRAGMENT RBC FLAG 0 (0-99); HEMATOCRIT 20.5 % (40.0-51.0); LEFT SHIFT FLG 0 (0-99); LIPEMIA HEMOLYSIS FLAG 80 (0-99); MEAN CELL HEMOGLOBIN 32.5 pg (27.9-34.1); MEAN CELL HEMOGLOBIN CONCENTR. 33.2 g/dL (32.4-36.7); MEAN CELL VOLUME 98.1 fL (81.5-99.8); MEAN PLATELET VOLUME 8.5 fL (8.7-11.7); PLATELET CLUMPS FLAG 0 (0-99); PLATELET COUNT 393 10^3/uL (150-400); RED BLOOD CELL COUNT 2.09 10^6/uL (4.40-6.38); RED CELL DISTRIBUTION WIDTH 12.2 % (11.5-15.2)
[2016-12-13 05:18] LABS: HEMOGLOBIN 6.8 g/dL (13.7-17.5)
[2016-12-13 05:29] LABS: ALBUMIN 2.9 g/dL (3.5-5.0); ANION GAP 13 mEq/L (8-16); CALCIUM 8.8 mg/dL (8.5-10.4); CARBON DIOXIDE 28 mEq/l (22-31); CHLORIDE 94 mEq/L (97-110); CREATININE 7.1 mg/dL (0.7-1.3); GLOMERULAR FILTRATION RATE 9; GLUCOSE 87 mg/dL (70-100); POTASSIUM 4.1 mEq/L (3.5-5.2); SODIUM 135 mEq/L (134-144)
[2016-12-13 05:44] LABS: PLATELET ESTIMATE ADEQUATE (ADEQ)
[2016-12-13 05:45] LABS: HYPOCHROMIA 1+; POLYCHROMASIA 1+
[2016-12-13] MEDS: CALCIUM CARBONATE 500 MG CHEWABLE TAB PO SCH ×3 (09:05→18:42)
[2016-12-13] MEDS: PANCREAZE PO SCH ×3 (09:05→18:42)
[2016-12-13] MEDS: FUROSEMIDE 40 MG TAB PO SCH (09:07)
[2016-12-13] MEDS: SENNOSIDES/DOCUSATE SODIUM TAB PO SCH ×2 (09:07→21:12)
[2016-12-13] MEDS: FAMOTIDINE 20 MG TAB PO SCH (09:07)
--- NOTE | 2016-12-13 10:20 | SOAPPROG ---
SOAP Progress Note Assessment/Plan: Assessment: 1. Pancreatitis - post-ERCP - complicated by renal failure - gradual improvement but still with pain and need for oral pain meds - tolerating regular diet po, but in limited quantities - MRCP on 12/11 showed necrosis and cysts Plan: 1. Pseudocysts - cysts are not mature enough to allow cystgastrostomy and drainage - cysts may or may not be contributing to ongoing pain - luckily patient tolerating po intake and able to manage pain with po pain meds - anticipate continued gradual improvement - will plan serial MRCP to eval cyst, and if they do not resolve and patient has persistent abdominal symptoms, will consider drainage - timeframe for cyst maturity is 8-12 weeks, typically - I will arrange outpt f/u 2. Pancreatitis - severe, complicated - tolerating po without increase in pain - ok to continue diet advancement - can dc home when able to tolerate adequate po, perform ADLs, and has adequate pain control - pt with multiple questions as to diet. Recommend LOW/ZERO fat diet, no alcohol, and no tobacco 3. Dispo - consider dc home when: - if pain under control - if tolerating some po - if able to do ADLs - if Renal/HD f/u and GI/MRCP and PMD/Pain f/u organized - if nutrition counselling regards renal and pancreatic diet complete - will follow call with questions - 25min spent in coordination of care - Dr. Li to assume rounding 12/13 at 5p 12/13/16 10:17 Subjective: CC: feeling better mood today S: no fever eating small amounts of regular diet improving pain no nausea no vomiting Objective: Vital Signs Temp Pulse Resp BP Pulse Ox 37.2 C 102 H 14 148/100 H 94 12/13/16 07:10 12/13/16 07:10 12/13/16 07:10 12/13/16 07:10 12/13/16 07:10 Laboratory Results 12/13/16 04:33 12/13/16 04:33 12/12/16 12/13/16 12/14/16 05:59 05:59 05:59 Intake Total 1380 900 300 Output Total 1455 1675 Balance -75 -775 300 Physical Exam - Physical Exam EENT: PERRL/EOMI Respiratory: chest non-tender Cardiac/Chest: regular rate, rhythm Abdomen: normal bowel sounds, non-tender, soft, No guarding, No rebound Skin: normal color Extremities: normal range of motion Neuro/Psych: no motor/sensory deficits ICD10 Worksheet Patient Problems: Problems Problem Status Diagnosed Abdominal pain Acute
[2016-12-13] MEDS: ONDANSETRON 4 MG/2 ML VIAL IVP PRN (13:21)
--- NOTE | 2016-12-13 14:34 | WOCRNPDOC ---
WOCRN Advanced Assessment Note - Skin Integrity Problem, Advanced Assess Left Ear Dressing Type: Open to Air Exudate Amount: None Exudate Characteristic(s): None Integumentary Issue Intervention: Dressing Applied (Duoderm thin) Hollie Wound Tissue: Blanching, Intact Hollie Wound Swelling: None Wound Bed Color: Red Wound Bed Constitution: Smooth Tissue Site Odor: None Site Measurement - Head-to-Toe Length X Width X Depth (cm): 0.5cmx0.4cmx0.1cm Pressure Injury Stage: Stage 2, Grain Thresher Related Pressure Injury (Oxygen tubing) Pressure Injury Present on Admit: No Skin Integrity Problem Comment: Small area of partial-thickness tissue loss noted to the top of patient's L ear, consistent in appearance with stage II pressure injury. This injury is the result of pressure from oxygen tubing. car detailer Nerissa notified wound care of this injury, and placed protective foam covers over O2 tubing. I applied a Duoderm thin dressing to protect site.
--- NOTE | 2016-12-13 15:40 | SOAPPROG ---
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, ng out, eating better up and around energy and spirits continue to improve Plan: HD today continue therapies explained to him that I believe his WAYNE will recover, but may take some time all questions answered to his satisfaction hopefully home early next week outpatient HD arranged 11/27/16 14:01 11/28/16 13:27 11/29/16 11:33 12/05/16 15:52 12/13/16 15:36 Subjective: feeling better denies cp sob nausea or vomiting torres more foods now spirits good dialysis going well today Objective: Vital Signs Temp Pulse Resp BP Pulse Ox 36.8 C 107 H 18 136/96 H 94 12/13/16 11:21 12/13/16 11:21 12/13/16 11:21 12/13/16 11:21 12/13/16 11:21 Laboratory Results 12/13/16 04:33 12/13/16 04:33 12/12/16 12/13/16 12/14/16 05:59 05:59 05:59 Intake Total 1380 900 300 Output Total 1455 1675 Balance -75 -775 300 Physical Exam - Physical Exam General Appearance: WD/WN, alert Respiratory: No rhonchi, No wheezing Cardiac/Chest: regular rate, rhythm, edema, No gallop, No friction rub Abdomen: normal bowel sounds, non-tender, soft Extremities: pedal edema Neuro/Psych: alert, normal mood/affect, oriented x 3 ICD10 Worksheet Patient Problems: Problems Problem Status Diagnosed Abdominal pain Acute
--- NOTE | 2016-12-13 17:27 | HOSPPROG ---
Hospitalist Progress Note Assessment/Plan: * Post-ERCP pancreatitis with severe SIRS * Pancreatic necrosis and pseudocysts -per GI okay to continue PO diet -artificial nutrition only if patient develops increase pain with PO -follow serial MRCP with close outpatient follow-up -no pseudocyst drainage until matured 8-12 weeks -remain inpatient until SIRS criteria improved (leukocytosis, tachy, hypoxia) -continue pancrease * Acute renal failure - continue acute dialysis -no longer oliguric - UOP increasing -anticipate full renal recovery but will take time -lasix for volume overload -transition to outpatient dialysis when med stable * Retain CBD stone s/p ERCP * Morbid obesity BMI 41 * YOLANDA s/p UPPP, CPAP intolerant * Acute respiratory failure - due to volume overload and SIRS * Anemia - due to acute illness -transfuse 1 unit today * HTN - holding outpatient meds Subjective: No new complaints. Objective: Vital Signs Temp Pulse Resp BP Pulse Ox 36.8 C 107 H 18 136/96 H 94 12/13/16 11:21 12/13/16 11:21 12/13/16 11:21 12/13/16 11:21 12/13/16 11:21 Laboratory Results 12/13/16 04:33 12/13/16 04:33 12/12/16 12/13/16 12/14/16 05:59 05:59 05:59 Intake Total 1380 900 300 Output Total 1455 1675 Balance -75 -775 300 - Physical Exam Constitutional: no apparent distress, appears nourished, not in pain Cardiovascular: regular rate and rhythym, no murmur, rub, or gallop Respiratory: no respiratory distress, no rales or rhonchi, clear to auscultation Gastrointestinal: normoactive bowel sounds, soft, non-tender abdomen, no palpable masses Skin: no rashes or abrasions, no fluctuance, no induration Neurologic: AAOx3, sensation intact bilaterally Psychiatric: interacting appropriately, not anxious, not encephalopathic, thought process linear ICD10 Worksheet Patient Problems: Problems Problem Status Diagnosed Abdominal pain Acute
[2016-12-13] MEDS ORDERED: HEPARIN 50,000 UNIT/10 ML VIAL ONE (19:19)
[2016-12-14] MEDS: oxyCODONE IR 5 MG TAB PO PRN ×3 (05:12→19:53)
[2016-12-14] MEDS: HEPARIN 5,000 UNIT/0.5 ML SYR SC SCH ×3 (05:12→21:06)
[2016-12-14 06:02] LABS: ALBUMIN 2.9 g/dL (3.5-5.0); ANION GAP 12 mEq/L (8-16); CALCIUM 8.9 mg/dL (8.5-10.4); CARBON DIOXIDE 30 mEq/l (22-31); CHLORIDE 94 mEq/L (97-110); CREATININE 6.2 mg/dL (0.7-1.3); GLOMERULAR FILTRATION RATE 10; GLUCOSE 92 mg/dL (70-100); POTASSIUM 4.1 mEq/L (3.5-5.2); SODIUM 136 mEq/L (134-144)
[2016-12-14] MEDS: SENNOSIDES/DOCUSATE SODIUM TAB PO SCH ×2 (07:42→21:06)
[2016-12-14] MEDS: CALCIUM CARBONATE 500 MG CHEWABLE TAB PO SCH ×3 (07:42→18:31)
[2016-12-14] MEDS: FUROSEMIDE 40 MG TAB PO SCH (07:43)
[2016-12-14] MEDS: FAMOTIDINE 20 MG TAB PO SCH (07:43)
[2016-12-14] MEDS: PANCREAZE PO SCH ×3 (07:58→18:31)
--- NOTE | 2016-12-14 09:05 | HOSPPROG ---
Hospitalist Progress Note Assessment/Plan: #Post-ERCP pancreatitis with pseudocysts -tolerating regular diet #Acute blood loss anemia -1 unit RBC 12/13 #Sepsis: -resolved #Acute renal failure -cont HD -outpatient HD arrange #Acute abdominal pain -PRN oxycodone #Constipation -add Miralax #Sinus tachycardia -resolved -multifactorial with pain, volume overload and deconditioning, infection -considered PE, but oxygen needs improved since admission. TTE with no e/o heart strain and neg LE U/S. #Acute hypoxemic resp failure -Improved today -multifactorial with habitus, fluids, atelectasis -incentive spirometry. Did not tolerate CPAP #Hypocalcemia: -resolved #Benign HTN: holding outpatient meds #Deconditioning: walking the unit #Diet: renal #DVT ppx: SQH #Disp: warrants inpt admission for ongoing HD Subjective: feeling better. No N/V Objective: Vital Signs Temp Pulse Resp BP Pulse Ox 36.8 C 83 16 117/86 H 97 12/14/16 07:32 12/14/16 07:32 12/14/16 07:32 12/14/16 07:32 12/14/16 07:32 Laboratory Results 12/13/16 04:33 12/14/16 05:15 12/13/16 12/14/16 12/15/16 05:59 05:59 05:59 Intake Total 900 850 300 Output Total 1675 1000 250 Balance -775 -150 50 - Physical Exam Constitutional: no apparent distress Eyes: PERRL Ears, Nose, Mouth, Throat: moist mucous membranes Cardiovascular: regular rate and rhythym, no murmur, rub, or gallop Respiratory: no respiratory distress Gastrointestinal: normoactive bowel sounds, soft, non-tender abdomen Genitourinary: no bladder fullness Skin: warm Musculoskeletal: full muscle strength Neurologic: AAOx3 ICD10 Worksheet Patient Problems: Problems Problem Status Diagnosed Abdominal pain Acute
[2016-12-14 10:48] LABS: HEMATOCRIT 24.9 % (40.0-51.0); HEMOGLOBIN 8.2 g/dL (13.7-17.5); MEAN CELL HEMOGLOBIN 31.4 pg (27.9-34.1); MEAN CELL HEMOGLOBIN CONCENTR. 32.9 g/dL (32.4-36.7); MEAN CELL VOLUME 95.4 fL (81.5-99.8); RED BLOOD CELL COUNT 2.61 10^6/uL (4.40-6.38); RED CELL DISTRIBUTION WIDTH 12.8 % (11.5-15.2)
[2016-12-14] MEDS ORDERED: MAGNESIUM HYDROXIDE 30 ML UDCUP PO PRN (11:34)
[2016-12-14] MEDS ORDERED: POLYETHYLENE GLYCOL 3350 17 GM PKT PO PRN (11:34)
--- NOTE | 2016-12-14 12:03 | SOAPPROG ---
SOAP Progress Note Assessment/Plan: Assessment: Pancreatitis severe post ERCP slowly improving tolerating PO Pseudocysts Renal failure Anemia likely multifactorial no e/o GI blood loss and no abd bruising to suggest hemorrhagic pancreatitis WHATLEY but good O2 sat at rest Plan: PO as tolerated Follow up pancreatic pseudocyst with MRCP as outpatient but consider sooner if pt does not continue to improve D/C from GI standpoint when tolerating PO and pain controlled 12/14/16 12:00 Subjective: CC pancreatitis Pt tolerating PO solids, c/o O2 sat on exertion Objective: Vital Signs Temp Pulse Resp BP Pulse Ox 36.8 C 83 16 117/86 H 97 12/14/16 07:32 12/14/16 07:32 12/14/16 07:32 12/14/16 07:32 12/14/16 07:32 Laboratory Results 12/14/16 10:30 12/14/16 05:15 12/13/16 12/14/16 12/15/16 05:59 05:59 05:59 Intake Total 900 850 660 Output Total 1675 1000 250 Balance -775 -150 410 Physical Exam - Physical Exam General Appearance: WD/WN, alert Respiratory: lungs clear, normal breath sounds Cardiac/Chest: regular rate, rhythm, No diastolic murmur Abdomen: non-tender, soft ICD10 Worksheet Patient Problems: Problems Problem Status Diagnosed Abdominal pain Acute
[2016-12-14] MEDS: POLYETHYLENE GLYCOL 3350 17 GM PKT PO PRN (12:28)
[2016-12-14] MEDS: ONDANSETRON DISINTEGRATING 4 MG TAB PO PRN (18:30)
--- NOTE | 2016-12-14 21:29 | SOAPPROG ---
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, ng out, eating better up and around energy and spirits continue to improve Plan: HD friday continue therapies explained to him that I believe his WAYNE will recover, but may take some time all questions answered to his satisfaction hopefully home early next week outpatient HD arranged 11/27/16 14:01 11/28/16 13:27 11/29/16 11:33 12/05/16 15:52 12/13/16 15:36 12/14/16 21:27 Subjective: getting up and around denies pain nausea or vomiting motivated to go home and get better no cp nausea vomiting pain continues to improve Objective: Vital Signs Temp Pulse Resp BP Pulse Ox 36.8 C 103 H 16 135/97 H 95 12/14/16 19:48 12/14/16 19:48 12/14/16 19:48 12/14/16 19:48 12/14/16 19:48 Laboratory Results 12/14/16 10:30 12/14/16 05:15 12/13/16 12/14/16 12/15/16 05:59 05:59 05:59 Intake Total 729 980 9020 Output Total 1675 1000 650 Balance -775 -150 510 Physical Exam - Physical Exam General Appearance: alert, no apparent distress Respiratory: No rhonchi, No wheezing Cardiac/Chest: regular rate, rhythm, edema, No gallop, No friction rub Abdomen: normal bowel sounds, No distended, No guarding Extremities: pedal edema Neuro/Psych: alert, normal mood/affect, oriented x 3 ICD10 Worksheet Patient Problems: Problems Problem Status Diagnosed Abdominal pain Acute
[2016-12-15] MEDS: oxyCODONE IR 5 MG TAB PO PRN ×4 (02:49→18:02)
[2016-12-15] MEDS: HEPARIN 5,000 UNIT/0.5 ML SYR SC SCH ×3 (06:32→20:37)
[2016-12-15 06:40] LABS: HEMATOCRIT 21.3 % (40.0-51.0); HEMOGLOBIN 7.2 g/dL (13.7-17.5); MEAN CELL HEMOGLOBIN 32.6 pg (27.9-34.1); MEAN CELL HEMOGLOBIN CONCENTR. 33.8 g/dL (32.4-36.7); MEAN CELL VOLUME 96.4 fL (81.5-99.8); RED BLOOD CELL COUNT 2.21 10^6/uL (4.40-6.38); RED CELL DISTRIBUTION WIDTH 12.6 % (11.5-15.2)
[2016-12-15 07:19] LABS: ALBUMIN 3.1 g/dL (3.5-5.0); ANION GAP 12 mEq/L (8-16); CALCIUM 9.2 mg/dL (8.5-10.4); CARBON DIOXIDE 28 mEq/l (22-31); CHLORIDE 94 mEq/L (97-110); GLOMERULAR FILTRATION RATE 7; GLUCOSE 92 mg/dL (70-100); POTASSIUM 4.2 mEq/L (3.5-5.2); SODIUM 134 mEq/L (134-144)
[2016-12-15 07:23] LABS: CREATININE 8.6 mg/dL (0.7-1.3)
[2016-12-15] MEDS: CALCIUM CARBONATE 500 MG CHEWABLE TAB PO SCH ×3 (07:54→17:08)
[2016-12-15] MEDS: FUROSEMIDE 40 MG TAB PO SCH (07:55)
[2016-12-15] MEDS: FAMOTIDINE 20 MG TAB PO SCH (07:55)
[2016-12-15] MEDS: SENNOSIDES/DOCUSATE SODIUM TAB PO SCH ×2 (07:55→20:36)
[2016-12-15] MEDS: PANCREAZE PO SCH (07:55)
--- NOTE | 2016-12-15 11:48 | HOSPPROG ---
Hospitalist Progress Note Assessment/Plan: #Post-ERCP pancreatitis with pseudocysts -tolerating regular diet -changed to Creon 12 today, bc ran out of Pancreaze #Acute blood loss anemia -1 unit RBC 12/13 -Hb down to 7.3. No overt bleeding. Repeat in morning #Sepsis: -resolved #Acute renal failure -cont HD -outpatient HD arrange #Acute abdominal pain -PRN oxycodone #Constipation -add Miralax #Sinus tachycardia -resolved -multifactorial with pain, volume overload and deconditioning, infection -considered PE, but oxygen needs improved since admission. TTE with no e/o heart strain and neg LE U/S. #Acute hypoxemic resp failure -Improved today -multifactorial with habitus, fluids, atelectasis -incentive spirometry. Did not tolerate CPAP #Hypocalcemia: -resolved #Benign HTN: holding outpatient meds #Deconditioning: walking the unit #Diet: renal #DVT ppx: SQH #Disp: warrants inpt admission for ongoing HD Subjective: small amount of emesis last night Objective: Vital Signs Temp Pulse Resp BP Pulse Ox 36.4 C 91 20 134/99 H 97 12/15/16 11:37 12/15/16 11:37 12/15/16 11:37 12/15/16 11:37 12/15/16 11:37 Laboratory Results 12/15/16 06:30 12/15/16 06:30 12/14/16 12/15/16 12/16/16 05:59 05:59 05:59 Intake Total 850 1560 300 Output Total 1000 1150 450 Balance -150 410 -150 - Physical Exam Constitutional: obese Eyes: PERRL Ears, Nose, Mouth, Throat: moist mucous membranes, hearing normal Cardiovascular: regular rate and rhythym, no murmur, rub, or gallop Respiratory: no respiratory distress, no rales or rhonchi Gastrointestinal: normoactive bowel sounds, soft, non-tender abdomen Skin: warm Musculoskeletal: full muscle strength Neurologic: AAOx3, CN II-XII Intact Psychiatric: interacting appropriately ICD10 Worksheet Patient Problems: Problems Problem Status Diagnosed Abdominal pain Acute
[2016-12-15] MEDS: CREON 12 CAP PO SCH ×2 (13:43→17:08)
--- NOTE | 2016-12-15 14:06 | SOAPPROG ---
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, ng out, eating better up and around energy and spirits continue to improve Plan: HD friday continue therapies explained to him that I believe his WAYNE will recover, but may take some time all questions answered to his satisfaction hopefully home early next week outpatient HD arranged 11/27/16 14:01 11/28/16 13:27 11/29/16 11:33 12/05/16 15:52 12/13/16 15:36 12/14/16 21:27 12/15/16 14:04 Subjective: up to chair watching TV no cp sob nausea or vomiting spirits good Objective: Vital Signs Temp Pulse Resp BP Pulse Ox 36.4 C 91 20 134/99 H 97 12/15/16 11:37 12/15/16 11:37 12/15/16 11:37 12/15/16 11:37 12/15/16 11:37 Laboratory Results 12/15/16 06:30 12/15/16 06:30 12/14/16 12/15/16 12/16/16 05:59 05:59 05:59 Intake Total 850 1560 300 Output Total 1000 1150 450 Balance -150 410 -150 Physical Exam - Physical Exam General Appearance: alert Respiratory: No rhonchi, No wheezing Abdomen: normal bowel sounds, non-tender, soft Extremities: swelling Neuro/Psych: alert, normal mood/affect, oriented x 3 ICD10 Worksheet Patient Problems: Problems Problem Status Diagnosed Abdominal pain Acute
[2016-12-16 04:01] VITALS: TEMP 98.5
[2016-12-16] MEDS: oxyCODONE IR 5 MG TAB PO PRN ×4 (04:09→17:24)
[2016-12-16 04:28] LABS: HEMATOCRIT 22.6 % (40.0-51.0); HEMOGLOBIN 7.5 g/dL (13.7-17.5); MEAN CELL HEMOGLOBIN 31.6 pg (27.9-34.1); MEAN CELL HEMOGLOBIN CONCENTR. 33.2 g/dL (32.4-36.7); MEAN CELL VOLUME 95.4 fL (81.5-99.8); RED BLOOD CELL COUNT 2.37 10^6/uL (4.40-6.38); RED CELL DISTRIBUTION WIDTH 12.6 % (11.5-15.2)
[2016-12-16 04:45] LABS: ALBUMIN 3.3 g/dL (3.5-5.0); ANION GAP 14 mEq/L (8-16); CALCIUM 9.2 mg/dL (8.5-10.4); CARBON DIOXIDE 26 mEq/l (22-31); CHLORIDE 93 mEq/L (97-110); GLOMERULAR FILTRATION RATE 6; GLUCOSE 94 mg/dL (70-100); SODIUM 133 mEq/L (134-144)
[2016-12-16 04:49] LABS: CREATININE 10.3 mg/dL (0.7-1.3)
[2016-12-16] MEDS: HEPARIN 5,000 UNIT/0.5 ML SYR SC SCH ×2 (06:38→16:15)
[2016-12-16 08:38] VITALS: BP 132/94; PULSE 86; RESP 18
--- NOTE | 2016-12-16 08:42 | HOSPPROG ---
[id number] 12 today, ran out of Pancreaze #Acute blood loss anemia -1 unit RBC 12/13 -Hb down to 7.3. No overt bleeding. Repeat in morning #Sepsis: -resolved #Acute renal failure -cont HD -outpatient HD arrange #Acute abdominal pain -PRN oxycodone #Constipation -add Miralax #Sinus tachycardia -resolved -multifactorial with pain, volume overload and deconditioning, infection -considered PE, but oxygen needs improved since admission. TTE with no e/o heart strain and neg LE U/S. #Acute hypoxemic resp failure -Improved today -multifactorial with habitus, fluids, atelectasis -incentive spirometry. Did not tolerate CPAP #Hypocalcemia: -resolved #Benign HTN: holding outpatient meds #Deconditioning: walking the unit #Diet: renal #DVT ppx: SQH #Disp:DC today. See DC summary Objective: Vital Signs Temp Pulse Resp BP Pulse Ox 36.9 C 86 18 132/94 H 98 12/16/16 08:00 12/16/16 08:00 12/16/16 08:00 12/16/16 08:00 12/16/16 08:00 Laboratory Results 12/16/16 04:10 12/16/16 04:10 12/15/16 12/16/16 12/17/16 05:59 05:59 05:59 Intake Total 1560 550 Output Total 1150 550 Balance 410 0 - Physical Exam Constitutional: no apparent distress, obese Eyes: PERRL Ears, Nose, Mouth, Throat: moist mucous membranes Cardiovascular: regular rate and rhythym Respiratory: no respiratory distress, reduced air movement Gastrointestinal: normoactive bowel sounds, tenderness (mild epigastric TTP) Genitourinary: no bladder fullness Skin: warm ICD10 Worksheet Patient Problems: Problems Problem Status Diagnosed Abdominal pain Acute
[2016-12-16] MEDS: CALCIUM CARBONATE 500 MG CHEWABLE TAB PO SCH ×3 (09:03→16:15)
[2016-12-16] MEDS: FUROSEMIDE 40 MG TAB PO SCH (09:03)
[2016-12-16] MEDS: CREON 12 CAP PO SCH ×3 (09:04→16:16)
[2016-12-16] MEDS: SENNOSIDES/DOCUSATE SODIUM TAB PO SCH (09:04)
[2016-12-16] MEDS: FAMOTIDINE 20 MG TAB PO SCH (09:04)
[2016-12-16] MEDS: ONDANSETRON DISINTEGRATING 4 MG TAB PO PRN ×2 (10:08→16:20)
--- NOTE | 2016-12-16 11:08 | SOAPPROG ---
SOAP Progress Note Assessment/Plan: Assessment: Pancreatitis severe post ERCP slowly improving tolerating PO Pseudocysts Renal failure Anemia stable since transfusion, likely multifactorial no e/o GI blood loss and no abd bruising to suggest hemorrhagic pancreatitis WHATLEY but good O2 sat at rest Plan: PO as tolerated Follow up pancreatic pseudocyst with MRCP as outpatient but consider sooner if pt does not continue to improve No new rec 12/16/16 11:07 Subjective: CC pancreatitis tolerating po Objective: Vital Signs Temp Pulse Resp BP Pulse Ox 36.9 C 86 18 132/94 H 98 12/16/16 08:00 12/16/16 08:00 12/16/16 08:00 12/16/16 08:00 12/16/16 08:00 Laboratory Results 12/16/16 04:10 12/16/16 04:10 12/15/16 12/16/16 12/17/16 05:59 05:59 05:59 Intake Total 1560 550 Output Total 1150 550 Balance 410 0 Physical Exam - Physical Exam General Appearance: alert Respiratory: lungs clear, No wheezing Cardiac/Chest: regular rate, rhythm, No diastolic murmur Abdomen: non-tender, soft ICD10 Worksheet Patient Problems: Problems Problem Status Diagnosed Abdominal pain Acute
--- NOTE | 2016-12-16 15:38 | SOAPPROG ---
SOAP Progress Note Assessment/Plan: Assessment: 1. arf from atn: non-oliguric but remains hd-dependent. B/l creat 1.0 on admit so would anticipate eventual renal recovery. Outpt hd arranged at [facility] on MWF, he should be there at 10:45am Wed. 2. pancreatitis: necrotic but stable and tolerating po. To f/u with GI. 3. anemia: stable, can follow at hd. 4. dispo: home anytime from renal standpoint. Plan: 12/16/16 15:34 Subjective: s/p hd earlier today, no issues. Pain controlled, taking po. Planning on d/c home later today. Objective: Vital Signs Temp Pulse Resp BP Pulse Ox 36.9 C 86 18 132/94 H 98 12/16/16 08:00 12/16/16 08:00 12/16/16 08:00 12/16/16 08:00 12/16/16 08:00 Laboratory Results 12/16/16 04:10 12/16/16 04:10 12/15/16 12/16/16 12/17/16 05:59 05:59 05:59 Intake Total 1560 550 Output Total 1150 550 Balance 410 0 Physical Exam - Physical Exam General Appearance: no apparent distress Respiratory: decreased breath sounds Cardiac/Chest: regular rate, rhythm Extremities: pedal edema (trace) ICD10 Worksheet Patient Problems: Problems Problem Status Diagnosed Abdominal pain Acute
[2016-12-16 15:50] VITALS: O2SAT 84
--- NOTE | 2016-12-16 16:42 | PDIAF ---
- Diagnosis Code Status: Full Code - Medication Management Discharge Medications: Medications to Continue on Transfer Calcium Carbonate [Tums 500MG (*)] 1,000 mg PO TIDMEAL #120 tab.chew 12/16/16 [ Last Taken Unknown] Epoetin Nikko [Procrit 37055 UNIT/ML (*)] 10,000 unit SC Q7D #0 vial 12/16/16 [ Last Taken Unknown] Famotidine [Pepcid 20 MG (*)] 20 mg PO DAILY #30 tab 12/16/16 [Last Taken Unknown] Furosemide [Lasix 40 MG (*)] 40 mg PO DAILY #30 tab 12/16/16 [Last Taken Unknown ] Lipase/Protease/Amylase [Creon 12 (*)] 2 cap PO TIDMEAL #180 cap 12/16/16 [Last Taken Unknown] Ondansetron Odt [Zofran Odt 4 mg (*)] 4 mg PO Q4HRS PRN #45 tab 12/16/16 [Last Taken Unknown] Polyethylene Glycol 3350 [Miralax 17 gm (*)] 17 gm PO DAILY PRN #30 pkt [Last Taken Unknown] oxyCODONE IR [Oxycodone Ir (*)] 5 - 10 mg PO Q4 PRN #45 tab 12/16/16 [Last Taken Unknown] Discharge Medications: Refer to the Discharge Home Medication list for PRN reason. - Orders Services needed: Home Care, Registered Nurse Home Care Face to Face: I certify that this patient was under my care and that I had the required [id number] encounter meeting the encounter requirements on the discharge day. My findings support the fact that the patient is homebound as defined in CMS Chapter 7 Medicare Benefits Manual 30.1.1, The condition of the patient is such that there exists a normal inability to leave home and consequently, leaving home would require a considerable and taxing effort. Diet Texture: Regular Texture Diet - Follow Up Care Current Providers and Referrals: Harmeet Hennessy MD [Primary Care Provider] - As per Instructions
[2016-12-16] MEDS ORDERED: HEPARIN 50,000 UNIT/10 ML VIAL ONE (19:50)
--- NOTE | 2016-12-17 07:52 | GDS ---
[f rep st] DISCHARGE SUMMARY DISCHARGE DIAGNOSES: 1. Oliguric acute renal failure secondary to acute tubular necrosis. 2. ERCP pancreatitis with pseudocyst. 3. Normocytic anemia. 4. Acute hypoxemic respiratory failure. 5. Deconditioning. 6. Sepsis. 7. Acute abdominal pain. 8. Constipation. 9. Sinus tachycardia. 10. Hypocalcemia. 11. Stage II pressure ulcer, left ear. 12. Morbid obesity. 13. Obstructive sleep apnea, CPAP intolerant. 14. Benign hypertension. CONSULTATIONS: 1. Nephrology. 2. Gastroenterology. 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 4. Wound care. 5. General surgery. PROCEDURES: 1. Right tunneled dialysis catheter 12/10/2016. 2. Right IJ placement 11/14. 3. PICC line insertion. 4. MRI abdomen 12/11/2016: Evidence of underlying severe pancreatitis. Pancreatic pseudocyst is seen between the tail and posterior stomach wall. There is a pancreatic pseudocyst extending laterally to the right from the head of the pancreas toward the pericolic gutter and toward the right abdominal wall. Pancreatic pseudocyst or necrosis of the pancreatic head and uncinate process. HISTORY OF PRESENT ILLNESS: Patient is a 35-year-old male with history of hypertension, morbid obesity, YOLANDA, who presented 11/11/2016 with epigastric pain. It was initially mild and went away after a snack and he thought it was indigestion. Then suddenly he had acute onset of severe pain; it felt like hot fire with radiation to his back. It was similar to his previous gallstone pain prior to his cholecystectomy. Patient underwent cholecystectomy approximately 3 years ago. Imaging demonstrated a retained common bile duct stone. On 2015 patient underwent ERCP with stone extraction and sphincterotomy. Patient then developed significant abdominal pain and CT demonstrated pancreatitis and fatty infiltration of the liver. HOSPITAL COURSE BY PROBLEM: 1. ERCP related pancreatitis: admitted with abdominal pain due retained common bile duct stone. Underwent ERCP and then developed increased pain & CT showed pancreatitis. Patient was treated supportively and GI followed closely during hospitalization. MRI December 11 showed multiple pseudocysts not amenable to drainage at this time. Recommend followup MRCP in 6-8 weeks. At time of discharge: tolerating p.o. and havinfg BMs. Creon, PRN zofran and short course Oxycodone. 2. Oliguric renal failure. after ERCP and stone extraction on November 12 and his creatinine bumped to 2.1 (BL 1.0). Lkely due to hypotension, ATN. Required Levophed temporarily. Dosed 5 L fluids and Cr zena to 6.8. Nephrology initiated hemodialysis. General Surgery placed a tunneled catheter and he is now making some urine. Cont outpatient HD, Lasix and calcium carbonate. 3. Acute hypoxemic respiratory failure: multifactorial, given obesity, YOLANDA untreated, deconditioning, and atelectasis. Had considered pulmonary embolism; however, echocardiogram showed no evidence of right heart strain and EKG was normal. Could not do CT scan with acute renal failure and V/Q scan would be indeterminate, given body habitus. Patient was requiring up to 10 L of oxygen. At time of discharge, he was using 1.5 to 3 L. He should follow up with his PCP for re-evaluation. Continue ambulation and incentive spirometry. 4. Tachycardia: Early during admission, patient was having tachycardia up to 180, especially with exertion. EKG revealed sinus tachycardia. Suspect this was multifactorial, given pain and deconditioning. Echocardiogram was negative for heart failure or right heart strain. Heart rate is now in the 80s. 5. Hypocalcemia secondary to pancreatitis. 6. Normocytic anemia/acute blood loss anemia. Suspect due to acute illness, as well as iatrogenic with blood draws and dialysis. Patient received intermittent blood transfusions with improved energy. His H and H at discharge were 7.5 and 22. Patient should follow up this week for repeat CBC. Continue Epo per Renal. 7. Leukocytosis. as high as 34 during initial part of hospitalization. No source identified. Had pyuria with negative culture. Completed 7-day course antibiotics. Leukocytosis has since resolved. 8. Acute abdominal pain: Again, this is secondary to pancreatitis. Continue to try to wean off opioids at discharge. He was using 5-10 mg of oxycodone and I prescribed 5 mg, as well as a bowel regimen. 9. YOLANDA: This likely contributed to his tachycardia and hypoxemia. He has trialed CPAP in the past and has not tolerated. Recommend he tries again. 10. Benign hypertension: Held his home medications with acute illness. Would recommend followup outpatient blood pressure for consideration of re-addition of medications. 11. Hyperkalemia: Again, this was early on in hospitalization with acute renal failure. This resolved with HD. 12. Deconditioning: Patient remained fairly immobile during most of his hospitalization. He was initially resistant to PT; however, at time of discharge, he was ambulating in the unit with a walker. Home nursing was arranged at discharge. DISPOSITION: Patient is stable for discharge. MEDICATIONS: See medication reconciliation. FOLLOWUP: 1. Nephrology for scheduled outpatient HD on Friday, Friday, Friday. 2. Gastroenterology, to follow up pancreatic pseudocyst with MRCP. 3. PCP, Dr. Hennessy. 4. Repeat CBC this week to evaluate if transfusion warranted. 5. Follow up oxygen needs for possible discharge with home oxygen. TIME SPENT ON DISCHARGE: 75 minutes, in which greater than 50% was spent counseling the patient on followup and coordinating care with consultants, Social Work. /[id number]/MODL [id number]
== END 2016-12-16 19:45 | disposition home health service (06) | DRG 444 ==
LOC: INTOOBSV 17:19 → F3E 18:10 → OBSVTOIN 11-12 16:07 → F2N 11-13 10:54 → F1N 11-18 14:50 → F2W 11-19 16:54
PROVIDERS: ADMIT Internal Medicine; ATTEND Internal Medicine
PROC: 0FC98ZZ Extirpation of Matter from Common Bile Duct, Via Natural or Artificial Opening Endoscopic (ICD-10-PCS; principal; 2016-11-12 11:00)
PROC: 0F9C8ZZ Drainage of Ampulla of Vater, Via Natural or Artificial Opening Endoscopic (ICD-10-PCS; principal; 2016-11-12 11:00)
PROC: 02HV33Z Insertion of Infusion Device into Superior Vena Cava, Percutaneous Approach (ICD-10-PCS; 2016-11-13)
PROC: 3E043XZ Introduction of Vasopressor into Central Vein, Percutaneous Approach (ICD-10-PCS; 2016-11-13)
PROC: 02H633Z Insertion of Infusion Device into Right Atrium, Percutaneous Approach (ICD-10-PCS; 2016-11-14)
PROC: 5A1D60Z (ICD-10-PCS; 2016-11-14)
PROC: 3E0G76Z Introduction of Nutritional Substance into Upper GI, Via Natural or Artificial Opening (ICD-10-PCS; 2016-11-23)
PROC: 02HV03Z Insertion of Infusion Device into Superior Vena Cava, Open Approach (ICD-10-PCS; 2016-12-10)
PROC: 05PYX3Z Removal of Infusion Device from Upper Vein, External Approach (ICD-10-PCS; 2016-12-10)
PROC: 30233N1 Transfusion of Nonautologous Red Blood Cells into Peripheral Vein, Percutaneous Approach (ICD-10-PCS; 2016-12-10)
DX: K80.51 Calculus of bile duct without cholangitis or cholecystitis with obstruction (principal); K91.89 Other postprocedural complications and disorders of digestive system; K85.91 Acute pancreatitis with uninfected necrosis, unspecified; K86.3 Pseudocyst of pancreas; R65.11 Systemic inflammatory response syndrome (SIRS) of non-infectious origin with acute organ dysfunction; R57.1 Hypovolemic shock; E86.1 Hypovolemia; N17.0 Acute kidney failure with tubular necrosis; E87.5 Hyperkalemia; E87.2 Acidosis; E83.51 Hypocalcemia; J96.01 Acute respiratory failure with hypoxia; L89.812 Pressure ulcer of head, stage 2; D62 Acute posthemorrhagic anemia; D63.8 Anemia in other chronic diseases classified elsewhere; R53.1 Weakness; E66.01 Morbid (severe) obesity due to excess calories; Z68.41 Body mass index [BMI] 40.0-44.9, adult; G47.33 Obstructive sleep apnea (adult) (pediatric); I10 Essential (primary) hypertension
CPT/HCPCS: 86704-90; 86705-90; 96374; 97001-GP; 97003-GO; 97116-GP; 97530-GO; 97530-GP; 97535-GO; C1750; C1751; C1769; G0378; J0360; J0610; J0690; J0692; J0696; J0885; J1100; J1170; J1644; J2001; J2185; J2250; J2405; J2543; J2550; J2704; J2997; J3010; J3370; J3475; J3490; P9016; P9047

== ENCOUNTER → 2017-03-04 | Outpatient (CLI) | payer OTHER | LOC: FIMAGING 13:37 | PROVIDERS: ATTEND Internal Medicine | DX: J98.11 Atelectasis (principal); K86.3 Pseudocyst of pancreas; I70.8 Atherosclerosis of other arteries ==